=== PATIENT | male | born 1960 | race Caucasian/White ===

== ENCOUNTER → 2018-04-15 10:58 | Outpatient (REF) | payer MEDICAID, SELFPAY | LOC: CVS 10:58 | DX: R42 Dizziness and giddiness (principal); I95.9 Hypotension, unspecified | CPT/HCPCS: 93270 ==

== ENCOUNTER → 2018-06-28 07:19 | Outpatient (CLI) | payer MEDICAID, SELFPAY ==
--- NOTE | 2018-06-28 07:24 | ECHOD_ITS ---
Reason For Study: Arrhythmia Procedure This was a 2D Doppler, Color Flow transthoracic echocardiogram. Exam performed in department. Left Ventricle Normal LV size. Left ventricular systolic function is normal. The estimated ejection fraction is 55 %. Segmental dysfunction with preserved ejection fraction (see wall motion). Transmitral diastolic flow velocities suggest mild (stage 1) diastolic dysfunction (reversed pattern). Posterior-Basal: Mildly hypokinetic. Infero-Basal: Mildly hypokinetic. Right Ventricle Normal RV size. Normal systolic function. Atria Normal left atrium. Normal right atrium. Mitral Valve Normal mitral valve. Tricuspid Valve Normal tricuspid valve. Unable to estimate RV systolic pressure due to inadequate jet, pulmonary artery pressure probably normal. Aortic Valve Normal aortic valve. Pulmonic Valve Normal pulmonic valve. Great Vessels Normal aortic root. The pulmonary artery is normal size. Normal inferior vena cava. Pericardium/Pleural No pericardial effusion. MMode/2D Measurements & Calculations LVIDd: 5.0 cm IVSd: 1.2 cm Ao root diam: 3.7 cm LVIDs: 3.7 cm LVPWd: 0.96 cm LA dimension: 4.2 cm FS: 26.2 % LAV(MOD-bp): 62.5 ml LA A4 area: 19.7 cm2 RA A4 area: 14.4 cm2 LAV(MOD-bp) Indexed: 30.4 ml/m2 LAV(MOD-sp2): 62.7 ml LAV(MOD-sp4): 56.0 ml Time Measurements MV dec time: 0.20 sec Doppler Measurements & Calculations MV E max shivam: 52.8 cm/sec Lat Peak E' Shivam: 7.6 cm/sec Med Peak E' Shivam: 9.6 cm/sec MV A max shivam: 74.4 cm/sec E/E' lat: 7.0 E/E' med: 5.5 MV E/A: 0.71 MV V2 max: 73.3 cm/sec MV P1/2t max shivam: 67.4 cm/sec Ao V2 max: 116.5 cm/sec MV max P.2 mmHg MV P1/2t: 91.8 msec Ao max P.4 mmHg MV V2 mean: 46.1 cm/sec MV dec slope: 215.0 cm/sec2 Ao V2 mean: 77.4 cm/sec MV mean P.96 mmHg MVA(P1/2t): 2.4 cm2 Ao mean P.7 mmHg MV V2 VTI: 23.0 cm Ao V2 VTI: 21.5 cm LV V1 max: 82.0 cm/sec PA V2 max: 85.7 cm/sec LV V1 max P.7 mmHg LV V1 mean P.3 mmHg LV V1 mean: 52.9 cm/sec LV V1 VTI: 14.2 cm Interpretation Summary Normal LV size. Left ventricular systolic function is normal. The estimated ejection fraction is 55 %. Segmental dysfunction with preserved ejection fraction (see wall motion). Transmitral diastolic flow velocities suggest mild (stage 1) diastolic dysfunction (reversed pattern). Ordering Physician: Nitin Choi Referring Physician: Nitin Choi Performed By: Brodwolf, Minh, RCS
--- NOTE | 2018-06-28 10:45 | STRESSREP ---
Stress Test Report Exercise myocardial perfusion stress test. 57-year-old man with a history of chest pain. Medications Xanax atorvastatin. Stress protocol: Resting EKG demonstrates normal sinus rhythm with rate of 73 bpm normal intervals and noted resting blood pressure is 114/88 mmHg. The patient exercised according to the regular Gino protocol for total duration of 3 minutes and 17 seconds attaining a maximum heart rate of 153 bpm which was 94% of maximum predicted heart rate and a workload of 4.6 metabolic equivalents. The patient maintained sinus rhythm throughout the recording. There were no ST or T-wave changes noted suggest ischemia no clinical angina was noted the test was terminated due to significant shortness of breath. The resting blood pressure is 114/88 with a peak blood pressure 132/86 mmHg. Myocardial perfusion protocol. 11.9 mCi of technetium 99m sestamibi was injected at rest. The patient exercised according to regular Gino protocol for 3 minutes and at peak exercise 34.2 mCi of technetium 99m sestamibi was injected stress images were obtained stress and rest images were reconstructed and compared in the short axis vertical long and horizontal long axis. Gated images were also obtained pre- Perfusion SPECT analysis: Review of the stress images demonstrate possible previous inferior infarct versus GI attenuation artifact present. No obvious reversibility is noted to suggest ischemia but the workload attained was also noted to be low. Gated SPECT analysis: The gated ejection fraction is 50%. Conclusion: Exercise myocardial perfusion stress test at a low workload with no obvious ischemia noted. Previous inferior infarct cannot be completely excluded.
== END ==
PROVIDERS: Visit Provider Internal Medicine Cardiovascular Disease
DX: I47.2 Ventricular tachycardia (principal)
CPT/HCPCS: 78452; 93017; 93306; A9500; A4216

== ENCOUNTER 2018-07-31 15:27 | Observation (INO) | payer MEDICAID, SELFPAY ==
[2018-07-31 15:32] VITALS: BP 103/59; PULSE 87; PULSE 93; RESP 14; RESP 18; TEMP 36.4; O2SAT 99; BMI 24.7
[2018-07-31] MEDS: 0.9% Normal Saline 1,000 ML 1000 ML IV (16:23)
[2018-07-31 16:27] LABS: Absolute Neutrophil Count 4.4 X10^3/uL (2.0-7.7); Basophil# 0.06 X10^3/uL; Basophil% 0.6 % (0-1); Eosinophil# 0.25 X10^3/uL; Eosinophils% 2.6 % (0-5); Hematocrit 34.6 % (40-54); Hemoglobin 11.7 g/dl (13.0-16.5); Lymphocyte % 43.5 % (19-41); Mean Corp Hgb Conc 33.8 g/gl (32-36); Mean Corpuscular Hgb 32.8 pg (27.0-32.0); Mean Corpuscular Volume 96.9 fL (80-94); Mean Platelet Vol. 9.1 fl (6.2-12.0); Monocyte# 0.64 X10^3/uL; Monocyte% 6.6 % (0-10); Neutrophil # 4.43 X10^3/uL (2.7-7.7); Platelet Count 251 K/mm3 (150-450); RBC Distribution Width CV 12.8 % (11.6-14.6); RBC Distribution Width SD 43.7 fl (35.1-43.9); Red Blood Count 3.57 M/mm3 (4.6-6.2); White Blood Count 9.7 K/mm3 (4.4-11.0)
[2018-07-31 16:32] LABS: Anion Gap 11 (5-15); BUN 15 mg/dL (7-18); Calcium,Total 7.5 mg/dL (8.5-10.1); Chloride 114 mmol/L (98-107); Creatinine, Serum 1.36 mg/dL (0.70-1.30); EST Glomerular Filtration Rate 57 mL/min (>60); Est Glom Filt Rate - Afr Amer 69 mL/min (>60); Estimated Creatinine Clearance 64.98 ml/min; Glucose 100 mg/dL (74-106); Potassium 3.3 mmol/L (3.5-5.1); Sodium Level 145 mmol/L (136-145)
[2018-07-31 16:35] LABS: POSITIVE COUNT NO; POSITIVE DIFFERENTIAL NO; POSITIVE MORPHOLOGY NO
--- NOTE | 2018-07-31 16:58 | ED.VISSUMM ---
- ER Visit Summary Date of Service: 07/31/18 Chief Complaint: Syncope History of Present Illness: The patient is a 57 M who goes to the [facility] and is also seen Dr. Choi. He reports that he was watching a football game and drinking went to the walk-in to the bathroom and the next thing he knew his friend was waking him up on the floor. His friend reports that he did not respond for approximately 5 minutes. He did not have any seizure activity. He was incontinent of bowel and bladder. Patient complains of headache is 8 out of 10 severity. He reports he has had one onset of diarrhea today. No blood in stools or black tarry stools. He denies any shoulder, wrist, hip, neck, or back pain. He denies any chest pain or shortness of breath. Physical Examination: Vitals: 97.6, 103/59, 93, 18, 99% on room air which is not hypoxic. General: Well-nourished and well-developed. Head: Normocephalic hematoma to the left side of his forehead. Neck: Supple, no lymphadenopathy. No JVD. Nontender. Cardiovascular: Regular rate and rhythm. No murmurs. Respiratory: No respiratory distress. Clear to auscultation bilaterally. Abdominal: Soft, nontender, nondistended, normal bowel sounds. No guarding, rebound, or peritoneal signs. Back: Nontender. Extremities: Nontender, no edema. Skin: Normal color, no rash. Neurologic: Alert and oriented ?3. Cranial nerves II through XII are intact. Normal strength and sensation. Psych: Normal affect. Test Results: EKG is sinus at [address] changes. His QTc is 497. His last EKG in 2016 had a QTC of 477. Troponin is negative. Chem-7 marked potassium 3.3, chloride 114, CO2 20, calcium 7.5, creatinine 1.36. CBC is more for an H&H 11.7 34.6, 7 neutrophils 46, and lymphocytes of 44. CT brain shows chronic changes minimal left maxillary sinus mucosal thickening. CT C-spine shows degenerative changes. Emergency Department Course and Treatment: Patient received a liter of normal saline emergency department is systolic blood pressure is now in the 90s. He was given a second liter of normal saline. Treatment Plan: Patient was discussed with Dr. Oleghe. He will be admitted to the hospital for further evaluation and treatment. Disposition: Admitted in improved condition. Impression: 1. Syncope. 2. Hypertension. 3. Alcohol intoxication. 4. Renal insufficiency. 5. QT prolongation. This note was generated with [employer] dictation software. It may contain incorrect words, spelling, and punctuation that were not noted in review of the chart prior to signing ED Disposition - Plan for ED Patient: Chief Complaint: Syncope Referrals: Myranda Ta,Madhuri Milton [Primary Care Provider] -
--- NOTE | 2018-07-31 18:37 | PCM.HP.STD ---
Problem List (1) Syncope and collapse Status: Acute History of Present Illness Date of Admission: 07/31/18 Chief Complaint: transient loss of consciousness The patient is a 57 year old M presented to the ED following a syncopal episode. Patient had had quite a bit of alcohol to drink - states more than he is used to. Got up to walk to the bathroom and then passed out. The next thing he remembers is his friend standing over him waking him up. Friend states he was unresponsive for about 5 mins. Apparently had hit the left side of his forehead from the fall and complains of pain at the site. Patient denied having any chest pain or SOB, nausea or vomiting. In the ED here SBP was soft with systolic in the 90s and alcohol blood level was elevated at 240mg/dl. Currently states that he feels fine[] Past Medical History Past Medical History (Chronic Problems): Chronic Problems (Last Reviewed 06/16/18 @ 09:59 by Nitin Choi MD) Hyperlipidemia (Chronic) Hypertension (Chronic) Nicotine dependence (Chronic) Medical History: Medical History (Last Reviewed 06/16/18 @ 09:59 by Nitin Choi MD) Hyperlipidemia (Chronic) E78.5 Hypertension (Chronic) I10 Nicotine dependence (Chronic) F17.200 Non-sustained ventricular tachycardia (Acute) I47.2 Anxiety and depression F41.9, F32.9 Gynecomastia N62 Hepatomegaly R16.0 Allergies No Known Allergies Allergy (Verified 07/31/18 15:30) Home Medications: Ambulatory Orders Medication Instructions Recorded ALPRAZolam [Xanax] 0.5 mg PO DAILY PRN PRN 10/31/16 atorvastatin 40 mg tablet 40 mg PO QDAY 06/16/18 citalopram 10 mg tablet 40 mg PO DAILY tab 06/16/18 multivitamin tablet 1 tab PO QAM 06/16/18 topiramate XR 25 mg 25 mg PO QDAY 06/16/18 capsule,extended release 24 hr Surgical History: Surgical History (Last Reviewed 06/16/18 @ 09:59 by Nitin Choi MD) H/O shoulder surgery Z98.890 History of ankle surgery Z98.890 History of vascular surgery Z98.890 LLE saphenous vein laser ablation Lives: Spouse/ Significant Other Smoking Status: Current every day smoker Alcohol: Occasional Review of Systems Constitutional: Denies: Anorexia, Chills, Fever, Malaise, Weakness Eyes: Denies: Blurred vision Cardiovascular: Denies: Chest Pain, Claudication, Chest Pressure, Chest Tightness, Edema, Heaviness, Light Headedness, Orthopnea Respiratory: Denies: Cough, Hemoptysis, Pleuritic Pain, Shortness of Breath Gastrointestinal: Denies: Abdominal Pain, Vomiting Psychiatric: Reports: Anxiety VTE Information - Inpt Only VTE Present on Admission: Yes VTE Mechan Device Prophylaxis: None VTE Pharm Prophylaxis ordered?: Yes Patient Problems: Active and Suspected Problems (Last Reviewed 06/16/18 @ 09:59 by Nitin Choi MD) Syncope and collapse (Acute) - Physical Exam General: Alert, Oriented x3, Cooperative, No apparent distress HEENT: - - swelling, abrasion and bruising of the oleft side of forehead, tender as well Oral: Moist Mucosa Neck: Supple Lungs: Clear to auscultation, Normal air movement, No rhonchi, No wheeze, No rales Cardiovascular: Regular rate, Regular Rhythm, Normal S1, Normal S2, No murmurs, - - pulse rate 88/min Abdomen: Bowel Sounds Present, Soft, Non Tender, Non-Distended, No Hepato-splenomegaly Extremities: No clubbing, No cyanosis, No edema, Capillary Refill Less than 3 Seconds Skin: No rashes Musculoskeletal: No Muscle Wasting Neurological: Cranial nerves II-XII grossly intact, Deep Tendon Reflexes 2+/4 and Symmetrical, Neuro grossly intact, Motor Exam 5/5 strength throughout Psych/Mental Status: Normal Affect, Appropriate Vital Signs Temp Pulse Resp BP Pulse Ox 97.6 F L 93 18 103/59 L 99 07/31/18 15:32 07/31/18 15:32 07/31/18 15:32 07/31/18 15:32 07/31/18 15:32 Assessment/Plan All Active Problems (Last Reviewed 06/16/18 @ 09:59 by Nitin Choi MD) Syncope and collapse (Acute) Dizziness and giddiness (Acute) Non-sustained ventricular tachycardia (Acute) 1. Syncope. may have been multifactorial - vasovagal, alcohol intoxication, orthostatic hypotension. Place patient on observation, telemonitor. Check orthostatics. Rehydrate with IV fluids. If stable tomorrow then discharge. Patient has already had extensive work up for structural heart disease and for arrhythmogenesis recently. Will not repeat. 2. Alcohol abuse. ? Binge type. Will need to curriculum counselor on moderation with alcohol use 3. generalized anxiety disorder with occasional panic attacks. Continue with anxiolysis 4. DVT prophylaxis with Lovenox Code Visit OBSV E&M: 35048 Initial observation care L3
[2018-07-31] MEDS: 0.9% Normal Saline 1,000 ML 999 ML IV (18:59)
[2018-07-31 19:00] VITALS: BP 117/85; PULSE 103; PULSE 99; RESP 16; TEMP 36.8; O2SAT 100; BMI 24.5; BMI 24.7
--- NOTE | 2018-07-31 19:35 | NURSING ---
Called ER Charge nurse at 3601 to send patient.
[2018-07-31] MEDS: Ketorolac 30 MG/ML Syringe IV (19:45)
[2018-07-31 22:35] VITALS: BP 127/94; PULSE 83; RESP 16; TEMP 36.8; O2SAT 98
[2018-07-31] MEDS: Acetaminophen 325 MG Tablet 650 MG PO (22:49)
[2018-07-31] MEDS: Topiramate 25 MG Tablet PO (22:49)
[2018-07-31] MEDS: ALPRAZolam 0.5 MG Tablet PO (22:49)
[2018-07-31 23:00] VITALS: PULSE 84
[2018-08-01] VITALS (7 sets, daily range): BP systolic 130–145; BP diastolic 71–98; PULSE 77–94; RESP 16–18; TEMP 36.5–37.2; O2SAT 96–98
[2018-08-01] MEDS: HYDROcodone Bitartrate/Apap 5/325 Tablet PO ×2 (00:26→06:26)
[2018-08-01 06:12] LABS: Absolute Neutrophil Count 3.8 X10^3/uL (2.0-7.7); Basophil# 0.04 X10^3/uL; Basophil% 0.6 % (0-1); Eosinophil# 0.19 X10^3/uL; Eosinophils% 2.6 % (0-5); Hematocrit 31.4 % (40-54); Hemoglobin 10.4 g/dl (13.0-16.5); Lymphocyte % 35.9 % (19-41); Mean Corp Hgb Conc 33.1 g/gl (32-36); Mean Corpuscular Hgb 32.2 pg (27.0-32.0); Mean Corpuscular Volume 97.2 fL (80-94); Mean Platelet Vol. 9.7 fl (6.2-12.0); Monocyte# 0.57 X10^3/uL; Monocyte% 7.9 % (0-10); Neutrophil # 3.81 X10^3/uL (2.7-7.7); Neutrophil % 52.6 % (47-70); Platelet Count 190 K/mm3 (150-450); RBC Distribution Width CV 12.7 % (11.6-14.6); Red Blood Count 3.23 M/mm3 (4.6-6.2); White Blood Count 7.2 K/mm3 (4.4-11.0)
[2018-08-01 06:23] LABS: POSITIVE COUNT NO; POSITIVE DIFFERENTIAL NO; POSITIVE MORPHOLOGY NO
[2018-08-01 06:35] LABS: AST(SGOT) 27 U/L (15-37); Alanine Aminotransfer ALT/SGPT 23 U/L (16-61); Albumin, Serum 2.8 g/dL (3.2-5.0); Alkaline Phosphatase 79 U/L (45-117); Anion Gap 10 (5-15); BUN 16 mg/dL (7-18); Calcium,Total 7.3 mg/dL (8.5-10.1); Chloride 112 mmol/L (98-107); Creatinine, Serum 0.94 mg/dL (0.70-1.30); EST Glomerular Filtration Rate 87 mL/min (>60); Est Glom Filt Rate - Afr Amer 105 mL/min (>60); Estimated Creatinine Clearance 94.02 ml/min; Globulin 2.7 g/dL (2.2-4.2); Glucose 77 mg/dL (74-106); Protein, Total 5.5 g/dL (6.4-8.2); Sodium Level 142 mmol/L (136-145)
[2018-08-01] MEDS: Multivitamins,Therapeutic Tablet 1 TABLET PO (08:30)
[2018-08-01] MEDS: Enoxaparin 40 MG/0.4 ML Syringe SC (09:50)
[2018-08-01] MEDS: Citalopram 40 MG TABLET PO (09:50)
--- NOTE | 2018-08-01 10:49 | PCM.DC ---
- Discharge Diagnoses Current Active Problems: Current Active and Chronic Problems (Last Reviewed 06/16/18 @ 09:59 by Nitin Choi MD) Syncope and collapse (Acute) You will use the following diet at home:: No restrictions, Regular Discharge Activity: Return to Normal Activity, No Restrictions Allergies/Adverse Reactions: Allergies No Known Allergies Allergy (Verified 07/31/18 15:30) Medications to take at Discharge ALPRAZolam [Xanax] 0.5 mg PO DAILY PRN PRN 10/31/16 atorvastatin 40 mg tablet 40 mg PO QDAY 06/16/18 citalopram 10 mg tablet 40 mg PO DAILY tab 06/16/18 multivitamin tablet 1 tab PO QAM 06/16/18 topiramate XR 25 mg capsule,extended release 24 hr 25 mg PO QDAY 06/16/18 Loratadine 10 mg PO DAILY 07/31/18 Losartan Potassium 25 mg PO DAILY 07/31/18 Ibuprofen [Ibu] 800 mg PO TID 3 Days #0 08/01/18 Primary Care Physician: Madhuri Cortez [Primary Care Provider] - Test Results: Test results from this visit will be discussed in further detail at your follow-up appointment, if applicable. Proposed Discharge Date: 08/01/18
--- NOTE | 2018-08-01 10:50 | PCM.DC.SUM ---
Discharge Date and Diagnosis - Problem List Patient Problems: Active and Suspected Problems (Last Reviewed 06/16/18 @ 09:59 by Nitin Choi MD) Syncope and collapse (Acute) Date of Admission: 07/31/18 Date of Discharge: 08/01/18 - Primary Discharge Diagnosis Active and Suspected Problems (Last Reviewed 06/16/18 @ 09:59 by Nitin Choi MD) Syncope and collapse (Acute) - Secondary Discharge Diagnosis Chronic Problems (Last Reviewed 06/16/18 @ 09:59 by Nitin Choi MD) Hyperlipidemia (Chronic) Hypertension (Chronic) Nicotine dependence (Chronic) Hospital Course and Treatment Operations: None Procedures: None Summary of Care Provided: The patient is a 57 year old M admitted from the ED following a presentation for syncope and fall with blunt and soft tissue injuries to the left side of his forehead and left side of ribs. Orthostatics were negative. Blood alcohol levels were markedly elevated at 240 mg/dl and it was likely the syncope was related to alcohol intoxication. Patient was observed overnight and there were no untoward events. Today patient is doing fine and is stable for discharge. Has been able to ambulate without any issues or difficulties. Fairly steady on his feet.[] Discharge Diet: No Restrictions, Light diet - advance as tolerated Discharge Activity: Return to Normal Activity, No Restrictions Home Medications: Medications to take at Discharge ALPRAZolam [Xanax] 0.5 mg PO DAILY PRN PRN 10/31/16 atorvastatin 40 mg tablet 40 mg PO QDAY 06/16/18 citalopram 10 mg tablet 40 mg PO DAILY tab 06/16/18 multivitamin tablet 1 tab PO QAM 06/16/18 topiramate XR 25 mg capsule,extended release 24 hr 25 mg PO QDAY 06/16/18 Loratadine 10 mg PO DAILY 07/31/18 Losartan Potassium 25 mg PO DAILY 07/31/18 Ibuprofen [Ibu] 800 mg PO TID 3 Days #0 08/01/18 Primary Care Physician: Madhuri Cortez [Primary Care Provider] - Additional Instructions: Advised on alcohol intake in moderation Disposition: Home Minutes spent on discharge:: 30 Patient Condition:: Good Medical Necessity - Tobacco Use Smoking Status: Current every day smoker Meaningful Use Info Meaningful Use Diagnoses (Choose all that apply): None applicable Code Visit OBSV E&M: 93822 Observation care discharge
== END 2018-08-01 10:50 | disposition home or self-care (01) ==
LOC: ED 15:54 → PCU 17:57
PROVIDERS: Admitting Provider Internal Medicine; Emergency Provider Emergency Medicine; Visit Provider Internal Medicine
DX: R55 Syncope and collapse (principal); R32 Unspecified urinary incontinence; R15.9 Full incontinence of feces; I10 Essential (primary) hypertension; F10.129 Alcohol abuse with intoxication, unspecified; Y90.8 Blood alcohol level of 240 mg/100 ml or more; I45.81 Long QT syndrome; N28.9 Disorder of kidney and ureter, unspecified; R19.7 Diarrhea, unspecified; R51 Headache; E78.5 Hyperlipidemia, unspecified; F32.9 Major depressive disorder, single episode, unspecified; Z79.899 Other long term (current) drug therapy; F41.1 Generalized anxiety disorder; F17.200 Nicotine dependence, unspecified, uncomplicated
CPT/HCPCS: 36415; 70450; 72125; 80048; 80053; 80320; 84484; 85025; 93005; 96361; 96372; 96374; 99218; 99285; 99406; J7030; G0378; G0480; J3490

== ENCOUNTER → 2018-10-29 10:08 | Outpatient (CLI) | payer MEDICAID, SELFPAY ==
[2018-07-31 19:00] VITALS: BMI 24.5
--- NOTE | 2018-10-29 10:35 | RAD_ITS ---
HISTORY: injury three weeks ago fall pain rt hip COMPARISON: None FINDINGS: XR Spine Lumbar 3 Views: VERTEBRA Generalized bony demineralization. No acute fracture or suspicious bony lesion. T12-L1 mild anterolateral endplate spurring. L5-S1 mild disc space narrowing. The posterior elements appear intact. No spondylolisthesis. Marginal sclerosis of the right SI joint inferiorly. RAD/Lumbar Spine 2 or 3 Views IMPRESSION: 1. No fracture or acute disease. 2. Mild degenerative changes. at 0709 Reported and signed by: Americo Irene MD Electronically Signed: Americo Irene, at 7:07 EST Tel , Service support ,
--- NOTE | 2018-10-29 10:45 | RAD_ITS ---
HISTORY: fall three weeks ago pain rt hip COMPARISON: None FINDINGS: # of images incl. paperwork: 5 XR Sacrum/Coccyx 5 views No fracture, acute disease, or suspicious lesion. Marginal sclerosis of the right SI joint inferiorly. No ankylosis. The right and left hip joints appear preserved. No bony erosions. RAD/Sacrum-Coccyx min 2 Views IMPRESSION: 1. No fracture or acute disease. 2. Mild degenerative changes. at 0714 Reported and signed by: Americo Irene MD Electronically Signed: Americo Irene, at 7:12 EST Tel , Service support ,
--- NOTE | 2018-10-29 10:57 | RAD_ITS ---
HISTORY: fell three weeks ago pain rt hip COMPARISON: None FINDINGS: 3 views pelvis and right hip: No fracture, dislocation, or acute disease. The sacroiliac and hip joints appear preserved. No bony erosions. IMPRESSION: Normal right hip. at 0700 Reported and signed by: Americo Irene MD Electronically Signed: Americo Irene, at 6:58 EST Tel , Service support , RAD/HIP, UNI W/ Pelvis 2-3 Views
--- OUTSIDE RECORDS SUMMARY | 2018-12-24 05:14 | XMS RPT_ITS ---
:1960 Author Organization OHIP Support Name Relationship Address Phone RIA VALENZUELA Unavailable [address] + [place] [address] UE Unavailable Unavailable Unavailable RIA VALENZUELA Unavailable [address] + [place] [address] UE Unavailable Unavailable Unavailable RIA VALENZUELA Unavailable [address] + [place] [address] UE Unavailable Unavailable Unavailable RIA VALENZUELA Unavailable [address] + [place] [address] UE Unavailable Unavailable Unavailable RIA VALENZUELA Unavailable [address] + [place] [address] UE Unavailable Unavailable Unavailable RIA VALENZUELA Unavailable [address] + [place] [address] UE Unavailable Unavailable Unavailable VALENZUELA RIA Unavailable [address] + [place] [address] UE Unavailable Unavailable Unavailable RIA VALENZUELA Unavailable [address] + [place] [address] UE Unavailable Unavailable Unavailable RIA VALENZUELA Unavailable [address] + [place] [address] UE Unavailable Unavailable Unavailable RIA VALENZUELA Unavailable [address] + [place] [address] UE Unavailable Unavailable Unavailable RIA VALENZUELA Unavailable [address] + [place] [address] UE Unavailable Unavailable Unavailable Care Team Providers Name Role Phone Nitin Choi Attending Unavailable CLINIC, [facility] RO[facility] Referring Unavailable CLINIC, [facility] Primary Care Unavailable Jamil Martinez Attending Unavailable Nitin Choi Attending Unavailable Cally Vivar Attending Unavailable Cally Vivar Referring Unavailable CLINIC, [facility] Primary Care Unavailable Oleghe, Ifijen Admitting Unavailable CLINIC, [facility] Primary Care Unavailable Oleghe, Ifijen Consulting Unavailable Sementi, Jaja Attending Unavailable Oleghe, Ifijen Admitting Unavailable CLINIC, [facility] Primary Care Unavailable Oleghe, Ifijen Consulting Unavailable Sementi, Jaja Attending Unavailable CLIN[facility], [facility] Primary Care Unavailable Oleghe, Ifijen Admitting Unavailable Oleghe, Ifijen Attending Unavailable Steph, Morning Sun Attending Unavailable Steph, Morning Sun Referring Unavailable CLINIC, [facility] Primary Care Unavailable [place] INTERNATIONAL PROJECT ENGINEER, Cally Consulting Unavailable Kilner, Ally Attending Unavailable Kilner, Ally Attending Unavailable CLINIC, [facility] Attending Unavailable CLINIC, [facility] Primary Care Unavailable [place] INTERNATIONAL PROJECT ENGINEER, Cally Consulting Unavailable [place] INTERNATIONAL PROJECT ENGINEER, Cally Referring Unavailable PROBLEMS PROBLEMS DATE TYPE CONDITION / CODE ATTENDING STATUS SOURCE 10/29/2018 Unknown M54.5 - Low back [place] INTERNATIONAL PROJECT ENGINEER, Active [place] pain / [facility] M54.5(ICD-10) Hospital Repository 10/29/2018 Unknown M25.551 - Pain in [place] INTERNATIONAL PROJECT ENGINEER, Active [place] right hip / [facility] Community M25.551(ICD-10) Hospital Repository 07/27/2018 Unknown R07.9 - Chest Steph, Nitin Active [place] pain, unspecified Community / R07.9(ICD-10) Hospital Repository 06/16/2018 Unknown I47.2 - Steph, Nitin Active [facility] Ventricular Community tachycardia / Hospital I47.2(ICD-10) Repository 06/16/2018 Unknown I10 - Essential Steph, Nitin Active [place] (primary) Community hypertension / Hospital I10(ICD-10) Repository 06/16/2018 Unknown E78.5 - Steph, Morning Sun Active [facility] Hyperlipidemia, Community unspecified / Hospital E78.5(ICD-10) Repository 06/17/2018 Unknown R42 - Dizziness [place], Jamil Active [place] and giddiness / Community R42(ICD-10) Hospital Repository PROCEDURES PROCEDURES No Procedure Records FoundRESULTS RESULTS HIP, UNI W/ PELVIS Observed: 10/29/2018 Status: F Source: [place] 2-[facility] [place] [facility] Imaging Services [address] [place] [address] HIP, UNI W/ Pelvis 2-3 Views MR#: [id number] Acct: [id number] Name: YADIEL SOSA Rep #: [id number] : 1960 M 58 From: Americo Irene MD PCP: MATHEUS KESSLER Status: REG CLI Study: HIP, UNI W/ Pelvis 2-3 Views Date of Exam: 10/29/18 Exam# [id number] Ordering Dr: Cally Licona [employer] LADLE TENDERHang HISTORY: fell three weeks ago pain rt hip COMPARISON: None FINDINGS: 3 views pelvis and right hip: No fracture, dislocation, or acute disease. The sacroiliac and hip joints appear preserved. No bony erosions. IMPRESSION: Normal right hip. at 0700 Reported and signed by: Americo Irene MD Electronically Signed: Americo Irene, at 6:58 EST Tel , Service support , RAD/HIP, UNI W/ Pelvis 2-3 Views CC: Cally BLISS; [facility] K[facility] Principal Planner: Signed LUMBAR SPINE 2 OR 3 Observed: 10/29/2018 Status: F Source: [place] VIEWS 10:19 AM [facility] REPOSITORY [facility] Imaging Services [address] [place] [id number] Lumbar Spine 2 or 3 Views MR#: [id number] Acct: [id number] Name: YADIEL SOSA Rep #: [id number] : 1960 M 58 From: Americo Irene MD PCP: [facility] KESSLER Status: REG CLI Study: Lumbar Spine 2 or 3 Views Date of Exam: 10/29/18 Exam# [id number] Ordering Dr: Cally Licona [employer] HISTORY: injury three weeks ago fall pain rt hip COMPARISON: None FINDINGS: XR Spine Lumbar 3 Views: VERTEBRA Generalized bony demineralization. No acute fracture or suspicious bony lesion. T12-L1 mild anterolateral endplate spurring. L5-S1 mild disc space narrowing. The posterior elements appear intact. No spondylolisthesis. Marginal sclerosis of the right SI joint inferiorly. RAD/Lumbar Spine 2 or 3 Views IMPRESSION: 1. No fracture or acute disease. 2. Mild degenerative changes. at 0709 Reported and signed by: Americo Irene MD Electronically Signed: Americo Irene, at 7:07 EST Tel , Service support , CC: Cally BLISS; MAT[facility] GARIBAY [facility] Principal Planner: Signed SACRUM-COCCYX MIN 2 VIEWS Observed: 10/29/2018 Status: F Source: [place] 10:19 AM [facility] REPOSITORY [facility] Imaging Services [address] [place] [address] Sacrum-Coccyx min 2 Views MR#: [id number] Acct: [id number] Name: YADIEL SOSA Rep #: [id number] : 1960 58 From: Americo Irene MD PCP: [facility] GAR[facility]AY [facility] Status: REG CLI Study: Sacrum-Coccyx min 2 Views Date of Exam: 10/29/18 Exam# [id number] Ordering Dr: Cally Licona BULL LADLE TENDER-C HISTORY: fall three weeks ago pain rt hip COMPARISON: None FINDINGS: # of images incl. paperwork: 5 XR Sacrum/Coccyx 5 views No fracture, acute disease, or suspicious lesion. Marginal sclerosis of the right SI joint inferiorly. No ankylosis. The right and left hip joints appear preserved. No bony erosions. RAD/Sacrum-Coccyx min 2 Views IMPRESSION: 1. No fracture or acute disease. 2. Mild degenerative changes. at 0714 Reported and signed by: Americo Irene MD Electronically Signed: Americo Irene, at 7:12 EST Tel , Service support , CC: Cally BLISS; [facility] Principal Planner: Signed 12 LEAD ELECTROCARDIOGRAM Observed: 08/03/2018 Status: F Source: [place] 1:27 PM [facility] REPOSITORY [facility] Cardiovascular Services [address] [place] [address] 12 Lead EKG 07/31/18 1528 MR#: [id number] Acct: [id number] Name: ANGELYADIEL DAVIS Rep #: [id number] : 1960 57 From: David Alvarado MD Attending Dr: Lake Mares M.D. Status: DIS MIKE Ordering Dr: Sandip Bhardwaj MD Date: 07/31/18 Location: [facility] Sex: M C Admitted: 07/31/18 Test Reason : SYNCOPE Blood Pressure : / mmHG Vent. Rate : 094 BPM Atrial Rate : 094 BPM P-R Int : 114 ms QRS Dur : 088 ms QT Int : 398 ms P-R-T Axes : -25 044 016 degrees QTc Int : 497 ms Normal sinus rhythm Prolonged QT Abnormal ECG Confirmed by DAVID ALVARADO ([id number]), offline editor GUILLERMO TURNER ([id number]) on 08/03/2018 1:26:56 PM Referred By: LEELEE Confirmed By:DAVID ALVARADO 08/03/18 1327 Date David Alvarado MD CC: Lake Mares M.D.; Sandip Bhardwaj MD; [facility] Signed DISCHARGE SUMMARY Observed: 08/01/2018 Status: F Source: [place] 10:56 AM [facility] REPOSITORY [facility] Medical Records Department [address] [place] [address] Discharge Summary 08/01/18 1050 MR#: [id number] Acct: [id number] Name: YADIEL SOSA Rep #: [id number] : 1960 57 From: Lake Mares MD PCP: [facility] GARIBAY [facility] Status: ADM MIKE Y Location: [place] [address] Discharge Date and Diagnosis - Problem List Patient Problems: Active and Suspected Problems (Last Reviewed 06/16/18 @ 09:59 by Nitin Choi MD) Syncope and collapse (Acute) Date of Admission: 07/31/18 Date of Discharge: 08/01/18 - Primary Discharge Diagnosis Active and Suspected Problems (Last Reviewed 06/16/18 @ 09:59 by Nitin Choi MD) Syncope and collapse (Acute) - Secondary Discharge Diagnosis Chronic Problems (Last Reviewed 06/16/18 @ 09:59 by Nitin Choi MD) Hyperlipidemia (Chronic) Hypertension (Chronic) Nicotine dependence (Chronic) Hospital Course and Treatment Operations: None Procedures: None Summary of Care Provided: The patient is a 57 year old M admitted from the ED following a presentation for syncope and fall with blunt and soft tissue injuries to the left side of his forehead and left side of ribs. Orthostatics were negative. Blood alcohol levels were markedly elevated at 240 mg/dl and it was likely the syncope was related to alcohol intoxication. Patient was observed overnight and there were no untoward events. Today patient is doing fine and is stable for discharge. Has been able to ambulate without any issues or difficulties. Fairly steady on his feet.[] Discharge Diet: No Restrictions, Light diet - advance as tolerated Discharge Activity: Return to Normal Activity, No Restrictions Home Medications: Medications to take at Discharge ALPRAZolam [Xanax] 0.5 mg PO DAILY PRN PRN 10/31/16 atorvastatin 40 mg tablet 40 mg PO QDAY 06/16/18 citalopram 10 mg tablet 40 mg PO DAILY tab 06/16/18 multivitamin tablet 1 tab PO QAM 06/16/18 topiramate XR 25 mg capsule,extended release 24 hr 25 mg PO QDAY 06/16/18 Loratadine 10 mg PO DAILY 07/31/18 Losartan Potassium 25 mg PO DAILY 07/31/18 Ibuprofen [Ibu] 800 mg PO TID 3 Days #0 08/01/18 Primary Care Physician: Matheus Cortez [Primary Care Provider] - Additional Instructions: Advised on alcohol intake in moderation Disposition: Home Minutes spent on discharge:: 30 Patient Condition:: Good Medical Necessity - Tobacco Use Smoking Status: Current every day smoker Meaningful Use Info Meaningful Use Diagnoses (Choose all that apply): None applicable Code Visit OBSV E AND M: 25218 Observation care discharge 08/01/18 1056 <Electronically signed by Lake Mares MD> Date Lake Mares MD Cosigner Signature (if applicable): Date CC: Lake Mares M.D.; [facility]IBAY [facility] Signed DISCHARGE INSTRUCTION Observed: 08/01/2018 Status: F Source: [place] 10:50 AM [facility] REPOSITORY [facility] Medical Records Department [address] [place] [address] Instructions for Home/Discharge Instructions 08/01/18 1049 MR#: [id number] Acct: [id number] Name: YADIEL SOSA Rep #: [id number] : 1960 57 From: Lake Mares MD PCP: [facility] GARIBAY [facility] Status: ADM MIKE - Discharge Diagnoses Current Active Problems: Current Active and Chronic Problems (Last Reviewed 06/16/18 @ 09:59 by Nitin Choi MD) Syncope and collapse (Acute) You will use the following diet at home:: No restrictions, Regular Discharge Activity: Return to Normal Activity, No Restrictions Allergies/Adverse Reactions: Allergies No Known Allergies Allergy (Verified 07/31/18 15:30) Medications to take at Discharge ALPRAZolam [Xanax] 0.5 mg PO DAILY PRN PRN 10/31/16 atorvastatin 40 mg tablet 40 mg PO QDAY 06/16/18 citalopram 10 mg tablet 40 mg PO DAILY tab 06/16/18 multivitamin tablet 1 tab PO QAM 06/16/18 topiramate XR 25 mg capsule,extended release 24 hr 25 mg PO QDAY 06/16/18 Loratadine 10 mg PO DAILY 07/31/18 Losartan Potassium 25 mg PO DAILY 07/31/18 Ibuprofen [Ibu] 800 mg PO TID 3 Days #0 08/01/18 Primary Care Physician: Matheus Cortez [Primary Care Provider] - Test Results: Test results from this visit will be discussed in further detail at your follow-up appointment, if applicable. Proposed Discharge Date: 08/01/18 08/01/18 1050 <Electronically signed by Lake Mares MD> Date Lake Mares MD CC: MATHEUS KESSLER CBC W/DIFF, AUTOMATED Collected: 08/01/2018 Status: F Source: [place] 5:24 AM [facility] REPOSITORY TYPE CODE TESTS RESULT OUT OF RANGE REFERENCE UNITS LAB L100.1000 4.4-11.0 K/mm3 Normal WBC 7.2 LAB L100.1200 4.6-6.2 M/mm3 Low RBC 3.23 LAB L100.1300 13.0-16.5 g/dl Low HGB 10.4 LAB L100.1400 40-54 % Low HCT 31.4 LAB L100.1500 80-94 fL High MCV 97.2 LAB L100.1600 27.0-32.0 pg High MCH 32.2 LAB L100.1700 32-36 g/gl Normal MCHC 33.1 LAB L100.1810 11.6-14.6 % Normal RDW CV 12.7 LAB L100.1820 35.1-43.9 fl Normal RDW SD 43.0 LAB L100.1900 150-450 K/mm3 Normal PLT 190 LAB L100.2000 6.2-12.0 fl Normal MPV 9.7 LAB L100.2100 47-70 % Normal NEUT% 52.6 LAB L100.2200 19-41 % Normal LY% 35.9 LAB L100.2300 0-10 % Normal MONO% 7.9 LAB L100.2400 0-5 % Normal EO% 2.6 LAB L100.2500 0-1 % Normal BASO% 0.6 LAB L100.2550 0.0-0.9 % Normal IM GRAN % 0.400 Result Comment: IG% - Immature Granulocytes (promyelocytes, myelocytes and metamyelocytes) > 1% indicates that a LEFT SHIFT is Present. LAB L100.2620 2.0-7.7 X10 3/uL Normal Absolute Neut 3.8 LAB L100.2720 0.83-4.51 X10 3/ul Normal Absolute Lymph 2.60 Performed By: #### L100.0100 #### [facility] [address] [place], [address] COMPREHENSIVE METABOLIC Collected: 08/01/2018 Status: F Source: [facility] 5:24 AM [facility] REPOSITORY TYPE CODE TESTS RESULT OUT OF RANGE REFERENCE UNITS LAB L501.0100 74-106 mg/dL Normal GLU 77 Result Comment: Please note revised GLUCOSE reference range effective 2018. LAB L501.1000 7-18 mg/dL Normal BUN 16 LAB L501.1100 0.70-1.30 mg/dL Normal CREAT,SERUM 0.94 Result Comment: The validity of the calculated GFR AND GFRAA in patients over 70 years has not been determined. Clinical correlation is essential. LAB L501.1110 >60 mL/min Normal EST GFR 87 Result Comment: Non- GFR Calc LAB L501.1115 >60 mL/min Normal EST GFR - AA 105 Result Comment: GFR Calc LAB L501.1255 ml/min Normal Estimated CRCL 94.02 LAB L501.1300 10-20 RATIO Normal BUN/CRE 17.0 LAB L501.1500 6.4-8. g/dL Low 2 T PROT 5.5 LAB L501.1800 3.2-5. g/dL Low 0 ALB 2.8 LAB L501.1950 2.2-4. g/dL Normal 2 GLOB 2.7 LAB L501.2000 0.9-2. RATIO Normal 4 A/G 1.0 LAB L501.2200 8.5-10 mg/dL Low .1 CA 7.3 LAB L501.4100 15-37 U/L Normal AST 27 LAB L501.4305 45-117 U/L Normal ALK P 79 LAB L501.4405 16-61 U/L Normal ALT 23 LAB L501.4600 0.20-1 mg/dL Normal .00 T BILI 0.70 LAB L501.5300 136-14 mmol/L Normal 5 NA 142 LAB L501.5600 3.5-5. mmol/L Normal 1 K 4.0 LAB L501.5900 98-107 mmol/L High CL 112 LAB L501.6100 21.0-3 mmol/L Low 2.0 CO2 20.0 LAB L501.6200 5-15 Normal GAP 10 Performed By: #### L500.4050 #### [facility] [address] [place], [address] EMERGENCY DEPARTMENT Observed: 08/01/2018 Status: F Source: [facility] SUMMARY 12:39 AM [facility] REPOSITORY [facility] Medical Records Department [address] [place] [address] Emergency Department Summary 07/31/18 1658 MR#: [id number] Acct: [id number] Name: NITESH SOSAHAO Pond Rep #: [id number] : 1960 57 From: Sandip Bhardwaj MD PCP: [facility] Status: ADM MIKE - ER Visit Summary Date of Service: 07/31/18 Chief Complaint: Syncope History of Present Illness: The patient is a 57 M who goes to the [facility] and is also seen Dr. Choi. He reports that he was watching a football game and drinking went to the walk-in to the bathroom and the next thing he knew his friend was waking him up on the floor. His friend reports that he did not respond for approximately 5 minutes. He did not have any seizure activity. He was incontinent of bowel and bladder. Patient complains of headache is 8 out of 10 severity. He reports he has had one onset of diarrhea today. No blood in stools or black tarry stools. He denies any shoulder, wrist, hip, neck, or back pain. He denies any chest pain or shortness of breath. Physical Examination: Vitals: 97.6, 103/59, 93, 18, 99% on room air which is not hypoxic. General: Well-nourished and well-developed. Head: Normocephalic hematoma to the left side of his forehead. Neck: Supple, no lymphadenopathy. No JVD. Nontender. Cardiovascular: Regular rate and rhythm. No murmurs. Respiratory: No respiratory distress. Clear to auscultation bilaterally. Abdominal: Soft, nontender, nondistended, normal bowel sounds. No guarding, rebound, or peritoneal signs. Back: Nontender. Extremities: Nontender, no edema. Skin: Normal color, no rash. Neurologic: Alert and oriented 3. Cranial nerves II through XII are intact. Normal strength and sensation. Psych: Normal affect. Test Results: EKG is sinus at [address] changes. His QTc is 497. His last EKG in 2016 had a QTC of 477. Troponin is negative. Chem-7 marked potassium 3.3, chloride 114, CO2 20, calcium 7.5, creatinine 1.36. CBC is more for an H AND H 11.7 34.6, 7 neutrophils 46, and lymphocytes of 44. CT brain shows chronic changes minimal left maxillary sinus mucosal thickening. CT C-spine shows degenerative changes. Emergency Department Course and Treatment: Patient received a liter of normal saline emergency department is systolic blood pressure is now in the 90s. He was given a second liter of normal saline. Treatment Plan: Patient was discussed with Dr. Mares. He will be admitted to the hospital for further evaluation and treatment. Disposition: Admitted in improved condition. Impression: 1. Syncope. 2. Hypertension. 3. Alcohol intoxication. 4. Renal insufficiency. 5. QT prolongation. This note was generated with [employer]ael[employer] dictation software. It may contain incorrect words, spelling, and punctuation that were not noted in review of the chart prior to signing ED Disposition - Plan for ED Patient: Chief Complaint: Syncope Referrals: Matheus Cortez [Primary Care Provider] - What to do if you have Problems For any increased pain, shortness of breath, bleeding, nausea or vomiting, chest pain, or any unexpected problems, contact your Primary Care Provider. Call [facility] ([phone]) or report to the closest Emergency Room. Call 911 if necessary. 08/01/18 0039 <Electronically signed by Sandip Bhardwaj MD> Date Sandip Bhardwaj MD Cosigner Signature (If Indicated): Date CC: [facility] GARIBAY [facility] HISTORY AND PHYSICAL Observed: 07/31/2018 Status: F Source: STEM EXAM 6:50 PM [facility] REPOSITORY [facility] Medical Records Department [address] [place] [address] History and Physical 07/31/18 1837 MR#: [id number] Acct: [id number] Name: YADIEL SOSA Rep #: [id number] : 1960 57 From: Lake Mares MD PCP: MAT[facility]US GARIBAY [facility] Status: ADM MIKE Y Location: [place] [address] Problem List (1) Syncope and collapse Status: Acute History of Present Illness Date of Admission: 07/31/18 Chief Complaint: transient loss of consciousness The patient is a 57 year old M presented to the ED following a syncopal episode. Patient had had quite a bit of alcohol to drink - states more than he is used to. Got up to walk to the bathroom and then passed out. The next thing he remembers is his friend standing over him waking him up. Friend states he was unresponsive for about 5 mins. Apparently had hit the left side of his forehead from the fall and complains of pain at the site. Patient denied having any chest pain or SOB, nausea or vomiting. In the ED here SBP was soft with systolic in the 90s and alcohol blood level was elevated at 240mg/dl. Currently states that he feels fine[] Past Medical History Past Medical History (Chronic Problems): Chronic Problems (Last Reviewed 06/16/18 @ 09:59 by Nitin Choi MD) Hyperlipidemia (Chronic) Hypertension (Chronic) Nicotine dependence (Chronic) Medical History: Medical History (Last Reviewed 06/16/18 @ 09:59 by Nitin Choi MD) Hyperlipidemia (Chronic) E78.5 Hypertension (Chronic) I10 Nicotine dependence (Chronic) F17.200 Non-sustained ventricular tachycardia (Acute) I47.2 Anxiety and depression F41.9, F32.9 Gynecomastia N62 Hepatomegaly R16.0 Allergies No Known Allergies Allergy (Verified 07/31/18 15:30) Home Medications: Ambulatory Orders Medication Instructions Recorded ALPRAZolam [Xanax] 0.5 mg PO DAILY PRN PRN 10/31/16 atorvastatin 40 mg tablet 40 mg PO QDAY 06/16/18 Surgical History: Surgical History (Last Reviewed 06/16/18 @ 09:59 by Nitin Choi MD) H/O shoulder surgery Z98.890 History of ankle surgery Z98.890 History of vascular surgery Z98.890 LLE saphenous vein laser ablation Lives: Spouse/ Significant Other Smoking Status: Current every day smoker Alcohol: Occasional Review of Systems Constitutional: Denies: Anorexia, Chills, Fever, Malaise, Weakness Eyes: Denies: Blurred vision Cardiovascular: Denies: Chest Pain, Claudication, Chest Pressure, Chest Tightness, Edema, Heaviness, Light Headedness, Orthopnea Respiratory: Denies: Cough, Hemoptysis, Pleuritic Pain, Shortness of Breath Gastrointestinal: Denies: Abdominal Pain, Vomiting Psychiatric: Reports: Anxiety VTE Information - Inpt Only VTE Present on Admission: Yes VTE Mechan Device Prophylaxis: None VTE Pharm Prophylaxis ordered?: Yes Patient Problems: Active and Suspected Problems (Last Reviewed 06/16/18 @ 09:59 by Nitin Choi MD) Syncope and collapse (Acute) - Physical Exam General: Alert, Oriented x3, Cooperative, No apparent distress HEENT: - - swelling, abrasion and bruising of the oleft side of forehead, tender as well Oral: Moist Mucosa Neck: Supple Lungs: Clear to auscultation, Normal air movement, No rhonchi, No wheeze, No rales Cardiovascular: Regular rate, Regular Rhythm, Normal S1, Normal S2, No murmurs, - - pulse rate 88/min Abdomen: Bowel Sounds Present, Soft, Non Tender, Non-Distended, No Hepato-splenomegaly Extremities: No clubbing, No cyanosis, No edema, Capillary Refill Less than 3 Seconds Skin: No rashes Musculoskeletal: No Muscle Wasting Neurological: Cranial nerves II-XII grossly intact, Deep Tendon Reflexes 2+/4 and Symmetrical, Neuro grossly intact, Motor Exam 5/5 strength throughout Psych/Mental Status: Normal Affect, Appropriate Vital Signs Temp Pulse Resp BP Pulse Ox 97.6 F L 93 18 103/59 L 99 07/31/18 15:32 07/31/18 15:32 07/31/18 15:32 07/31/18 15:32 07/31/18 15:32 Assessment/Plan All Active Problems (Last Reviewed 06/16/18 @ 09:59 by Nitin Choi MD) Syncope and collapse (Acute) Dizziness and giddiness (Acute) Non-sustained ventricular tachycardia (Acute) 1. Syncope. may have been multifactorial - vasovagal, alcohol intoxication, orthostatic hypotension. Place patient on observation, telemonitor. Check orthostatics. Rehydrate with IV fluids. If stable tomorrow then discharge. Patient has already had extensive work up for structural heart disease and for arrhythmogenesis recently. Will not repeat. 2. Alcohol abuse. ? Binge type. Will need to counseling aide on moderation with alcohol use 3. generalized anxiety disorder with occasional panic attacks. Continue with anxiolysis 4. DVT prophylaxis with Lovenox Code Visit OBSV E AND M: 28595 Initial observation care L3 07/31/18 1850 <Electronically signed by Lake Mares MD> Date Lake Mares MD Cosigner Signature: Date (if applicable) CC: Lake Mares M.D.; [facility] Signed BASIC METABOLIC Collected: 07/31/2018 Status: F Source: [place] PROFILE (BMP) 4:05 PM [facility] REPOSITORY TYPE CODE TESTS RESULT OUT OF RANGE REFERENCE UNITS LAB L501.0100 74-106 mg/dL Normal GLU 100 Result Comment: Fasting Glucose result from 100 to 125 mg/dL suggests IMPAIRED HOMEOSTASIS per A.D.A. criteria. Please note revised GLUCOSE reference range effective 2018. LAB L501.1000 7-18 mg/dL Normal BUN 15 LAB L501.1100 0.70-1.30 mg/dL High CREAT,SERUM 1.36 Result Comment: The validity of the calculated GFR AND GFRAA in patients over 70 years has not been determined. Clinical correlation is essential. LAB L501.1110 >60 mL/min Low EST GFR 57 Result Comment: Non- GFR Calc LAB L501.1115 >60 mL/min Normal EST GFR - AA 69 Result Comment: GFR Calc LAB L501.1255 ml/min Normal Estimated CRCL 64.98 LAB L501.1300 10-20 RATIO Normal BUN/CRE 11.0 LAB L501.2200 8.5-10 mg/dL Low .1 CA 7.5 LAB L501.5300 136-14 mmol/L Normal 5 NA 145 LAB L501.5600 3.5-5. mmol/L Low 1 K 3.3 LAB L501.5900 98-107 mmol/L High CL 114 LAB L501.6100 21.0-3 mmol/L Low 2.0 CO2 20.0 LAB L501.6200 5-15 Normal GAP 11 Performed By: #### L500.2500, L501.4010 #### [facility] [address] [place], [place], [address] TROPONIN-I Collected: 07/31/2018 Status: F Source: STEM 4:05 PM [facility] REPOSITORY TYPE CODE TESTS RESULT OUT OF RANGE REFERENCE UNITS LAB L501.4010 <0.045 ng/mL Normal < 0.015 TROPONIN-I Result Comment: TROPONIN-I EXPECTED VALUES <0.045 Negative 0.045 - 0.590 Consistent with Cardiac Damage > OR = 0.600 Critical Value Not every elevated troponin is indicative of RI. These values should be used with clinical judgement in examining the patient's clinical picture for diagnosis. To establish a diagnosis of RI versus myocardial injury, there must be a demonstrated rise and/or fall in the troponin values, in addition to ischemic symptoms, EKG changes, new regional wall motion abnormality, and/or angiographical evidence. PLEASE NOTE: REFERENCE RANGES EDITED 18 Performed By: #### L500.2500, L501.4010 #### [facility] [address] [place], [address] CBC W/DIFF, AUTOMATED Collected: 07/31/2018 Status: F Source: FLOR 4:05 PM [facility] REPOSITORY TYPE CODE TESTS RESULT OUT OF RANGE REFERENCE UNITS LAB L100.1000 4.4-11.0 K/mm3 Normal WBC 9.7 LAB L100.1200 4.6-6.2 M/mm3 Low RBC 3.57 LAB L100.1300 13.0-16.5 g/dl Low HGB 11.7 LAB L100.1400 40-54 % Low HCT 34.6 LAB L100.1500 80-94 fL High MCV 96.9 LAB L100.1600 27.0-32.0 pg High MCH 32.8 LAB L100.1700 32-36 g/gl Normal MCHC 33.8 LAB L100.1810 11.6-14.6 % Normal RDW CV 12.8 LAB L100.1820 35.1-43.9 fl Normal RDW SD 43.7 LAB L100.1900 150-450 K/mm3 Normal PLT 251 LAB L100.2000 6.2-12.0 fl Normal MPV 9.1 LAB L100.2100 47-70 % Low NEUT% 46.0 LAB L100.2200 19-41 % High LY% 43.5 LAB L100.2300 0-10 % Normal MONO% 6.6 LAB L100.2400 0-5 % Normal EO% 2.6 LAB L100.2500 0-1 % Normal BASO% 0.6 LAB L100.2550 0.0-0.9 % Normal IM GRAN % 0.700 Result Comment: IG% - Immature Granulocytes (promyelocytes, myelocytes and metamyelocytes) > 1% indicates that a LEFT SHIFT is Present. LAB L100.2620 2.0-7.7 X10 3/uL Normal Absolute Neut 4.4 LAB L100.2720 0.83-4.51 X10 3/ul Normal Absolute Lymph 4.20 Performed By: #### L100.0100 #### [facility] [address] [place], [address] ALCOHOL, BLOOD Collected: 07/31/2018 Status: F Source: STEM (MEDICAL)-SERUM 4:05 PM [facility] REPOSITORY TYPE CODE TESTS RESULT OUT OF RANGE REFERENCE UNITS LAB L501.9100 mg/dL Normal SERUM 243.0 ETOH Result Comment: The serum:whole blood ethanol ratio is approximately 1.14 and varies slightly with hematocrit. Medical Alcohol reference interval and critical value in non-tolerant individuals; 50 - 100 Impairment 100 Intoxication 100 - 250 Severe Poisoning 250 - 400 Deep/possible fatal coma Performed By: #### L501.9100 #### [facility] [address] [place], [address] BRAIN/HEAD WITHOUT Observed: 07/31/2018 Status: F Source: STEM CONTRAST 3:51 PM [facility] REPOSITORY [facility] Imaging Services [address] [place] [address] Brain/Head without Contrast MR#: [id number] Acct: [id number] Name: YADIEL SOSA Rep #: [id number] : 1960 M 57 From: Remy Cerda MD PCP: [facility] Status: REG ER Study: Brain/Head without Contrast Date of Exam: 07/31/18 Exam# [id number] Ordering Dr: Sandip Bhardwaj MD STUDY: CT BRAIN WITHOUT CONTRAST REASON FOR EXAM: Male, 57 years old. Trauma RADIATION DOSAGE (If Supplied By Facility): CTDIvol = ( 44.99 ) mGy, DLP = ( 812.98 ) mGycm TECHNIQUE: Transaxial CT imaging of the brain was performed without administration of intravenous contrast material. Individualized dose optimization techniques were used for this CT. COMPARISON: Prior study of October 31, 2016 FINDINGS: There is a scalp hematoma of the left frontal region. Normal calvarium. There is mild cerebral atrophy with widening of the extra- axial spaces and ventricular dilatation. Normal white matter tracts of the cerebral hemispheres. Normal basal ganglia and thalami. Normal brainstem. Normal cerebellum. There is no intracranial hemorrhage. There are no findings of an acute ischemic infarction. There is minimal mucosal thickening of the left maxillary sinus. CT/Brain/Head without Contrast IMPRESSION: Chronic involutional changes of the brain. Minimal mucosal thickening of the left maxillary sinus. Electronically Signed: Remy Cerda MD at 17:08 EDT , Service support , CC: Sandip Bhadrwaj MD; [facility] Principal Planner: Signed SPINE CERVICAL Observed: 07/31/2018 Status: F Source: STEM WITHOUT CONTRAS 3:51 PM [facility] REPOSITORY [facility] Imaging Services [address] [place] [address] Spine Cervical without Contras MR#: [id number] Acct: [id number] Name: YADIEL SOSA Rep #: [id number] : 1960 57 From: Remy Cerda MD PCP: [facility] Status: REG ER Study: Spine Cervical without Contras Date of Exam: 07/31/18 Exam# [id number] Ordering Dr: Sandip Bhardwaj MD STUDY: CT CERVICAL SPINE WITHOUT CONTRAST REASON FOR EXAM: Male, 57 years old. Trauma RADIATION DOSAGE (If Supplied By Facility): CTDIvol = ( 20.81 ) mGy, DLP = ( 383.15 ) mGycm TECHNIQUE: High resolution transaxial imaging was performed without contrast material. Sagittal and coronal images were reconstructed. Individualized dose optimization techniques were used for this CT. COMPARISON: Previous study of October 31, 2016 FINDINGS: Normal craniovertebral junction. There are degenerative changes of the anterior atlantoaxial articulation. Normal odontoid process. There is straightening of the normal cervical lordosis. There is a small pneumatocyst of the posterior C6 body, which is of little to no clinical significance. C2-3: Normal endplates. Normal disc height and morphology. Normal central canal and intervertebral neuroforamina. C3-4: Normal endplates. Normal disc height and morphology. Normal central canal and intervertebral neuroforamina. C4-5: Normal endplates. Normal disc height and morphology. Normal central canal and intervertebral neuroforamina. C5-6: Normal endplates. Normal disc height and morphology. Normal central canal and intervertebral neuroforamina. C6-7: Normal endplates. Normal disc height and morphology. Normal central canal and intervertebral neuroforamina. C7-T1: Normal endplates. Normal disc height and morphology. Normal central canal and intervertebral neuroforamina. Normal visualized soft tissue structures. CT/Spine Cervical without Contras IMPRESSION: Straightening of the normal lordotic curvature which may be positional in nature or due to muscular spasm. Small pneumatocyst of the posterior C6 body, which is of little to no clinical significance. There is no evidence of fracture or subluxation. Disc spacing is preserved. Electronically Signed: Remy Cerda MD at 17:16 EDT , Service support , CC: Sandip Bhardwaj MD; [facility] Principal Planner: Signed ECHOCARDIOGRAM COMPLETE Observed: 06/28/2018 Status: F Source: STEM 3:32 PM [facility] REPOSITORY [facility] Cardiovascular Services [address] [place] [address] Echo Complete 06/28/18 1022 MR#: [id number] Acct: [id number] Name: YADIEL SOSA Rep #: [id number] : 1960 57 From: Nitin Choi MD Attending Dr: Nitin hCoi MD Status: REG CLI Ordering Dr: Nitin Choi MD Date: 06/28/18 Location: [facility] Sex: M C Admitted: Reason For Study: Arrhythmia Procedure This was a 2D Doppler, Color Flow transthoracic echocardiogram. Exam performed in department. Left Ventricle Normal LV size. Left ventricular systolic function is normal. The estimated ejection fraction is 55 %. Segmental dysfunction with preserved ejection fraction (see wall motion). Transmitral diastolic flow velocities suggest mild (stage 1) diastolic dysfunction (reversed pattern). Posterior-Basal: Mildly hypokinetic. Infero-Basal: Mildly hypokinetic. Right Ventricle Normal RV size. Normal systolic function. Atria Normal left atrium. Normal right atrium. Mitral Valve Normal mitral valve. Tricuspid Valve Normal tricuspid valve. Unable to estimate RV systolic pressure due to inadequate jet, pulmonary artery pressure probably normal. Aortic Valve Normal aortic valve. Pulmonic Valve Normal pulmonic valve. Great Vessels Normal aortic root. The pulmonary artery is normal size. Normal inferior vena cava. Pericardium/Pleural No pericardial effusion. MMode/2D Measurements AND Calculations LVIDd: 5.0 cm IVSd: 1.2 cm Ao root diam: 3.7 cm LVIDs: 3.7 cm LVPWd: 0.96 cm LA dimension: 4.2 cm FS: 26.2 % LAV(MOD-bp): 62.5 ml LA A4 area: 19.7 cm2 RA A4 area: 14.4 cm2 LAV(MOD-bp) Indexed: 30.4 ml/m2 LAV(MOD-sp2): 62.7 ml LAV(MOD-sp4): 56.0 ml Time Measurements MV dec time: 0.20 sec Doppler Measurements AND Calculations MV E max shivam: 52.8 cm/sec Lat Peak E' Shivam: 7.6 cm/sec Med Peak E' Shivam: 9.6 cm/sec MV A max shivam: 74.4 cm/sec E/E' lat: 7.0 E/E' med: 5.5 MV E/A: 0.71 MV V2 max: 73.3 cm/sec MV P1/2t max shivam: 67.4 cm/sec Ao V2 max: 116.5 cm/sec MV max P.2 mmHg MV P1/2t: 91.8 msec Ao max P.4 mmHg MV V2 mean: 46.1 cm/sec MV dec slope: 215.0 cm/sec2 Ao V2 mean: 77.4 cm/sec MV mean P.96 mmHg MVA(P1/2t): 2.4 cm2 Ao mean P.7 mmHg MV V2 VTI: 23.0 cm Ao V2 VTI: 21.5 cm LV V1 max: 82.0 cm/sec PA V2 max: 85.7 cm/sec LV V1 max P.7 mmHg LV V1 mean P.3 mmHg LV V1 mean: 52.9 cm/sec LV V1 VTI: 14.2 cm Interpretation Summary Normal LV size. Left ventricular systolic function is normal. The estimated ejection fraction is 55 %. Segmental dysfunction with preserved ejection fraction (see wall motion). Transmitral diastolic flow velocities suggest mild (stage 1) diastolic dysfunction (reversed pattern). Ordering Physician: Nitin Choi Referring Physician: Nitin Choi Performed By: Minh Lin RCS 06/28/18 1532 Date Nitin Choi MD CC: Nitin Choi MD; [facility] Date Dictated: 06/28/18 1022 Date Transcribed: 06/28/18 1532 Principal Planner: Signed STRESS REPORT Observed: 06/28/2018 Status: F Source: FLOR 10:52 AM [facility] REPOSITORY [facility] Cardiovascular Services [address] [place] [address] MR#: [id number] Acct: [id number] Name: YADIEL SOSA Rep #: [id number] : 1960 57 From: Nitin Choi MD Primary Care: [facility] Status: REG CLI Ordering Dr: Sex: Sera Huynh Stress Test Report Exercise myocardial perfusion stress test. 57-year-old man with a history of chest pain. Medications Xanax atorvastatin. Stress protocol: Resting EKG demonstrates normal sinus rhythm with rate of 73 bpm normal intervals and noted resting blood pressure is 114/88 mmHg. The patient exercised according to the regular Igno protocol for total duration of 3 minutes and 17 seconds attaining a maximum heart rate of 153 bpm which was 94% of maximum predicted heart rate and a workload of 4.6 metabolic equivalents. The patient maintained sinus rhythm throughout the recording. There were no ST or T-wave changes noted suggest ischemia no clinical angina was noted the test was terminated due to significant shortness of breath. The resting blood pressure is 114/88 with a peak blood pressure 132/86 mmHg. Myocardial perfusion protocol. 11.9 mCi of technetium 99m sestamibi was injected at rest. The patient exercised according to regular Gino protocol for 3 minutes and at peak exercise 34.2 mCi of technetium 99m sestamibi was injected stress images were obtained stress and rest images were reconstructed and compared in the short axis vertical long and horizontal long axis. Gated images were also obtained pre- Perfusion SPECT analysis: Review of the stress images demonstrate possible previous inferior infarct versus GI attenuation artifact present. No obvious reversibility is noted to suggest ischemia but the workload attained was also noted to be low. Gated SPECT analysis: The gated ejection fraction is 50%. Conclusion: Exercise myocardial perfusion stress test at a low workload with no obvious ischemia noted. Previous inferior infarct cannot be completely excluded. 06/28/18 1052 <Electronically signed by Nitin Choi MD> Date Nitin Choi MD CC: Nitin hCoi MD; [facility] Date Dictated: 06/28/181044 Date Transcribed: 06/28/181044 Principal Planner: [place] Signed CARDIOLOGY VISIT Observed: 06/16/2018 Status: F Source: STEM REPORT 10:09 AM [facility] REPOSITORY [facility] [address] [place] [address] OFFICE VISIT Date of Service: 06/16/18 MR#: [id number] Acct: [id number] Name: YADIEL SOSA Rep #: [id number] : 1960 Provider: Nitin Choi MD Age/Sex: 57/M [place] [facility] Status: Signed HPI HPI Chief Complaint: Initial visit. Details: YADIEL SOSA, is a 57 M who presents to the office today for an initial visit. He is a pleasant gentleman with a history of possible hypertension who says that he has been having episodes of dizziness and low blood pressure. He had been taken off some of his medication and says that he had felt better. As part of his workup he had an event monitor placed and on the event monitor it demonstrated predominantly sinus rhythm rare PVCs and one 5 beat run of wide-complex tachycardia which was likely nonsustained ventricular tachycardia because of the A-V dissociation. He did have periods of sinus tachycardia present but no supraventricular tachyarrhythmias present. He has had no leonela syncopal episodes. He was sent here for further evaluation he denies any chest pain no paroxysmal nocturnal dyspnea pedal edema he says that he has had blood work checked through your office. His last blood work that I have here demonstrates a potassium of 3.4. He has never had a myocardial infarction. His physical exam here demonstrates normal blood pressure clear lung pickering regular rate and rhythm and no pedal edema. Intake Vital Signs06/16/18 Blood Pressure 130/82 06/16/18 Pulse Rate 96 Intake Visit Reasons: PCP ref'd - tachy, ventricular depolarization Allergies No Known Allergies Allergy (Verified 06/16/18 09:41) Medications ALPRAZolam [Xanax] 0.5 mg PO DAILY PRN PRN 10/31/16 [History Confirmed 10/31/16] atorvastatin 40 mg tablet 40 mg PO QDAY 06/16/18 [History Confirmed 06/16/18] citalopram 10 mg tablet 40 mg PO DAILY tab 06/16/18 [History Confirmed 06/16/18] multivitamin tablet 1 tab PO QAM 06/16/18 [History Confirmed 06/16/18] topiramate XR 25 mg capsule,extended release 24 hr 25 mg PO QDAY 06/16/18 [History Confirmed 06/16/18] [facility] Medical History Hyperlipidemia (Chronic) Hypertension (Chronic) Nicotine dependence (Chronic) Non-sustained ventricular tachycardia (Acute) Anxiety and depression (Chronic) Gynecomastia (Chronic) Hepatomegaly (Chronic) Surgical History H/O shoulder surgery (Chronic) History of ankle surgery (Chronic) History of vascular surgery (Chronic) Family History Father CVA (cerebral vascular accident) Myocardial infarction HAS ICD Heart disease Sister Heart disease Breast cancer Mother Colon cancer Social History Smoking Status: Current every day smoker tobacco type: cigarettes alcohol intake: current alcohol intake frequency: 0-2 drinks per day Alcohol type: wine ROS Const Const: Negative for fatigue, weakness, difficulty sleeping, frequent falls, headache(s) or excessive sweating Eyes Eyes: Negative for loss of peripheral vision, transient loss of vision, blurry vision or double vision ENT ENT: Negative for headache(s), dizziness, Nosebleed/epistaxis or balance problems Cardio Chest Pain: No Edema: None Muscle aches with walking: None Resp Respiratory: Negative for SOB with activity, SOB at rest, SOB orthopnea\SOB lying down or paroxysmal nocturnal dyspnea GI GI: Negative nausea or heartburn : Negative for hematuria Musc Musc: Negative for muscle aches/ myalgia, muscle weakness, joint pain or balance problems Skin Skin: Negative non-healing lesions, unusual bruising or rash Neuro Neuro: Positive for lightheadedness and orthostatic symptoms; negative for weakness, frequent falls, blurry vision, headache(s), dizziness or double vision Tl Hematologic/Lymphatic: Negative for easy bruising Endo Endo: Negative for fatigue, excessive sweating or increased thirst/drinking Psych Psych: Negative for anxiety or depression Allergy Allergy/Immunology: Negative for hives, Negative for rash Cardiology Exam Const Appearance: cooperative, healthy appearing, well developed, well groomed and no acute distress Nutritional Appearance: well nourished and average body habitus Orientation: alert, awake and oriented x3 Head Head: normal to inspection, normocephalic and atraumatic Ears: hearing grossly normal bilaterally and external ears normal Nose: external nose normal, nasal mucous membranes and turbinates normal, nares normal, septum normal, no nasal discharge Face and Sinus: face symmetric Mouth: oral mucosae normal, tongue normal, oropharynx normal and moist mucous membranes Teeth and gingiva: dentition normal Throat: posterior oropharynx normal, tonsils normal and uvula midline Eyes General: appearance normal, both eyes and all related structures Eyelids: eyelids normal Conjunctivae: conjunctivae normal Pupils: PERRL, normal by confrontation and accommodation normal EOM: EOM intact bilaterally Neck Neck: normal visual inspection, trachea midline and no JVD JVD: +5 Carotids: normal carotid upstroke and bounding pulses Chest Chest inspection: normal inspection of the chest, symmetric chest movement and normal respiratory effort Auscultation: Bilateral: Clear to Auscultation Cardio Palpation: normal PMI Rate: regular rate Rhythm: regular rhythm Heart sounds: S1 normal, S2 normal and normal, physiologic split S2; negative rub, gallop or murmur GI GI: normal to inspection, soft, no hepatosplenomegaly and bowel sounds present Neuro General: alert, awake, oriented x3, no focal sensory deficit, gait normal and moves all extremities Skin Skin: no rashes or lesions noted Extremities Pulses: Normal: Right Femoral Pulse, Left Femoral Pulse, Right Dorsalis Pedis Pulse, Left Dorsalis Pedis Pulse, Right Posterior Tibial Pulse, Left Posterior Tibial Pulse, Right Radial Pulse, Left Radial Pulse Lower Extremity Edema: None: Bilateral Musculoskel Musculoskeletal: No joint tenderness Psych Psychological: normal affect Assessment AND Plan 1. Dizziness and giddiness R42 Plan He did have an episode of dizziness which appears to be orthostatically mediated. My recommendation at this time will be to discontinue his low- dose losartan and see how he does. We will also continue to monitor his blood pressure and see whether on discontinue the ARB any changes will be noted. 2. Non-sustained ventricular tachycardia I47.2 Plan He did have a 5 beat run of wide complex tachycardia I will like to obtain his chemistry profile to make sure that he is not hypokalemic, in addition I will like to obtain an echocardiogram to assess his left ventricular function. As you know if he has preserved left ventricular systolic function he does portend a good prognosis. In addition an exercise stress test would also be performed to see whether he does have any exercise-induced ventricular tachyarrhythmia. Depending on the results of these tests further recommendations will be made. Orders Orders: 3. Hypertension I10 Plan He does have a previous diagnosis of hypertension I would like to see what his blood pressure is off his losartan and how he reacts symptomatically before deciding on which medication to put him on. 4. Hyperlipidemia E78.5 Plan He does have a history of hyperlipidemia on high intensity statin and if you could follow his lipid profile I will be most grateful. Plan Detail Other Medications Discontinued: Follow Up 6 Months (jhr) Coding Level of Care Code Off vis,new,level 4 Diagnoses Dizziness and giddiness R42 Non-sustained ventricular tachycardia I47.2 Hypertension I10 Hyperlipidemia E78.5 Coding Level of Care Code Off vis,new,level 4 Diagnoses Dizziness and giddiness R42 Non-sustained ventricular tachycardia I47.2 Hypertension I10 Hyperlipidemia E78.5 06/16/18 1009 <Electronically signed by Nitin Choi MD> Date Nitin Choi MD Cosigner Signature: Date (if applicable) CC: [facility] ALLERGIES ALLERGIES DATE TYPE / CODE NAME / CODE REACTION SEVERITY SOURCE 07/31/2018 Drug No Known Unknown [facility] Allergy/4160 Allergies/F00 Hospital 87455(SNOMED [id number](RXNOR Repository CT) M) ENCOUNTERS ENCOUNTERS ADMIT/DISCHARGE ACCOUNT ADMITTING ENCOUNTER LOCATION SOURCE NUMBER CLASS 10/29/2018 [id number] Ambulatory [place] 1 [facility] Hospital ing:RAD Repository 07/31/2018 [id number] Oleg[place], Ambulatory BMSBuilding:B [place] 4 [place] Repository 07/31/2018 [id number] [place], Ambulatory BMSBuilding:B [place] 3 [place] Repository 07/31/2018/ [id number] [place], Ambulatory [place] 8 3 [place] [facility] ing:PCURoom: Repository [id number]: 1 06/28/2018 [id number] Ambulatory BMSBuilding:W [place] 0 [facility] Repository 06/28/2018 [id number] Ambulatory [place] 1 [facility] ing:[facility] Repository 06/16/2018/ [id number] Ambulatory BMSBuilding:B [place] 8 4 [facility] Repository 06/16/2018 [id number] Ambulatory BMSBuilding:B [place] 8 [facility] Repository 06/14/2018 [id number] Ambulatory BMSBuilding:B [place] 0 [facility] Repository 04/15/2018 [id number] Ambulatory [place] 5 [facility] ing:[facility] Repository 04/15/2018 [id number] Ambulatory BMSBuilding:W [place] 9 [facility] Repository PAYERS PAYERS ENCOUNTER GUARANTOR PAYER SUBSCRIBER SOURCE 10/29/2018 YADIEL D Primary YADIEL D [place] [id number] Insurance:CARESOURCEP REJIB: [facility] [place]: [id number] [id number] Repository [address]Abm: [phone]) Date:2018-10-29P O [phone] () [address]ATTN: [place] [address]DF: 10/29/2018 Secondary NOT GIVENUNK [place] Insurance:SELF PAY [facility] Number: Effective Repository Date:2018-10-29 07/31/2018 YADIEL D Primary YADIEL D [place] [id number] Insurance:CARESOURCEP RIDENBAUGHDOB: [facility] Number: [id number] [id number] Repository [address]Vrh: ([phone]) Date:2018-07-31P O [phone] () [address]ATTN: [place] [address]GG: 07/31/2018 Secondary NOT GIVENUNK [place] Insurance:SELF PAY [facility] Number: Effective Repository Date:2018-07-31 07/31/2018 YADIEL D Primary YADIEL D [place] [id number] Insurance:CARESOURCEP RIDENBAUGHDOB: [facility] Number: [id number], [place] [id number] Repository [address]Onr: [phone] Date:2018-07-31P O [phone] () [address]ATTN: [place] [address]SD: 07/31/2018 Secondary NOT GIVENUNK [place] Insurance:SELF PAY [facility] Number: Effective Repository Date:2018-07-31 07/31/2018 YADIEL D Primary YADIEL D [place] [id number] Insurance:CARESOURCEP RIDENBAUGHDOB: [facility] Number: [id number], [place] [id number] Repository [address]Gcs: [phone] Date:2018-07-31P O [phone] () [address]ATTN: [place] [address]DP: 07/31/2018 Secondary NOT GIVENUNK Flor Insurance:SELF PAY [facility] Number: Effective Repository Date:2018-07-31 06/28/2018 YADIEL D Primary YADIEL D Flor [id number] Insurance:CARESOURCEP RIDENBAUGHDOB: [facility] Number: [id number], [place] [id number] Repository [address]Pli: ([phone]) Date:2018-06-16P O [phone] (HP) [address]ATTN: [place] [address]PM: 06/28/2018 Secondary NOT GIVENUNK Flor Insurance:SELF PAY [facility] Number: Effective Repository Date:2018-06-28 06/28/2018 YADIEL D Primary YADIEL D [place] [id number] Insurance:CARESOURCEP RIDENBAUGHDOB: [facility] Number: [id number], [place] [id number] Repository [address]Bhn: ([phone]) Date:2018-06-16P O [phone] () [address]ATTN: [place] [address]KX: 06/28/2018 Secondary NOT GIVENUNK Flor Insurance:SELF PAY [facility] Number: Effective Repository Date:2018-06-16 06/16/2018 YADIEL D Primary YADIEL D Flor [id number] Insurance:CARESOURCEP RIDENBAUGHDOB: [facility] Number: [id number], [place] [id number] Repository [address]Iru: ([phone]) Date:2018-06-07P O [phone] () [address]ATTN: [place] [address]SI: 06/16/2018 Secondary NOT GIVENUNK Flor Insurance:SELF PAY [facility] Number: Effective Repository Date:2018-06-16 06/16/2018 YADIEL D Primary YADIEL D Flor [id number] Insurance:CARESOURCEP RIDENBAUGHDOB: [facility] Number: [id number], [place] [id number] Repository [address]Zuo: [phone]) Date:2018-06-16P O [phone] (HP) [address]ATTN: [place] [address]GX: 06/16/2018 Secondary NOT GIVENUNK [place] Insurance:SELF PAY [facility] Number: Effective Repository Date:2018-06-16 06/14/2018 YADIEL D Primary YADIEL D Flor [id number] Insurance:CARESOURCEP RIDENBAUGHDOB: [facility] Number: [id number], [place] [id number] Repository [address]Phe: ([phone]) Date:2018-06-14P O [phone] () [address]ATTN: [place] [address]TT: 06/14/2018 Secondary NOT GIVENUNK Flor Insurance:SELF PAY [facility] Number: Effective Repository Date:2018-06-14 04/15/2018 YADIEL D Primary YADIEL D Flor [id number] Insurance:CARESOURCEP RIDENBAUGHDOB: [facility] Number: [id number], [place] [id number] Repository [address]Lne: [phone]) Date:2018-04-12P O [phone] (HP) [address]ATTN: [place] [address]EC: 04/15/2018 Secondary NOT GIVENUNK Flor Insurance:SELF PAY [facility] Number: Effective Repository Date:2018-04-12 04/15/2018 YADIEL D Primary YADIEL D [place] [id number] Insurance:CARESOURCEP RIDENBAUGHDOB: [facility] Number: [id number], [place] [id number] Repository [address]Exy: ([phone]) Date:2018-06-07P O [phone] () [address]ATTN: [place] [address]CY: 04/15/2018 Secondary NOT GIVENUNK Flor Insurance:SELF PAY [facility] Number: Effective Repository Date:2018-06-16
== END ==
PROVIDERS: Referring Provider Nurse Practitioner Family; Visit Provider Nurse Practitioner Family
DX: M54.5 Low back pain (principal); M25.551 Pain in right hip
CPT/HCPCS: 72100; 72220; 73502

== ENCOUNTER → 2019-03-11 08:50 | Outpatient (CLI) | payer MEDICAID, SELFPAY ==
[2018-12-17 10:33] VITALS: BMI 26.6
--- NOTE | 2019-03-11 08:53 | RAD_ITS ---
STUDY: X-RAY - RIGHT KNEE REASON FOR EXAM: Male, 58 years old. Right knee pain following fall and twisted knee. TECHNIQUE: For view(s) of the knee. COMPARISON: None. FINDINGS: Normal visualized distal femur. Normal visualized proximal tibia and fibula. Normal proximal tibiofibular articulation. There is no demonstrated fracture. Normal medial femorotibial compartment. Normal lateral femorotibial compartment. Normal patellofemoral articulation. There may be minimal effusion in suprapatellar joint space. The soft tissue structures are unremarkable. RAD/Knee 4 or More Views IMPRESSION: Possible minimal joint effusion. No demonstrated acute osseous injury. Electronically Signed: Jayden Toribio MD at 9:42 EDT Tel , Service support ,
== END ==
PROVIDERS: Referring Provider Chiropractor; Visit Provider Chiropractor
DX: S83.421A Sprain of lateral collateral ligament of right knee, initial encounter (principal); X58.XXXA Exposure to other specified factors, initial encounter; Y93.9 Activity, unspecified; Y92.9 Unspecified place or not applicable; Y99.9 Unspecified external cause status
CPT/HCPCS: 73564

== ENCOUNTER 2019-07-17 09:31 | Emergency (ER) | payer MEDICAID, SELFPAY ==
[2019-06-21 12:52] VITALS: BMI 25.9
[2019-07-17] VITALS (9 sets, daily range): BP systolic 99–131; BP diastolic 75–100; PULSE 84–103; RESP 10–23; TEMP 36.6; O2SAT 97–100; BMI 28.0
[2019-07-17] MEDS: 0.9% Normal Saline 1,000 ML 150 ML IV (09:43)
[2019-07-17] MEDS: Etomidate 20 MG/10 ML Vial IV (09:50)
--- NOTE | 2019-07-17 10:00 | RAD_ITS ---
STUDY: X-RAY - RIGHT ANKLE REASON FOR EXAM: Male, 58 years old. Injury. TECHNIQUE: 3 view(s) of the ankle. COMPARISON: None. FINDINGS: There is an oblique displaced fracture of the distal fibula. Nondisplaced fracture of the medial malleolus is also noted. There is noted fractures of the anterior and posterior malleolus along the articular margin with intra-articular component. Normal tibiotalar articulation and ankle mortise. Normal visualized talus and calcaneus. The visualized subtalar, talonavicular, calcaneocuboid and tarsal articulations are normal. The soft tissue structures are unremarkable. RAD/Ankle min 3 Views IMPRESSION: Findings consistent with distal fibular, medial malleolus are and anterior and posterior malleolus fractures as above. Electronically Signed: Jorge L Wilcox DO at 10:15 EDT , Service support ,
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
--- NOTE | 2019-07-17 11:14 | ED.RN ---
STRESSED TO PT AND S/O THAT HE CANNOT PUT WEIGHT ON ANKLE. PT REPEATEDLY HAD TO HAVE INSTRUCTIONS REPEATED TO HIM TO NOT BEAR WEIGHT. PT STATES HE HAS A WHEELCHAIR AT HOME HE CAN USE.
== END 2019-07-17 11:15 | disposition home or self-care (01) ==
PROVIDERS: Emergency Provider Emergency Medicine; Family Provider Nurse Practitioner Family
DX: S82.851A Displaced trimalleolar fracture of right lower leg, initial encounter for closed fracture (principal); S90.811A Abrasion, right foot, initial encounter; S80.211A Abrasion, right knee, initial encounter; W19.XXXA Unspecified fall, initial encounter; Y93.9 Activity, unspecified; Y92.9 Unspecified place or not applicable; Y99.9 Unspecified external cause status; I10 Essential (primary) hypertension
CPT/HCPCS: 27818; 29515; 73610; 96360; 96361; 99152; 99285; J7030

== ENCOUNTER 2019-08-03 09:35 | Day surgery (SDC) | payer MEDICAID, SELFPAY ==
--- NOTE | 2019-07-26 01:33 | HP_ITS ---
I have re-examined the patient. There are no clinical changes since date of exam. Intake Vital Signs 07/26/19 Body Mass Index (BMI) 28.0 Intake Visit Reasons: RIGHT ANKLE Chief Complaint: Syncope Allergies No Known Allergies Allergy (Verified 07/17/19 09:37) Medications ALPRAZolam [Xanax] 0.5 mg PO DAILY PRN PRN 10/31/16 [History Confirmed 07/26/19] atorvastatin 40 mg tablet 40 mg PO QDAY 06/16/18 [History Confirmed 07/26/19] citalopram 10 mg tablet 40 mg PO DAILY tab 06/16/18 [History Confirmed 07/26/19] multivitamin tablet 1 tab PO QAM 06/16/18 [History Confirmed 07/26/19] topiramate XR 25 mg capsule,extended release 24 hr 25 mg PO QDAY 06/16/18 [History Confirmed 07/26/19] Loratadine 10 mg PO DAILY 07/31/18 [History Confirmed 07/26/19] Losartan Potassium 25 mg PO DAILY 07/31/18 [History Confirmed 07/26/19] cholecalciferol (vitamin D3) 50,000 unit capsule 50,000 unit PO QWEEK 12/17/18 [History Confirmed 07/26/19] hydrocodone 5 mg-acetaminophen 325 mg tablet See Rx Instructions PO Q6H PRN #30 tab 07/19/19 [Rx Confirmed 07/26/19] ibuprofen 800 mg tablet 800 mg PO Q6H 07/19/19 [History Confirmed 07/26/19] PFSH Medical History (Updated 06/20/19 @ 14:44 by Ally Rodriguez) Essential (primary) hypertension (Chronic) Hyperlipidemia (Chronic) Nicotine dependence (Chronic) Non-sustained ventricular tachycardia (Chronic) Anxiety and depression (Chronic) Gynecomastia (Chronic) Hepatomegaly (Chronic) Syncope and collapse (Resolved) Surgical History (Updated 07/31/18 @ 18:50 by Lake Mares MD) H/O shoulder surgery (Chronic) History of ankle surgery (Chronic) History of vascular surgery (Chronic) Family History (Updated 06/16/18 @ 07:14 by Ally Rodriguez) Father CVA (cerebral vascular accident) Myocardial infarction HAS ICD Heart disease Sister Heart disease Breast cancer Mother Colon cancer Social History (Updated 07/26/19 @ 13:33 by Mahnaz Jiang DO) Smoking Status: Current every day smoker tobacco type: cigarettes Tobacco: How many years used: 40 alcohol intake: current alcohol intake frequency: 0-2 drinks per day Alcohol type: wine HPI RIGHT ANKLE: Surgical H&P: Yes Details: Parts of this documentation were recorded by a scribe, this documentation accurately reflects the service provided and the decisions made by me, Mahnaz Jiang DO 07/26/19 1253. YADIEL SOSA is a 58 year old M here today for 1 week F/U from right ankle fx. DOI: 07/17/19 and he states he injuried his right ankle thursday morning when he fell down stairs at his house outside. Denies numbness, tingling or other associated symptoms. Patient is here for swelling check. Patient continue to have swelling over his right ankle. Denies any changes from last visit. no calf pain or other issues. ROS Const Reports system reviewed and no additional complaints, except as docu Eyes Reports system reviewed and no additional complaints, except as docu ENT Reports system reviewed and no additional complaints, except as docu Card Reports system reviewed and no additional complaints, except as docu Resp Reports system reviewed and no additional complaints, except as docu GI Reports system reviewed and no additional complaints, except as docu Reports system reviewed and no additional complaints, except as docu Musc Reports as per HPI Skin/Breast Reports system reviewed and no additional complaints, except as docu Neuro Yes system reviewed and no additional complaints, except as docu Psych Reports system reviewed and no additional complaints, except as docu Endo Reports system reviewed and no additional complaints, except as docu Tl/Lymph Reports system reviewed and no additional complaints, except as docu Aller/Immun Reports system reviewed and no additional complaints, except as docu Ortho Exam Right Foot/Ankle Skin/Wound: Yes Ecchymosis and Soft Tissue Swelling Exam: present TTP FX site Sensation: Deep Peroneal Nerve: I, Superficial Peroneal Nerve: I, Tibial Nerve: I, Sural Nerve: I, Saphenous Nerve: I Pulses: Dorsalis Pedis: 2 Assessment & Plan Problems 1. Closed displaced bimalleolar fracture of right ankle with routine healing, subsequent encounter S84.352X Plan Explained that due to his swelling and the length of dislocation we will post pone surgery until 08/03/19, instructed to continue to elevate and ice to reduce the swelling and decrease the risks of infection post op. Reviewed the pre-operative plans with the patient. Risks and benefits of the procedure were fully explained, including but not limited to infection, neurovascular injury, continued pain, arthritis, stiffness, need for further surgery, re-injury, DVT, PE, general risks of anesthesia, and loss of limb or life. The patient understands all the risks and does wish to proceed with written consent. Follow up post op or sooner if pain, swelling, numbness or associated symptoms, or concerns develop. .agree Coding Level of Care Code Off vis,est,level 4 Diagnoses Closed displaced bimalleolar fracture of right ankle with routine healing, subsequent encounter S82.841D ??Encounter type: subsequent encounter ??Fracture healing: with routine healing 07/26/19 1333 <Electronically signed by Mahnaz bowen DO> Date _ Mahnaz Jiang DO
[2019-07-26 13:28] VITALS: BMI 28.0
[2019-08-02 09:07] VITALS: BMI 28.0
--- NOTE | 2019-08-02 10:03 | EKG12_ITS ---
Test Reason : PRE OP Blood Pressure : / mmHG Vent. Rate : 089 BPM Atrial Rate : 089 BPM P-R Int : 130 ms QRS Dur : 086 ms QT Int : 392 ms P-R-T Axes : 020 -01 -10 degrees QTc Int : 476 ms Normal sinus rhythm Nonspecific ST and T wave abnormality Prolonged QT Abnormal ECG Confirmed by MATHEUS KC, RAMON ([id number]), editor department MEG ERIC ([id number]) on 08/03/2019 1:33:24 PM Referred By: Mahnaz Jiang Confirmed By:RAMON JARVIS MD
[2019-08-02 11:00] LABS: Hematocrit 42.5 % (40-54); Hemoglobin 14.4 g/dL (13.0-16.5); Mean Corp Hgb Conc 33.9 g/dL (32-36); Mean Corpuscular Hgb 35.3 pg (27.0-32.0); Mean Corpuscular Volume 104.2 fL (80-94); Mean Platelet Vol. 9.6 fl (6.2-12.0); Platelet Count 347 K/mm3 (150-450); RBC Distribution Width CV 12.1 % (11.6-14.6); RBC Distribution Width SD 46.8 fl (35.1-43.9); Red Blood Count 4.08 M/mm3 (4.6-6.2); White Blood Count 6.7 K/mm3 (4.4-11.0)
[2019-08-02 11:20] LABS: International Normalized Ratio 1.1; Prothrombin Time (Protime)PT. 13.6 SECONDS (11.7-14.9)
[2019-08-02 11:21] LABS: Partial Thromboplast Time 26.9 Seconds (24.1-36.2)
[2019-08-02 11:29] LABS: AST(SGOT) 17 U/L (15-37); Alanine Aminotransfer ALT/SGPT 19 U/L (16-61); Albumin, Serum 3.4 g/dL (3.2-5.0); Alkaline Phosphatase 97 U/L (45-117); Anion Gap 8 (5-15); BUN 14 mg/dL (7-18); BUN/Creat Ratio 13.5 RATIO (10-20); Bilirubin, Direct 0.16 mg/dL (0.00-0.30); Calcium,Total 8.9 mg/dL (8.5-10.1); Chloride 110 mmol/L (98-107); Creatinine, Serum 1.04 mg/dL (0.70-1.30); EST Glomerular Filtration Rate 77 mL/min (>60); Est Glom Filt Rate - Afr Amer 94 mL/min (>60); Globulin 3.6 g/dL (2.2-4.2); Glucose 103 mg/dL (74-106); Potassium 3.9 mmol/L (3.5-5.1); Sodium Level 140 mmol/L (136-145)
[2019-08-03] VITALS (8 sets, daily range): BP systolic 105–129; BP diastolic 71–94; PULSE 81–109; RESP 16–20; TEMP 36.3–36.7; O2SAT 90–97; BMI 25.7
[2019-08-03] MEDS: Lactated Ringers 1,000 ML 100 ML IV ×2 (10:17→12:54)
[2019-08-03] MEDS: Cefazolin 2 GM in 0.9% Normal Saline 100 ML IV (10:29)
--- NOTE | 2019-08-03 10:47 | RAD_ITS ---
STUDY: X-RAY - RIGHT ANKLE REASON FOR EXAM: ORIF. TECHNIQUE: 6 intraoperative images of the ankle. COMPARISON: Radiographs 07/17/2019. FINDINGS: There is an orthopedic plate and screw transfixing the lateral malleolar fracture in anatomic alignment and position. There are 2 orthopedic screws transfixing the medial malleolar fracture in anatomic alignment and position. There is a nondisplaced posterior malleolar fracture. Electronically Signed: Cosme Montanez MD at 14:58 EDT Tel , Service support , RAD/Ankle min 3 Views
[2019-08-03] MEDS: Mupirocin Ointment 22gm Tube 1 APPLIC (12:07)
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
--- NOTE | 2019-08-03 12:23 | PCM.DC.ORTHO ---
Discharge Diet: No Restrictions - nwb right leg, follow up in 2 weeks, elevate toes above nose, and ice as tolerated, call with concerns Discharge Activity: May Not Drive May shower in (days): 1 Ice area for (Minutes): 20 - Every hour while awake. Weight Bearing Status: Weight bearing as tolerated Keep extremity elevated above heart level: Operative Extremity Call your doctor if your incision/area has: Continuous Slow Oozing, Sudden Increased Bleeding, Increased Pain/ Swelling, Increased Redness, Foul Smelling Discharge Call your doctor if you observe: Fever of 101 or Higher, Coldness, Increased Pain, Numbness or Tingling, Change in Color, Calf discomfort Allergies/Adverse Reactions: Allergies No Known Allergies Allergy (Verified 08/03/19 09:54) Medications to take at Discharge ALPRAZolam [Xanax] 0.5 mg PO DAILY PRN PRN 10/31/16 atorvastatin 40 mg tablet 40 mg PO QDAY 06/16/18 citalopram 10 mg tablet 40 mg PO DAILY tab 06/16/18 multivitamin tablet 1 tab PO QAM 06/16/18 topiramate XR 25 mg capsule,extended release 24 hr 25 mg PO QHS PRN 06/16/18 Loratadine 10 mg PO DAILY 07/31/18 Losartan Potassium 25 mg PO DAILY 07/31/18 cholecalciferol (vitamin D3) 50,000 unit capsule 50,000 unit PO QWEEK 12/17/18 hydrocodone 5 mg-acetaminophen 325 mg tablet See Rx Instructions PO Q6H PRN #30 tab 07/19/19 ibuprofen 800 mg tablet 800 mg PO Q6H PRN 07/19/19 Oxycodone HCl/Acetaminophen [Percocet 5/325] 1 - 2 tablet PO Q6H PRN PRN 5 Days #28 tablet 08/03/19 The following prescriptions were given: Oxycodone HCl/Acetaminophen [Percocet 5/325] 1 - 2 tablet PO Q6H PRN PRN 5 Days #28 tablet PRN Reason: Pain Transmission Status: Sent to [facility] Orders to be completed after discharge: 12 Lead EKG [CVS] Time Frame: 07/29/19, Facility: [facility], Location: Cardiovascular Services Basic Metabolic Profile (BMP) Time Frame: 07/29/19, Facility: [facility], Location: Laboratory CBC-Complete Blood Cnt No Diff Time Frame: 07/29/19, Facility: [facility], Location: Laboratory Liver Profile Time Frame: 07/29/19, Facility: [facility], Location: Laboratory Partial Thromboplast Time Time Frame: 07/29/19, Facility: [facility], Location: Laboratory Prothrombin Time w/INR Time Frame: 07/29/19, Facility: [facility], Location: Laboratory Primary Care Physician: Madhuri Cortez [Primary Care Provider] - Test Results: Test results from this visit will be discussed in further detail at your follow-up appointment, if applicable. Please Follow Up With: Mahnaz Jiang, DO - [phone]
== END 2019-08-03 14:08 | disposition home or self-care (01) ==
LOC: SDC 09:36 → AC 09:37
PROVIDERS: Referring Provider Orthopaedic Surgery; Visit Provider Orthopaedic Surgery
PROC: (CPT 27814; principal; 2019-08-03 10:40)
DX: S82.841A Displaced bimalleolar fracture of right lower leg, initial encounter for closed fracture (principal); W10.9XXA Fall (on) (from) unspecified stairs and steps, initial encounter; Y93.9 Activity, unspecified; Y92.9 Unspecified place or not applicable; Y99.9 Unspecified external cause status; I10 Essential (primary) hypertension; E78.5 Hyperlipidemia, unspecified; F32.9 Major depressive disorder, single episode, unspecified; F41.9 Anxiety disorder, unspecified; F17.210 Nicotine dependence, cigarettes, uncomplicated; Z79.899 Other long term (current) drug therapy
CPT/HCPCS: 01480; 27814; 64447; 36415; 73610; 76000; 80048; 80076; 85027; 85610; 85730; 93005; C1713; J7120; J2405

== ENCOUNTER → 2019-08-16 10:11 | Outpatient (CLI) | payer MEDICAID, SELFPAY ==
[2019-08-16 09:50] VITALS: BMI 25.7
--- NOTE | 2019-08-16 10:12 | RAD_ITS ---
STUDY: X-RAY - RIGHT ANKLE REASON FOR EXAM: Male, 58 years old. Postoperative evaluation. TECHNIQUE: 3 view(s) of the ankle. COMPARISON: July 17, 2019 FINDINGS: Placement of 2 cancellus screws through the medial malleolus and lateral plate and screw fixation of the distal fibula with anatomic alignment at the fracture sites. Slight widening of the medial tibiotalar articulation, relatively unchanged. Stable calcaneal spur inferiorly. Mild subtalar arthrosis unchanged. The soft tissue structures are unremarkable. RAD/Ankle min 3 Views IMPRESSION: Postsurgical changes with near anatomic alignment at the fracture sites. No complications. Electronically Signed: Edgardo Aaron MD at 11:42 EDT , Service support ,
== END ==
PROVIDERS: Referring Provider Orthopaedic Surgery; Visit Provider Orthopaedic Surgery
DX: S82.841D Displaced bimalleolar fracture of right lower leg, subsequent encounter for closed fracture with routine healing (principal); Z98.890 Other specified postprocedural states; X58.XXXD Exposure to other specified factors, subsequent encounter
CPT/HCPCS: 73610

== ENCOUNTER → 2019-09-12 10:16 | Outpatient (CLI) | payer MEDICAID, SELFPAY ==
[2019-09-12 10:11] VITALS: BMI 25.7
--- NOTE | 2019-09-12 10:17 | RAD_ITS ---
STUDY: X-RAY - RIGHT ANKLE REASON FOR EXAM: Male, 59 years old. 1 month surgical follow-up TECHNIQUE: 3 view(s) of the ankle. COMPARISON: 08/16/2019 FINDINGS: Stable bimalleolar hardware. Stable medial and lateral malleolar deformities. No radiographic evidence of hardware failure. Stable tibiotalar degenerative change. Soft tissue swelling. RAD/Ankle min 3 Views IMPRESSION: No radiographic evidence of hardware failure. Electronically Signed: Modesto Banda MD at 17:06 EDT Tel , Service support ,
== END ==
PROVIDERS: Referring Provider Physician Assistant; Visit Provider Physician Assistant
DX: M25.571 Pain in right ankle and joints of right foot (principal)
CPT/HCPCS: 73610; 97110

== ENCOUNTER 2019-09-16 10:48 | Day surgery (SDC) | payer MEDICAID, SELFPAY ==
[2019-09-12 10:11] VITALS: BMI 25.7
[2019-09-16] VITALS (8 sets, daily range): BP systolic 110–149; BP diastolic 66–98; PULSE 88–122; RESP 16; TEMP 36.7–37.1; O2SAT 92–98; BMI 25.7
[2019-09-16] MEDS: Lactated Ringers 1,000 ML 100 ML IV ×2 (11:30→15:14)
--- NOTE | 2019-09-16 12:15 | RAD_ITS ---
STUDY: X-RAY - RIGHT ANKLE REASON FOR EXAM: Screw fixation of right ankle. TECHNIQUE: 3 intraoperative images of the ankle. COMPARISON: Radiographs 09/12/2019. FINDINGS: There is orthopedic hardware in the distal fibula and medial malleolus with interval placement of 2 syndesmotic screws. Electronically Signed: Cosme Montanez MD at 15:02 EDT Tel , Service support , RAD/Ankle min 3 Views
[2019-09-16] MEDS: Cefazolin 2 GM in 0.9% Normal Saline 100 ML IV (13:18)
--- NOTE | 2019-09-16 13:25 | DCINST_ITS ---
Discharge Diet: No Restrictions - NONNNNNNN WEEEIIIGGGHHHHTTTT BEARRRRIINNNNGGG RIGHT LEG!! FOLLOW UP IN ONE WEEK WITH MARY LOU FOR REPEAT XRAYS, CALL WITH CONCERNS Discharge Activity: May Not Drive May shower in (days): 1 Ice area for (Minutes): 20 - Every hour while awake. Weight Bearing Status: Weight bearing as tolerated Keep extremity elevated above heart level: Operative Extremity Call your doctor if your incision/area has: Continuous Slow Oozing, Sudden Increased Bleeding, Increased Pain/ Swelling, Increased Redness, Foul Smelling Discharge Call your doctor if you observe: Fever of 101 or Higher, Coldness, Increased Pain, Numbness or Tingling, Change in Color, Calf discomfort Allergies/Adverse Reactions: Allergies No Known Allergies Allergy (Verified 09/16/19 11:16) Medications to take at Discharge ALPRAZolam [Xanax] 0.5 mg PO DAILY PRN PRN 10/31/16 atorvastatin 40 mg tablet 40 mg PO QDAY 06/16/18 citalopram 10 mg tablet 40 mg PO DAILY tab 06/16/18 multivitamin tablet 1 tab PO QAM 06/16/18 topiramate XR 25 mg capsule,extended release 24 hr 25 mg PO QHS PRN 06/16/18 Loratadine 10 mg PO DAILY 07/31/18 Losartan Potassium 25 mg PO DAILY 07/31/18 cholecalciferol (vitamin D3) 50,000 unit capsule 50,000 unit PO QWEEK 12/17/18 hydrocodone 5 mg-acetaminophen 325 mg tablet See Rx Instructions PO Q6H PRN #30 tab 07/19/19 ibuprofen 800 mg tablet 800 mg PO Q6H PRN 07/19/19 Hydrocodone Bitart/Apap 5-325 [[place] 5MG-325MG] 1 - 2 tab PO Q6H PRN PRN 5 Days #40 tab 09/16/19 The following prescriptions were given: Hydrocodone Bitart/Apap 5-325 [[place] 5MG-325MG] 1 - 2 tab PO Q6H PRN PRN 5 Days #40 tab PRN Reason: Pain Transmission Status: Received by [facility] Primary Care Physician: Madhuri Cortez [Primary Care Provider] - Test Results: Test results from this visit will be discussed in further detail at your follow- up appointment, if applicable. Please Follow Up With: Mahnaz Jiang, - [phone]
--- NOTE | 2019-09-16 13:25 | PCM.OPRPT ---
Report of Operation Date of Procedure: 09/16/19 Pre-Operative Diagnosis: UNSTABLE RIGHT ANKLE FRACTURE H/O ANKLE ORIF 6 WKS Post-Operative Diagnosis: SAME Surgery/Procedure Performed:: RIGHT ANKLE REVISION ORIF WITH LOCKING SCREW PLACEMENT AND SYNDESMOTIC SCREW PLACEMENT drum sander offbearer: Kandi Douglass Type of Anesthesia:: General Anesthesiologist: Rommel Greer Fluids Replaced: 700CC LR Description of Procedure: Preop note Patient is a well-known to me had a sustained a right ankle injury he was dislocated out for 12hours patient was intoxicated did not go to the emergency room to the following day to have it reduced and splinted. Patient was then fixed by myself about a week and half later to the amount of swelling he had. Patient was pretty poor bone quality during the initial surgery was told to be nonweightbearing patient was noncompliant as he is an alcoholic and was walking on his right leg he has displaced it and some of the screws were backing out. Risk benefits alternatives were discussed with patient. Risks include but not limited to blood loss, blood clot, infection, neurovascular, failure procedure, loss of life and loss of limb. Patient is failed ORIF fixation and we will also place syndesmotic screws across to further prevent failure. Next Operative note Patient seen and examined preop holding area. Right leg was marked. Patient brought to the operating placed supine on the operating table. Signed, anesthesia, antibiotics were administered. The right leg was prepped and draped usual sterile fashion with a tourniquet around his upper thigh. All bony promises well-padded SCDs placed on the lateral leg. We then elevated the leg exsanguinated and triggers rates her pressure 250 torr. We then use our former incision we able to visualize on fluoroscopy he had medial clear space widening as well as about 4 screws that were backing out. We then use a 15 blade and then through the previous incision. We then dissected down tenotomies to the scar tissue down to the plate we then placed 2 3.5 mm syndesmotic screws across the tib-fib joint after the joint was maintained and reduced with pointed reduction forceps clamps. We then took the distal to screws and exchange them for a locking screws and we reviewed drilled and. There is also 2 proximal screws that were loose and so we then we drilled those as well and placed 2 locking screws proximally. We irrigated the incision with copious muscle sterile saline incision the deep layers were closed with two 0-0 Vicryl and the skin was closed with maria luz. Sterile dressings were applied. Sterile tourniquet was deflated for a total working time of 45 minutes. Patient tied procedure well no comp occasions [facility] recovery room in stable condition. Postoperative note Nonweightbearing right leg follow-up in 1 week Call with increased pain numbness tingling further issues arises Pharmacy has prescription Elevate ice as tolerated Tiarraon discolored Xu disclaimer This note was generated with [employer] dictation software. It may contain incorrect words, spelling, and punctuation that were not noted in checking the note before signing.
--- NOTE | 2019-09-16 13:26 | HP.PCM_ITS ---
History and Physical I have re-examined the patient. There are no clinical changes since date of exam. Intake Vital Signs 09/12/19 Body Mass Index (BMI) 25.7 Intake Visit Reasons: RIGHT ANKLE Is patient in pain?: No Allergies No Known Allergies Allergy (Verified 09/12/19 10:10) [facility] Medical History (Updated 06/20/19 @ 14:44 by Ally Rodriguez) Essential (primary) hypertension (Chronic) Hyperlipidemia (Chronic) Nicotine dependence (Chronic) Non-sustained ventricular tachycardia (Chronic) Anxiety and depression (Chronic) Gynecomastia (Chronic) Hepatomegaly (Chronic) Syncope and collapse (Resolved) Surgical History (Updated 07/31/18 @ 18:50 by Lake Mares MD) H/O shoulder surgery (Chronic) History of ankle surgery (Chronic) History of vascular surgery (Chronic) Family History (Updated 06/16/18 @ 07:14 by Ally Rodriguez) Father CVA (cerebral vascular accident) Myocardial infarction HAS ICD Heart disease Sister Heart disease Breast cancer Mother Colon cancer Social History (Updated 09/12/19 @ 13:04 by NIDA Abbasi) Smoking Status: Current every day smoker tobacco type: cigarettes Tobacco: How many years used: 40 alcohol intake: current alcohol intake frequency: 0-2 drinks per day Alcohol type: wine HPI RIGHT ANKLE: Details: Parts of this documentation were recorded by a scribe, this documentation accurately reflects the service provided and the decisions made by me, NIDA Abbasi 09/12/19 1010. YADIEL SOSA is a 59 year old M here today for a followup on his right ankle fracture. Patient is doing well. He has been wearing his cam boot and been non- weightbearing. Denies numbness, tingling or other associated symptoms. He is able to move his toes with no pain. ROS Musc Reports stiffness Skin/Breast Reports system reviewed and no additional complaints, except as docu Neuro Yes system reviewed and no additional complaints, except as docu Ortho Exam Right Foot/Ankle Skin/Wound: Yes Soft Tissue Swelling (Still some minor swelling more prominent lateral); no Ecchymosis or Erythema Exam: present TTP FX site (Lateral ankle) and TTP Lateral Malleolus; absent TTP ATFL, TTP Medial Malleolus, TTP Deltoid Ligament or TTP Peroneal Compartments: Compartments: soft ROM: none Pain with ROM (Some stiffness) Tests: Squeeze Test: 2 Motor: Ankle Dorsiflextion: 3, Ankle Plantar Flexion: 3 Pulses: Dorsalis Pedis: 2 ANKLE: No acute abnormalities on inspection. He still has some minor generalized swelling that is more prominent on the lateral aspect of the ankle. His incision site have healed well with minimal scarring and no signs of infection. He does still have some tenderness on palpation of the lateral ankle over and around the incision/hardware. Patient does have decreased range of motion more notable with plantar flexion. He also does have some weakness in all movements against resistance. He has normal sensation throughout the a nkle/foot with some minor numbness around the medial incision/malleolus. Assessment & Plan Problems 1. Closed bimalleolar fracture of right ankle with routine healing, subsequent encounter S86.864O Plan Patient presents for 6-week postop for right bimalleolar ORIF. At this time patient states that he feels he is doing pretty good however still has some pain more on the lateral ankle as well as intermittent swelling. He has been going to physical therapy working on range of motion primarily. He still has been wearing the boot and has been nonweightbearing. Radiographs taken today do show some minor gapping of the medial malleolus compared to previous films most noted on the oblique view. There does appear to be some widening of the medial joint compared to the superior joint/talar dome. Physical exam findings show no tenderness on palpation the medial malleolus however still has some tenderness over the lateral incision/hardware. There does appear to be some scar tissue with minimal skin movement on palpation. Patient does have some minor tenderness with squeeze test at the same time states localized to the lateral aspect of the ankle. At this time patient to continue with physical therapy and would like him to continue to be nonweightbearing until I discuss images with surgeon. Again he states he feels he is doing well and continues to see improvement. He is continue to ice and elevate when able as well as doing ankle range of motion as suggested by physical therapy. Will notify patient once imag es are discussed. This note was generated with [employer] dictation software. It may contain incorrect words, spelling, and punctuation that were not noted in checking the note before signing. Orders Orders: Ankle min 3 Views Today M25.571 Coding Level of Care Code Global Post Op Diagnoses Closed bimalleolar fracture of right ankle with routine healing, subsequent encounter S82.841D ??Encounter type: subsequent encounter ??Fracture type: closed ??Fracture healing: with routine healing
[2019-09-16] MEDS: Mupirocin Ointment 22gm Tube 1 APPLIC (14:00)
[2019-09-16] MEDS: HYDROcodone Bitartrate/Apap 5/325 Tablet PO (16:04)
== END 2019-09-16 16:36 | disposition home or self-care (01) ==
LOC: SDC 10:50 → AC 10:52
PROVIDERS: Anesthesiology; Referring Provider Orthopaedic Surgery; Visit Provider Orthopaedic Surgery
PROC: (CPT 27829; principal; 2019-09-16 11:55)
DX: M25.371 Other instability, right ankle (principal); S82.841D Displaced bimalleolar fracture of right lower leg, subsequent encounter for closed fracture with routine healing; X58.XXXD Exposure to other specified factors, subsequent encounter; I10 Essential (primary) hypertension; E78.5 Hyperlipidemia, unspecified; F32.9 Major depressive disorder, single episode, unspecified; F41.9 Anxiety disorder, unspecified; K21.9 Gastro-esophageal reflux disease without esophagitis; F17.210 Nicotine dependence, cigarettes, uncomplicated; F10.20 Alcohol dependence, uncomplicated; Z91.19 Patient's noncompliance with other medical treatment and regimen
CPT/HCPCS: 01480; 27829; 64445; 73610; 76000; 80320; C1713; J7120; G0480; J2405

== ENCOUNTER → 2019-09-22 10:16 | Outpatient (CLI) | payer MEDICAID, SELFPAY ==
[2019-09-22 10:11] VITALS: BMI 25.7
--- NOTE | 2019-09-22 10:17 | RAD_ITS ---
STUDY: X-RAY - RIGHT ANKLE REASON FOR EXAM: Male, 59 years old. Postop. TECHNIQUE: 3 view(s) of the ankle. COMPARISON: 09/12/2019. FINDINGS: Stable and grossly satisfactory appearance of 2 screws through the medial malleolus, and compression plate across the distal fibula with 2 screws extending through the fibula into the distal tibial metaphysis. No widening of the ankle joint. No subluxations or dislocations. RAD/Ankle min 3 Views IMPRESSION: Fractures of the distal fibula and medial malleolus in anatomic alignment and position status post ORIF. Electronically Signed: Chaka Navas MD at 23:58 EDT , Service support ,
== END ==
PROVIDERS: Referring Provider Physician Assistant; Visit Provider Physician Assistant
DX: S82.841A Displaced bimalleolar fracture of right lower leg, initial encounter for closed fracture (principal); X58.XXXA Exposure to other specified factors, initial encounter; Y93.9 Activity, unspecified; Y92.9 Unspecified place or not applicable; Y99.9 Unspecified external cause status
CPT/HCPCS: 73610

== ENCOUNTER → 2019-10-18 09:06 | Outpatient (CLI) | payer MEDICAID, SELFPAY ==
[2019-09-29 10:12] VITALS: BMI 25.7
--- NOTE | 2019-10-18 09:12 | BD_ITS ---
STUDY: DUAL ENERGY X-RAY ABSORPTIOMETRY / DXA REASON FOR EXAM: Male, 59 years old. History of multiple fractures. TECHNIQUE: Bone Mineral Density (BMD) measurements of lumbar spine and left hip were obtained. COMPARISON: None. FINDINGS: Lumbar Spine (L1-L4): g/cm2 (0.779) / T-score (-3.5) / Z-score (-3.2) Findings are suggestive of osteoporosis with a high fracture risk. Left Femur Total: g/cm2 (0.711) / T-score (-2.7) / Z-score (-2.2) Left Femoral Neck: g/cm2 (0.663) / T-score (-3.1) / Z-score (-2.2) BD/Dexa Bone Density Study IMPRESSION: The patient is considered osteoporotic as outlined below according to World [employer] Organization (WHO) criteria with a high fracture risk. Reference Information: The T-score is the number of standard deviations above or below the standard which is normal for young adults at their peak bone mineral density. The World Health Organization (WHO) interprets the T-scores as follows: Above -1 Normal bone density Between -1 and -2.5 Osteopenia Equal to / or below -2.5 Osteoporosis As a practical clinical guideline, osteopenia may be graded as follows: Mild -1 through -1.5 Moderate -1.6 through -2.0 Severe -2.1 through -2.4 The Z-score is the number of standard deviations above or below age-matched controls. A Z-score of less than -1.5 would be considered abnormal. References: 1. NIH Osteoporosis and Related Bone Diseases http://www.osteo.org 2. International Society for Clinical Densitometry http://www.iscd.org 3. National Osteoporosis Foundation http://www.nof.org Electronically Signed: Evan Stafford, at 8:37 EST , Service support ,
== END ==
DX: S82.91XS Unspecified fracture of right lower leg, sequela (principal); X58.XXXS Exposure to other specified factors, sequela
CPT/HCPCS: 77080

== ENCOUNTER → 2019-11-03 11:03 | Outpatient (CLI) | payer MEDICAID, SELFPAY ==
[2019-11-03 10:43] VITALS: BMI 25.7
--- NOTE | 2019-11-03 11:05 | RAD_ITS ---
HISTORY: INJURY, PAIN, F/U ORIF ADDITIONAL HISTORY: None provided. TECHNIQUE: Right ankle 3 views Number of images including paperwork: 3 COMPARISON: 09/22/2019 FINDINGS: BONES: Status post ORIF with laterally applied fibular plate and multiple screws, including 2 syndesmotic screws. 2 screws are present transfixing the medial malleolus. Callus formation noted in the interim without solid osseous union demonstrated radiographically at the medial malleolus fracture site. Calluses noted in the region of the distal tibiofibular syndesmosis. Mineralization appears decreased. JOINTS: No subluxation. Small to moderate-sized ankle joint effusion. SOFT TISSUES: No distinct foreign body. Soft tissue swelling is present about the ankle. RAD/Ankle min 3 Views IMPRESSION: Right ankle fractures with some interval healing, as described. at 2308 Reported and signed by: Yazmin Hernandez MD Electronically Signed: Yazmin Hernandez MD at 23:08 EST Tel , Service support ,
== END ==
PROVIDERS: Referring Provider Physician Assistant; Visit Provider Physician Assistant
DX: Z47.89 Encounter for other orthopedic aftercare (principal)
CPT/HCPCS: 73610

== ENCOUNTER → 2019-12-14 12:08 | Outpatient (CLI) | payer MEDICAID, SELFPAY ==
[2019-11-03 10:43] VITALS: BMI 25.7
--- NOTE | 2019-12-14 12:11 | US_ITS ---
Exam: Limited superficial ultrasound of the posterior upper neck. REASON FOR EXAM: Male, 59 years old. LUMPS/NODULES ON POST UPPER NECK TECHNIQUE: Ultrasound evaluation of the area of interest was performed COMPARISON: None. FINDINGS: 2 small cystic changes nodules are seen on the right, no more than 4 mm. 2 small cystic subcutaneous nodules are seen on the left no more than 3 mm. Findings nonspecific but appear completely nonaggressive. Electronically Signed: Chaka Navas MD at 22:05 EST , Service support , US/Head/Neck Soft Tissue
== END ==
PROVIDERS: Referring Provider Nurse Practitioner Family; Visit Provider Nurse Practitioner Family
DX: D49.2 Neoplasm of unspecified behavior of bone, soft tissue, and skin (principal)
CPT/HCPCS: 76536

== ENCOUNTER 2019-12-16 10:30 | Outpatient (RCR) | payer MEDICAID, SELFPAY ==
[2019-08-16 09:50] VITALS: BMI 25.7
--- NOTE | 2019-08-24 13:08 | HP.PTEVAL ---
Patient's Visit Information YADIEL SOSA is a 59 year old M referred to Physical Therapy by Mahnaz Jiang DO with a diagnosis of RIGHT ANKLE ORIF. Date of Evaluation: 08/24/19 Physical Therapist: David Johnson, PT, Cert MDT, OCS - Visit Plan Frequency: 2x /Week Duration: 8weeks Plan: S/P ANKLE ORIF 08/02/19 NWB UNTIL SEP 15 ,USES W/C UNSAFE WITH CRUTHES EDUCATED ON WALKER. PT INTERVENTIONS INTIALLY GAIT TRAINING WITH FWW WITH NWB WITH BOOT,START VASO FOR EDEMA,CP,ROM EX'S,STRENGTHENING HIP KNEE AND ANKLE MACARIO - Subjective Findings: This 59 y/o male presents to physical therapy s/p right ankle ORIF . Patient fell of porch tripped on stepped landed on ankle cause ankle fracture. Patient went to ER [facility] 07/26/19 did x-rays showed bimalleolar fracture. Thus underwent s/p Right ankle ORIF 08/12/[address] Jiang . D/C same with soft spint splint and crutches with NWB LE until 09/15/19. Patient had sutures removed last week and in boot.Patient has pain and swelling. Denies parathesia/tingling. Patient has w/c due to unable to ambulate and deficits with ADL'S nand unabe with housework chores. Patient stays on 1st floor .Paln to see in 4 weeks. VOCATION: retire. SOCIAL: partner - Pain Right Ankle Pain Intensity (Out of 10): 4 Pain Intensity Range: 10 - Objective POSTURE: pes planus frontal plan mechanics. GAIT: Ambulated with FWW with NWB WITH SBA 40 FT. TRANSFERS- MOD I. EDEMA: trimalleolar joint line 30 cm,met heads 28.5 cm. SKIN: mild errythmia,crusty. BALANCE: fair with fww. AROM: dorsiflexion -10 degrees,plantarflexion 30 degrees,inversion 8 degrres,EV O degrees. MMT: dorsiflexion 3+/5,posterior tibials/peroneus 2+/5,G-S 2/5. *Patient not safe with crutches with NWB LOB* - Goals Goal 1:: Patient to be Independant with HEP. Goal Time Frame: 8-12 Weeks Goal 2:: Patient to ambulate with least restrictive device community distances with improve quality of gait pattern Goal Time Frame: 8-12 Weeks Goal 3:: Improve balance to good - commmunity Goal Time Frame: 8-12 Weeks Goal 4:: Patient to increase ROM ankle by 5 degrees or> to improve function. Goal Time Frame: 8-12 Weeks Goal 5:: Patient increse ankle stablity to 4-/5 except G-S to 3+.5 to improve gait. Goal Time Frame: 8-12 Weeks Goal 6:: Patient to improve LFES score by 10 points or> to improve QOL. Goal Time Frame: 8-12 Weeks - Rehabilitation Potential Physical Therapy Diagnosis: This patient had s/p ORIF 08/02/19 with unable to ambulate safely ,poor balance,decrease ROM ankle ,strength and proprioception thus benifit from skilled PT Rehabilitation Potential: Good - Anticipated Interventions Patient/Client Instruction: Educate patient on: Condition, Plan of Care For the Purpose of:: To decrease pain, To increase ROM, To improve muscle performance and motor function, To improve ability to perform ADL's, To increase tolerance to activity/condition/position, To improve performance and independence with ADL's, To improve ability of physical actions for home/community/work/leisure, To improve gait and locomotor functions, To increase flexibility/ROM, To improve endurance, To improve balance, To improve safety with gait, To assume or resume ADL's, To improve ability to perform tasks related to life management Therapeutic Exercise to Include: Strength training, Endurance training, Balance training, Flexibilty training, Gait and locomotor training, Passive ROM, Active ROM For the Purpose of:: To decrease pain, To increase ROM, To improve muscle performance and motor function, To improve ability to perform ADL's, To increase tolerance to activity/condition/position, To improve performance and independence with ADL's, To improve ability of physical actions for home/community/work/leisure, To improve gait and locomotor functions, To improve health of tissue, To decrease soft tissue restriction, To increase flexibility/ROM, To improve endurance, To improve balance, To improve safety with gait, To improve tolerance to ADL's Functional Training to Include: Gait training For the Purpose of:: To improve ability of physical actions for home/community/work/leisure, To improve gait and locomotor functions, To improve safety with gait TENS: Yes IF ES: Yes Cryotherapy (ice pack, ice massage): Yes Vasopneumatic device: Yes For the Purpose of:: To decrease swelling/inflammation, To improve nutrient delivery to tissue, To increase oxygenation perfusion, To improve health of tissue, To decrease soft tissue restriction Thank you for the opportunity to evaluate your patient. For Medicare and Medicare HMO plans, please review the plan of care and approve it. It will need to be FAXED BACK to us at [phone] for Medicare purposes. For Medicare only, by signing this I certify the plan of care. Please let me know if there are questions or concerns regarding this plan of care. Physician Signature: Date:
--- NOTE | 2019-10-06 12:08 | HP.PTREVAL_ITS ---
Mahnaz Jiang, DO, It has been my pleasure to treat YADIEL SOSA over the last 7 visits for RIGHT ANKLE ORIF. Please see the progress note below for an update on the physical therapy plan of care! Subjective: Patient staed not compliant with WB after 1 st surgey.Patient had x- ray 09/12/19 See by Cedric Anderson ,Then Dr Jiang looked at x-rays showed not healing and srew coming loose ,thus underwent right ankle revision ORIF with locking screw placement and syndesmototic placement on 09/16/19 . D/C to home with cast soft with NWB then on 09/29 .Return return to Dr Jiang. x-rays looked ,placed in boot with NWB 6 WEEKS. return to Nov 03 .Patient stays in w/c ,recliner or bed. Not walking in w/c.Denies parathesai/tingling. Pain affects sleeping. Pateint has limiations with ADLS and requires assist with self hygine. Objective/Function: POSTURE: WFL CAM BOOT. TRANFERS: SIT -STAND MOD I CAM BOOT TO WALKER. BED MOBLITY: SUPINE-SIT MOD I. GAIT: AMBULATED WITH NWB WITH BOOT ON 10 FT WITH W/C FOLLOW CGA. BALANCE: FAIR WITH FWW. AROM: DF 10 DEGREES FROM 0 ,PF 40DEGREES ,INVERSION 10 DEREES ,EVERSION 0 DEGREES. MMT: DF 3+/5,PF 2+/5 ,IN/EV 2+/5 Plan Plan: S/P ANKLE REVISION ON 09/29/19 WITH LOCKING SREW. PATIENT IS NWB WITH CAM BOOT RETURN TO 11/03. PT INTERVENTIONS I GAIT TRAINING WITH FWW WITH NWB AND CAM BOOT WHEN UP, CP, ROM, STRENGTHENING HIP/ KNEE AND ANKLE. Goals Goal 1:: Patient to be Independant with HEP. Goal Time Frame: 8-12 Weeks Goal 2:: Patient to ambulate with least restrictive device community distances with improve quality of gait pattern Goal Time Frame: 8-12 Weeks Goal 3:: Improve balance to good - commmunity Goal Time Frame: 8-12 Weeks Goal 4:: Patient to increase ROM ankle by 5 degrees or> to improve function. Goal Time Frame: 8-12 Weeks Goal 5:: Patient increse ankle stablity to 4-/5 except G-S to 3+.5 to improve gait. Goal Time Frame: 8-12 Weeks Goal 6:: Patient to improve LFES score by 10 points or> to improve QOL. Goal Time Frame: 8-12 Weeks Anticipated Interventions Patient/Client Instruction: Educate patient on: Condition, Plan of Care For the Purpose of:: To decrease pain, To increase ROM, To improve muscle performance and motor function, To improve ability to perform ADL's, To increase tolerance to activity/condition/position, To improve performance and independence with ADL's, To improve ability of physical actions for home/community/work/leisure, To improve gait and locomotor functions, To increase flexibility/ROM, To improve endurance, To improve balance, To improve safety with gait, To assume or resume ADL's, To improve ability to perform tasks related to life management Therapeutic Exercise to Include: Strength training, Endurance training, Balance training, Flexibilty training, Gait and locomotor training, Passive ROM, Active ROM For the Purpose of:: To decrease pain, To increase ROM, To improve muscle performance and motor function, To improve ability to perform ADL's, To increase tolerance to activity/condition/position, To improve performance and independence with ADL's, To improve ability of physical actions for home/community/work/leisure, To improve gait and locomotor functions, To improve health of tissue, To decrease soft tissue restriction, To increase flexibility/ROM, To improve endurance, To improve balance, To improve safety with gait, To improve tolerance to ADL's Functional Training to Include: Gait training For the Purpose of:: To improve ability of physical actions for home/community/work/leisure, To improve gait and locomotor functions, To improve safety with gait TENS: Yes IF ES: Yes Cryotherapy (ice pack, ice massage): Yes Vasopneumatic device: Yes For the Purpose of:: To decrease swelling/inflammation, To improve nutrient delivery to tissue, To increase oxygenation perfusion, To improve health of tissue, To decrease soft tissue restriction Please do not hesitate to contact me at [phone] by phone or if you have questions or concerns regarding this new plan of care! Sincerely, David Johnson, PT, Cert MDT, OCS
--- NOTE | 2019-10-06 12:29 | HP.PTREVAL_ITS ---
Mahnaz Jiang, DO, It has been my pleasure to treat YADIEL SOSA over the last 7 visits for POST OP RIGHT ANKLE ORIF WITH COMPRESSION/SYNDESMOSIS SREW. Please see the progress note below for an update on the physical therapy plan of care! Subjective: Patient staed not compliant with WB after 1 st surgey.Patient had x- ray 09/12/19 See by Cedric Anderson ,Then Dr Jiang looked at x-rays showed not healing and srew coming loose ,thus underwent right ankle revision ORIF with locking screw placement and syndesmototic placement on 09/16/19 . D/C to home with cast soft with NWB then on 09/29 .Return return to Dr Jiang. x-rays looked ,placed in boot with NWB 6 WEEKS. return to Nov 03 .Patient stays in w/c ,recliner or bed. Not walking in w/c.Denies parathesai/tingling. Pain affects sleeping. Pateint has limiations with ADLS and requires assist with self hygine. Objective/Function: POSTURE: WFL CAM BOOT. TRANFERS: SIT -STAND MOD I CAM BOOT TO WALKER. BED MOBLITY: SUPINE-SIT MOD I. GAIT: AMBULATED WITH NWB WITH BOOT ON 10 FT WITH W/C FOLLOW CGA. BALANCE: FAIR WITH FWW. AROM: DF 10 DEGREES FROM 0 ,PF 40DEGREES ,INVERSION 10 DEREES ,EVERSION 0 DEGREES. MMT: DF 3+/5,PF 2+/5 ,IN/EV 2+/5 Plan Plan: S/P ANKLE REVISION ON 09/29/19 WITH LOCKING SREW. PATIENT IS NWB WITH CAM BOOT RETURN TO 11/03. PT INTERVENTIONS I GAIT TRAINING WITH FWW WITH NWB AND CAM BOOT WHEN UP, CP, ROM, STRENGTHENING HIP/ KNEE AND ANKLE.WILL PROGRESS WITH WB PER MD ORDER. Goals Goal 1:: Patient to be Independant with HEP. Goal Time Frame: 8-12 Weeks Goal 2:: Patient to ambulate with least restrictive device community distances with improve quality of gait pattern Goal Time Frame: 8-12 Weeks Goal 3:: Improve balance to good - commmunity Goal Time Frame: 8-12 Weeks Goal 4:: Patient to increase ROM ankle by 5 degrees or> to improve function. Goal Time Frame: 8-12 Weeks Goal 5:: Patient increse ankle stablity to 4-/5 except G-S to 3+.5 to improve gait. Goal Time Frame: 8-12 Weeks Goal 6:: Patient to improve LFES score by 10 points or> to improve QOL. Goal Time Frame: 8-12 Weeks Anticipated Interventions Patient/Client Instruction: Educate patient on: Condition, Plan of Care For the Purpose of:: To decrease pain, To increase ROM, To improve muscle performance and motor function, To improve ability to perform ADL's, To increase tolerance to activity/condition/position, To improve performance and independence with ADL's, To improve ability of physical actions for home/communi ty/work/leisure, To improve gait and locomotor functions, To increase flexibility/ROM, To improve endurance, To improve balance, To improve safety with gait, To assume or resume ADL's, To improve ability to perform tasks related to life management Therapeutic Exercise to Include: Strength training, Endurance training, Balance training, Flexibilty training, Gait and locomotor training, Passive ROM, Active ROM For the Purpose of:: To decrease pain, To increase ROM, To improve muscle performance and motor function, To improve ability to perform ADL's, To increase tolerance to activity/condition/position, To improve performance and independence with ADL's, To improve ability of physical actions for home/community/work/leisure, To improve gait and locomotor functions, To improve health of tissue, To decrease soft tissue restriction, To increase flexibility/ROM, To improve endurance, To improve balance, To improve safety with gait, To improve tolerance to ADL's Functional Training to Include: Gait training For the Purpose of:: To improve ability of physical actions for home/community/work/leisure, To improve gait and locomotor functions, To improve safety with gait TENS: Yes IF ES: Yes Cryotherapy (ice pack, ice massage): Yes Vasopneumatic device: Yes For the Purpose of:: To decrease swelling/inflammation, To improve nutrient delivery to tissue, To increase oxygenation perfusion, To improve health of tissue, To decrease soft tissue restriction Please do not hesitate to contact me at [phone] by phone or if you have questions or concerns regarding this new plan of care! Sincerely, David Johnson, PT, Cert MDT, OCS
--- NOTE | 2019-10-11 14:05 | HP.PTREVAL_ITS ---
Mahnaz Jiang, DO, It has been my pleasure to treat YADIEL SOSA over the last 8 visits for POST OP REVISION RIGHT ANKLE ORIF WITH COMPRESSION/SYNDEMOSIS SREW. Please see the progress note below for an update on the physical therapy plan of care! Subjective: Doing okay. Plan to get bone density test. Objective/Function: Did well with ex's to increase strength hip/knee. no symptoms with ankle ex''s edema around malleloe no change,discussed with patient using compression stockings for swellling Plan Plan: S/P ANKLE REVISION ON 09/29/19 WITH LOCKING SREW. PATIENT IS NWB WITH CAM BOOT RETURN TO DR 11/03. PT INTERVENTIONS I GAIT TRAINING WITH FWW WITH NWB AND CAM BOOT WHEN UP, CP, ROM, STRENGTHENING HIP/ KNEE AND ANKLE.WILL PROGRESS WITH WB PER MD ORDER. Goals Goal 1:: Patient to be Independant with HEP. Goal Time Frame: 8-12 Weeks Goal 2:: Patient to ambulate with least restrictive device community distances with improve quality of gait pattern Goal Time Frame: 8-12 Weeks Goal 3:: Improve balance to good - commmunity Goal Time Frame: 8-12 Weeks Goal 4:: Patient to increase ROM ankle by 5 degrees or> to improve function. Goal Time Frame: 8-12 Weeks Goal 5:: Patient increse ankle stablity to 4-/5 except G-S to 3+.5 to improve gait. Goal Time Frame: 8-12 Weeks Goal 6:: Patient to improve LFES score by 10 points or> to improve QOL. Goal Time Frame: 8-12 Weeks Anticipated Interventions Patient/Client Instruction: Educate patient on: Condition, Plan of Care For the Purpose of:: To decrease pain, To increase ROM, To improve muscle performance and motor function, To improve ability to perform ADL's, To increase tolerance to activity/condition/position, To improve performance and independence with ADL's, To improve ability of physical actions for home/community/work/leisure, To improve gait and locomotor functions, To increase flexibility/ROM, To improve endurance, To improve balance, To improve safety with gait, To assume or resume ADL's, To improve ability to perform tasks related to life management Therapeutic Exercise to Include: Strength training, Endurance training, Balance training, Flexibilty training, Gait and locomotor training, Passive ROM, Active ROM For the Purpose of:: To decrease pain, To increase ROM, To improve muscle performance and motor function, To improve ability to perform ADL's, To increase tolerance to activity/condition/position, To improve performance and independence with ADL's, To improve ability of physical actions for home/community/work/leisure, To improve gait and locomotor functions, To improve health of tissue, To decrease soft tissue restriction, To increase flexib ility/ROM, To improve endurance, To improve balance, To improve safety with gait, To improve tolerance to ADL's Functional Training to Include: Gait training For the Purpose of:: To improve ability of physical actions for home/community/work/leisure, To improve gait and locomotor functions, To improve safety with gait TENS: Yes IF ES: Yes Cryotherapy (ice pack, ice massage): Yes Vasopneumatic device: Yes For the Purpose of:: To decrease swelling/inflammation, To improve nutrient delivery to tissue, To increase oxygenation perfusion, To improve health of tissue, To decrease soft tissue restriction Please do not hesitate to contact me at [phone] by phone or if you have questions or concerns regarding this new plan of care! Sincerely, David Johnson, PT, Cert MDT, OCS
--- NOTE | 2020-02-02 15:31 | HP.PT.NRP ---
HP - Discharge Summary (1) - Patient Information YADIEL SOSA was seen in my office for initial evaluation on 08/24/19. The following Plan of Care was established for this patient: Initial Frequency: 2x /Week Initial Duration: 8weeks - Anticipated Interventions Patient/Client Instruction: Educate patient on: Condition, Plan of Care For the Purpose of:: To decrease pain, To increase ROM, To improve muscle performance and motor function, To improve ability to perform ADL's, To increase tolerance to activity/condition/position, To improve performance and independence with ADL's, To improve ability of physical actions for home/community/work/leisure, To improve gait and locomotor functions, To increase flexibility/ROM, To improve endurance, To improve balance, To improve safety with gait, To assume or resume ADL's, To improve ability to perform tasks related to life management Therapeutic Exercise to Include: Strength training, Endurance training, Balance training, Flexibilty training, Gait and locomotor training, Passive ROM, Active ROM For the Purpose of:: To decrease pain, To increase ROM, To improve muscle performance and motor function, To improve ability to perform ADL's, To increase tolerance to activity/condition/position, To improve performance and independence with ADL's, To improve ability of physical actions for home/community/work/leisure, To improve gait and locomotor functions, To improve health of tissue, To decrease soft tissue restriction, To increase flexibility/ROM, To improve endurance, To improve balance, To improve safety with gait, To improve tolerance to ADL's Functional Training to Include: Gait training For the Purpose of:: To improve ability of physical actions for home/community/work/leisure, To improve gait and locomotor functions, To improve safety with gait TENS: Yes IF ES: Yes Cryotherapy (ice pack, ice massage): Yes Vasopneumatic device: Yes For the Purpose of:: To decrease swelling/inflammation, To improve nutrient delivery to tissue, To increase oxygenation perfusion, To improve health of tissue, To decrease soft tissue restriction This patient was last seen in our office . Pertinent comments regarding their Physical therapy will appear below: Patient was seen for PT for revision ORIF COMPRESSION SREW/SYNDEMOSIS . Pateint progressed with PT for ROM/strength but when last seen in our office patient was PWB with CAM boot with fww. Patient to follow up with MD Charan . Patient is d/c from PT due to other health concerns at this point. At this point I will be discontinuing this patient from physical therapy. I would be happy to see this patient again in the future if found appropriate by the physician. Thank you! David Johnson, PT, Cert MDT, OCS
== END 2019-12-16 19:00 | disposition home or self-care (01) ==
LOC: PT 10:30
PROVIDERS: Referring Provider Orthopaedic Surgery; Visit Provider Orthopaedic Surgery
DX: Z98.890 Other specified postprocedural states (principal)
CPT/HCPCS: 97110; 97162; 97164

== ENCOUNTER → 2019-12-21 09:28 | Outpatient (CLI) | payer MEDICAID, SELFPAY ==
[2019-11-03 10:43] VITALS: BMI 25.7
--- NOTE | 2019-12-21 09:32 | US_ITS ---
STUDY: ABDOMINAL ULTRASOUND - RIGHT UPPER QUADRANT REASON FOR VISIT: Male, 59 years old. Abnormal LFTs TECHNIQUE: Ultrasound evaluation of the right upper quadrant was performed with real-time and static justice-scale imaging. TECHNICAL QUALITY: Adequate. COMPARISON: None. FINDINGS: Liver: The liver measures 17 cm. There is increased echogenicity of the liver. The bile ducts are within normal limits. There is hepatic color flow. The direction of portal flow is hepatopetal. There is no demonstrated mass lesion. Gallbladder: Normal distended gallbladder. The gallbladder wall measures 3 mm. There is a negative sonographic Horton''s sign. There is no pericholecystic fluid. There are no gallstones. Common Bile Duct (C.B.D.): The common bile duct measures 4 mm. Pancreas: Not visualized. Right Kidney: Normal size of the right kidney. The right kidney measures 10 cm. Normal renal cortex. There is no demonstrated renal mass or cyst. There is no right hydronephrosis. US/Liver IMPRESSION: Fatty liver and hepatomegaly. No hepatic lesions identified. Electronically Signed: Leodan Pang, at 20:18 EST Tel , Service support ,
== END ==
DX: K75.81 Nonalcoholic steatohepatitis (NASH) (principal); R94.5 Abnormal results of liver function studies; F10.10 Alcohol abuse, uncomplicated
CPT/HCPCS: 76705

== ENCOUNTER → 2019-12-22 11:33 | Outpatient (CLI) | payer MEDICAID, SELFPAY ==
[2019-12-22 11:11] VITALS: BMI 25.7
--- NOTE | 2019-12-22 11:33 | RAD_ITS ---
HISTORY: POST OP COMPARISON: November 03, 2019 FINDINGS: # of images incl. paperwork: 3 XR Ankle Min 3 Views : Lateral malleolus fracture fixation screws and plating. Medial malleolus fixation screws. Distal tibia-fibula syndesmosis fixation screws. The ankle mortise is fairly well aligned accounting for these healing fractures. Alignment and position of the hardware and bones is similar to the previous study. There is perhaps some disuse osteoporosis. Plantar calcaneal spurring. Small ankle effusion. Some tarsal arthritis. RAD/Ankle min 3 Views IMPRESSION: Incomplete healing to medial and lateral malleolus fractures with internal fixation hardware remaining in place at 2220 Reported and signed by: Karl Lehman MD Electronically Signed: Karl Lehman MD at 22:19 EST Tel , Service support ,
== END ==
PROVIDERS: Referring Provider Physician Assistant; Visit Provider Physician Assistant
DX: Z47.89 Encounter for other orthopedic aftercare (principal)
CPT/HCPCS: 73610

== ENCOUNTER → 2020-01-11 11:36 | Outpatient (CLI) | payer MEDICAID, SELFPAY ==
[2019-12-22 11:11] VITALS: BMI 25.7
--- NOTE | 2020-01-11 11:41 | RAD_ITS ---
STUDY: X-RAY - THORACIC SPINE REASON FOR EXAM: Male, 59 years old. PAIN IN THORACIC ALL THE WAY TO TAILBONE. NO RECENT INJURY BUT HAS HAD FALLS IN THE PAST. TECHNIQUE: 3 view(s) of the thoracic spine were obtained. COMPARISON: None. FINDINGS: Normal kyphosis of the thoracic spine. There is no substantial scoliosis. There is demineralization of the thoracic spine with endplate spondylosis. Minimal disc space narrowing is present at several levels within the thoracic spine. No demonstrated acute compression deformity or fracture line. The soft tissue structures are unremarkable. RAD/Thoracic Spine 3 Views IMPRESSION: Mild degenerative changes Electronically Signed: Juancho Robert MD at 13:40 EST , Service support ,
--- NOTE | 2020-01-11 11:41 | RAD_ITS ---
STUDY: X-RAY - LUMBAR SPINE REASON FOR EXAM: Male, 59 years old. PAIN IN THORACIC ALL THE WAY TO TAILBONE. NO RECENT INJURY BUT HAS HAD FALLS IN THE PAST. TECHNIQUE: 3 view(s) of the lumbar spine were obtained. COMPARISON: None FINDINGS: Normal lumbar lordosis. There is no substantial scoliosis. There is a normal alignment of the vertebrae. There is mild endplate spondylosis of T12 and L1. Normal disc space heights. There is a transitional vertebrae of the lumbosacral junction. The soft tissue structures are unremarkable. RAD/Lumbar Spine 2 or 3 Views IMPRESSION: Endplate spondylosis of T12 and L1. Transitional vertebrae of the lumbosacral junction. There is no evidence of fracture or spondylolisthesis. Disc spacing is preserved. Electronically Signed: Remy Cerda MD at 21:11 EST , Service support ,
--- NOTE | 2020-01-11 11:50 | RAD_ITS ---
STUDY: X-RAY - SACRUM/COCCYX REASON FOR EXAM: Male, 59 years old. PAIN IN THORACIC ALL THE WAY TO TAILBONE. NO RECENT INJURY BUT HAS HAD FALLS IN THE PAST. TECHNIQUE: 3 view(s) of the sacrum and coccyx were obtained. COMPARISON: None. FINDINGS: Normal bilateral sacroiliac joints. Normal visualized sacral ala and fused sacral bodies. Normal sacrococcygeal junction with a normal angulation. Normal coccygeal segments. There is a transitional vertebrae of the lumbosacral junction. The presacral soft tissue structures are unremarkable. RAD/Sacrum-Coccyx min 2 Views IMPRESSION: Transitional vertebrae of the lumbosacral junction. There is no evidence of sacral or coccygeal fracture, dislocation, or lytic or blastic osseous process. Electronically Signed: Remy Cerda MD at 21:10 EST , Service support ,
== END ==
PROVIDERS: Referring Provider Nurse Practitioner Family; Visit Provider Nurse Practitioner Family
DX: M54.6 Pain in thoracic spine (principal); M54.5 Low back pain
CPT/HCPCS: 72072; 72100; 72220

== ENCOUNTER 2020-02-20 08:03 | Day surgery (SDC) | payer MEDICAID, SELFPAY ==
[2020-02-06 14:20] VITALS: BMI 25.7
[2020-02-20] VITALS (7 sets, daily range): BP systolic 91–151; BP diastolic 73–109; PULSE 76–110; RESP 16; TEMP 36.3–36.5; O2SAT 98–100; BMI 27.0
--- NOTE | 2020-02-20 08:23 | HP.PCM_ITS ---
History and Physical Date of Admission: 02/20/20 [facility] [address] [place] [address] OFFICE VISIT Date of Service: 02/06/20 MR#: [id number] Acct: [id number] Name: YADIEL SOSA Rep #: [id number] : 1960 Provider: David saba MD Age/Sex: 59/M Location: [facility] Status: Signed Intake Vital Signs 02/06/20 Height 6 ft 0.5 in 02/06/20 Weight: 200 lb 02/06/20 BMI 26.7 02/06/20 BP 121/88 H 02/06/20 Blood Pressure Location Rt brachial 02/06/20 Position Sitting 02/06/20 Respiration 18 02/06/20 Pulse 108 H 02/06/20 Pulse Oximetry (%) 99 Intake Visit Reasons: DIARRHEA/ DARK LIQUID STOOLS/ CSCOPE Chief Complaint: diarrhea, dark stool Gluten Settling Tender Required: No Is patient in pain?: No Allergies No Known Allergies Allergy (Verified 02/06/20 14:13) Medications ALPRAZolam [Xanax] 0.5 mg PO DAILY PRN PRN 10/31/16 [History Confirmed 02/06/20] atorvastatin 40 mg tablet 40 mg PO QDAY 06/16/18 [History Confirmed 02/06/20] citalopram 10 mg tablet 40 mg PO DAILY tab 06/16/18 [History Confirmed 02/06/20] multivitamin 1 tab PO QAM 06/16/18 [History Confirmed 02/06/20] topiramate 25 mg capsule,extended release 24 hr 25 mg PO QHS PRN 06/16/18 [History Confirmed 02/06/20] Loratadine 10 mg PO DAILY 07/31/18 [History Confirmed 02/06/20] Losartan Potassium 25 mg PO DAILY 07/31/18 [History Confirmed 02/06/20] cholecalciferol (vitamin D3) 1,250 mcg (50,000 unit) capsule 50,000 unit PO QWEEK 12/17/18 [History Confirmed 02/06/20] ibuprofen 800 mg tablet 800 mg PO Q6H PRN 07/19/19 [History Confirmed 02/06/20] PFSH Medical History Essential (primary) hypertension (Chronic) Hyperlipidemia (Chronic) Nicotine dependence (Chronic) Non-sustained ventricular tachycardia (Chronic) Subcutaneous nodules (Acute) Anxiety and depression (Chronic) Gynecomastia (Chronic) Hepatomegaly (Chronic) Syncope and collapse (Resolved) Surgical History History of colonoscopy (Acute ~09/2015) H/O shoulder surgery (Chronic) History of ankle surgery (Chronic) History of vascular surgery (Chronic) Family History Father CVA (cerebral vascular accident) Myocardial infarction HAS ICD Heart disease Sister Breast cancer Mother Heart disease Sister Colon cancer Social History (Updated 02/07/20 @ 11:[address] David Cloud MD) Smoking Status: Current every day smoker tobacco type: cigarettes Tobacco: How many years used: 40 alcohol intake: current alcohol intake frequency: 0-2 drinks per day Alcohol type: wine HPI HPI HPI: YADIEL SOSA, is a 59 M who presents to the office today for HPI HPI HPI: YADIEL SOSA, is a 59 M who presents to the office today for Evaluation for endoscopy. Patient has been having very black watery stools now for approximately 3 months. In addition he has been diagnosed with anemia. Patient has had a colonoscopy back in September 2015 which was read as negative. He does have a first-degree relative with colon cancer. He has not been experiencing any abdominal pain. ROS General General: No weight change, appetite, fatigue, colon cancer, breast cancer or weakness HEENT HEENT: Yes swollen glands; no difficulty swallowing, eye injury, eye surgery or hoarseness Endo Endocrine: No thyroid disease, diabetes mellitus, thyroid cancer, Hair loss, heat intolerance or cold intolerance Skin Skin: No rash or changing moles Breast Breast: No left breast lump, right breast lump, nipple discharge, breast pain, abnormal mammogram, abnormal US or breast enlargement Musc Musculoskeletal: Yes back problems and arthritis; no rheumatoid arthritis, gout or joint pain Cardio Cardiovascular: No murmur, pacemaker, heart disease, atrial fibrillation, high blood pressure, heart attack, heart stent, palpitations, shortness of breat with exertion or chest pain Psych Psychiatric: Yes depression and anxiety; no hearing voices Resp Respiratory: No shortness of breath, No sleep apnea, No cough, No COPD, No asthma, No emphysema, No wheezing Gastro Gastrointestinal: No abdominal pain, No nausea or vomiting, Yes diarrhea, No co nstipation, No blood in stool, No acid reflux, No hemorrhoids, No ulcers, No gallbladder problem, Yes black,tarry stools Tl Hematologic: No blood thinners, No blood disorders, No bleeding, No anemia, No blood clots Neuro Neurologic: No weakness Exam Const General: no acute distress, well developed, well hydrated Orientation: oriented to person, oriented to place, oriented to time [facility] Head: normocephalic, atraumatic Ears: external ears normal Mouth: moist mucous membranes Eyes Sclera: sclerae normal Pupils: normal by confrontation Neck Neck: no lymphadenopathy noted Neck mass: No Thyroid: thyroid normal, symmetrical Chest Chest palpation & inspection: normal inspection of the chest Breast Palpation: No nipple discharge Resp Effort & Inspection: normal respiratory effort Auscultation: clear to auscultation bilaterally Percussion: percussion normal Cardio Rate: regular rate Rhythm: regular rhythm Heart Sounds: no murmurs GI Palpation: soft, no hepatosplenomegaly, no masses, nontender Rectal Exam: other Other: Rectal exam deferred. Extrem General: normal to inspection, no clubbing, cyanosis or edema Assessment & Plan Problems 1. Iron deficiency anemia due to chronic blood loss D50.0 2. Diarrhea, unspecified type R19.7 Plan I have discussed the above with the patient. I have offered the patient colonoscopy As well as an EGD for evaluation. I have explained the risks/benefits of the procedure and described the procedure. I have discussed the risks with the patient, including but not limited to: infection, bleeding, perforation of the GI tract requiring emergency surgery, inability to complete the procedure, injury to any internal organs, complications of anesthesia, etc. - the patient understands and agrees to proceed. I have answered all the patient's questions to the patient's satisfaction and the patient has no further questions. The patient has been given instructions for the colon cleansing preparation. Coding Level of Care Code Off vis,est,level 3 Diagnoses Iron deficiency anemia due to chronic blood loss D50.0 ??Anemia type: iron deficiency ??Iron deficiency anemia type: chronic blood loss Diarrhea, unspecified type R19.7 ??Diarrhea type: unspecified type 02/07/20 1132 <Electronically signed by David albert MD> Date _ David Cloud MD Cosign Signature: Date (if applicable) CC: MATHEUS GARIBAY [facility] ~ I have re-examined the patient. There are no clinical changes since date of exam.
[2020-02-20] MEDS: Lactated Ringers 1,000 ML 100 ML IV (08:26)
--- NOTE | 2020-02-20 09:00 | EGD_PTH ---
PATIENT: YADIEL SOSA LOC: EN U#:[id number] AGE/SX: 59/M ROOM: RE02/20/[address]: Dr. David Cloud MD : 1960 BED: DIS: 02/20/2020 SPEC #: [id number] RECD: 02/20/20 09:52 STATUS: BRIELLE REHakeem #: [id number] ANGELINA: 02/20/20 09:[address]: David Cloud DEPT: SURGICAL PATHOLOGY RECD BY: Stephanie Odonnell ENTERED: 02/20/20 11:57 SP TYPE: EGD BIOPSY OT DR: Cally Licona, AIRCRAFT ENGINE DISMANTLER-C [facility] Tissues: A - Gastric mucous membrane B - COLON BIOPSY Procedures: Surgery Specimen Level IV HEADER OPERATION: Colonoscopy, EGD ([facility]) PRE-OP DIAGNOSIS: Iron deficiency anemia, diarrhea TISSUE SUBMITTED: A - Antrum biopsy for histo and H. pylori, B - Random colonic biopsy MICROSCOPIC DIAGNOSIS A. Antrum biopsy: Mild gastritis. See microscopic description and comment. B. Colon, random biopsy: Fragments of colonic mucosa, no pathologic diagnosis. TAB:karla 02/21/20 COMMENT A. The results of immunohistochemistry for Helicobacter pylori will be reported separately ([id number]). MICROSCOPIC DESCRIPTION Slides are reviewed. A. The specimen shows fragments of gastric mucosa with chronic inflammatory cell infiltrates in the lamina propria consisting of lymphocytes and plasma cells, consistent with mild chronic gastritis. GROSS DESCRIPTION A - Received in fixative is one container labeled with the patient's name and designated antrum biopsy. The specimen consists of one irregular fragment of light hernandez soft tissue that measures 0.3 x 0.2 x 0.1 cm. The specimen is totally submitted in one cassette. B - Received in fixative is one container labeled with the patient's name and designated random colonic biopsy. The specimen consists of multiple irregular fragments of light hernandez soft tissue that in aggregate measure 1.5 x 0.6 x 0.1 cm. The specimen is totally submitted in one cassette. / TAB:karla 02/20/20 TC:3 CPT: 01810 x2
--- NOTE | 2020-02-20 09:00 | IMM_PTH ---
PATIENT: YADIEL SOSA LOC: EN U#:[id number] AGE/SX: 59/M ROOM: RE02/20/[address]: Dr. David Cloud MD : 1960 BED: DIS: 02/20/2020 SPEC #: [id number] RECD: 02/20/20 14:47 STATUS: BRIELLE REQ #: [id number] ANGELINA: 02/20/20 09:[address]: David Cloud DEPT: IMMUNOHISTOCHEMISTRY RECD BY: Emili Bautista ENTERED: 02/20/20 14:47 SP TYPE: IMMUNO OTHR DR: Cally Licona, DENTAL MOLD MAKER-C [facility] Tissues: A - Stomach, NOS Procedures: H Pylori (initial) PHYSICIAN & INSTITUTION [place] [id number] SPECIMEN INFORMATION: Tissue Source: A - Antrum biopsy Clinical Info: Iron deficiency anemia; diarrhea Specimen Number: [id number] CPT code: 81378 METHODOLOGY: Deparaffinized sections of prefer/formalin-fixed tissue or PAP/DQ stained slides are incubated with monoclonal/polyclonal antibodies/oligonucleotide probes. Localization is made via biotin free immunoperoxidase method. Appropriate controls are performed and reacted as expected. Results on target cell population are indicated in the following table: RESULTS: ANTIBODY / CLONE RESULT Block A H Pylori (polyclonal) negative These tests were developed and their performance characteristics determined by [facility]. They may not have been cleared or approved by the U.S. Food and Drug Administration. The FDA has determined that such clearance or approval is not necessary. INTERPRETATION: A. Antrum biopsy: Negative for Helicobacter pylori organisms. SJ:karla 02/21/20
--- NOTE | 2020-02-20 09:33 | OP.EGD_ITS ---
Patient Name: Lucian Olivares Procedure Date: 02/20/2020 8:57 AM Date of : 1960 Age: 59 Procedure: Upper GI endoscopy Indications: Iron deficiency anemia, Diarrhea Providers: David Cloud MD Referring MD: Madhuri Milton [facility] Medicines: See the Anesthesia note for documentation of the administered medications Patient Profile: This is a 59 year old male. Refer to note in patient chart for documentation of history and physical. Complications: No immediate complications. Procedure: Pre-Anesthesia Assessment: - Prior to the procedure, a History and Physical was performed, and patient medications and allergies were reviewed. The patient's tolerance of previous anesthesia was also reviewed. The risks and benefits of the procedure and the sedation options and risks were discussed with the patient. All questions were answered, and informed consent was obtained. Prior Anticoagulants: The patient has taken no previous anticoagulant or antiplatelet agents. ASA Grade Assessment: II - A patient with mild systemic disease. After reviewing the risks and benefits, the patient was deemed in satisfactory condition to undergo the procedure. After obtaining informed consent, the endoscope was passed under direct vision. Throughout the procedure, the patient's blood pressure, pulse, and oxygen saturations were monitored continuously. The gastroscope was introduced through the mouth, and advanced to the second part of duodenum. The upper GI endoscopy was accomplished without difficulty. The patient tolerated the procedure well. Scope In: 9:09:30 AM Scope Out: 9:14:22 AM Total Procedure Duration Time 0 hours 4 minutes 52 seconds Findings: The nasopharynx was normal. The examined esophagus was normal. Localized mild inflammation characterized by congestion (edema), erythema and linear erosions was found in the prepyloric region of the stomach. Biopsies were taken with a cold forceps for Helicobacter pylori testing. Localized mild inflammation characterized by erythema was found in the duodenal bulb. No biopsies or other specimens were collected for this exam. Impression: - Normal nasopharynx. - Normal esophagus. - Gastritis. Biopsied. - Duodenitis. No specimens collected. Recommendation: - Discharge patient to home. - Resume previous diet. - Continue present medications. - Await pathology results. - Repeat upper endoscopy (date not yet determined) for surveillance. - Return to my office in 1 week. Procedure Code(s): --- Professional --- 08592, Esophagogastroduodenoscopy, flexible, transoral; with biopsy, single or multiple Diagnosis Code(s): --- Professional --- K29.70, Gastritis, unspecified, without bleeding K29.80, Duodenitis without bleeding D50.9, Iron deficiency anemia, unspecified R19.7, Diarrhea, unspecified CPT copyright 2017 [employer]. All rights reserved. The codes documented in this report are preliminary and upon obstetrics and gynecology professor review may be revised to meet current compliance requirements. MD David Lance MD 02/20/2020 9:32:45 AM This report has been signed electronically. Number of Addenda: 0 Note Initiated On: 02/20/2020 8:57 AM
--- NOTE | 2020-02-20 09:33 | OP.CCLET_ITS ---
02/20/2020 Madhuri Milton [facility] Re : Upper GI endoscopy procedure for Lucian Brand [facility] This procedure was performed on Thursday, February 20, 2020. My impressions and recommendations are as follows: Impressions : - Normal nasopharynx. - Normal esophagus. - Gastritis. Biopsied. - Duodenitis. No specimens collected. Recommendations : - Discharge patient to home. - Resume previous diet. - Continue present medications. - Await pathology results. - Repeat upper endoscopy (date not yet determined) for surveillance. - Return to my office in 1 week. My findings are described in the full procedure note, which is enclosed. If I can be of further assistance, please feel free to contact me at Doctor phone number(s): , Fax: [phone], Work: . Sincerely, MD David Lance MD 02/20/2020 9:32:45 AM This report has been signed electronically.
--- NOTE | 2020-02-20 09:35 | OP.CCLET_ITS ---
[facility] Lucian Brand [facility] This procedure was performed on Thursday, February 20, 2020. My impressions and recommendations are as follows: Impressions : - The entire examined colon is normal. - Non-bleeding internal hemorrhoids. - The examination was otherwise normal. - Multiple biopsies were obtained in the entire colon. Recommendations : - Discharge patient to home. - Resume previous diet. - Continue present medications. - Await pathology results. - Repeat colonoscopy in 5 years for surveillance. - Return to my office in 1 week. My findings are described in the full procedure note, which is enclosed. If I can be of further assistance, please feel free to contact me at Doctor phone number(s): , Fax: [phone], Work: . Sincerely, MD David Lance MD 02/20/2020 9:35:11 AM This report has been signed electronically.
--- NOTE | 2020-02-20 09:35 | OP.COLON_ITS ---
Patient Name: Lucian Olivares Procedure Date: 02/20/2020 9:15 AM Date of : 1960 Age: 59 Procedure: Colonoscopy Indications: Clinically significant diarrhea of unexplained origin Providers: David Cloud MD Referring MD: Madhuri Milton [facility] Medicines: See the Anesthesia note for documentation of the administered medications Patient Profile: This is a 59 year old male. Refer to note in patient chart for documentation of history and physical. Last Colonoscopy: 2014. Complications: No immediate complications. Procedure: Pre-Anesthesia Assessment: - Prior to the procedure, a History and Physical was performed, and patient medications and allergies were reviewed. The patient's tolerance of previous anesthesia was also reviewed. The risks and benefits of the procedure and the sedation options and risks were discussed with the patient. All questions were answered, and informed consent was obtained. Prior Anticoagulants: The patient has taken no previous anticoagulant or antiplatelet agents. ASA Grade Assessment: II - A patient with mild systemic disease. After reviewing the risks and benefits, the patient was deemed in satisfactory condition to undergo the procedure. After I obtained informed consent, the scope was passed under direct vision. Throughout the procedure, the patient's blood pressure, pulse, and oxygen saturations were monitored continuously. The adult colonoscope was introduced through the anus and advanced to the cecum, identified by appendiceal orifice and ileocecal valve. The colonoscopy was performed without difficulty. The patient tolerated the procedure well. The quality of the bowel preparation was good. Scope In: 9:17:14 AM Scope Withdrawal Time 0 hours 7 minutes 30 seconds Scope Out: 9:28:41 AM Total Procedure Duration Time 0 hours 11 minutes 27 seconds Findings: The colon (entire examined portion) appeared normal. Multiple biopsies were obtained with cold forceps for histology randomly in the entire colon. Non-bleeding internal hemorrhoids were found during retroflexion. The hemorrhoids were mild and small. The exam was otherwise without abnormality. Impression: - The entire examined colon is normal. - Non-bleeding internal hemorrhoids. - The examination was otherwise normal. - Multiple biopsies were obtained in the entire colon. Recommendation: - Discharge patient to home. - Resume previous diet. - Continue present medications. - Await pathology results. - Repeat colonoscopy in 5 years for surveillance. - Return to my office in 1 week. Procedure Code(s): --- Professional --- 74870, Colonoscopy, flexible; with biopsy, single or multiple Diagnosis Code(s): --- Professional --- K64.8, Other hemorrhoids R19.7, Diarrhea, unspecified CPT copyright 2017 [employer] [place] [employer]. All rights reserved. The codes documented in this report are preliminary and upon grinding wheel dresser review may be revised to meet current compliance requirements. MD David Lance MD 02/20/2020 9:35:11 AM This report has been signed electronically. Number of Addenda: 0 Note Initiated On: 02/20/2020 9:15 AM
== END 2020-02-20 10:27 | disposition home or self-care (01) ==
LOC: EN 08:04 → AC 08:05
PROVIDERS: Visit Provider Surgery
PROC: 0DJD8ZZ Inspection of Lower Intestinal Tract, Via Natural or Artificial Opening Endoscopic (ICD-10-PCS; CPT 45378; principal; 2020-02-20 08:55)
DX: K29.80 Duodenitis without bleeding (principal); K29.70 Gastritis, unspecified, without bleeding; K64.8 Other hemorrhoids; D50.0 Iron deficiency anemia secondary to blood loss (chronic); I47.2 Ventricular tachycardia; I10 Essential (primary) hypertension; E78.5 Hyperlipidemia, unspecified; M19.90 Unspecified osteoarthritis, unspecified site; F32.9 Major depressive disorder, single episode, unspecified; F41.9 Anxiety disorder, unspecified; F17.210 Nicotine dependence, cigarettes, uncomplicated; Z79.899 Other long term (current) drug therapy
CPT/HCPCS: 43239; 45380; 88305; 88342; J7120; J1610; J2405

== ENCOUNTER → 2020-03-20 14:45 | Outpatient (CLI) | payer MEDICAID, SELFPAY ==
[2020-02-20 08:20] VITALS: BMI 27.0
--- NOTE | 2020-03-20 14:47 | RAD_ITS ---
STUDY: X-RAY - RIGHT ANKLE REASON FOR EXAM: Right ankle pain. TECHNIQUE: 3 view(s) of the ankle. COMPARISON: Radiographs 12/22/2019. FINDINGS: There is intact orthopedic hardware transfixing healing distal fibular and medial malleolar fractures. There is mild joint space narrowing of the lateral aspect of the tibiotalar articulation. There is a small plantar calcaneal enthesophyte. The visualized subtalar, talonavicular, calcaneocuboid and tarsal articulations are normal. The soft tissue structures are unremarkable. RAD/Ankle min 3 Views IMPRESSION: Intact orthopedic hardware transfixing healing distal fibular and medial malleolar fractures. Mild tibiotalar arthrosis. Electronically Signed: Cosme Montanez MD at 15:09 EDT Tel , Service support ,
== END ==
PROVIDERS: Referring Provider Orthopaedic Surgery; Visit Provider Orthopaedic Surgery
DX: S82.841D Displaced bimalleolar fracture of right lower leg, subsequent encounter for closed fracture with routine healing (principal); X58.XXXD Exposure to other specified factors, subsequent encounter
CPT/HCPCS: 73610

== ENCOUNTER → 2020-04-06 10:33 | Outpatient (CLI) | payer MEDICAID, SELFPAY ==
[2020-04-06 08:19] VITALS: BMI 27.0
--- NOTE | 2020-04-06 10:34 | RAD_ITS ---
STUDY: X-RAY - RIGHT ANKLE REASON FOR EXAM: Postoperative follow-up, patient feels like lateral hardware is loose. TECHNIQUE: 3 view(s) of the ankle. COMPARISON: Radiographs 03/20/2020. FINDINGS: There is intact orthopedic hardware transfixing distal fibular and medial malleolar fractures without demonstrated hardware loosening. There is mild joint space narrowing of the lateral aspect of the tibiotalar articulation. There is a small plantar calcaneal enthesophyte. The visualized subtalar, talonavicular, calcaneocuboid and tarsal articulations are normal. The soft tissue structures are unremarkable. RAD/Ankle min 3 Views IMPRESSION: Intact orthopedic hardware without interval change. Electronically Signed: Cosme Montanez MD at 11:30 EDT Tel , Service support ,
== END ==
PROVIDERS: Referring Provider Orthopaedic Surgery; Visit Provider Orthopaedic Surgery
DX: M25.571 Pain in right ankle and joints of right foot (principal)
CPT/HCPCS: 73610

== ENCOUNTER 2020-06-05 10:30 | Outpatient (RCR) | payer MEDICAID, SELFPAY ==
[2020-01-27 10:20] VITALS: BMI 25.7
[2020-02-06 14:20] VITALS: BMI 25.7
--- NOTE | 2020-02-15 13:33 | HP.PTEVAL_ITS ---
Patient's Visit Information YADIEL SOSA is a 59 year old M referred to Physical Therapy by RADHA Maldonado with a diagnosis of LOW BACK PAIN. Date of Evaluation: 02/15/20 Physical Therapist: Alice Coats PT, Cert MDT - Visit Plan Frequency: 2-3x /Week Duration: 4-6 Weeks Plan: OSTEOPOROSIS. WHEELCHAIR BOUND FOR APPROX 5 MONTHS UNTIL APPROX DEC 2019. PATIENT CONCERN THAT RIGHT ANKLE HARDWARE IS LOOSENING AGAIN. START ALL EX FOR BACK AND LEGS NWB AND PARTIAL WEIGHTBEARING. PROGRESS SLOWLY TOLERATED. POSTURE CORRECTION/STRENGTHENING, INSTRUCTION IN APPROPRIATE BODY MECHANICS AND ACTIVITY MODIFICATIONS. DLS STARTING WITH A NEUTRAL SPINE PROGRESSING ROM TOLERATED. BRENDAN LE ROM, STRETCHING AND STRENGTHENING. HEP INSTRUCTION. - Subjective Subjective: Work/Leisure: UNEMPLOYEED FOR YEARS (AT LEAST 5 YEARS). Disability: NO. Present symptoms: MID BACK PAIN, LOW BACK PAIN AND BRENDAN HIP PAIN. PATIENT DENIES BRENDAN LE NUMBNESS AND TINGLING. Present since: A FEW YEARS AGO. Pain Scale: WORST 8/10, LEAST 2/10. Currently: 4/10. WORSENING. Commenced as a result of: NO APPARENT REASON. Symptoms at onset: LOW BACK PAIN. Worse: STANDING, BENDING, LIFTING, DOING DISHES, PROLONGED SITTING, PROLONGED WALKING. Better: ICE PACKS, HEATING PADS, IBUPROFEN, TYLONOL. Disturbed sleep: YES. Previous history/Previous treatment: CHIROPRACTOR - ESTIM - HELPS. HAS SEEN A CHIROPRACTOR OFF AND ON FOR A FEW YEARS NEEDED. PAIN MGMT WITH DR. GARBER - SHAY PENDING. Coughing/sneezing/straining: POSITIVE. Gait: I WOBBLE BUT I CAN'T TELL IF IT IS FROM MY RIGHT ANKLE OR MY BACK. I USUALLY USE A CANE TO GET AROUND BUT I DIDN'T BRING IT TODAY. I THINK IT IS MORE OF A SECURITY BLANKET THAN ANYTHING ELSE. LAST FALL WAS ABOUT A MONTH AGO - LOST BALANCE GETTING OUT OF BED. Difficulty initiating urinatin: NO. Accidents: FALL IN [place] A FEW YEARS AGO - AGGREVATED BACK BUT ALREADY HAD BACK PAIN. Unexplained weight loss: NO. Imaging: RECENT THORACIC X-RAY: Mild degen erative changes. RECENT LUMBAR X-RAY: There is mild endplate spondylosis of T12 and L1. RECENT SACRAL AND COCCYX X-RAY: There is no evidence of sacral or coccygeal fracture, dislocation, or lytic. or blastic osseous process. PMH: HTN. PATIENT REPORTS HE HAS PRETTY SEVERE OSTEOPOROSIS. Recent major surgery: AUG 2019 SECOND RIGHT ANKLE SURGERY. FIRST ONE WAS IN JUL 2019. STATES THE PLATE AND SCREWS DIDN'T HOLD THE FIRST TIME. OTHER: I WAS IN A W/C FOR ABOUT 5 MONTHS. GOT OUT OF W/C SOMETIME IN DEC 2019 AND STARTED PHYSICAL THERPAY. D/C'D FROM PT APPROX NOV 2019. STATES HE IS VERY DECONDITIONED FROM BEING IN W/C SO LONG. NOT DOING ANY EX'S AT HOME. CAN'T DO STEPS VERY WELL AT ALL - I CAN'T TELL IF IT IS FROM MY BACK OR MY ANKLE OR BOTH. STATES HE HAD SOME LEG EX'S FROM ANKLE PT BUT HASN'T CONTINUED THEM. PATIENT REPORTS HIS ANKLE WAS FINE UNTIL 2 WEEKS AGO - STATES NOTHING IN PARTICULAR HAPPEND BUT IT STARTED TO SWELL AGAIN FOR NO APPARENT REASON. IT IS REALLY SENSATIVE AT THE INCISION AND PATIENT REPORTS IT FEELS LIKE THE SCREWS ARE COMING OUT AGAIN. PATIENT REPORTS DR. FLETCHER DOES NOT KNOW ABOUT HIS ANKLE FLARE UP YET AND HE IS GOING TO CALL HER OFFICE TODAY. - Objective Sitting/Standing Posture: POOR. VERY SLOUCHED WITH FH AND RS. Lordosis: NORMAL. Lateral shift: NO. Relevant shift: N/A. Active Correction of posture: BETTER. Other Observations: INDEP GAIT INTO PT WITH INCREASED TRUNK FLEXION AND LIMP ON RIGHT LE. NO LOB. DECREASED CADANCE. Motor deficit: RIGHT LE: HIP 4-/5, KNEE 4/5, ANKLE 3+/5. LEFT LE: HIP 4/5, KNEE 5/5, ANKLE 5/5. Sensory deficit: BRENDAN LE LIGHT TOUCH SENSATION INTACT AND SYMMETRICAL EXCEPT RIGHT ANKLE SENSATIVITY. ROM deficit: TIGHT BRENDAN LE HS'S AND GASTROC SOLEUS COMPLEX'S. PATIENT HAS SURPRISINGLY GOOD RIGHT ANKLE AROM TODAY (NEAR FULL COMPARED TO LEFT) BASED ON SUBJECTIVE REPORTS. HE DOES HAVE RIGHT ANKLE EDEMA. Reflexes: 2/3 BRENDAN LE'S. Dural Signs: POSITIVE LEFT AND NEGATIVE RIGHT LE. Lumbar mvmt loss: flex - MOD - PULLS IN LOW BACK. ext - MOD - THAT DOESN'T REALLY HURT. R SG - MOD - LEFT LBP. L SG - MOD - RIGHT LBP. Core strength: POOR. Palpation: TENDERNESS WITH PALPATION OF THE LOWER THORACIC, LUMBAR, SACRAL AND BRENDAN SI JOINT REGIONS. OTHER: I PROCEEDED CAREFULLY WITH ALL RIGHT LE TESTING TODAY BASED ON HISTORY AND SUBJECTIVE REPORTS TODAY. THIS PT RECOMMENDED PATIENT CALLING HIS ANKLE SURGEON TO NOTIFY THEM OF NEW SX'S THAT HAVE DEVELOPED OVER THE LAST TWO WKS. PATIENT AGREEABLE. TREATMENT: NEUROMUSCULAR REEDUCATION - RETRAINING OF MVMT AND POSTURE FOR SITTING, LYING AND STANDING ACTIVITIES. - Goals Goal 1:: DECREASE C/O BACK AND LE SX'S. Goal Time Frame: 4-6 Weeks Goal 2:: IMPROVE PERSONAL CARE, LIFTING, WALKING, SITTING, STADNING, SLEEP, SOCIAL LIFE, TRAVEL AND HOMEMAKING FUNCTION. Goal Time Frame: 4-6 Weeks Goal 3:: INSTRUCT IN PROPHYLAXIS Goal Time Frame: 4-6 Weeks - Rehabilitation Potential Rehabilitation Potential: Good - Anticipated Interventions Patient/Client Instruction: Educate patient on: Condition, Plan of Care, Risk Factors, Benefits of Fitness Program For the Purpose of:: To improve self management Therapeutic Exercise to Include: Strength training, Body mechanics, Postural training, Flexibilty training, Neuromotor development, Dynamic Lumbar Stabilization For the Purpose of:: To decrease pain, To increase ROM, To improve muscle performance and motor function, To increase tolerance to act ivity/condition/position, To improve ability of physical actions for home/community/work/leisure, To improve gait and locomotor functions TENS: Yes - LOW BACK IF ES: Yes - LOW BACK Cryotherapy (ice pack, ice massage): Yes - LOW BACK Thermo therapy (hot pack): Yes - LOW BACK Ultrasound (thermal/non thermal): Yes - LOW BACK For the Purpose of:: To decrease pain, To decrease swelling/inflammation, To improve nutrient delivery to tissue Thank you for the opportunity to evaluate your patient. For Medicare and Medicare HMO plans, please review the plan of care and approve it. It will need to be FAXED BACK to us at [phone] for Medicare purposes. For Medicare only, by signing this I certify the plan of care. Please let me know if there are questions or concerns regarding this plan of care. Physician Signature : Date:
--- NOTE | 2020-03-12 10:50 | HP.PTREVAL_ITS ---
Cally Licona, NASEEM-C, It has been my pleasure to treat YADIEL SOSA over the last 10 visits for LOW BACK PAIN. Please see the progress note below for an update on the physical therapy plan of care! Subjective: PATIENT REPORTS GETTING CRAMPS IN HAMSTRINGS WITH YELLOW BALL EX LAST VISIT BUT STRETCHING OUT HELPED. OVER-ALL FELT REALLY GOOD AFTER LAST S ESSION THOUGH. STATES HE DIDN'T FEEL FATIGUED HE HAD BEEN FEELING. STANDING IS STILL A MAJOR PROBLEM FOR ME LIKE TRYING TO COOK. PATIENT REPORTS HE IS STILL WAKING UP AT NIGHT WITH BACK PAIN TOO. PATIENT REPORTS HE WAS APPROVED FOR SHAY BUT POSTPONED DUE TO THE VIRUS. Objective/Function: PATIENT WAS SEEN TODAY FOR RE-ASSESSMENT OF PROGRESS TOWARD THE SET PT GOALS AND THE NEED FOR FURTHER PHYSICAL THERAPY VS READINESS FOR DISCHARGE. PATIENT IS MAKING SLOW PROGRESS TOWARD ALL PT GOAL. HE IS A GOOD CANDIDATE TO CONTINUE PT BASED ON PROGRESS MADE AND ROOM FOR FURTHER IMPROVEMENT. UPON EXAM TODAY: INDEP GAIT INTO PT WITH INCREASED TRUNK FLEXION AND LIMP ON RIGHT LE. NO LOB. DECREASED CADANCE. Motor deficit: BRENDAN LE'S 5/5. Sensory deficit: BRENDAN LE LIGHT TOUCH SENSATION INTACT AND SYMMETRICAL EXCEPT RIGHT ANKLE SENSATIVITY/NUMBNESS MEDIALLY AND LATERALLY. ROM deficit: VERY TIGHT BRENDAN LE HS'S AND MODERATE GASTROC SOLEUS COMPLEX'S. Dural Signs: NEGATIVE BRENDAN LE'S. Lumbar mvmt loss: flex - MOD - PULLS IN LOW BACK. ext - MOD - THAT DOESN'T REALLY HURT. R SG - MOD - NE. L SG - MOD - NE. Core strength: POOR. Palpation: TENDERNESS MORE LOCALIZED TO THE LUMBAR REGION NOW. Plan Plan: OSTEOPOROSIS. CONTINUE PT FOR POSTURE CORRECTION/STRENGTHENING, INSTRUCTION IN APPROPRIATE BODY MECHANICS AND ACTIVITY MODIFICATIONS. DLS STARTING WITH A NEUTRAL SPINE PROGRESSING ROM TOLERATED. BRENDAN LE ROM, STRETCHING AND STRENGTHENING. HEP INSTRUCTION. Goals Goal 1:: DECREASE C/O BACK AND LE SX'S. Goal Time Frame: 4-6 Weeks Goal Progress: Progressing Goal 2:: IMPROVE PERSONAL CARE, LIFTING, WALKING, SITTING, STADNING, SLEEP, SOCIAL LIFE, TRAVEL AND HOMEMAKING FUNCTION. Goal Time Frame: 4-6 Weeks Goal Progress: Progressing Goal 3:: INSTRUCT IN PROPHYLAXIS Goal Time Frame: 4-6 Weeks Goal Progress: Progressing Anticipated Interventions Patient/Client Instruction: Educate patient on: Condition, Plan of Care, Risk Factors, Benefits of Fitness Program For the Purpose of:: To improve self management Therapeutic Exercise to Include: Strength training, Body mechanics, Postural training, Flexibilty training, Neuromotor development, Dynamic Lumbar Stabilization For the Purpose of:: To decrease pain, To increase ROM, To improve muscle performance and motor function, To increase tolerance to activity/condition/position, To improve ability of physical actions for home/community/work/leisure, To improve gait and locomotor functions TENS: Yes - LOW BACK IF ES: Yes - LOW BACK Cryotherapy (ice pack, ice massage): Yes - LOW BACK Thermo therapy (hot pack): Yes - LOW BACK Ultrasound (thermal/non thermal): Yes - LOW BACK For the Purpose of:: To decrease pain, To decrease swelling/inflammation, To improve nutrient delivery to tissue Please do not hesitate to contact me at [phone] by phone or if you have questions or concerns regarding this new plan of care! Sincerely, Alice Coats, PT, Cert MDT
--- NOTE | 2020-05-14 12:28 | HP.PTREVAL_ITS ---
Cally Licona, NASEEM-C, It has been my pleasure to treat YADIEL SOSA over the last 17 visits for LOW BACK PAIN. Please see the progress note below for an update on the physical therapy plan of care! Subjective: I've noticed the last couple of weeks my back has really got worse because I am not working out. Limited to stading for about 10 minutes which makes preparing a meal difficult. Vacuming really inflames my back. Patient reports he had an perry't with Dr. Jiang about 2 months ago and she did x- rays and told him everything is in place and not coming out. He also reports she said that if they do end up doing surgery to take the hardware out in can't be until at least August. Patient clarified that she said there is some loosening of the screws that holds the plate but not enough to need to do anything. Patient reports that his ankle typically hurt for an hour or two after the PT sessions but then it settled down and was not worse as a result over-all. Patient reports his ankle is not what he is worried about right now. Patient reports his back pain is still better now than before he started PT but it isn't as good as it was when he stopped coming. States his partner got a blood infection and was hospitalized for two weeks. PATIENT REPORTS HE WAS SCHEDULED FOR AN SHAY BUT HE CANCELLED. HE REPORTS THAT THE HIP PAIN HE WAS HAVING IS GONE NOW SO HE CANCELLED. Objective/Function: PATIENT WAS SEEN TODAY FOR RE-ASSESSMENT OF PROGRESS TOWARD THE SET PT GOALS AND THE NEED FOR FURTHER PHYSICAL THERAPY VS READINESS FOR DISCHARGE. PATIENT WAS MAKING SLOW PROGRESS TOWARD ALL PT GOAL PRIOR TO DELAY IN TREATMETN. HE IS A GOOD CANDIDATE TO CONTINUE PT BASED ON PROGRESS MADE AND ROOM FOR FURTHER IMPROVEMENT. UPON EXAM TODAY: INDEP GAIT INTO PT WITH INCREASED TRUNK FLEXION AND LIMP ON RIGHT LE. NO LOB. DECREASED CADANCE. Motor deficit: BRENDAN LE'S 5/5. Sensory deficit: BRENDAN LE LIGHT TOUCH SENSATION INTACT AND SYMMETRICAL EXCEPT RIGHT ANKLE SENSATIVITY/NUMBNESS MEDIALLY AND LATERALLY. ANKLE IS MORE SENSATIVE LATERALLY AND NUMB MEDIALLY. ROM deficit: VERY TIGHT BRENDAN LE HS'S AND MODERATE GASTROC SOLEUS COMPLEX'S. Dural Signs: POSITIVE BRENDAN LE DURAL SIGNS RIGHT > LEFT. Lumbar mvmt loss: flex - MOD - THAT FEELS OK. ext - MOD - STRAINS THE LOW BACK. R SG - MIN - NE. L SG - MOD - NE. Core strength: POOR. Palpation: TENDERNESS MORE LOCALIZED TO THE LUMBAR REGION. PATIENT DID WELL WITH ALL EX'S TODAY Plan Plan: OSTEOPOROSIS. CONTINUE PT FOR POSTURE CORRECTION/STRENGTHENING, INSTRUCTION IN APPROPRIATE BODY MECHANICS AND ACTIVITY MODIFICATIONS. DLS STARTING WITH A NEUTRAL SPINE PROGRESSING ROM TOLERATED. BRENDAN LE ROM, STRETCHING AND STRENGTHENING. HEP INSTRUCTION. Goals Goal 1:: DECREASE C/O BACK AND LE SX'S. Goal Time Frame: 4-6 Weeks Goal Progress: Progressing Goal 2:: IMPROVE PERSONAL CARE, LIFTING, WALKING, SITTING, STADNING, SLEEP, SOCIAL LIFE, TRAVEL AND HOMEMAKING FUNCTION. Goal Time Frame: 4-6 Weeks Goal Progress: Progressing Goal 3:: INSTRUCT IN PROPHYLAXIS Goal Time Frame: 4-6 Weeks Goal Progress: Progressing Anticipated Interventions Patient/Client Instruction: Educate patient on: Condition, Plan of Care, Risk Factors, Benefits of Fitness Program For the Purpose of:: To improve self management Therapeutic Exercise to Include: Strength training, Body mechanics, Postural training, Flexibilty training, Neuromotor development, Dynamic Lumbar Stabilization For the Purpose of:: To decrease pain, To increase ROM, To improve muscle performance and motor function, To increase tolerance to activity/condition/position, To improve ability of physical actions for home/community/work/leisure, To improve gait and locomotor functions TENS: Yes - LOW BACK IF ES: Yes - LOW BACK Cryotherapy (ice pack, ice massage): Yes - LOW BACK Thermo therapy (hot pack): Yes - LOW BACK Ultrasound (thermal/non thermal): Yes - LOW BACK For the Purpose of:: To decrease pain, To decrease swelling/inflammation, To improve nutrient delivery to tissue Please do not hesitate to contact me at [phone] by phone or if you have questions or concerns regarding this new plan of care! Sincerely, Alice Coats, PT, Cert MDT
--- NOTE | 2020-08-23 15:17 | HP.PT.NRP ---
YADIEL SOSA was seen in my office for initial evaluation on 02/15/20. The following Plan of Care was established for this patient: Initial Frequency: 2-3x /Week Initial Duration: 4-6 Weeks Patient/Client Instruction: Educate patient on: Condition, Plan of Care, Risk Factors, Benefits of Fitness Program For the Purpose of:: To improve self management Therapeutic Exercise to Include: Strength training, Body mechanics, Postural training, Flexibilty training, Neuromotor development, Dynamic Lumbar Stabilization For the Purpose of:: To decrease pain, To increase ROM, To improve muscle performance and motor function, To increase tolerance to activity/condition/position, To improve ability of physical actions for home/community/work/leisure, To improve gait and locomotor functions TENS: Yes - LOW BACK IF ES: Yes - LOW BACK Cryotherapy (ice pack, ice massage): Yes - LOW BACK Thermo therapy (hot pack): Yes - LOW BACK Ultrasound (thermal/non thermal): Yes - LOW BACK For the Purpose of:: To decrease pain, To decrease swelling/inflammation, To improve nutrient delivery to tissue This patient was last seen in our office . Pertinent comments regarding their Physical therapy will appear below: This patient has not returned to Physical Therapy and is appropriate to return to MD for further follow-up as needed. At this point I will be discontinuing this patient from physical therapy. I would be happy to see this patient again in the future if found appropriate by the physician. Thank you! Alice Coats, PT, Cert MDT
== END 2020-06-05 19:00 | disposition home or self-care (01) ==
LOC: PT 10:30
PROVIDERS: Referring Provider Nurse Practitioner Family; Visit Provider Nurse Practitioner Family
DX: M54.5 Low back pain (principal)
CPT/HCPCS: 97110; 97112; 97162; 97164; 97530

== ENCOUNTER → 2020-06-20 11:01 | Outpatient (CLI) | payer MEDICAID, SELFPAY ==
[2020-04-06 08:19] VITALS: BMI 27.0
== END ==
DX: Z03.818 Encounter for observation for suspected exposure to other biological agents ruled out (principal)
CPT/HCPCS: 87635; G2023; U0003

== ENCOUNTER 2020-08-07 12:15 | Emergency (ER) | payer MEDICAID, SELFPAY ==
[2020-07-03 10:00] VITALS: BMI 26.6
[2020-08-07 12:16] VITALS: BP 123/78; PULSE 115; RESP 18; TEMP 36.4; O2SAT 99; BMI 26.2
--- NOTE | 2020-08-07 12:28 | ED.VIS.INJ ---
History of Present Illness Chief Complaint: Lower Extremity Injury Detail of Chief Complaint: Left knee pain secondary to blunt trauma 1 month ago Informant: Patient Onset: Month(s) - 1 month after fall Mechanism/Context: Blunt Injury Quality of Pain: Dull, Aching Current Severity: Mild Maximum Severity: Severe Worsened by: From 150degrees to 110 degrees Relieved by: Remaining still Associated Symptoms: Loss of function. Negative for: Parasthesias, Weakness, Inability to ambulate, Loss of consciousness Narrative: Is a 59-year-old male who fell a month ago. 2 weeks ago he was instructed by nurse practitioner Josef at the [facility] to present to the emergency department. He presents today. He has had no imaging. He complains of severe pain with movement and touch. He has essentially taken nothing for the pain. He denies history of diabetes, renal disease or peptic ulcer disease. He was asked why he is on iron supplement. He reports anemia. Patient denies fever, chills or night sweats. Patient denies history of gout or pseudogout. Patient states his knee is still swollen but was markedly swollen several weeks ago. He has no prior history of injury. He denies paresthesia, anesthesia or motor weakness. Tetanus Immunization: 5-10 years Prior similar symptoms: No Recent Illness/Hospitalization: No - Past Medical History (1) Iron deficiency anemia Status: Acute (2) Essential (primary) hypertension Status: Chronic (3) Hyperlipidemia Status: Chronic Past Medical History - Allergies and Home Meds Allergies/Adverse Reactions: Allergies No Known Allergies Allergy (Verified 08/07/20 12:16) [facility] - Prior records reviewed: Yes - Multiple orthopedic surgical procedures Surgical History: - - Orthopedic Lives: Alone Smoking Status: Former smoker Alcohol: None Drugs: None Review of Systems General: Denies: Chills, Fever, Malaise, Subjective, Sweats Gastrointestinal: Denies: Nausea, Vomiting Musculoskeletal: Reports: Swelling, Extremity Pain. Denies: Myalgias, Arthralgias, Neck pain, Back pain, -, - Skin: Reports: Wounds - Lean wound anterior left knee inferior the patella. Denies: Rash Neurological: Denies: Headache, Weakness, Numbness Hematologic: Denies: Easy bruising, Easy bleeding Physical Exam Vital Signs/Narrative: Vital Signs Temp Pulse Resp BP Pulse Ox 08/07/20 12:16 97.5 F L 115 H 18 123/78 H 99 Inital Vital Signs reviewed: Yes General: Well nourished, Well developed Head: Normocephalic, Atraumatic Eyes: Perrl, EOMI. Negative for: Pale conjunctiva, Scleral icterus Cardiovascular: Regular rate, Regular rhythm Respiratory: No distress Back: Nontender Extremeties: The left knee is swollen. The patella is not ballotable. There may be a small effusion. He has minimal joint line tenderness. He has significant tenderness over the infrapatellar tendon. Varus and valgus stress testing caused him exquisite pain. There is no laxity. Chad's test was negative. Modified Komal's test did not elicit a click. He has pain from 110 degrees to 150 degrees. There is no crepitus over the quadricep tendon or infrapatellar tendon. Skin: Normal color, No rash Neurological: Alert, Oriented x3, Cranial nerves II-XII grossly intact, Normal Strength, Normal Sensation - Glascow Coma Scale Eye Opening: Spontaneous Motor: Obeys Commands Verbal: Oriented Coma Scale Total: 15 Diagnostic/Tx/Re-eval Impressions Knee X-Ray 08/07/20 12:45 IMPRESSION: Small joint effusion. Electronically Signed: Evan Rivera, at 13:02 EDT , Service support , 08/07/20 12:45 Knee 4 or More Views [RAD] Stat Tray was interpreted prior to my review. I agree there is a small effusion. This may represent a meniscus injury. We will have him follow-up with orthopedics. - Medical Decision Making X-ray of the knee was obtained to determine if there was evidence of fracture versus contusion versus possible ligamentous injury. Since there is no history of diabetes, renal disease or peptic ulcer disease he received ibuprofen and Hardy for his pain. ED Disposition - Plan for ED Patient: Disposition: Home or Assisted Living Diagnosis: Traumatic synovial effusion Instructions: ED Effusion Knee Referrals: [facility],Madhuri Milton [NON-STAFF] - Vimal Savage DO [STAFF PHYSICIAN] - 5-7 Days
[2020-08-07] MEDS: Ibuprofen 600 MG Tablet PO (12:40)
[2020-08-07] MEDS: HYDROcodone Bitartrate/Apap 5/325 Tablet PO (12:40)
--- NOTE | 2020-08-07 12:45 | RAD_ITS ---
STUDY: X-RAY - LEFT KNEE REASON FOR EXAM: Male, 59 years old. Fall 1 month ago, left knee pain, difficulty ambulating TECHNIQUE: 4 view(s) of the knee. COMPARISON: None. FINDINGS: Normal visualized distal femur. Normal visualized proximal tibia and fibula. Normal proximal tibiofibular articulation. Normal medial femorotibial compartment. Normal lateral femorotibial compartment. Normal patellofemoral articulation. Small joint effusion RAD/Knee 4 or More Views IMPRESSION: Small joint effusion. Electronically Signed: Evan Stafford, at 13:02 EDT , Service support ,
== END 2020-08-07 14:15 | disposition home or self-care (01) ==
PROVIDERS: Emergency Provider Emergency Medicine
DX: M25.462 Effusion, left knee (principal); D50.9 Iron deficiency anemia, unspecified; I10 Essential (primary) hypertension; E78.5 Hyperlipidemia, unspecified; Z79.899 Other long term (current) drug therapy; Z87.891 Personal history of nicotine dependence
CPT/HCPCS: 73564; 99283

== ENCOUNTER 2020-08-22 21:09 | Emergency (ER) | payer MEDICAID, SELFPAY ==
[2020-08-13 11:12] VITALS: BMI 26.2
[2020-08-22 21:09] VITALS: BP 115/79; PULSE 103; RESP 14; TEMP 36.7; O2SAT 99; BMI 26.8
[2020-08-22 21:33] VITALS: O2SAT 97
--- NOTE | 2020-08-22 21:47 | EKG12_ITS ---
Test Reason : DYSRHYTHMIA Blood Pressure : / mmHG Vent. Rate : 103 BPM Atrial Rate : 103 BPM P-R Int : 124 ms QRS Dur : 086 ms QT Int : 386 ms P-R-T Axes : 059 016 009 degrees QTc Int : 505 ms Sinus tachycardia Nonspecific ST abnormality Abnormal ECG Confirmed by NEDA KC, COREY ([id number]), editor at large MIGNON VANG ([id number]) on 08/30/2020 12:56:05 P M Referred By: PRERNA Confirmed By:NADIR RED MD
--- NOTE | 2020-08-22 21:49 | RAD_ITS ---
STUDY: X-RAY - PELVIS AND RIGHT HIP REASON FOR EXAM: Male, 60 years old. fell down stairs, right hip pain TECHNIQUE: 3 views of the pelvis and hip. COMPARISON: None. FINDINGS: There is a non-specific bowel gas pattern. Normal visualized soft tissue structures. Normal bilateral iliac wings, sacroiliac joints and visualized sacrum. Normal bilateral superior and inferior pubic rami. Normal pubic symphysis. Normal bilateral ischial tuberosities. Normal visualized femoral head. Normal acetabulum. Normal hip joint. RAD/HIP, UNI W/ Pelvis 2-3 Views IMPRESSION: No evidence of acute fracture or dislocation. If patient is nonweightbearing recommend MRI for further characterization. Electronically Signed: Jorge L Wilcox DO at 22:38 EDT , Service support ,
--- NOTE | 2020-08-22 21:49 | CT_ITS ---
STUDY: CT CERVICAL SPINE WITHOUT CONTRAST REASON FOR EXAM: Male, 60 years old. FELL DOWN ENTIRE FLIGHT OF STAIRS FEW HOURS AGO, LOC X HOURS RADIATION DOSAGE (If Supplied By Facility): CTDIvol = ( 20.97 ) mGy, DLP = ( 477.93 ) mGycm TECHNIQUE: High resolution transaxial imaging was performed without contrast material. Sagittal and coronal images were reconstructed. Individualized dose optimization techniques were used for this CT. COMPARISON: None FINDINGS: Normal craniovertebral junction. Normal anterior atlantoaxial articulation. Normal odontoid process. Normal cervical lordosis. Normal vertebral bodies and posterior osseous elements. C2-3: Endplate degenerative change with relatively preserved disc space and foramina. C3-4: Endplate degenerative change with relatively preserved disc space and foramina. C4-5: Endplate degenerative change with relatively preserved disc space and foramina. C5-6: Endplate degenerative change with relatively preserved disc space and foramina. C6-7: Endplate degenerative change with relatively preserved disc space and foramina. C7-T1: Endplate degenerative change with relatively preserved disc space and foramina. Normal visualized soft tissue structures. CT/Spine Cervical without Contras IMPRESSION: No evidence of acute fracture or dislocation. Electronically Signed: Jorge L Wilcox DO at 22:30 EDT , Service support ,
--- NOTE | 2020-08-22 21:49 | CT_ITS ---
STUDY: CT BRAIN WITHOUT CONTRAST REASON FOR EXAM: Male, 60 years old. FELL DOWN ENTIRE FLIGHT OF STAIRS FEW HOURS AGO, LOC X HOURS RADIATION DOSAGE (If Supplied By Facility): CTDIvol = ( 44.99 ) mGy, DLP = ( 812.98 ) mGycm TECHNIQUE: Transaxial CT imaging of the brain was performed without administration of intravenous contrast material. Individualized dose optimization techniques were used for this CT. COMPARISON: 07/31/2018. FINDINGS: Normal soft tissue structures. Normal calvarium. There is moderate cerebral atrophy with widening of the extra-axial spaces and ventricular dilatation. There are areas of decreased attenuation within the white matter tracts of the supratentorial brain, consistent with microvascular disease changes. Normal basal ganglia and thalami. Normal brainstem. Normal cerebellum. There is no intracranial hemorrhage. There are no findings of an acute ischemic infarction. Normal visualized paranasal sinuses. CT/Brain/Head without Contrast IMPRESSION: No evidence of acute intracranial bleed, mass or ischemia. Electronically Signed: Jorge L Wilcox DO at 22:26 EDT , Service support ,
--- NOTE | 2020-08-22 21:51 | ED.DCSUM_ITS ---
History of Present Illness Chief Complaint: Fall Informant: Patient Narrative: Patient is a 60-year-old male with history including alcohol abuse and hypertension presenting via EMS after a fall down the stairs. Patient states he has problems with his left knee and is waiting to get an MRI. He states it buckled and he fell down the stairs. He states he fell down the entire flight of stairs. He then laid on the ground for couple hours at the base of the stairs. He is not sure how long. At some point EMS brought him in. Patient is unable to get up and is complaining of right-sided hip pain. He does not have any headache or neck pain. He denies any other complaints at this time. He is not on any anticoagulants. Tetanus Immunization: Unknown Past Medical History - Allergies and Home Meds Allergies/Adverse Reactions: Allergies No Known Allergies Allergy (Verified 08/22/20 21:09) Primary Care Physician: Madhuri Milton [Primary Care Provider] - Past Medical History: - - Anxiety, depression, hypertension, alcohol abuse, GERD Surgical History: - - Orthopedic Smoking Status: Current every day smoker Review of Systems General: Denies: Chills, Fever, Sweats Eyes: Denies: Visual changes - bilaterally, Diplopia ENT: Denies: Rhinorrhea, Sore throat Cardiovascular: Denies: Chest pain, Palpitations Respiratory: Denies: Dyspnea, Cough, Dyspnea on exertion Gastrointestinal: Denies: Abdominal pain, Nausea, Vomiting, Diarrhea, Melena, Hematochezia Genitourinary: Denies: Dysuria, Hematuria, Frequency Musculoskeletal: Reports: Extremity Pain - Right hip. Denies: Back pain Skin: Denies: Rash, Wounds Neurological: Denies: Headache, Weakness, Numbness Physical Exam Vital Signs/Narrative: Vital Signs Temp Pulse Resp BP Pulse Ox 08/22/20 21:33 97 08/22/20 21:09 98.0 F 103 H 14 115/79 99 Inital Vital Signs reviewed: Yes General: Well nourished, Well developed Head: Normocephalic, Atraumatic Eyes: Perrl, EOMI ENT: TM's clear, No hemotympanum or drainage, No trauma. Negative for: Hemotympanum, Nasal trauma, Nasal septal hematoma Neck: Nontender, Full ROM. Negative for: Spinal Tenderness, Paraspinal Tenderness Cardiovascular: Regular rate, Regular rhythm, No murmurs Respiratory: No distress, CTA bilaterally, Chest nontender, - - No chest wall crepitus Abdomen: Soft, Nontender, Nondistended, Normal bowel sounds Back: Nontender Extremeties: No obvious deformity. Extremities are equal length with no rotation. Pelvis is stable. Patient does have mild tenderness palpation of his right hip with normal range of motion however he does have pain with range of motion. Skin: Normal color, No rash Neurological: Alert, Oriented x3, Cranial nerves II-XII grossly intact, Normal Strength, Normal Sensation Psychological: Normal affect, Normal Mood Diagnostic/Tx/Re-eval Clinical Impression(s) from Imaging Studies Brain CT 08/22/20 21:49 IMPRESSION: No evidence of acute intracranial bleed, mass or ischemia. Electronically Signed: Jorge L Wilcox DO at 22:26 EDT , Service support , Cervical Spine CT 08/22/20 21:49 IMPRESSION: No evidence of acute fracture or dislocation. Electronically Signed: Jorge L Wilcox DO at 22:30 EDT , Service support , Hip/Pelvis X-Ray 08/22/20 21:49 IMPRESSION: No evidence of acute fracture or dislocation. If patient is nonweightbearing recommend MRI for further characterization. Electronically Signed: Jorge L Wilcox DO at 22:38 EDT , Service support , Chest X-Ray 08/22/20 22:10 IMPRESSION: No evidence of acute cardiopulmonary process. Findings concerning for lateral seventh rib fracture on the left, clinically correlate for site of pain. Electronically Signed: Jorge L Wilcox DO at 22:32 EDT , Service support , Laboratory Data 08/22/20 08/22/20 08/22/20 21:30 21:30 21:30 WBC 7.4 RBC 3.97 L Hgb 14.0 Hct 41.6 MCV 104.8 H MCH 35.3 H MCHC 33.7 RDW Std Deviation 46.5 H RDW Coeff of Susanne 11.9 Plt Count 351 MPV 9.4 Immature Gran % (Auto) 0.900 Neut % (Auto) 52.7 Lymph % (Auto) 36.7 Starke % (Auto) 6.9 Eos % (Auto) 1.6 Baso % (Auto) 1.2 H Absolute Neuts (auto) 3.9 Absolute Lymphs (auto) 2.73 Nucleated RBC % 0 PT 13.4 INR 1.1 APTT 27.1 Sodium 141 Potassium 4.3 Chloride 108 H Carbon Dioxide 24.0 Anion Gap 9 BUN 15 Creatinine 1.14 Estim Creat Clear Calc 74.69 Est GFR (MDRD) Af Amer 84 Est GFR (MDRD) Non-Af 69 BUN/Creatinine Ratio 13.2 Glucose 110 H Calcium 8.6 Total Bilirubin 0.40 Direct Bilirubin 0.17 AST 56 H ALT 41 Alkaline Phosphatase 147 H Total Creatine Kinase Total Protein 7.5 Albumin 3.7 Globulin 3.8 Ethyl Alcohol 08/22/20 08/22/20 21:30 21:30 WBC RBC Hgb Hct MCV MCH MCHC RDW Std Deviation RDW Coeff of Susanne Plt Count MPV Immature Gran % (Auto) Neut % (Auto) Lymph % (Auto) Starke % (Auto) Eos % (Auto) Baso % (Auto) Absolute Neuts (auto) Absolute Lymphs (auto) Nucleated RBC % PT INR APTT Sodium Potassium Chloride Carbon Dioxide Anion Gap BUN Creatinine Estim Creat Clear Calc Est GFR (MDRD) Af Amer Est GFR (MDRD) Non-Af BUN/Creatinine Ratio Glucose Calcium Total Bilirubin Direct Bilirubin AST ALT Alkaline Phosphatase Total Creatine Kinase 89 Total Protein Albumin Globulin Ethyl Alcohol 334.0 H* - Rhythm Strip Rhythm Strip: Sinus Tach Rate: 103 Ectopy: None - EKG Initial EKG Interpretation: Sinus Tachycardia, - - Sinus tachycardia at a rate of [address] segments IL interval 124 QTc 505 Compared to prior EKG patient has prolonged IL interval and QTC now with no ST segment changes - Medical Decision Making Patient is evaluated after a fall. Patient states his leg gave out and he fell down a flight of stairs. Patient thinks he lost consciousness and woke up on the ground. He thinks he is on the ground for some time. Patient is on any IV signs of trauma. He has palpable tenderness palpation of the right hip but no deformity. Head CT and C-spine are negative. His abdomen is soft and nontender as well as his chest. Patient significant other called in who states that patient is also a drinker. Alcohol level was checked and is found to be significantly elevated at 334. Patient is monitored in the ER for some time and is clinically sober. He uses a walker at baseline and is ambulated. Patient does have some pain in his hip but is otherwise doing well. I do not think he requires any further observation or admission at this time. He has no acute intracranial process and no signs of a neck injury on CT. Hip x-ray does not show any acute fracture. Patient will follow-up with his orthopedist as needed. He is counseled to alternate ibuprofen and Tylenol for pain control. Patient is counseled on signs and symptoms requiring return to the emergency room. Patient verbalizes agreement and understand this plan. Patient discharged home in stable and improved condition. ED Disposition - Plan for ED Patient: Disposition: Home or Assisted Living Diagnosis: Fall down stairs, Contracture, right hip, Alcohol ingestion Instructions: ED Mechanical Fall, ED CONTUSION Hip Referrals: Madhuri Milton [Primary Care Provider] - Additional Instructions: Please follow-up with your orthopedist if you have continued hip pain. Is possible it is just bruised however it does not improve you might require further imaging. You do not appear to have any acute fracture or injury from yo ur fall today. Please limit your alcohol intake and be careful on stairs. Return to the emergency room with any worsening symptoms.
[2020-08-22] MEDS: Morphine 4 MG/ML Syringe IV (21:56)
[2020-08-22] MEDS: 0.9% Normal Saline 1,000 ML 999 ML IV (21:56)
[2020-08-22 22:04] LABS: Absolute Lymphocyte Count 2.73 X10^3/uL (0.83-4.51); Absolute Neutrophil Count 3.9 X10^3/uL (2.0-7.7); Basophil# 0.09 X10^3/uL; Basophil% 1.2 % (0-1); Eosinophil# 0.12 X10^3/uL; Eosinophils% 1.6 % (0-5); Hematocrit 41.6 % (40-54); Lymphocyte # 2.73 X10^3/ul (4.0); Lymphocyte % 36.7 % (19-41); Mean Corp Hgb Conc 33.7 g/dL (32-36); Mean Corpuscular Hgb 35.3 pg (27.0-32.0); Mean Corpuscular Volume 104.8 fL (80-94); Mean Platelet Vol. 9.4 fl (6.2-12.0); Monocyte# 0.51 X10^3/uL; Monocyte% 6.9 % (0-10); NRBC Flagged by Analyzer 0 % (0-5); Neutrophil # 3.92 X10^3/uL (2.7-7.7); Neutrophil % 52.7 % (47-70); Platelet Count 351 K/mm3 (150-450); RBC Distribution Width CV 11.9 % (11.6-14.6); RBC Distribution Width SD 46.5 fl (35.1-43.9); Red Blood Count 3.97 M/mm3 (4.6-6.2); White Blood Count 7.4 K/mm3 (4.4-11.0)
[2020-08-22 22:09] LABS: International Normalized Ratio 1.1; Prothrombin Time (Protime)PT. 13.4 SECONDS (11.7-14.9)
[2020-08-22 22:10] LABS: Partial Thromboplast Time 27.1 Seconds (24.1-36.2)
--- NOTE | 2020-08-22 22:10 | RAD_ITS ---
STUDY: X-RAY CHEST REASON FOR EXAM: Male, 60 years old. fell down stairs TECHNIQUE: Single AP portable view of the chest. COMPARISON: None. FINDINGS: The lungs are clear and expanded. There is no demonstrated pleural abnormality. Normal size heart. Normal mediastinum and phi. Normal visualized pulmonary arteries. Normal visualized aortic arch and descending thoracic aorta. Normal visualized thoracic spine. There is question of minimally displaced lateral seventh rib fracture on the left. There is no demonstrated abnormality of the visualized soft tissue structures of the upper abdomen. RAD/Chest 1 View (Portable) IMPRESSION: No evidence of acute cardiopulmonary process. Findings concerning for lateral seventh rib fracture on the left, clinically correlate for site of pain. Electronically Signed: Jorge L Wilcox DO at 22:32 EDT , Service support ,
[2020-08-22 22:16] LABS: AST(SGOT) 56 U/L (15-37); Alanine Aminotransfer ALT/SGPT 41 U/L (16-61); Albumin, Serum 3.7 g/dL (3.2-5.0); Alkaline Phosphatase 147 U/L (45-117); Anion Gap 9 (5-15); BUN 15 mg/dL (7-18); BUN/Creat Ratio 13.2 RATIO (10-20); Bilirubin, Direct 0.17 mg/dL (0.00-0.30); CPK Total, Creatine Kinase 89 U/L (39-308); Calcium,Total 8.6 mg/dL (8.5-10.1); Chloride 108 mmol/L (98-107); Creatinine, Serum 1.14 mg/dL (0.70-1.30); EST Glomerular Filtration Rate 69 mL/min (>60); Est Glom Filt Rate - Afr Amer 84 mL/min (>60); Estimated Creatinine Clearance 74.69 ml/min; Globulin 3.8 g/dL (2.2-4.2); Glucose 110 mg/dL (74-106); Potassium 4.3 mmol/L (3.5-5.1); Protein, Total 7.5 g/dL (6.4-8.2); Sodium Level 141 mmol/L (136-145)
--- NOTE | 2020-08-22 22:25 | ED.RN ---
SERUM ALCOHOL OF 334 REPORTED TO . VERBALIZES UNDERSTANDING
[2020-08-22 23:31] VITALS: BP 96/76; PULSE 108; RESP 18; O2SAT 98
[2020-08-23 00:56] LABS: Bacteria 0 SEEN /hpf (None Seen); Mucous, Urine 0 SEEN /hpf (<or=2+); Red Blood Cells-Urine 0 SEEN /hpf (0-5); White Blood Cells 0 SEEN /hpf (0-5)
[2020-08-23 00:57] LABS: Color, Urine Yellow (Yellow); Glucose, Dipstick Normal (Normal); Ketone-Dipstick Negative (Negative); Leukocyte Esterase-Dipstick Negative /ul (Negative); Nitrite-Dipstick Negative (Negative); Occult Blood-Urine Negative /ul (Negative); Protein-Dipstick Negative (Negative); Urine Bilirubin Dipstick Negative (Negative); Urine Clarity Clear (Clear); Urine Urobilinogen Normal (Normal); Urine pH 6.5 (5.0 - 8.0)
[2020-08-23 01:01] VITALS: BP 97/76; PULSE 104; RESP 18; O2SAT 96
[2020-08-23 01:03] LABS: Squamous Epithelial Cells - UA 0-5 SEEN /hpf (0-5)
[2020-08-23 01:16] LABS: Amphetamine Urine VISTA NEGATIVE (<1000 ng/mL); Barbiturate Urine VISTA NEGATIVE (< 200 ng/mL); Benzodiazepine Urine VISTA NEGATIVE (< 200 ng/mL); Cocaine Urine VISTA NEGATIVE (< 300 ng/mL); Ecstacy Urine VISTA POSITIVE (< 500 ng/mL); Methadone Urine VISTA NEGATIVE (< 300 ng/mL); PCP Urine VISTA NEGATIVE (< 25 ng/mL); THC Urine VISTA NEGATIVE (< 50 ng/mL); Vista UDS pH Range 6
[2020-08-23] MEDS: Ibuprofen 600 MG Tablet PO (01:17)
[2020-08-23 01:36] VITALS: BP 97/76; PULSE 104; RESP 18; O2SAT 96
== END 2020-08-23 01:45 | disposition home or self-care (01) ==
PROVIDERS: Emergency Provider Emergency Medicine
DX: S79.911A Unspecified injury of right hip, initial encounter (principal); W10.9XXA Fall (on) (from) unspecified stairs and steps, initial encounter; Y93.9 Activity, unspecified; Y92.9 Unspecified place or not applicable; Y99.9 Unspecified external cause status; F10.10 Alcohol abuse, uncomplicated; Y90.8 Blood alcohol level of 240 mg/100 ml or more; I10 Essential (primary) hypertension; K21.9 Gastro-esophageal reflux disease without esophagitis; F32.9 Major depressive disorder, single episode, unspecified; F41.9 Anxiety disorder, unspecified; F17.200 Nicotine dependence, unspecified, uncomplicated; Z79.899 Other long term (current) drug therapy
CPT/HCPCS: 70450; 71045; 72125; 73502; 80048; 80076; 80307; 80320; 81001; 82550; 85025; 85610; 85730; 93005; 96361; 96374; 99285; J7030; A4216; G0480

== ENCOUNTER → 2020-12-11 08:21 | Outpatient (CLI) | payer MEDICAID, SELFPAY ==
--- NOTE | 2020-12-11 08:27 | CT_ITS ---
STUDY: CT RIGHT FEMUR WITHOUT CONTRAST REASON FOR EXAM: Male, 60 years old. Right hip fracture, fell 07/2020, continued hip pain since. Hx osteoporosis. RADIATION DOSAGE (If Supplied By Facility): CTDIvol = ( 23.62 ) mGy, DLP = ( 878.76 ) mGycm TECHNIQUE: Transaxial CT imaging of the femur was performed. Sagittal and coronal images were reconstructed. Individualized dose optimization techniques were used for this CT. COMPARISON: Comparison is made with prior radiograph dated 11/21/2020 and 08/22/2020. FINDINGS: There is evidence of a comminuted fragmented fracture of the greater trochanter of the proximal femur. There is evidence of callus bone formation. Normal visualized soft tissue structure. CT/Extremity Lower without Contra IMPRESSION: Comminuted fragmented nondisplaced fracture of the greater trochanter of the proximal right femur with evidence of bony callus formation. Electronically Signed: Evan Stafford, at 10:29 EST , Service support ,
== END ==
PROVIDERS: Referring Provider Physician Assistant; Visit Provider Physician Assistant
DX: S72.06 Articular fracture of head of femur (principal); X58.XXXA Exposure to other specified factors, initial encounter; Y93.9 Activity, unspecified; Y92.9 Unspecified place or not applicable; Y99.9 Unspecified external cause status
CPT/HCPCS: 73700

== ENCOUNTER 2020-12-19 11:12 | Outpatient (RCR) | payer MEDICAID, SELFPAY ==
--- NOTE | 2020-12-19 12:01 | HP.PTEVAL ---
Patient's Visit Information YADIEL SOSA is a 60 year old M referred to Physical Therapy by Dr. Romie Bradshaw DO with a diagnosis of R HIP GREATER TROCHANTERIC BUSITIS. Date of Evaluation: 12/19/20 Physical Therapist: Alice Coats PT, Cert MDT - Visit Plan Frequency: 2-3x /Week Duration: 4-6 Weeks Plan: GAIT TRAINING WITH CANE IF PATIENT WILLING. AQUATIC THERAPY FOR PAIN REDUCTION, POSTURE CORRECTION/STRENGTHENING, INSTRUCTION IN APPROPRIATE BODY MECHANICS AND ACTIVITY MODIFICATIONS. DLS STARTING WITH A NEUTRAL SPINE PROGRESSING ROM TOLERATED. BRENDAN LE ROM, STRETCHING AND STRENGTHENING. HEP INSTRUCTION. - Subjective Work/Leisure: UNEMPLOYEED. Disability: YES - SINCE 2019 - PATIENT IS NOT SURE WHY. Present symptoms: RIGHT HIP PAIN. NO LONGER HAVING PAIN, NUMBNESS OR TINGLING DOWN HIS LEG. Present since: AUG 24 2020. Pain Scale: WORST 8/10, LEAST 4/10. Currently: 5/10. Commenced as a result of: FALL ON STEPS AT HOME. Symptoms at onset: RIGHT HIP PAIN. Worse: STANDING AND WALKING. Better: LYING FLAT ON BACK. Disturbed sleep: YES. Previous history/Previous treatment: UNREMARKABLE. Treatment this episode: NOTHING. Gait: PATIENT REPORTS HE IS WALKING LIKE AN OLD MAN AND IT IS EMBARRASSING. HE STATES HE GIMPS AND IT IS PAINFUL IN THE RIGHT HIP TO WALK. Accidents: NO. Unexplained weight loss: NO. Imagin12/11/2020 CT scan right hip:Comminuted greater trochanteric fracture with callus. PMH: CHRONIC BACK PAIN - MY BACK IS STILL KILLING ME. STATES HE HAS NOT BEEN ABLE TO EXERCISE DUE TO HIP FX AND HE RELATES HIS INCREASE IN BACK PAIN TO NOT BEING ABLE TO DO HIS EX'S FROM PRIOR EPISODE OF CARE WITH PT. Essential (primary) hypertension (Chronic). Hyperlipidemia (Chronic). Anxiety and depression (Chronic). Gynecomastia (Chronic). Hepatomegaly (Chronic). Nicotine dependence (Chronic). Subcutaneous nodules (Chronic). Recent major surgery: 2019 RIGHT TIB/FIB ORIF - TWO SX'S BECAUSE HARDWARE NEEDED TO BE CHANGED. HARDWARE IS PULLING OUT AND ANOTHER SX MAY BE NEEDED. ANKLE FX WAS A RESULT OF FALLING DOWN STEPS TWO BUT THIS WAS A COMPLETELY DIFFERENT FALL FROM THE MORE RECENT ONE WHEN HE FX'S HIS HIP. - Objective INDEP GAIT INTO PT WITH INCREASED TRUNK FLEXION AND LIMP ON RIGHT LE. NO LOB. NO AD. DECREASED CADANCE. DECREASED BRENDAN STRIDE LENGHT. UE DEPENDENT TO TRANSFER FROM SIT TO STAND AND BEARS MOST WEIGHT ON LLE DURING TRANSFERS AND IN STANDING. Motor deficit: LLE 5/5 EXCEPT LEFT HIP 4/5. RIGHT LE: HIP FLEX 4-/5, ABD 3+/5, ADD 4-/5, IR 4-/5, ER 3+/5, KNEE EXT 4/5, KNEE FLEX 5/5, ANKLE DORSIFLEXION 4/5. Sensory deficit: BRENDAN LE LIGHT TOUCH SENSATION INTACT AND SYMMETRICAL EXCEPT RIGHT ANKLE SENSATIVITY/NUMBNESS MEDIALLY AND LATERALLY. ANKLE IS MORE SENSATIVE LATERALLY AND NUMB MEDIALLY. ROM deficit: VERY TIGHT BRENDAN LE HS'S AND MODERATE GASTROC SOLEUS COMPLEX'S. Dural Signs: POSITIVE BRENDAN LE DURAL SIGNS RIGHT > LEFT. Lumbar mvmt loss: flex - MOD - THAT FEELS OK GOING DOWN BUT HURTS COMING BACK UP. ext - MOD - PAINFUL IN LOW BACK AND RIGHT HIP. R SG - MOD TO MICA AND PRODUCES PAIN IN RIGHT HIP. L SG - MOD - NE. Core strength: POOR. Palpation: TENDERNESS WITH PALPATION THROUGHOUT THE LUMBAR REGIONS AND INTO RIGHT LATERAL HIP. BRENDAN LUMBAR PARASPINALS ARE VERY TIGHT. OTHER: THIS PT HIGHLY RECOMMENDED USE OF CANE FOR SAFETY AND PAIN REDUCTION. PATIENT RESISTANT AND STATES THAT DR. BRADSHAW ALSO RECOMMENDED USE OF CANE. - Goals Goal 1:: DECREASE C/O RIGHT HIP PAIN Goal Time Frame: 4-6 Weeks Goal 2:: IMPROVE STANDING AND WALKING FUNCTION Goal Time Frame: 4-6 Weeks Goal 3:: INSTRUCT IN PROPHYLAXIS Goal Time Frame: 4-6 Weeks - Anticipated Interventions Patient/Client Instruction: Educate patient on: Condition, Plan of Care, Risk Factors, Benefits of Fitness Program For the Purpose of:: To improve self management Therapeutic Exercise to Include: Strength training, Body mechanics, Postural training, Flexibilty training, Gait and locomotor training, Neuromotor development, In an aquatic setting, Dynamic Lumbar Stabilization For the Purpose of:: To decrease pain, To increase ROM, To improve muscle performance and motor function, To increase tolerance to activity/condition/position, To improve ability of physical actions for home/community/work/leisure, To improve gait and locomotor functions Thank you for the opportunity to evaluate your patient. For Medicare and Medicare HMO plans, please review the plan of care and approve it. It will need to be FAXED BACK to us at [phone] for Medicare purposes. For Medicare only, by signing this I certify the plan of care. Please let me know if there are questions or concerns regarding this plan of care. Physician Signature: Date:
--- NOTE | 2021-04-14 14:40 | HP.PT.NRP ---
YADIEL SOSA was seen in my office for initial evaluation on 12/19/20. The following Plan of Care was established for this patient: Initial Frequency: 2-3x /Week Initial Duration: 4-6 Weeks Patient/Client Instruction: Educate patient on: Condition, Plan of Care, Risk Factors, Benefits of Fitness Program For the Purpose of:: To improve self management Therapeutic Exercise to Include: Strength training, Body mechanics, Postural training, Flexibilty training, Gait and locomotor training, Neuromotor development, In an aquatic setting, Dynamic Lumbar Stabilization For the Purpose of:: To decrease pain, To increase ROM, To improve muscle performance and motor function, To increase tolerance to activity/condition/position, To improve ability of physical actions for home/community/work/leisure, To improve gait and locomotor functions This patient was last seen in our office 12/19/20. Pertinent comments regarding their Physical therapy will appear below: This patient has not returned to Physical Therapy and is appropriate to return to MD for further follow-up as needed. At this point I will be discontinuing this patient from physical therapy. I would be happy to see this patient again in the future if found appropriate by the physician. Thank you! Alice Coats, PT, Cert MDT
== END 2020-12-19 19:00 | disposition home or self-care (01) ==
LOC: PT 11:12
PROVIDERS: Referring Provider Orthopaedic Surgery; Visit Provider Orthopaedic Surgery
DX: M84.451D Pathological fracture, right femur, subsequent encounter for fracture with routine healing (principal)
CPT/HCPCS: 97162

== ENCOUNTER → 2021-01-28 12:17 | Outpatient (CLI) | payer MEDICAID, SELFPAY ==
[2021-01-28 12:49] LABS: Absolute Lymphocyte Count 3.45 X10^3/uL (0.83-4.51); Absolute Neutrophil Count 4.2 X10^3/uL (2.0-7.7); Basophil# 0.09 X10^3/uL; Eosinophil# 0.22 X10^3/uL; Eosinophils% 2.6 % (0-5); Hematocrit 37.5 % (40-54); Hemoglobin 13.9 g/dL (13.0-16.5); Lymphocyte # 3.45 X10^3/ul (4.0); Lymphocyte % 40.1 % (19-41); Mean Corp Hgb Conc 37.1 g/dL (32-36); Mean Corpuscular Hgb 39.6 pg (27.0-32.0); Mean Corpuscular Volume 106.8 fL (80-94); Mean Platelet Vol. 9.2 fl (6.2-12.0); Monocyte# 0.63 X10^3/uL; Monocyte% 7.3 % (0-10); NRBC Flagged by Analyzer 0 % (0-5); Neutrophil # 4.17 X10^3/uL (2.7-7.7); Neutrophil % 48.5 % (47-70); Platelet Count 192 K/mm3 (150-450); RBC Distribution Width CV 16.9 % (11.6-14.6); RBC Distribution Width SD 56.4 fl (35.1-43.9); Red Blood Count 3.51 M/mm3 (4.6-6.2); White Blood Count 8.6 K/mm3 (4.4-11.0)
[2021-01-28 13:19] LABS: Vitamin D,25 Hydroxy 58.2 ng/mL
[2021-01-28 13:32] LABS: AST(SGOT) 64 U/L (15-37); Alanine Aminotransfer ALT/SGPT 30 U/L (16-61); Albumin, Serum 3.6 g/dL (3.2-5.0); Alkaline Phosphatase 118 U/L (45-117); Anion Gap 14 (5-15); BUN 15 mg/dL (7-18); Calcium,Total 8.3 mg/dL (8.5-10.1); Chloride 108 mmol/L (98-107); Cholesterol 194 mg/dL (200); Creatinine, Serum 1.25 mg/dL (0.70-1.30); EST Glomerular Filtration Rate 62 mL/min (>60); Est Glom Filt Rate - Afr Amer 75 mL/min (>60); Globulin 3.7 g/dL (2.2-4.2); Glucose 164 mg/dL (74-106); High Density Lipoprotein 54 mg/dL; Potassium 3.3 mmol/L (3.5-5.1); Protein, Total 7.3 g/dL (6.4-8.2); Sodium Level 139 mmol/L (136-145); T4 Total, Thyroxin 7.4 ug/dL (4.5-12.1); Thyroid Stim Hormone (TSH) 2.76 uIU/mL (0.358-3.74); Triglycerides 343 mg/dL; Very Low Density Lipoprotein 69 mg/dL (5-40)
[2021-01-30 20:57] LABS: Vitamin D 1,25-Dihydroxy 83.6 pg/mL (19.9-79.3)
== END ==
DX: F10.19 Alcohol abuse with unspecified alcohol-induced disorder (principal); E78.2 Mixed hyperlipidemia; R94.5 Abnormal results of liver function studies
CPT/HCPCS: 36415; 80053; 80061; 82306; 82652; 84436; 84443; 85025

== ENCOUNTER 2021-02-27 08:26 | Day surgery (SDC) | payer MEDICAID, SELFPAY ==
[2021-02-27] VITALS (9 sets, daily range): BP systolic 83–142; BP diastolic 68–96; PULSE 77–86; RESP 16–18; TEMP 36–36.6; O2SAT 92–99; BMI 26.7
[2021-02-27] MEDS: Lactated Ringers 1,000 ML 100 ML IV ×2 (08:50→11:48)
[2021-02-27] MEDS: Cefazolin 2 GM in 0.9% Normal Saline 100 ML IV (09:33)
[2021-02-27] MEDS: Epinephrine (1 mg/ml) 1 MG/ML VIAL (09:33)
--- NOTE | 2021-02-27 10:05 | RAD_ITS ---
STUDY: X-RAY - RIGHT ANKLE REASON FOR EXAM: Right ankle pain, hardware removal. TECHNIQUE: 2 intraoperative images of the ankle. COMPARISON: Radiographs 01/08/2021. FINDINGS: There is removal of the orthopedic plate and screws from the distal fibula and removal of the syndesmotic screws without evidence of complication. There are 2 orthopedic screws in the medial malleolus. Electronically Signed: Cosme Montanez MD at 13:35 EDT Tel , Service support , RAD/Ankle 2 Views
[2021-02-27] MEDS: Mupirocin Ointment 22gm Tube 1 APPLIC (10:52)
--- NOTE | 2021-02-27 10:54 | DCINST_ITS ---
Discharge Diet: No Restrictions - nwb right leg, follow up in office in 2 weeks, or sooner if increased calf pain, or other concerns, Discharge Activity: May Not Drive May shower in (days): 1 Ice area for (Minutes): 20 - Every hour while awake. Weight Bearing Status: Weight bearing as tolerated Keep extremity elevated above heart level: Operative Extremity Call your doctor if your incision/area has: Continuous Slow Oozing, Sudden Increased Bleeding, Increased Pain/ Swelling, Increased Redness, Foul Smelling Discharge Call your doctor if you observe: Fever of 101 or Higher, Coldness, Increased Pain, Numbness or Tingling, Change in Color, Calf discomfort Allergies/Adverse Reactions: Allergies No Known Allergies Allergy (Verified 02/20/21 13:06) Medications to take at Discharge ALPRAZolam [Xanax] 0.5 mg PO DAILY PRN PRN 10/31/16 atorvastatin 40 mg tablet 40 mg PO QDAY 06/16/18 multivitamin 1 tab PO QAM 06/16/18 Loratadine 10 mg PO DAILY 07/31/18 Losartan Potassium 25 mg PO DAILY 07/31/18 cholecalciferol (vitamin D3) 1,250 mcg (50,000 unit) capsule 50,000 unit PO QWEEK 12/17/18 ibuprofen 800 mg tablet 800 mg PO Q6H PRN 07/19/19 Alendronate Sodium [Fosamax] 70 mg PO Q7D@0700 02/17/20 Ferrous Sulfate 325 mg PO DAILY 02/17/20 citalopram 20 mg tablet 60 mg PO DAILY tab 07/03/20 metoprolol succinate 50 mg tablet,extended release 24 hr 50 mg PO DAILY #90 tab 07/03/20 topiramate 50 mg tablet 50 mg PO DAILY tab 07/03/20 bupropion HCl 150 mg 24 hr tablet, extended release 150 mg PO DAILY tab 08/13/20 Omeprazole 40 mg PO PRN PRN 08/22/20 acetaminophen 500 mg capsule 500 - 1,000 mg PO .Q8hr PRN #100 cap 12/12/20 Oxycodone HCl/Acetaminophen [Percocet 5/325] 1 - 2 tablet PO Q6H PRN PRN 5 Days #28 tablet 02/27/21 The following prescriptions were given: Oxycodone HCl/Acetaminophen [Percocet 5/325] 1 - 2 tablet PO Q6H PRN PRN 5 Days #28 tablet PRN Reason: Pain Transmission Status: Sent to [facility] Primary Care Physician: [facility] Lenny,Madhuri Milton [Primary Care Provider] - Test Results: Test results from this visit will be discussed in further detail at your follow- up appointment, if applicable. Please Follow Up With: Mahnaz Jiang, - [phone]
--- NOTE | 2021-02-27 10:54 | PCM.HP.BLA ---
History and Physical Intake I have re-examined the patient. There are no clinical changes since date of exam. Intake Visit Reasons: RIGHT ANKLE Chief Complaint: right hip Allergies No Known Allergies Allergy (Verified 01/08/21 10:31) [facility] Medical History (Updated 12/12/20 @ 11:16 by Radhika Duarte) Essential (primary) hypertension (Chronic) Hyperlipidemia (Chronic) Anxiety and depression (Chronic) Gynecomastia (Chronic) Hepatomegaly (Chronic) Nicotine dependence (Chronic) Subcutaneous nodules (Chronic) Non-sustained ventricular tachycardia (Resolved) Syncope and collapse (Resolved) Surgical History H/O shoulder surgery (Resolved) History of ankle surgery (Resolved) History of colonoscopy (Resolved 01/2020) History of vascular surgery (Resolved) Family History Father CVA (cerebral vascular accident) Myocardial infarction HAS ICD Heart disease Sister Breast cancer Mother Heart disease Sister Colon cancer Social History (Updated 01/29/21 @ 12:[address] Mahnaz Jiang, ) Smoking Status: Current every day smoker Tobacco: How many years used: 40 alcohol intake: current alcohol intake frequency: 0-2 drinks per day Alcohol type: wine HPI RIGHT ANKLE: Surgical H&P: Yes Details: Parts of this documentation were recorded by a scribe, this documentation accurately reflects the service provided and the decisions made by me, Dr. Mahnaz Jiang DO 01/29/21 1016. YADIEL SOSA is a 60 year old M here today for F/U on right ankle after MRI denial. having extreme pain and believes screws are coming out. Patient believes his screws are visible and are causing him pain. Ankle is tender to touch and if patient bumps the ankle, it is painful. Patient denies any accidents or injuries.Denies numbness, tingling or other associated symptoms. no fever, chills, or othe rconstitutional symptoms. see chart. [place] [facility] [place] and no additional complaints, except as docu, Reports joint pain neg homans right leg Ortho Exam General General: Yes no acute distress Neurologic: Yes alert, Yes oriented x3 Psychologic: Yes reasonable and appropriate Right Foot/Ankle Skin/Wound: Yes CDI; no Ecchymosis, Soft Tissue Swelling or Erythema Exam: present TTP Lateral Malleolus Compartments: Compartments: soft Tests: Tarango Test: 1, Squeeze Test: 1 Motor: Ankle Dorsiflextion: 5, Ankle Plantar Flexion: 5, Ankle Eversion: 5, Ankle Inversion: 5, EHL: 5 Pulses: Dorsalis Pedis: 2 ANKLE: palpable screw heads, no signs of infection Assessment & Plan Problems 1. Orthopedic hardware present Z97.8 2. Acute right ankle pain M25.571 Plan Patient educated that since the MRI was denied and the screw is bothersome and backing out then he can have the screw removed. Reviewed the pre-operative plans with the patient. Risks and benefits of the procedure were fully explained, including but not limited to infection, neurovascular injury, continued pain, arthritis, stiffness, need for further surgery, re-injury, DVT, PE, general risks of anesthesia, and loss of limb or life. The patient understands all the risks and does wish to proceed with written consent for right ankle arthroscopy repair as indicated, hardware removal lateral ankle only. He will be in a splint for 2 weeks post op and will be TTWB. Follow up 2 weeks post op or sooner if pain, swelling, numbness or associated symptoms, or concerns develop. All questions answered. Patient in agreement of plan. Coding Level of Care Code Off vis,est,level 4 Diagnoses Orthopedic hardware present Z97.8 Acute right ankle pain M25.571 ??Chronicity: acute COVID (Procedure Consent) Procedure Criteria Procedure Criteria: Yes Elective The surgeon/proceduralist and patient have discussed in detail the risk of exposure to and/or potential harm posed by the COVID-19 virus with having a surgery/procedure at this time versus the risk of? delaying the surgery/procedure. It is not possible to know either the risk of delaying the surgery or procedure or chance of getting an infection with perfect accuracy, but a joint decision was made between the patient and the surgeon/proceduralist ?to proceed at this time with the scheduled surgery/procedure as indicated on the consent form.
--- NOTE | 2021-02-27 10:55 | PCM.OPRPT ---
Report of Operation Date of Procedure: 02/27/21 Pre-Operative Diagnosis: right lower extremity painful hardware/ h/o orif right ankle; osteoarthritis right ankle Post-Operative Diagnosis: same Surgery/Procedure Performed:: right ankle removal of hardware lateral ankle/fibula only, ankle arthroscopy tibiotalar chondroplasty, extensive synovectomy real estate developer: Americo Fabian Type of Anesthesia:: General Anesthesiologist: Rommel Greer Specimen's removed: hardware from right fibula/ankle Estimated Blood Loss (mL): min Fluids Replaced: 600cc Description of Procedure: Preop note Patient is a 60-year-old male well-known to me in my clinic. Patient sustained a fracture dislocation about a year and a half ago it was out for about 12 hours as patient was intoxicated them to the emergency room found to have a fracture dislocation it was reduced he saw me in the office. Is now been about a year and a half and his screws are backing out. He has no signs of infection no real pain just at the site where the screws are backing on touching the skin is irritating to his skin while he is wearing shoes as well. No fevers chills or other constitutional symptoms. X-rays show well aligned healed with some tibiotalar arthritis we discussed that he was going to get up from the chair fact that he was out for 12 hours after his fracture dislocation a year and a half ago. Risk benefits and alternatives surgery discussed with patient. Risk include but not limited to blood loss, blood clot, infection, neurovascular drain, failure procedure, loss of life and loss of limb. Patient is aware like proceed with right ankle lateral ankle removal of hardware ankle arthroscopy synovectomy chondroplasty debridement as indicated. Operative note Patient seen and examined preoperative holding area. Right ankle is marked. Patient brought to the operating room and placed supine on the operating table. Signed, anesthesia, antibiotics were administered. The right leg was prepped and draped in usual sterile technique with a tourniquet around his upper thigh. All bony promises well-padded and SCDs placed on his contralateral limb. Marked out our incisions for anteromedial anterior lateral arthroscopy placement we did palpate the nerve we did marked out as well. We palpated the anterior tibial to tibial tendon and then just medial to the injected with an 18-gauge spinal needle about 4640 cc of normal saline into his joint. We then made us slight taken the skin with 11 blade and dissect down with mosquitoes into the joint we had good return. Began our diagnostic arthroscopy. Patient has tibiotalar arthritis and extensive synovectomy synovitis throughout his anteromedial anterior lateral joint. We then created anterior lateral portal under direct visualization. We then inserted a shaver and very gently debrided back some of the unstable cartilage pieces as well as the extensive synovitis that we did encounter. We then irrigated the ankle with copious muscle sterile saline and moved to our removal of hardware. Using our posterior previous incision we then marked out our previous incision. The right the leg was then elevate exsanguinated and tourniquet raised to a pressure of 250 torr. We used we then used a 15 blade to cut through skin dissected down to level the plate we used a Bovie to free off any scar tissue around the screws with the screws were then removed using fluoroscopy to ensure that we had pre and post to ensure he had removed all of the screws as well as the plate. We then debrided the screw holes. Irrigated the incision with copious amounts of sterile saline the skin was closed with 3-0 Monocryl and 4-0 nylon. Sterile dressings were applied. Tourniquet was deflated. Patient taught procedure no complication transferred recovery room stable condition. Postoperative note Pharmacy has prescription Nonweightbearing right leg for 2 weeks Follow-up in the office in 2 weeks Call with increased pain numbness tingling or further issues arise Dragon disclaimer this note was generated with [employer] dictation software. It may contain incorrect words, spelling, and punctuation that were not noted in checking the note before signing.
[2021-02-27] MEDS: Bupiv/Epi 0.25% 30 ML Vial (11:02)
[2021-02-27] MEDS: HYDROcodone Bitartrate/Apap 5/325 Tablet PO (12:51)
== END 2021-02-27 13:54 | disposition home or self-care (01) ==
LOC: SDC 08:26 → AC 08:26
PROVIDERS: Referring Provider Orthopaedic Surgery; Visit Provider Orthopaedic Surgery
PROC: (CPT 20680; principal; 2021-02-27 09:45)
DX: T85.848A Pain due to other internal prosthetic devices, implants and grafts, initial encounter (principal); Y83.8 Other surgical procedures as the cause of abnormal reaction of the patient, or of later complication, without mention of misadventure at the time of the procedure; M19.071 Primary osteoarthritis, right ankle and foot; M25.571 Pain in right ankle and joints of right foot; I10 Essential (primary) hypertension; E78.5 Hyperlipidemia, unspecified; F32.9 Major depressive disorder, single episode, unspecified; F41.9 Anxiety disorder, unspecified; F17.200 Nicotine dependence, unspecified, uncomplicated
CPT/HCPCS: 01170; 20680; 29895; 73600; 76000; 87015; 87070; 87075; 87102; 87116; 87205; 87206; 87426; C9803; J7120; J2405

== ENCOUNTER → 2021-03-28 10:54 | Outpatient (CLI) | payer MEDICAID, SELFPAY ==
[2021-03-28 11:09] LABS: Absolute Lymphocyte Count 2.71 X10^3/uL (0.83-4.51); Absolute Neutrophil Count 4.4 X10^3/uL (2.0-7.7); Basophil# 0.06 X10^3/uL; Basophil% 0.7 % (0-1); Eosinophil# 0.26 X10^3/uL; Eosinophils% 3.2 % (0-5); Hemoglobin 12.5 g/dL (13.0-16.5); Lymphocyte # 2.71 X10^3/ul (0.83-4.51); Lymphocyte % 32.8 % (19-41); Mean Corp Hgb Conc 33.8 g/dL (32-36); Mean Corpuscular Hgb 34.8 pg (27.0-32.0); Mean Corpuscular Volume 103.1 fL (80-94); Mean Platelet Vol. 9.1 fl (6.2-12.0); Monocyte# 0.78 X10^3/uL; Monocyte% 9.5 % (0-10); NRBC Flagged by Analyzer 0 % (0-5); Neutrophil # 4.35 X10^3/uL (2.7-7.7); Neutrophil % 52.7 % (47-70); Platelet Count 270 K/mm3 (150-450); RBC Distribution Width CV 13.2 % (11.6-14.6); RBC Distribution Width SD 50.2 fl (35.1-43.9); Red Blood Count 3.59 M/mm3 (4.6-6.2); White Blood Count 8.3 K/mm3 (4.4-11.0)
[2021-03-28 11:32] LABS: Ferritin 915 ng/mL (26-388); Iron 177 ug/dL (65-175); Potassium 3.4 mmol/L (3.5-5.1)
== END ==
DX: E87.6 Hypokalemia (principal); D64.9 Anemia, unspecified
CPT/HCPCS: 36415; 82728; 83540; 84132; 85025

== ENCOUNTER → 2021-04-23 11:21 | Outpatient (CLI) | payer MEDICAID, SELFPAY ==
[2021-04-11 10:24] VITALS: BMI 26.7
[2021-04-23 11:59] LABS: Absolute Lymphocyte Count 1.84 X10^3/uL (0.83-4.51); Absolute Neutrophil Count 2.1 X10^3/uL (2.0-7.7); Basophil# 0.08 X10^3/uL; Basophil% 1.7 % (0-1); Eosinophil# 0.17 X10^3/uL; Eosinophils% 3.5 % (0-5); Hematocrit 32.4 % (40-54); Hemoglobin 10.8 g/dL (13.0-16.5); Lymphocyte # 1.84 X10^3/ul (0.83-4.51); Lymphocyte % 38.1 % (19-41); Mean Corp Hgb Conc 33.3 g/dL (32-36); Mean Corpuscular Hgb 35.5 pg (27.0-32.0); Mean Corpuscular Volume 106.6 fL (80-94); Monocyte% 12.4 % (0-10); NRBC Flagged by Analyzer 0.4 % (0-5); Neutrophil % 43.5 % (47-70); Platelet Count 245 K/mm3 (150-450); RBC Distribution Width CV 14.7 % (11.6-14.6); RBC Distribution Width SD 56.6 fl (35.1-43.9); Red Blood Count 3.04 M/mm3 (4.6-6.2); White Blood Count 4.8 K/mm3 (4.4-11.0)
[2021-04-23 12:17] LABS: Vitamin B12 175 pg/mL (211-911)
[2021-04-23 12:27] LABS: PSA,Total - Annual Screen 0.62 ng/mL (0.00-4.00)
== END ==
PROVIDERS: PCP Nurse Practitioner Adult Health; Referring Provider Nurse Practitioner Adult Health; Visit Provider Nurse Practitioner Adult Health
DX: D64.9 Anemia, unspecified (principal); Z12.5 Encounter for screening for malignant neoplasm of prostate
CPT/HCPCS: 36415; 82607; 82746; 84153; 85025; G0103

== ENCOUNTER → 2021-05-14 12:12 | Outpatient (CLI) | payer MEDICAID, SELFPAY ==
[2021-04-11 10:24] VITALS: BMI 26.7
[2021-05-14 13:09] LABS: Absolute Lymphocyte Count 2.72 X10^3/uL (0.83-4.51); Basophil# 0.11 X10^3/uL; Eosinophil# 0.21 X10^3/uL; Eosinophils% 3.7 % (0-5); Hematocrit 33.7 % (40-54); Hemoglobin 11.2 g/dL (13.0-16.5); Lymphocyte # 2.72 X10^3/ul (0.83-4.51); Lymphocyte % 48.4 % (19-41); Mean Corp Hgb Conc 33.2 g/dL (32-36); Mean Corpuscular Hgb 35.6 pg (27.0-32.0); Mean Platelet Vol. 9.5 fl (6.2-12.0); Monocyte# 0.58 X10^3/uL; Monocyte% 10.3 % (0-10); NRBC Flagged by Analyzer 0.4 % (0-5); Neutrophil # 1.98 X10^3/uL (2.7-7.7); Neutrophil % 35.2 % (47-70); POSITIVE MORPHOLOGY YES; Platelet Count 252 K/mm3 (150-450); RBC Distribution Width CV 14.8 % (11.6-14.6); RBC Distribution Width SD 56.7 fl (35.1-43.9); Red Blood Count 3.15 M/mm3 (4.6-6.2); White Blood Count 5.6 K/mm3 (4.4-11.0)
[2021-05-14 13:11] LABS: Differential Indicated SCAN CRITERIA MET
== END ==
DX: D64.9 Anemia, unspecified (principal); Z12.5 Encounter for screening for malignant neoplasm of prostate
CPT/HCPCS: 36415; 82274; 83880; 85025

== ENCOUNTER → 2021-07-26 10:13 | Outpatient (CLI) | payer MEDICAID, SELFPAY ==
[2021-07-03 11:34] VITALS: BMI 26.7
[2021-07-26 12:42] LABS: Vitamin B12 408 pg/mL (211-911)
--- NOTE | 2021-07-28 10:59 | PFT ---
INTRODUCTION: The patient is a 60-year-old male that presents for pulmonary function studies secondary to a diagnosis of shortness of breath. Respiratory therapy reported good patient effort. Bronchodilators were used during testing. INTERPRETATION: Forced expiration spirometry demonstrates no evidence of a large airways obstructive ventilatory defect. There was no significant response to aerosolized bronchodilators. Spirograms are of poor quality and terminate prior to 6 seconds, likely underestimating FVC. Body plethysmography was performed and reveals lung volumes to be within normal limits. Diffusing capacity by single breath CO is within normal limits. IMPRESSION: Grossly normal pulmonary function studies.
== END ==
PROVIDERS: Referring Provider Nurse Practitioner Adult Health; Visit Provider Nurse Practitioner Adult Health
DX: R06.02 Shortness of breath (principal); E53.9 Vitamin B deficiency, unspecified
CPT/HCPCS: 36415; 82607; 94060; 94726; 94729

== ENCOUNTER 2021-12-11 15:34 | Outpatient (CLI) | payer MEDICAID, SELFPAY ==
[2021-12-11 15:58] LABS: Absolute Lymphocyte Count 3.29 X10^3/uL (0.83-4.51); Absolute Neutrophil Count 5.5 X10^3/uL (2.0-7.7); Basophil# 0.14 X10^3/uL; Basophil% 1.4 % (0-1); Eosinophil# 0.28 X10^3/uL; Eosinophils% 2.7 % (0-5); Hematocrit 36.4 % (40-54); Lymphocyte # 3.29 X10^3/ul (0.83-4.51); Mean Corpuscular Volume 109.3 fL (80-94); Mean Platelet Vol. 9.2 fl (6.2-12.0); Monocyte# 0.97 X10^3/uL; Monocyte% 9.4 % (0-10); NRBC Flagged by Analyzer 0 % (0-5); Neutrophil # 5.49 X10^3/uL (2.7-7.7); Neutrophil % 53.3 % (47-70); Platelet Count 392 K/mm3 (150-450); RBC Distribution Width CV 13.6 % (11.6-14.6); RBC Distribution Width SD 54.8 fl (35.1-43.9); Red Blood Count 3.33 M/mm3 (4.6-6.2); White Blood Count 10.3 K/mm3 (4.4-11.0)
[2021-12-11 16:33] LABS: ALB/GLOB Ratio 0.8 RATIO (0.9-2.4); AST(SGOT) 70 U/L (15-37); Alanine Aminotransfer ALT/SGPT 50 U/L (16-61); Albumin, Serum 3.1 g/dL (3.2-5.0); Alkaline Phosphatase 189 U/L (45-117); Anion Gap 9 (5-15); BUN 11 mg/dL (7-18); Calcium,Total 8.8 mg/dL (8.5-10.1); Chloride 113 mmol/L (98-107); EST Glomerular Filtration Rate 72 mL/min (>60); Est Glom Filt Rate - Afr Amer 87 mL/min (>60); Globulin 3.9 g/dL (2.2-4.2); Glucose 120 mg/dL (74-106); Iron 112 ug/dL (65-175); Iron Binding Capacity,Total 187 ug/dL (250-450); PERCENT IRON SATURATION 59.9 % (15.0-55.0); Potassium 3.8 mmol/L (3.5-5.1); Sodium Level 143 mmol/L (136-145)
== END 2021-12-11 23:59 | disposition short-term general hospital (02) ==
LOC: LAB 15:36
PROVIDERS: Referring Provider Nurse Practitioner Adult Health; Visit Provider Nurse Practitioner Adult Health
DX: R23.3 Spontaneous ecchymoses (principal); R05.9 Cough, unspecified
CPT/HCPCS: 36415; 80053; 83540; 83550; 85025

== ENCOUNTER 2022-01-09 15:00 | Outpatient (CLI) | payer MEDICAID, SELFPAY ==
--- NOTE | 2022-01-09 15:03 | RAD_ITS ---
STUDY: X-RAY - PELVIS AND RIGHT HIP REASON FOR EXAM: Male, 61 years old. HIP PAIN TECHNIQUE: XR Hip Unilateral with Pelvis when performed; 2-3 Views COMPARISON: 5.5. FINDINGS: There is a non-specific bowel gas pattern. Normal visualized soft tissue structures. Normal bilateral iliac wings, sacroiliac joints and visualized sacrum. Normal bilateral superior and inferior pubic rami. Normal pubic symphysis. Normal bilateral ischial tuberosities. There is continued healing of a nondisplaced fracture of the right greater trochanter. There is sclerosis of the greater trochanter suggesting healing. However, there is a persistent lucency suggesting non union or healing. RAD/HIP, UNI W/ Pelvis 2-3 Views IMPRESSION: There is sclerosis of the greater trochanter suggesting healing. However, there is a persistent lucency suggesting non union or healing. Electronically Signed: Braydon Victor MD at 16:13 EST ,
== END 2022-01-09 23:59 | disposition home or self-care (01) ==
LOC: RAD 15:02
PROVIDERS: Referring Provider Anesthesiology Pain Medicine; Visit Provider Anesthesiology Pain Medicine
DX: M25.559 Pain in unspecified hip (principal)
CPT/HCPCS: 73502

== ENCOUNTER 2022-02-03 15:59 | Outpatient (CLI) | payer MEDICAID, SELFPAY ==
[2022-02-03 17:21] LABS: Absolute Lymphocyte Count 1.59 X10^3/uL (0.83-4.51); Absolute Neutrophil Count 6.4 X10^3/uL (2.0-7.7); Basophil# 0.12 X10^3/uL; Basophil% 1.3 % (0-1); Eosinophil# 0.14 X10^3/uL; Eosinophils% 1.5 % (0-5); Hematocrit 34.1 % (40-54); Hemoglobin 11.6 g/dL (13.0-16.5); Lymphocyte # 1.59 X10^3/ul (0.83-4.51); Mean Corpuscular Hgb 33.9 pg (27.0-32.0); Mean Corpuscular Volume 99.7 fL (80-94); Mean Platelet Vol. 9.8 fl (6.2-12.0); Monocyte# 0.99 X10^3/uL; Monocyte% 10.6 % (0-10); NRBC Flagged by Analyzer 0.2 % (0-5); Neutrophil # 6.41 X10^3/uL (2.7-7.7); Neutrophil % 68.7 % (47-70); Platelet Count 376 K/mm3 (150-450); RBC Distribution Width CV 13.5 % (11.6-14.6); RBC Distribution Width SD 48.9 fl (35.1-43.9); Red Blood Count 3.42 M/mm3 (4.6-6.2); White Blood Count 9.3 K/mm3 (4.4-11.0)
[2022-02-03 17:34] LABS: ALB/GLOB Ratio 0.9 RATIO (0.9-2.4); AST(SGOT) 98 U/L (15-37); Alanine Aminotransfer ALT/SGPT 40 U/L (16-61); Albumin, Serum 3.1 g/dL (3.2-5.0); Alkaline Phosphatase 230 U/L (45-117); Anion Gap 11 (5-15); BUN 14 mg/dL (7-18); BUN/Creat Ratio 11.5 RATIO (10-20); Calcium,Total 8.4 mg/dL (8.5-10.1); Chloride 105 mmol/L (98-107); Creatinine, Serum 1.22 mg/dL (0.70-1.30); EST Glomerular Filtration Rate 64 mL/min (>60); Est Glom Filt Rate - Afr Amer 77 mL/min (>60); Globulin 3.6 g/dL (2.2-4.2); Glucose 108 mg/dL (74-106); Iron 148 ug/dL (65-175); Iron Binding Capacity,Total 169 ug/dL (250-450); Potassium 3.1 mmol/L (3.5-5.1); Protein, Total 6.7 g/dL (6.4-8.2); Sodium Level 138 mmol/L (136-145)
[2022-02-03 17:50] LABS: BNP,B-Type NATRIURETIC PEPTIDE 22.7 pg/mL (0-100)
== END 2022-02-03 23:59 | disposition home or self-care (01) ==
LOC: LAB 16:00
PROVIDERS: Referring Provider Nurse Practitioner Adult Health; Visit Provider Nurse Practitioner Adult Health
DX: D64.9 Anemia, unspecified (principal); R06.02 Shortness of breath
CPT/HCPCS: 36415; 80053; 83540; 83550; 83880; 85025

== ENCOUNTER → 2022-03-21 | Outpatient (CLI) | payer MEDICAID, SELFPAY ==
[2022-03-21 16:01] LABS: Absolute Lymphocyte Count 1.43 X10^3/uL (0.83-4.51); Absolute Neutrophil Count 3.6 X10^3/uL (2.0-7.7); Basophil# 0.05 X10^3/uL; Basophil% 0.9 % (0-1); Eosinophil# 0.12 X10^3/uL; Eosinophils% 2.1 % (0-5); Hematocrit 35.8 % (40-54); Hemoglobin 11.6 g/dL (13.0-16.5); Lymphocyte # 1.43 X10^3/ul (0.83-4.51); Lymphocyte % 25.3 % (19-41); Mean Corp Hgb Conc 32.4 g/dL (32-36); Mean Corpuscular Hgb 32.5 pg (27.0-32.0); Mean Corpuscular Volume 100.3 fL (80-94); Mean Platelet Vol. 9.6 fl (6.2-12.0); Monocyte# 0.39 X10^3/uL; Monocyte% 6.9 % (0-10); NRBC Flagged by Analyzer 0 % (0-5); Neutrophil # 3.64 X10^3/uL (2.7-7.7); Neutrophil % 64.4 % (47-70); Platelet Count 376 K/mm3 (150-450); RBC Distribution Width CV 14.6 % (11.6-14.6); RBC Distribution Width SD 53.6 fl (35.1-43.9); Red Blood Count 3.57 M/mm3 (4.6-6.2); White Blood Count 5.7 K/mm3 (4.4-11.0)
[2022-03-21 16:27] LABS: BNP,B-Type NATRIURETIC PEPTIDE 42.2 pg/mL (0-100)
[2022-03-21 16:29] LABS: ALB/GLOB Ratio 0.9 RATIO (0.9-2.4); AST(SGOT) 32 U/L (15-37); Alanine Aminotransfer ALT/SGPT 22 U/L (16-61); Albumin, Serum 3.1 g/dL (3.2-5.0); Alkaline Phosphatase 146 U/L (45-117); Anion Gap 9 (5-15); BUN 12 mg/dL (7-18); BUN/Creat Ratio 10.8 RATIO (10-20); Calcium,Total 8.1 mg/dL (8.5-10.1); Chloride 105 mmol/L (98-107); Creatinine, Serum 1.11 mg/dL (0.70-1.30); EST Glomerular Filtration Rate 71 mL/min (>60); Est Glom Filt Rate - Afr Amer 86 mL/min (>60); Globulin 3.6 g/dL (2.2-4.2); Glucose 104 mg/dL (74-106); Iron 67 ug/dL (65-175); Iron Binding Capacity,Total 193 ug/dL (250-450); PERCENT IRON SATURATION 34.7 % (15.0-55.0); Potassium 3.6 mmol/L (3.5-5.1); Protein, Total 6.7 g/dL (6.4-8.2); Sodium Level 138 mmol/L (136-145)
== END | disposition home or self-care (01) ==
LOC: LAB 14:51
PROVIDERS: Referring Provider Nurse Practitioner Adult Health; Visit Provider Nurse Practitioner Adult Health
DX: R06.02 Shortness of breath (principal); D64.9 Anemia, unspecified
CPT/HCPCS: 36415; 80053; 83540; 83550; 83880; 85025

== ENCOUNTER → 2022-03-25 | Outpatient (CLI) | payer MEDICAID, SELFPAY ==
[2022-03-25 17:00] LABS: Lipase 70 U/L (73-393)
[2022-03-25 17:08] LABS: Vitamin D,25 Hydroxy 97.7 ng/mL
[2022-03-26 07:53] LABS: PTHIN 35.9 pg/mL (18.4-80.1)
[2022-03-26 10:51] LABS: CPK Total, Creatine Kinase 53 U/L (39-308)
[2022-03-28 12:57] LABS: ANTINUCLEAR ANTIBODIES DIRECT Negative (Negative)
== END | disposition home or self-care (01) ==
LOC: LAB 16:25
PROVIDERS: Referring Provider Nurse Practitioner Adult Health; Visit Provider Nurse Practitioner Adult Health
DX: E83.51 Hypocalcemia (principal)
CPT/HCPCS: 82550; 36415; 82306; 82552; 82652; 83690; 83970; 86038

== ENCOUNTER → 2022-03-26 | Outpatient (CLI) | payer MEDICAID, SELFPAY ==
--- NOTE | 2022-03-26 11:02 | US_ITS ---
STUDY: ABDOMINAL ULTRASOUND - RIGHT UPPER QUADRANT REASON FOR VISIT: Male, 61 years old OTHER DISEASE OF LIVER TECHNIQUE: Ultrasound evaluation of the right upper quadrant was performed with real-time and static justice-scale imaging. TECHNICAL QUALITY: Adequate. COMPARISON: None. FINDINGS: Liver: The liver measures 14.8 cm. There is increased echogenicity consistent with fatty infiltration. The bile ducts are within normal limits. There is hepatic color flow. The direction of portal flow is hepatopetal. There is no demonstrated mass lesion. Gallbladder: Normal distended gallbladder. The gallbladder wall measures 1.1 mm. There is a negative sonographic Horton''s sign. There is no pericholecystic fluid. On one image there may be a small stone or focus of sludge in the gallbladder measuring 2.5 mm. Common Bile Duct (C.B.D.): The common bile duct measures 4.5 mm. Pancreas: Not visualized due to overlying bowel gas. Right Kidney: Normal size of the right kidney. The right kidney measures 9.4 x 5.1 x 5.4 cm. Normal renal cortex. The right cortex measures 1.6 cm. There is no demonstrated renal mass or cyst. There is no right hydronephrosis. US/Abdomen Limited IMPRESSION: Mild fatty infiltration of the liver. No hydronephrosis. No cholelithiasis or ultrasound evidence of cholecystitis.On one image there may be a small focus of sludge in the gallbladder measuring 2.5 mm versus polyp. Electronically Signed: Layla Mercer MD at 0:33 EDT ,
== END | disposition home or self-care (01) ==
LOC: US 11:00
PROVIDERS: Referring Provider Nurse Practitioner Adult Health; Visit Provider Nurse Practitioner Adult Health
DX: K76.89 Other specified diseases of liver (principal)
CPT/HCPCS: 76705

== ENCOUNTER → 2022-06-03 | Outpatient (CLI) | payer MEDICAID, SELFPAY ==
[2022-06-03 13:04] LABS: Erythrocyte Sedimentation Rate 3 mm/hr (0-20)
[2022-06-03 13:10] LABS: International Normalized Ratio 1.2; Prothrombin Time (Protime)PT. 14.5 SECONDS (11.7-14.9)
[2022-06-03 13:31] LABS: Hemoglobin A1c 4.5 % (3.8-5.6)
[2022-06-03 13:41] LABS: ALB/GLOB Ratio 0.8 RATIO (0.9-2.4); AST(SGOT) 65 U/L (15-37); Alanine Aminotransfer ALT/SGPT 25 U/L (16-61); Albumin, Serum 2.7 g/dL (3.2-5.0); Alkaline Phosphatase 124 U/L (45-117); Anion Gap 8 (5-15); BUN 15 mg/dL (7-18); BUN/Creat Ratio 17.5 RATIO (10-20); CRP < 2.90 mg/L (0.0-3.0); Calcium,Total 8.8 mg/dL (8.5-10.1); Chloride 106 mmol/L (98-107); Creatinine, Serum 0.86 mg/dL (0.70-1.30); EST Glomerular Filtration Rate 96 mL/min (>60); Est Glom Filt Rate - Afr Amer 116 mL/min (>60); Globulin 3.2 g/dL (2.2-4.2); Glucose 100 mg/dL (74-106); LDH 192 U/L (87-241); Potassium 3.9 mmol/L (3.5-5.1); Protein, Total 5.9 g/dL (6.4-8.2); Sodium Level 140 mmol/L (136-145); Thyroid Stim Hormone (TSH) 5.18 uIU/mL (0.358-3.74)
[2022-06-03 13:53] LABS: HIV - WCH Non-Reactive (Nonreactive); Vitamin B12 296 pg/mL (211-911)
[2022-06-04 10:08] LABS: Anti-Centromere B Ab <0.2 AI (0.0-0.9); Anti-Chromatin <0.2 AI (0.0-0.9); Anti-Jo <0.2 AI (0.0-0.9); Anti-Scleroderma-70 AB <0.2 AI (0.0-0.9); RNP Ab <0.2 AI (0.0-0.9); SJOGREN'S Anti-SS-A test < 0.2 AI (0.0-0.9); SJOGREN'S Anti-SS-B test < 0.2 AI (0.0-0.9); Smith Ab <0.2 AI (0.0-0.9)
[2022-06-04 10:34] LABS: Anti-dsDNA Ab <1 IU/mL (0-9)
[2022-06-04 15:08] LABS: Endomysial Antibody IgA Negative (Negative)
[2022-06-04 20:43] LABS: Immunoglobulin A 391 mg/dL (61-437); t-Transglutaminase IgA <2 U/mL (0-3)
[2022-06-06 22:07] LABS: Albumin 3.1 g/dL (2.9-4.4); Alpha-1-Globulins 0.2 g/dL (0.0-0.4); Alpha-2-Globulins 0.4 g/dL (0.4-1.0); Cytoplasmic Ab (C-ANCA) <1:20 titer (Neg:<1:20); Gamma Globulin 1.1 g/dL (0.4-1.8); HEPATITIS B SURFACE AG Negative (Negative); Hep C Antibodies 0.1 s/co ratio (0.0-0.9); Hepatitis A IgM Antibody Negative (Negative); Hepatitis B Core AB IgM Negative (Negative); Immunoglobulin A 405 mg/dL (61-437); Immunoglobulin E 28 IU/mL (6-495); Immunoglobulin G 1028 mg/dL (603-1613); Immunoglobulin M 41 mg/dL (20-172); PROEL- TOTAL PROTEIN 5.6 g/dL (6.0-8.5)
[2022-06-06 23:03] LABS: Perinuclear Ab (P-ANCA) <1:20 titer (Neg:<1:20)
== END | disposition home or self-care (01) ==
LOC: LAB 12:18
PROVIDERS: Visit Provider Internal Medicine Gastroenterology
DX: R19.7 Diarrhea, unspecified (principal)
CPT/HCPCS: 36415; 80053; 80074; 82607; 82746; 82784; 82785; 83036; 83516; 83615; 84165; 84443; 85610; 85652; 86140; 86225; 86235; 86255; 86256; 86334; 86703

== ENCOUNTER 2022-09-02 13:49 | Day surgery (SDC) | payer MEDICAID, SELFPAY ==
--- NOTE | 2022-09-01 12:05 | NURSING ---
Initial attempts for PAT calls were unsuccessful on 08/29/2022. Pt did not return calls. When PAT RN was able to get in touch with pt on 08/29/2022 at 1640, pt was unable to answer health history questions, did not know his medications and did not have his Prep instructions. This RN contacted Yazmin at Dr [facility], verified which prep instructions pt was to follow. This RN phoned Lucian again; Lucian requested instructions be faxed to his sister and that he would call PAT to give sister's fax number. On 09/01/2022, pt had not called back. This RN contacted pt and completed his health history, obtained his current med list from [facility] per pt's information that [facility] has his current list. Pt still did not know sister's fax number for him to be able to receive prep instructions. Pt instructed that he should only be drinking clear liq. This RN left message on sister's (Aneesh Perkins) phone to call PAT regarding prep.
--- NOTE | 2022-09-01 12:18 | NURSING ---
Yazmin at Dr Berumen[facility] office updated on pt's information regarding no prep to date and regarding attempts to communicate with pt.
[2022-09-02] VITALS (7 sets, daily range): BP systolic 116–135; BP diastolic 82–93; PULSE 83–115; RESP 16–18; TEMP 36.3–37.2; O2SAT 99–100; BMI 48.2
[2022-09-02] MEDS: Lactated Ringers 1,000 ML 15 ML IV (14:00)
--- NOTE | 2022-09-02 14:45 | IMM_PTH ---
PATIENT: YADIEL SOSA LOC: EN U#:[id number] AGE/SX: 62/M ROOM: RE09/02/[address]: Dr. Thomas Berumen DO : 1960 BED: DIS: 09/02/2022 SPEC #: [id number] RECD: 09/03/22 10:13 STATUS: BRIELLE REQ #: [id number] ANGELINA: 09/02/22 14:[address]: Thomas Berumen DEPT: IMMUNOHISTOCHEMISTRY RECD BY: Emili Bautista ENTERED: 09/03/22 10:14 SP TYPE: IMMUNO OTHR DR: Madhuri [facility] Tissues: B - Stomach, NOS Procedures: H Pylori (initial) PHYSICIAN & INSTITUTION [place] [phone] SPECIMEN INFORMATION: Tissue Source: B ? Gastric body biopsy Clinical Info: Diarrhea Specimen Number: [id number] CPT code: 95087 METHODOLOGY: Deparaffinized sections of prefer/formalin-fixed tissue or PAP/DQ stained slides are incubated with monoclonal/polyclonal antibodies/oligonucleotide probes. Localization is made via biotin free immunoperoxidase method. Appropriate controls are performed and reacted as expected. Results on target cell population are indicated in the following table: RESULTS: ANTIBODY / CLONE RESULT Block B H Pylori (polyclonal) negative These tests were developed and their performance characteristics determined by [facility]. They may not have been cleared or approved by the [place]. Food and Drug Administration. The FDA has determined that such clearance or approval is not necessary. The above immunohistochemical/dualISH markers are ordered and reviewed by the Pathologist. INTERPRETATION: B. Gastric body, biopsy: Negative for Helicobacter pylori organisms. AM:karla 09/04/2022
--- NOTE | 2022-09-02 14:45 | COLBX_PTH ---
PATIENT: YADIEL SOSA LOC: EN U#:[id number] AGE/SX: 62/M ROOM: RE09/02/[address]: Dr. Thomas Berumen DO : 1960 BED: DIS: 09/02/2022 SPEC #: [id number] RECD: 09/02/22 16:00 STATUS: BRIELLE DARIEN #: [id number] ANGELINA: 09/02/22 14:[address]: Thomas Berumen DEPT: SURGICAL PATHOLOGY RECD BY: Stephanie Odonnell ENTERED: 09/03/22 07:52 SP TYPE: COLON BX OTHR DR: Madhuri [facility] Tissues: A - Duodenum, NOS B - Gastric mucous membrane C - Esophagus, NOS D - Ileum, NOS E - COLON BIOPSY Procedures: Special Stain Group II Surgery Specimen Level IV Alcian Blue/PAS (control) HEADER OPERATION: [place] [place] PRE-OP DIAGNOSIS: Diarrhea TISSUE SUBMITTED: A ? Duodenum biopsy, B ? Gastric body biopsy, C ? Distal esophagus biopsy, D ? Terminal ileum biopsy, E ? Random colon biopsy MICROSCOPIC DIAGNOSIS A. Duodenum, biopsy: No pathologic change. B. Gastric body, biopsy: Minimal chronic inflammation. See comment. C. Distal esophagus, biopsy: Gastroesophageal junctional mucosa with chronic inflammation. No evidence of goblet cell metaplasia. See comment. D. Terminal ileum, biopsy: No pathologic change. E. Colon, random biopsy: No pathologic change. AM:karla 09/04/2022 COMMENT B. The results of immunohistochemistry for Helicobacter pylori will be reported separately ([id number]). C. Alcian blue/PAS stain with matched control supports the above diagnosis. MICROSCOPIC DESCRIPTION Slides are reviewed. GROSS DESCRIPTION A - Received in fixative is one container labeled with the patient's name and designated duodenum biopsy. The specimen consists of multiple irregular fragments of light hernandez soft tissue that in aggregate measure 1 x 0.5 x 0.1 cm. The specimen is totally submitted in one cassette. B - Received in fixative is one container labeled with the patient's name and designated gastric body biopsy. The specimen consists of two irregular fragments of light hernandez soft tissue that in aggregate measure 0.5 x 0.5 x 0.1 cm. The specimen is totally submitted in one cassette. C - Received in fixative is one container labeled with the patient's name and designated distal esophagus biopsy. The specimen consists of two irregular fragments of light hernandez soft tissue that in aggregate measure 0.5 x 0.3 x 0.1 cm. The specimen is totally submitted in one cassette. D - Received in fixative is one container labeled with the patient's name and designated terminal ileum biopsy. The specimen consists of one irregular fragment of light hernandez soft tissue that measures 0.3 x 0.3 x 0.1 cm. The specimen is totally submitted in one cassette. E - Received in fixative is one container labeled with the patient's name and designated random colon biopsy. The specimen consists of multiple irregular fragments of light hernandez soft tissue that in aggregate measure 1 x 0.8 x 0.1 cm. The specimen is totally submitted in one cassette. / SJ:rg 09/03/2022 TC:3 CPT: 47658 x5, 82114
--- NOTE | 2022-09-02 15:00 | HP.PCM_ITS ---
History and Physical Date of Admission: 09/02/22 LUCIAN SOSA, is a 61 M who presents to the office today for?Initial consu lt. Lucian established with this clinic 7 with referral from PCP for further evaluation of abnormal gallbladder imaging, anemia and liver enzyme elevation. Symptoms include stomach upset with some burning with PO intake; will have emesis most morning prior to eating or if he eats too much. Currently taking Prilosec 40mg QD and this is helpful with reflux symptoms. Stools are dark/black and runny (takes PO iron) and occur one to two times a day with morning and sometimes will wake during the night with urgency and incontinence with preceding abdominal cramping that resolves following BM. Biochemical workup Vit D25, PTH, CPK, BRENDAN direct, Iron, CMP, CBC, BNP. History of AST 98/ ALT WNL/ ALK Phos 230. Elevated: Vit D 1,25 Depressed: Lipase 70, TIBC 193, Hgb 11.6 US RUQ 4.27.22 liver measures 14.8cm with fatty infiltration; Gallbladder sludge with small stone versus focus sludge, negative Horton?s sign. ROS Const Constitutional: No fatigue, malaise, night sweats, weight change, sleep problems, abnormal sleep pattern or change in appetite Eyes Eyes: No change in vision ENT ENT: No difficulty swallowing, hoarseness or sore throat Resp Respiratory: No cough or shortness of breath Cardio Cardiology: No chest pain at rest Gastro GI: No belching, bloating, change in bowel habits, change in stool character, coffee ground emesis, constipation, cramping, difficulty swallowing, feeling full early, excessive flatus, incontinent of stools, Vomiting blood/hematemesis, Blood in stool, loose stools, Black,tarry stools, nausea/dyspepsia, pain with swallowing, vomiting or other Genitourinary Male: No difficulty urinating or burning urination Musc Musculoskeletal: No joint pain Skin Skin: No yellowing of the eye or itchy eyes Neuro Neurology: No behavioral changes Psych Psychiatric: No abnormal sleep pattern, No anxiety, No behavioral changes, No change in appetite and No depression Endo Endocrine: No fatigue or weight change Aller/Imm Allergy/Immunologic: No itchy eyes Tl/Lymp Hematologic/Lymphatic: No easy bleeding or easy bruising Exam Const General: cooperative and comfortable Nutritional Appearance: average body habitus and well nourished [facility] Head: normal to inspection Ears: hearing grossly normal bilaterally Nose: external nose normal Face and sinus: normal facial exam Mouth: oral mucosae normal Throat: posterior oropharynx normal Eyes General: appearance normal, both eyes and all related structures Neck Neck: normal visual inspection Chest Chest palpation & inspection: normal inspection of the chest and normal palpation of entire chest wall Resp Effort & Inspection: normal respiratory effort Auscultation: Bilateral: Clear to Auscultation Cardio Palpation: normal PMI Rate: regular rate Rhythm: regular rhythm GI Inspection: normal to inspection Auscultation: normal bowel sounds Percussion: normal to percussion Palpation: no hepatosplenomegaly Skin General: no rashes or lesions noted Neuro General: patient alert Extrem General: normal to inspection Psych Affect: normal affect Quality Reporting Tobacco Screening ([facility] 138) Smoking Status: Former smoker Assessment and Plan Assessment and Plan (1) Diarrhea: ?Status:?Acute ?Plan: The differential diagnosis for his diarrhea would include inflammatory bowel disease, secretory diarrhea infectious diarrhea.? He will have a full work-up including biochemical anlysis analysis imaging, stool tests and colonoscopy to evaluate his GI tract. ? ? ? Orders: Orders Vitamin B12 06/03/22 R19.7 - Diarrhea, unspecified ? D HIV - [facility] 06/03/22 R19.7 - Diarrhea, unspecified ? Comprehensive Metabolic Profil 06/03/22 R19.7 - Diarrhea, unspecified ? CRP 06/03/22 R19.7 - Diarrhea, unspecified ? Folates, (Folic Acid) 06/03/22 R19.7 - Diarrhea, unspecified ? LDH 06/03/22 R19.7 - Diarrhea, unspecified ? Thyroid Stim Hormone (TSH) 06/03/22 R19.7 - Diarrhea, unspecified ? Hemoglobin A1c 06/03/22 R19.7 - Diarrhea, unspecified ? Prothrombin Time w/INR 06/03/22 R19.7 - Diarrhea, unspecified ? Erythrocyte Sed Rate 06/03/22 R19.7 - Diarrhea, unspecified ? BRENDAN Comprehensive Panel 06/03/22 R19.7 - Diarrhea, unspecified ? Calprotectin, Stool 06/03/22 R19.7 - Diarrhea, unspecified ? Ova and Parasites 8623 06/03/22 K58.9 - Irritable bowel syndrom e without diarrhea, R19.7 - Diarrhea, unspecified ? CDIFF (PCR) 06/03/22 R19.7 - Diarrhea, unspecified ? ENTERIC PATHOGEN PANEL STOOL 06/03/22 K58.9 - Irritable bowel syndrom e without diarrhea, R19.7 - Diarrhea, unspecified ? Stool Lactoferrin/WBC 06/03/22 K58.9 - Irritable bowel syndrom e without diarrhea, R19.7 - Diarrhea, unspecified ? Hepatitis Panel Acute 06/03/22 R19.7 - Diarrhea, unspecified ? ANCA 06/03/22 R19.7 - Diarrhea, unspecified ? Celiac Disease Profile 06/03/22 R19.7 - Diarrhea, unspecified ? Giardia Lamblia, Stool EIA 06/03/22 R19.7 - Diarrhea, unspecified ? Pancreatic Elastase, Fecal 06/03/22 R19.7 - Diarrhea, unspecified ? Elastography Parenchyma/Organ 06/03/22 K76.0 - Fatty (change of) liver , not elsewhere classified ? Immunoglobulins G/A/M/E 06/03/22 R19.7 - Diarrhea, unspecified ? STEPHAN + Protein Elect, Serum 06/03/22 R19.7 - Diarrhea, unspecified ? I have re-examined the patient. There are no clinical changes since date of ex am.
--- NOTE | 2022-09-02 16:27 | OP.EGD_ITS ---
Patient Name: Lucian Olivares Procedure Date: 09/02/2022 3:38 PM Date of : 1960 Age: 62 Procedure: Upper GI endoscopy Indications: Epigastric abdominal pain Providers: Thomas Berumen DO Medicines: Monitored Anesthesia Care Patient Profile: This is a 62 year old male. Refer to note in patient chart for documentation of history and physical. Patient has symptoms of chronic epigastric abdominal pain. Complications: No immediate complications. Procedure: Pre-Anesthesia Assessment: - Prior to the procedure, a History and Physical was performed, and patient medications and allergies were reviewed. The risks and benefits of the procedure and the sedation options and risks were discussed with the patient. All questions were answered and informed consent was obtained. Patient identification and proposed procedure were verified by the physician in the pre-procedure area. Mental Status Examination: alert and oriented. Airway Examination: normal oropharyngeal airway and neck mobility. Prophylactic Antibiotics: The patient does not require prophylactic antibiotics. Prior Anticoagulants: The patient has taken no previous anticoagulant or antiplatelet agents. ASA Grade Assessment: II - A patient with mild systemic disease. After reviewing the risks and benefits, the patient was deemed in satisfactory condition to undergo the procedure. The anesthesia plan was to use monitored anesthesia care (MAC). Immediately prior to administration of medications, the patient was re-assessed for adequacy to receive sedatives. The heart rate, respiratory rate, oxygen saturations, blood pressure, adequacy of pulmonary ventilation, and response to care were monitored throughout the procedure. The physical status of the patient was re-assessed after the procedure. After obtaining informed consent, the endoscope was passed under direct vision. Throughout the procedure, the patient's blood pressure, pulse, and oxygen saturations were monitored continuously. The colonoscope was introduced through the mouth, and advanced to the second part of duodenum. The upper GI endoscopy was accomplished without difficulty. The patient tolerated the procedure well. Scope In: 3:54:06 PM Scope Out: 3:59:21 PM Total Procedure Duration Time 0 hours 5 minutes 15 seconds Findings: The Z-line was irregular and was found 39 cm from the incisors. Biopsies were taken with a cold forceps for histology. Verification of patient identification for the specimen was done. Several biopsies were obtained with cold forceps for histology in a targeted manner in the lower third of the esophagus. Verification of patient identification for the specimen was done. A small hiatal hernia was present. Patchy mildly erythematous mucosa without bleeding was found in the gastric body. Biopsies were taken with a cold forceps for histology. Verification of patient identification for the specimen was done. Estimated blood loss was minimal. No gross lesions were noted in the duodenal bulb. Biopsies were taken with a cold forceps for histology. Verification of patient identification for the specimen was done. Estimated blood loss was minimal. Impression: - Z-line irregular, 39 cm from the incisors. Biopsied. - Small hiatal hernia. - Erythematous mucosa in the gastric body. Biopsied. - No gross lesions in the duodenal bulb. Biopsied. - Several biopsies were obtained in the lower third of the esophagus. Recommendation: - Discharge patient to home. - Resume previous diet. - Continue present medications. - Await pathology results. - Repeat upper endoscopy in 1 year for surveillance. Procedure Code(s): --- Professional --- 93177, Esophagogastroduodenoscopy, flexible, transoral; with biopsy, single or multiple CPT copyright 2017 [employer]. All rights reserved. The codes documented in this report are preliminary and upon director of partner marketing review may be revised to meet current compliance requirements. Thomas Berumen DO 09/02/2022 4:27:11 PM This report has been signed electronically. Number of Addenda: 0 Note Initiated On: 09/02/2022 3:38 PM
--- NOTE | 2022-09-02 16:27 | OP.CCLET_ITS ---
09/02/[address] [facility] Re : Upper GI endoscopy procedure for Lucian [facility] This procedure was performed on Friday, September 02, 2022. My impressions and recommendations are as follows: Impressions : - Z-line irregular, 39 cm from the incisors. Biopsied. - Small hiatal hernia. - Erythematous mucosa in the gastric body. Biopsied. - No gross lesions in the duodenal bulb. Biopsied. - Several biopsies were obtained in the lower third of the esophagus. Recommendations : - Discharge patient to home. - Resume previous diet. - Continue present medications. - Await pathology results. - Repeat upper endoscopy in 1 year for surveillance. My findings are described in the full procedure note, which is enclosed. If I can be of further assistance, please feel free to contact me at . Sincerely, Thomas Berumen, 09/02/2022 4:27:11 PM This report has been signed electronically.
--- NOTE | 2022-09-02 16:30 | OP.COLON_ITS ---
Patient Name: Lucian Olivares Procedure Date: 09/02/2022 3:59 PM Date of : 1960 Age: 62 Procedure: Colonoscopy Indications: Evaluation of unexplained GI bleeding, Chronic diarrhea Providers: Thomas Berumen DO Medicines: Monitored Anesthesia Care Patient Profile: This is a 62 year old male. Refer to note in patient chart for documentation of history and physical. Patient has symptoms of chronic epigastric abdominal pain. Last Colonoscopy: more than 3 years ago. Complications: No immediate complications. Procedure: Pre-Anesthesia Assessment: - Prior to the procedure, a History and Physical was performed, and patient medications and allergies were reviewed. The risks and benefits of the procedure and the sedation options and risks were discussed with the patient. All questions were answered and informed consent was obtained. Patient identification and proposed procedure were verified by the physician in the pre-procedure area. Mental Status Examination: alert and oriented. Airway Examination: normal oropharyngeal airway and neck mobility. Prophylactic Antibiotics: The patient does not require prophylactic antibiotics. Prior Anticoagulants: The patient has taken no previous anticoagulant or antiplatelet agents. ASA Grade Assessment: II - A patient with mild systemic disease. After reviewing the risks and benefits, the patient was deemed in satisfactory condition to undergo the procedure. The anesthesia plan was to use monitored anesthesia care (MAC). Immediately prior to administration of medications, the patient was re-assessed for adequacy to receive sedatives. The heart rate, respiratory rate, oxygen saturations, blood pressure, adequacy of pulmonary ventilation, and response to care were monitored throughout the procedure. The physical status of the patient was re-assessed after the procedure. After I obtained informed consent, the scope was passed under direct vision. Throughout the procedure, the patient's blood pressure, pulse, and oxygen saturations were monitored continuously. The Colonoscope was introduced through the anus and advanced to the terminal ileum. The colonoscopy was performed without difficulty. The patient tolerated the procedure well. The quality of the bowel preparation was good. Scope In: 4:01:10 PM Scope Withdrawal Time 0 hours 9 minutes 41 seconds Scope Out: 4:14:10 PM Total Procedure Duration Time 0 hours 13 minutes 0 seconds Findings: The perianal and digital rectal examinations were normal. An area of mildly congested mucosa was found in the sigmoid colon, in the descending colon, at the hepatic flexure, in the ascending colon and in the cecum. Biopsies were taken with a cold forceps for histology. Verification of patient identification for the specimen was done. Estimated blood loss was minimal. The terminal ileum appeared normal. Biopsies were taken with a cold forceps for histology. Verification of patient identification for the specimen was done. Estimated blood loss was minimal. Impression: - Congested mucosa in the sigmoid colon, in the descending colon, at the hepatic flexure, in the ascending colon and in the cecum. Biopsied. - The examined portion of the ileum was normal. Biopsied. Recommendation: - Discharge patient to home. - Resume previous diet. - Continue present medications. - Await pathology results. - Repeat colonoscopy in 5 years for surveillance. Procedure Code(s): --- Professional --- 66601, Colonoscopy, flexible; with biopsy, single or multiple CPT copyright 2017 [employer]. All rights reserved. The codes documented in this report are preliminary and upon business management analyst review may be revised to meet current compliance requirements. Thomas Berumen DO 09/02/2022 4:29:41 PM This report has been signed electronically. Number of Addenda: 0 Note Initiated On: 09/02/2022 3:59 PM
--- NOTE | 2022-09-02 16:30 | OP.CCLET_ITS ---
09/02/2022 Madhuri [facility] Re : Colonoscopy procedure for Lucian [facility] This procedure was performed on Friday, September 02, 2022. My impressions and recommendations are as follows: Impressions : - Congested mucosa in the sigmoid colon, in the descending colon, at the hepatic flexure, in the ascending colon and in the cecum. Biopsied. - The examined portion of the ileum was normal. Biopsied. Recommendations : - Discharge patient to home. - Resume previous diet. - Continue present medications. - Await pathology results. - Repeat colonoscopy in 5 years for surveillance. My findings are described in the full procedure note, which is enclosed. If I can be of further assistance, please feel free to contact me at . Sincerely, Thomas Friend, 09/02/2022 4:29:41 PM This report has been signed electronically.
== END 2022-09-02 17:03 | disposition home or self-care (01) ==
LOC: EN 13:52 → AC 13:54
PROVIDERS: Visit Provider Internal Medicine Gastroenterology
PROC: 0DJD8ZZ Inspection of Lower Intestinal Tract, Via Natural or Artificial Opening Endoscopic (ICD-10-PCS; CPT 45378; principal; 2022-09-02 14:40)
DX: K29.50 Unspecified chronic gastritis without bleeding (principal); K21.00 Gastro-esophageal reflux disease with esophagitis, without bleeding; K44.9 Diaphragmatic hernia without obstruction or gangrene; K76.0 Fatty (change of) liver, not elsewhere classified; I10 Essential (primary) hypertension; E78.5 Hyperlipidemia, unspecified; F32.9 Major depressive disorder, single episode, unspecified; F41.9 Anxiety disorder, unspecified; Z79.899 Other long term (current) drug therapy; Z87.891 Personal history of nicotine dependence
CPT/HCPCS: 45380; 43239; 87493; 87506; 88305; 88313; 88342; J7120; J2405

== ENCOUNTER → 2022-09-17 | Outpatient (CLI) | payer MEDICAID, SELFPAY ==
[2022-09-17 15:58] LABS: Cholesterol 130 mg/dL (200); High Density Lipoprotein 70 mg/dL; Triglycerides 73 mg/dL; Very Low Density Lipoprotein 15 mg/dL (5-40)
== END | disposition home or self-care (01) ==
PROVIDERS: Referring Provider Internal Medicine Gastroenterology; Visit Provider Nurse Practitioner Family
DX: E78.2 Mixed hyperlipidemia (principal)
CPT/HCPCS: 36415; 80061

== ENCOUNTER → 2022-12-10 | Outpatient (CLI) | payer MEDICAID, SELFPAY ==
--- NOTE | 2022-12-10 08:57 | RAD_ITS ---
PROCEDURE: After contrast Upper GI with Small Bowel Follow Through DATE OF EXAMINATION: 12/10/2022. INDICATION: Male, 62 years old. Diarrhea. FLUOROSCOPY TIME (if supplied): (0:58) minutes/seconds. 18 images were obtained. TECHNIQUE: Radiographic and fluoroscopic images of the distal esophagus, stomach, and entire small intestine were obtained following the oral ingestion of barium. COMPARISON: None. FINDINGS: The telecom specialist film of the abdomen demonstrates a normal bowel gas pattern. There are no abnormal calcifications or organomegaly demonstrated. The visualized osseous structures are normal. The esophagus is unremarkable. No evidence of gastroesophageal reflux. No mass lesion is seen. The stomach and duodenum are unremarkable. A single contrast small bowel follow through exam demonstrates the small bowel to have no evidence for stricture, ulceration or mass. The transit time is normal at 60 minutes. RAD/Upper GI/w Small Bowel IMPRESSION: 1. Normal single contrast small bowel follow-through exam. Electronically Signed: Evan Stafford MD at 15:07 EST ,
== END | disposition home or self-care (01) ==
PROVIDERS: Referring Provider Internal Medicine Gastroenterology; Visit Provider Internal Medicine Gastroenterology
DX: R19.7 Diarrhea, unspecified (principal)
CPT/HCPCS: 74246; 74248

== ENCOUNTER → 2022-12-26 | Outpatient (CLI) | payer MEDICAID, SELFPAY ==
--- NOTE | 2022-12-26 13:49 | ECHOD_ITS ---
Reason For Study: ARRYTHMIA Procedure This was a 2D Doppler, Color Flow transthoracic echocardiogram. Exam performed in department. Left Ventricle Normal LV size. Left ventricular systolic function is normal. The estimated ejection fraction is 60 %. No regional wall motion abnormalities noted. Right Ventricle Normal RV size. Normal systolic function. Atria Normal left atrium. Normal right atrium. Mitral Valve Bileaflet diffuse mitral valve thickening. Mild (1+) mitral valve insufficiency. Tricuspid Valve Normal tricuspid valve. Mild tricuspid valve insufficiency. Aortic Valve Trisinus/trileaflet aortic valve. Normal aortic valve. Pulmonic Valve Normal pulmonic valve. Great Vessels Normal aortic root. The pulmonary artery is normal size. Normal inferior vena cava. Pericardium/Pleural No pericardial effusion. MMode/2D Measurements & Calculations LVIDd: 4.3 cm IVSd: 1.2 cm LAV(MOD-sp4): 53.0 ml LVIDs: 3.3 cm LVPWd: 1.1 cm RVDd: 3.0 cm FS: 23.7 % LVAd ap4: 26.6 cm2 SV(MOD-sp4): 45.6 ml SV(sp4-el): 50.4 ml LVLd ap4: 7.1 cm EDV(MOD-sp4): 79.0 ml EDV(sp4-el): 84.3 ml LVAs ap4: 15.6 cm2 LVLs ap4: 6.1 cm ESV(MOD-sp4): 33.4 ml ESV(sp4-el): 33.8 ml EF(MOD-sp4): 57.8 % EF(sp4-el): 59.9 % LA A4 area: 18.9 cm2 RA A4 area: 8.0 cm2 Time Measurements MV dec time: 0.26 sec Doppler Measurements & Calculations MV E max shivam: 64.4 cm/sec Lat Peak E' Shivam: 12.6 cm/sec Med Peak E' Shivam: 8.4 cm/sec MV A max shivam: 63.9 cm/sec E/E' lat: 5.1 E/E' med: 7.7 MV E/A: 1.0 MV V2 max: 76.2 cm/sec Ao V2 max: 104.9 cm/sec MV max P.3 mmHg MV dec slope: 254.7 cm/sec2 Ao max P.4 mmHg MV V2 mean: 51.0 cm/sec Ao V2 mean: 75.6 cm/sec MV mean P.1 mmHg Ao mean P.6 mmHg MV V2 VTI: 21.7 cm Ao V2 VTI: 20.1 cm AV (velocity ratio): 0.88 LV V1 max: 93.4 cm/sec PA V2 max: 90.7 cm/sec TR max shivam: 213.1 cm/sec LV V1 max P.5 mmHg PA V2 mean: 70.7 cm/sec TR max P.2 mmHg LV V1 mean P.8 mmHg LV V1 mean: 62.3 cm/sec LV V1 VTI: 17.7 cm ECHO/Echo Complete Interpretation Summary Normal LV size. Left ventricular systolic function is normal. The estimated ejection fraction is 60 %. Mild tricuspid valve insufficiency. Ordering Physician: Nitin Choi Referring Physician: MATHEUS GARIBAY Performed By: Sangita Reddy RCS
== END | disposition home or self-care (01) ==
LOC: CVS 13:47
PROVIDERS: Visit Provider Internal Medicine Cardiovascular Disease
DX: I49.9 Cardiac arrhythmia, unspecified (principal); R00.0 Tachycardia, unspecified
CPT/HCPCS: 93306

== ENCOUNTER → 2023-03-24 | Outpatient (CLI) | payer MEDICAID, SELFPAY ==
[2023-03-24 13:36] LABS: Hematocrit 38.8 % (40-54); Hemoglobin 13.4 g/dL (13.0-16.5); Mean Corp Hgb Conc 34.5 g/dL (32-36); Mean Corpuscular Volume 98.5 fL (80-94); Mean Platelet Vol. 8.7 fl (6.2-12.0); Platelet Count 328 K/mm3 (150-450); RBC Distribution Width CV 14.3 % (11.6-14.6); RBC Distribution Width SD 51.8 fl (35.1-43.9); Red Blood Count 3.94 M/mm3 (4.6-6.2); White Blood Count 10.8 K/mm3 (4.4-11.0)
[2023-03-24 13:55] LABS: BNP,B-Type NATRIURETIC PEPTIDE 43.7 pg/mL (0-100)
[2023-03-24 14:06] LABS: ALB/GLOB Ratio 0.9 RATIO (0.9-2.4); AST(SGOT) 34 U/L (15-37); Alanine Aminotransfer ALT/SGPT 23 U/L (16-61); Albumin, Serum 3.4 g/dL (3.2-5.0); Alkaline Phosphatase 129 U/L (45-117); Anion Gap 7 (5-15); BUN 19 mg/dL (7-18); BUN/Creat Ratio 17.6 RATIO (10-20); Calcium,Total 9.2 mg/dL (8.5-10.1); Chloride 106 mmol/L (98-107); Cholesterol 203 mg/dL (200); Creatinine, Serum 1.08 mg/dL (0.70-1.30); EST Glomerular Filtration Rate 73 mL/min (>60); Est Glom Filt Rate - Afr Amer 89 mL/min (>60); Globulin 3.6 g/dL (2.2-4.2); Glucose 120 mg/dL (74-106); High Density Lipoprotein 96 mg/dL; Potassium 3.7 mmol/L (3.5-5.1); Sodium Level 137 mmol/L (136-145); Thyroid Stim Hormone (TSH) 2.96 uIU/mL (0.358-3.74); Triglycerides 89 mg/dL; Very Low Density Lipoprotein 18 mg/dL (5-40)
== END | disposition home or self-care (01) ==
LOC: LAB.FUTURE 13:08 → LAB 13:11
PROVIDERS: Referring Provider Nurse Practitioner Family; Visit Provider Nurse Practitioner Family
DX: R60.0 Localized edema (principal); K76.0 Fatty (change of) liver, not elsewhere classified; E53.9 Vitamin B deficiency, unspecified; E78.2 Mixed hyperlipidemia; M62.81 Muscle weakness (generalized)
CPT/HCPCS: 36415; 80053; 80061; 83880; 84443; 85027

== ENCOUNTER 2023-08-18 10:59 | Inpatient (IN) | payer MEDICAID, SELFPAY ==
[2023-08-18] VITALS (9 sets, daily range): BP systolic 108–149; BP diastolic 66–108; PULSE 54–112; RESP 14–20; TEMP 35.7–37.1; O2SAT 96–100; BMI 12.6; BMI 23.9
--- NOTE | 2023-08-18 11:42 | CT_ITS ---
STUDY: CT BRAIN WITHOUT CONTRAST REASON FOR EXAM: Male, 63 years old. Seizure following head injury. Laceration. RADIATION DOSAGE (If Supplied By Facility): CTDIvol = ( 44.99 ) mGy, DLP = ( 796.11 ) mGycm TECHNIQUE: Transaxial CT imaging of the brain was performed without administration of intravenous contrast material. Individualized dose optimization techniques were used for this CT. COMPARISON: Comparison is made with prior study August 22, 2020. FINDINGS: Small scalp hematoma overlying the posterior left parietal occipital bone. Normal calvarium. There is mild cerebral atrophy with widening of the extra-axial spaces and ventricular dilatation. Normal white matter tracts of the cerebral hemispheres. Normal basal ganglia and thalami. Normal brainstem. There is mild cerebellar atrophy. There is no intracranial hemorrhage. There are no findings of an acute ischemic infarction. Atherosclerotic calcification of the cavernous portions of the internal carotid arteries bilaterally. Normal visualized paranasal sinuses. CT/Brain/Head without Contrast IMPRESSION: Small scalp hematoma overlying the posterior left parietal occipital bone. Electronically Signed: Evan Stafford MD at 12:40 EDT ,
[2023-08-18] MEDS: 0.9% Normal Saline (1000mL) 1,000 ML 1000 ML IV (11:57)
[2023-08-18] MEDS: Acetaminophen 500 MG Tablet 1000 MG PO (11:57)
[2023-08-18 11:58] LABS: Absolute Lymphocyte Count 1.45 X10^3/uL (0.83-4.51); Absolute Neutrophil Count 6.3 X10^3/uL (2.0-7.7); Basophil# 0.06 X10^3/uL; Basophil% 0.7 % (0-1); Eosinophil# 0.07 X10^3/uL; Eosinophils% 0.8 % (0-5); Hematocrit 34.6 % (40-54); Hemoglobin 12.1 g/dL (13.0-16.5); Lymphocyte # 1.45 X10^3/ul (0.83-4.51); Lymphocyte % 16.8 % (19-41); Mean Corpuscular Hgb 34.5 pg (27.0-32.0); Mean Corpuscular Volume 98.6 fL (80-94); Mean Platelet Vol. 8.5 fl (6.2-12.0); Monocyte# 0.72 X10^3/uL; Monocyte% 8.3 % (0-10); NRBC Flagged by Analyzer 0 % (0-5); Neutrophil # 6.29 X10^3/uL (2.7-7.7); Neutrophil % 72.9 % (47-70); Platelet Count 233 K/mm3 (150-450); RBC Distribution Width CV 13.7 % (11.6-14.6); RBC Distribution Width SD 49.1 fl (35.1-43.9); Red Blood Count 3.51 M/mm3 (4.6-6.2); White Blood Count 8.6 K/mm3 (4.4-11.0)
[2023-08-18 12:07] LABS: International Normalized Ratio 1.2; Partial Thromboplast Time 25.4 Seconds (24.1-36.2)
[2023-08-18 12:15] LABS: AST(SGOT) 84 U/L (15-37); Alanine Aminotransfer ALT/SGPT 48 U/L (16-61); Albumin, Serum 3.1 g/dL (3.2-5.0); Alkaline Phosphatase 155 U/L (45-117); Anion Gap 9 (5-15); BUN 10 mg/dL (7-18); Calcium,Total 7.7 mg/dL (8.5-10.1); Chloride 112 mmol/L (98-107); EST Glomerular Filtration Rate 80 mL/min (>60); Est Glom Filt Rate - Afr Amer 97 mL/min (>60); Estimated Creatinine Clearance 44.44 ml/min; Glucose 133 mg/dL (74-106); Potassium 3.1 mmol/L (3.5-5.1); Protein, Total 6.1 g/dL (6.4-8.2); Sodium Level 143 mmol/L (136-145); Troponin-I HS (w/2H Reflex) 5 pg/mL (3.0-78.0)
--- NOTE | 2023-08-18 12:24 | EDS_ITS ---
HPI History of Present Illness Chief Complaint: Seizure Informant: patient and family Onset/Context/Timing Onset: Today Context: Sudden Onset Timing: Intermittent and Lasts (1 to 2 minutes) Quality: Shaking Location: Generalized Worsened by: Nothing Relieved by: Nothing Narrative Narrative: Patient presents with a seizure that occurred today. Does not have a history of seizures. Patient states he felt like he was going to have a panic attack while he was at the grocery store today. Family member was with him and witnessed the patient have a seizure. Family member states that he yelled out and then she saw him shaking all over. 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 Family member states that it stopped for a few seconds and then he had a another episode where he was shaking all over and foaming again. Family member states that after this stopped, he was having some slurred speech and some generalized weakness. Family states it also only lasted for 1 to 2 minutes. Patient is still somewhat confused on presentation to the emergency department. Patient denies any recent fevers or chills. Patient denies any headaches. Patient did not bite his tongue. Patient did not lose control of his bowels or bladder. 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 COPD (chronic obstructive pulmonary disease) Degenerative arthritis Degenerative joint disease, right, ankle Diarrhea Elevated liver enzymes Essential (primary) hypertension Fatty infiltration of liver Former smoker Gout Greater trochanter fracture Greater trochanteric bursitis of right hip Gynecomastia Hepatomegaly History of echocardiogram History of edema History of stress test Hyperlipidemia Injury of head and neck Iron deficiency anemia Loose, teeth Nicotine dependence Non-sustained ventricular tachycardia Orthopedic aftercare Restless legs Shortness of breath on exertion Subcutaneous nodules Syncope and collapse Vitamin D deficiency Walker as ambulation aid Wears glasses Home Medications atorvastatin 40 mg tablet 40 mg PO QDAY cholesterol 06/16/18 [History Last Taken Unknown] loratadine 10 mg tablet 10 mg PO DAILY allergies 07/31/18 [History Last Taken 07/31/18] ibuprofen 800 mg tablet 800 mg PO Q6H PRN Pain 07/19/19 [History Last Taken Unknown] alendronate 70 mg tablet 70 mg PO Q7D@0700 02/17/20 [History Last Taken Unknown] topiramate 50 mg tablet 50 mg PO DAILY NIGHT TERRORS 07/03/20 [History Last Taken Unknown] acetaminophen 500 mg capsule 500 - 1,000 mg (1 - 2 x 500 mg) PO .Q8hr PRN pain (scale score 4-6) #100 caps 12/12/20 [Rx Last Taken Unknown] cholecalciferol (vitamin D3) 1,250 mcg (50,000 unit) capsule 50,000 unit PO .COMPLEX 10/17/21 [History Last Taken Unknown] potassium chloride 10 mEq capsule,extended release 10 meq PO DAILY 10/17/21 [History Last Taken Unknown] hydroxyzine HCl 25 mg tablet 12.5 - 50 mg PO ONCE PRN Itching 12/11/21 [History Last Taken Unknown] omeprazole 40 mg capsule,delayed release 40 mg PO DAILY Indigestion 12/11/21 [History Last Taken Unknown] calcium carbonate 600 mg calcium (1,500 mg) tablet 600 mg PO DAILY 09/01/22 [History Last Taken Unknown] fluticasone fur. 100 mcg-umeclid 62.5 mcg-vilant 25 mcg inhalat.powder (Trelegy Ellipta) 1 inh inhalation DAILY 09/01/22 [History Last Taken 09/02/22 10:00] sucralfate 100 mg/mL oral suspension 10 ml PO QAC #1,000 mL 11/17/22 [Rx Last Taken Unknown] albuterol sulfate 90 mcg/actuation aerosol inhaler 2 puff inhalation Q4H PRN 12/18/22 [History Last Taken Unknown] aripiprazole 5 mg tablet 5 mg PO DAILY 12/18/22 [History Last Taken Unknown] bupropion HCl 300 mg 24 hr tablet, extended release 300 mg PO DAILY 12/18/22 [History Last Taken Unknown] citalopram 20 mg tablet 20 mg PO DAILY 12/18/22 [History Last Taken Unknown] citalopram 40 mg tablet 40 mg PO DAILY 12/18/22 [History Last Taken Unknown] cyanocobalamin (vitamin B-12) 1,000 mcg/mL injection solution 1,000 mcg IM QMONTH 12/18/22 [History Last Taken Unknown] Allergy/AdvReac Type Severity Reaction Status Date / Time No Known Allergies Allergy Verified 12/18/22 15:35 Family History Father CVA (cerebral vascular accident) Myocardial infarction HAS ICD Heart disease Sister Breast cancer Mother Heart disease Sister Colon cancer Surgical History H/O shoulder surgery History of ankle surgery History of colonoscopy (01/2020) History of vascular surgery Social History Smoking Status: Current every day smoker tobacco type: cigarettes Tobacco: How many years used: 40 alcohol intake: current alcohol intake frequency: 0-2 drinks per day Alcohol type: wine substance use type: does not use caffeine: Yes Type: carbonated beverages ROS ROS ED Constitutional Constitutional ED: Denies chills or fever(s) Eyes Eyes: Denies blurry vision or change in vision ENT ENT ED: Denies rhinorrhea or sore throat Cardiovascular Cardiovascular: Denies chest pain or palpitations Respiratory/Chest Respiratory/Chest: Denies cough or dyspnea Gastrointestinal Gastrointestinal: Reports nausea and vomiting Genitourinary Genitourinary ED: Denies dysuria or hematuria Musculoskeletal Musculoskeletal: Denies back pain or neck pain Integumentary Denies abscess or rash Neurologic Neurologic: Reports headache(s); Denies weakness Allergic/Immunologic Allergic/Immunologic ED: Denies mouth swelling or urticaria EXAM Physical Exam Const Vital Signs: 08/18/23 11:00 08/18/23 13:43 08/18/23 14:32 Temperature 96.3 F L Temperature Source Temporal Pulse Rate 112 H 95 95 Respiratory Rate 16 17 14 Blood Pressure 128/101 H 143/108 H 133/91 H Blood Pressure Mean 110 119 105 Pulse Ox 96 100 99 Oxygen Delivery Method Room Air Room Air Room Air 08/18/23 15:16 Temperature Temperature Source Pulse Rate 103 H Respiratory Rate 15 Blood Pressure 149/66 H Blood Pressure Mean 93 Pulse Ox 100 Oxygen Delivery Method Room Air Positive well nourished and well developed General Appearance ED: well developed and NAD HEENT Reports moist mucous membranes Eyes PERRL and EOMs intact bilaterally Neck supple and no JVD Resp normal respiratory effort and clear to auscultation bilaterally Cardio regular rhythm Rate: tachycardic GI non-tender and non-distended Palpation: soft Extremity normal to inspection Extremity Narrative: There is mild tenderness over the left hip and left proximal femur. There is no obvious deformity noted. Range of motion was slightly limited in all motions of the left hip secondary to pain. General Extremety ED: Negative for edema or tenderness General Extremity: Negative for edema Neuro CN's II-XII intact bilaterally and no sensory deficits noted Sensorium / Orientation: alert Motor Exam: strength 5/5 throughout Psych mental status grossly normal Skin Skin Narrative: There are superficial skin tears over the dorsal aspect of the right wrist and hand. There is no active bleeding noted. There are no foreign bodies noted. There is no erythema noted. There is full range of motion. There is no deformity noted. MDM MDM MDM Narrative Medical decision making narrative: Differential diagnosis includes intracranial bleeding, intracranial mass, electrolyte abnormality, acute kidney injury, left hip fracture, left femur fracture, and infection. CT scan of the brain will be obtained to assess for intracranial bleeding and intracranial mass. CBC will be obtained to assess for leukocytosis and anemia. Comprehensive metabolic profile will be obtained to assess for hepatic function, renal function, and electrolyte abnormality. PT with INR and PTT will be obtained to assess for coagulopathy. High-sensitivity troponin will be obtained to assess for cardiac ischemia. Chest x-ray will be obtained to assess for pneumonia and pneumothorax. X-rays of the pelvis will be obtained to assess for pelvic fracture. X-rays of the left femur will be obtained to assess for femoral neck and proximal femur fracture. Lab Data Attestation: I reviewed the patient's lab results. Lab results narrative: CBC was reviewed. There is a stable anemia with a hemoglobin of 12.1 and hematocrit 34.6. Platelets were normal. Comprehensive metabolic profile was reviewed. Potassium slightly low at 3.1. Glucose was normal at 133. AST was slightly elevated at 84. ALT was normal. Alkaline phosphatase was slightly elevated at 155. Remainder was within normal limits. PT was INR and PTT were reviewed. Pro time was 15.0 and INR is 1.2. PTT was normal at 25.4. High- sensitivity troponin was reviewed and was normal at 5. Labs: Laboratory Results - last 24 hr 08/18/23 08/18/23 08/18/23 11:40 13:40 14:29 WBC 8.6 RBC 3.51 L Hgb 12.1 L Hct 34.6 L MCV 98.6 H MCH 34.5 H MCHC 35.0 RDW Std Deviation 49.1 H RDW Coeff of Susanne 13.7 Plt Count 233 MPV 8.5 Immature Gran % (Auto) 0.500 Neut % (Auto) 72.9 H Lymph % (Auto) 16.8 L Yancey % (Auto) 8.3 Eos % (Auto) 0.8 Baso % (Auto) 0.7 Absolute Neuts (auto) 6.3 Absolute Lymphs (auto) 1.45 Nucleated RBC % 0 PT 15.0 H INR 1.2 APTT 25.4 Sodium 143 Potassium 3.1 L Chloride 112 H Carbon Dioxide 22.0 Anion Gap 9 BUN 10 Creatinine 1.00 Estim Creat Clear Calc 44.44 Est GFR (MDRD) Af Amer 97 Est GFR (MDRD) Non-Af 80 BUN/Creatinine Ratio 10.0 Glucose 133 H Calcium 7.7 L Total Bilirubin 0.90 AST 84 H ALT 48 Alkaline Phosphatase 155 H Troponin I High Sens 5 9 Total Protein 6.1 L Albumin 3.1 L Globulin 3.0 Albumin/Globulin Ratio 1.0 Urine Color Yellow Urine Clarity Clear Urine pH 6.5 Ur Specific [place] 1.010 Urine Protein 30 H Urine Glucose (UA) Normal Urine Ketones 5 H Urine Occult Blood Negative Urine Nitrite Negative Urine Bilirubin Negative Urine Urobilinogen Normal Ur Leukocyte Esterase Negative Urine RBC 0 SEEN Urine WBC 0 SEEN Ur Squamous Epith Cells 0-5 SEEN Urine Bacteria 0 SEEN Urine Mucus 0 SEEN Radiography Chest X-Ray - ED: 1 View, Read by ED Physician, Read by Radiologist and No Acute Disease Diagnostic Testing: Clinical Impression(s) from Imaging Studies Brain CT 08/18/23 11:42 IMPRESSION: Small scalp hematoma overlying the posterior left parietal occipital bone. Electronically Signed: Evan Stafford MD at 12:40 EDT , Chest X-Ray 08/18/23 12:35 IMPRESSION: No acute abnormality is seen. Electronically Signed: Evan Stafford MD at 12:55 EDT , Femur X-Ray 08/18/23 12:35 IMPRESSION: Normal x-ray examination of the femur. Electronically Signed: Evan Stafford MD at 12:56 EDT , Pelvis X-Ray 08/18/23 12:35 IMPRESSION: Degenerative changes. No acute abnormality is seen. Electronically Signed: Evan Stafford MD at 12:58 EDT , X-rays of the pelvis were obtained. There is 1 view. On my independent interpretation, there is no acute fracture or dislocation noted. There is some degenerative changes noted. Radiologist also interpreted the x-rays and agrees. X-rays of the left femur were obtained. There are 4 views. On my independent interpretation, there is no acute fracture or dislocation noted. Radiologist also interpreted the x-rays and agrees. Portable 1 view chest x-ray was obtained. On my independent interpretation, lung pickering are clear. There is normal cardiac silhouette. Bony thorax is normal. There is no acute process noted. Radiologist also interpreted the x- ray and agrees. Management Discussion w/another healthcare provider: Hospitalist (Dr. Villavicencio) Treatment and Re-Evaluation :: Seizure precautions were maintained. Patient was given IV fluids and Tylenol. He had no further seizure activity here in the emergency department. Patient was advised of his findings. Patient was given a dose of oral potassium here. Patient was advised of the need for hospitalization for further evaluation of his new onset seizure. He is agreeable for admission. Case was discussed with the hospitalist. She will admit the patient to her service. Patient and spouse understood and were agreeable with the plan. All questions were answered. Discharge Plan Triage Chief Complaint: Seizure ED Provider: Aram Castillo Dx/Rx/DC Orders Clinical Impression: Essential (primary) hypertension, New onset seizure, Hypokalemia Prescriptions: No Action atorvastatin 40 mg tablet 40 mg PO QDAY cholecalciferol (vitamin D3) 1,250 mcg (50,000 unit) capsule 50,000 unit PO .COMPLEX Rx Instructions: 50,000 units PO every 2 weeks; EVERY 2 WEEKS topiramate 50 mg tablet 50 mg PO DAILY Patient Comments: TAKE 1 TABLET BY MOUTH EVERY DAY citalopram 20 mg tablet 20 mg PO DAILY Rx Instructions: Take with 40 mg tablet to = 60 mg daily acetaminophen 500 mg capsule 500 - 1,000 mg PO .Q8hr PRN (Reason: pain (scale score 4-6)) Qty: 100 1RF potassium chloride 10 mEq capsule, extended release 10 meq PO DAILY hydroxyzine HCl 25 mg tablet 12.5 - 50 mg PO ONCE PRN (Reason: Itching) Patient Comments: Take 1/2 to 2 tablets daily as needed aripiprazole 5 mg tablet 5 mg PO DAILY bupropion HCl 300 mg tablet extended release 24 hr 300 mg PO DAILY citalopram 40 mg tablet 40 mg PO DAILY Rx Instructions: Take with 20 mg tablet to = 60 mg daily cyanocobalamin (vitamin B-12) 1,000 mcg/mL solution 1,000 mcg IM QMONTH albuterol sulfate 90 mcg/actuation HFA aerosol inhaler 2 puff inhalation Q4H PRN Patient Comments: INHALE 2 PUFFS BY MOUTH EVERY 4 HOURS NEEDED loratadine 10 MG tablet 10 mg PO DAILY alendronate 70 MG tablet 70 mg PO Q7D@0700 omeprazole 40 mg capsule,delayed release(DR/EC) 40 mg PO DAILY Rx Instructions: TAKE 1 CAPSULE BY MOUTH EVERY DAY calcium carbonate 600 mg calcium (1,500 mg) tablet 600 mg PO DAILY Patient Comments: TAKE 1 TABLET BY MOUTH EVERY DAY Trelegy Ellipta 100-62.5-25 mcg blister with device 1 inh INHALATION DAILY Patient Comments: INHALE 1 PUFF DAILY ibuprofen 800 mg tablet 800 mg PO Q6H PRN (Reason: Pain) sucralfate 100 mg/mL suspension 10 ml PO QAC Qty: 1000 0RF Rx Instructions: take three times a day, one hour before meals and two hours away from other medications. [facility]: [facility] Referrals: [facility] [Primary Care Provider] - Disposition Disposition: Acute Care Hospital [facility]
--- NOTE | 2023-08-18 12:35 | RAD_ITS ---
STUDY: X-RAY - PELVIS REASON FOR EXAM: Male, 63 years old. Injury/Pain following a seizure. TECHNIQUE: One view of the pelvis was obtained. COMPARISON: Comparison is made with prior study dated January 09, 2022. FINDINGS: There is a non-specific bowel gas pattern. There are calcified phleboliths. Normal bilateral iliac wings, sacroiliac joints and visualized sacrum. Normal visualized bilateral superior and inferior pubic rami. Normal pubic symphysis. Normal ischial tuberosities. Deformity and heterogeneous appearance of the greater trochanter of the proximal right femur in keeping with the healed fracture. Normal right acetabulum. There is mild articular joint space narrowing of the right hip. Normal visualized left femoral head. Normal left acetabulum. There is mild articular joint space narrowing of the left hip. RAD/Pelvis 1 or 2 Views IMPRESSION: Degenerative changes. No acute abnormality is seen. Electronically Signed: Evan Stafford MD at 12:58 EDT ,
--- NOTE | 2023-08-18 12:35 | RAD_ITS ---
STUDY: X-RAY - LEFT FEMUR REASON FOR STUDY: Male, 63 years old. Injury/Pain following a seizure. TECHNIQUE: 4 view(s) of the femur. COMPARISON: None. FINDINGS: Normal visualized femur. Normal visualized soft tissue structure. RAD/Femur Min 2 Views IMPRESSION: Normal x-ray examination of the femur. Electronically Signed: Evan Stafford MD at 12:56 EDT ,
--- NOTE | 2023-08-18 12:35 | RAD_ITS ---
STUDY: X-RAY CHEST REASON FOR EXAM: Male, 63 years old. Cough TECHNIQUE: Single AP portable view of the chest. COMPARISON: Comparison is made with prior study August 22, 2020. FINDINGS: EKG electrodes are seen. The lungs are clear and expanded. There is no demonstrated pleural abnormality. Normal size heart. Normal mediastinum and phi. Normal visualized pulmonary arteries. There is atherosclerotic tortuosity of the aortic arch and descending thoracic aorta. Normal visualized thoracic spine. Normal visualized ribs, clavicles, and shoulders. There is no demonstrated abnormality of the visualized soft tissue structures of the upper abdomen. RAD/Chest 1 View (Portable) IMPRESSION: No acute abnormality is seen. Electronically Signed: Evan Stafford MD at 12:55 EDT ,
[2023-08-18 13:43] LABS: Bacteria 0 SEEN /hpf (None Seen); Color, Urine Yellow (Yellow); Glucose, Dipstick Normal (Normal); Ketone-Dipstick 5 mg/dl (Negative); Leukocyte Esterase-Dipstick Negative /ul (Negative); Mucous, Urine 0 SEEN /hpf (<or=2+); Nitrite-Dipstick Negative (Negative); Occult Blood-Urine Negative /ul (Negative); Protein-Dipstick 30 mg/dl (Negative); Red Blood Cells-Urine 0 SEEN /hpf (0-5); Urine Bilirubin Dipstick Negative (Negative); Urine Clarity Clear (Clear); Urine Urobilinogen Normal (Normal); Urine pH 6.5 (5.0 - 8.0); White Blood Cells 0 SEEN /hpf (0-5)
[2023-08-18 13:52] LABS: Reflex Troponin-HS? (from REC) Y
[2023-08-18 13:58] LABS: Squamous Epithelial Cells - UA 0-5 SEEN /hpf (0-5)
[2023-08-18 14:56] LABS: Troponin-I HS 9 pg/mL (3.0-78.0)
[2023-08-18] MEDS: Potassium Chloride Oral Tablet 20 MEQ 40 MEQ PO (15:15)
--- NOTE | 2023-08-18 15:18 | HP.PCM.HOS_ITS ---
HPI - General General Date of Admission: 08/18/23 Date of Service: 08/18/23 Chief Complaint: New onset seizure HPI Narrative The patient is a 63 y/o M w/ PMHx: Severe protein calorie malnutrition, Chronic macrocytic anemia/Fe deficiencye anemia, Anxiety and Depression, COPD, Former tobacco use, RLS, Hx NSVT, HLD, EtOH abuse (8-16 ounces vodka daily) who presents to the [facility] ED on 08/18/23 with history of being at the grocery store with sensation of increased anxiety while with a family member reportedly yelling out and then going to the ground following which she had a generalized appearance of a tonic-clonic seizure foaming at the mouth with no tongue biting and or loss of bowel or bladder however this stopped after 1 to 2 minutes with generalized weakness and confusion following although slowly improved while in the ED with no recent fevers or chills nor any headache. Following lengthy discussion regarding alcohol intake and he notes usually 8-16 ounces of vodka daily and he believes it may have been > 24 hours since his last EtOH intake which he does not normally do. He denies history of prior alcohol withdrawal seizures. Work-up in the ED included T96.3, heart rate 112, BP 120/101, respiratory rate 16, 96% on room air, CBC with WBC 8.6, hemoglobin 12.1, MCV 98.6, platelet 233 without marked shift, unremarkable coags aside PT 15, CMP with potassium 3.1, chloride 112, glucose 133, calcium 7.7, AST/ALT 84/48, alk phos 155, troponin 5, CT brain with a small scalp hematoma overlying the posterior left parietal occipital bone, chest x-ray with no acute cardiopulmonary findings, plain film of the left femur unremarkable, plain film of the pelvis with degenerative changes with no acute abnormality seen. In the ED patient administered 1 L normal saline as well as Tylenol 1000 mg p.o. x1 and following discussion with the ED physician patient administered oral phenobarbital dose. PENDING SALE TO [facility] Medical History (Updated 08/18/23 @ 20:[address] 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 COPD (chronic obstructive pulmonary disease) Degenerative arthritis Degenerative joint disease, right, ankle Elevated liver enzymes Essential (primary) hypertension Fatty infiltration of liver Former smoker Gout Greater trochanter fracture Greater trochanteric bursitis of right hip Gynecomastia Hepatomegaly Hyperlipidemia Iron deficiency anemia Loose, teeth Nicotine dependence Non-sustained ventricular tachycardia Restless legs Subcutaneous nodules Vitamin D deficiency Walker as ambulation aid Wears glasses Home Medications atorvastatin 40 mg tablet 40 mg PO QHS cholesterol 06/16/18 [History Last Taken Unknown] loratadine 10 mg tablet 10 mg PO DAILY allergies 07/31/18 [History Last Taken 07/31/18] ibuprofen 800 mg tablet 800 mg PO Q6H PRN Pain 07/19/19 [History Last Taken Unknown] acetaminophen 500 mg capsule 500 - 1,000 mg (1 - 2 x 500 mg) PO .Q8hr PRN pain (scale score 4-6) #100 caps 12/12/20 [Rx Last Taken Unknown] cholecalciferol (vitamin D3) 1,250 mcg (50,000 unit) capsule 50,000 unit PO .COMPLEX 10/17/21 [History Last Taken Unknown] potassium chloride 10 mEq capsule,extended release 10 meq PO DAILY 10/17/21 [History Last Taken Unknown] hydroxyzine HCl 25 mg tablet 25 mg PO DAILY Itching 12/11/21 [History Last Taken Unknown] omeprazole 40 mg capsule,delayed release 40 mg PO DAILY Indigestion 12/11/21 [History Last Taken Unknown] calcium carbonate 600 mg calcium (1,500 mg) tablet 600 mg PO DAILY 09/01/22 [History Last Taken Unknown] fluticasone fur. 100 mcg-umeclid 62.5 mcg-vilant 25 mcg inhalat.powder (Trelegy Ellipta) 1 inh inhalation DAILY 09/01/22 [History Last Taken 09/02/22 10:00] albuterol sulfate 90 mcg/actuation aerosol inhaler 2 puff inhalation Q4H PRN shortness of breath 12/18/22 [History Last Taken Unknown] aripiprazole 5 mg tablet 5 mg PO DAILY 12/18/22 [History Last Taken Unknown] bupropion HCl 300 mg 24 hr tablet, extended release 300 mg PO DAILY 12/18/22 [History Last Taken Unknown] citalopram 20 mg tablet 40 mg PO DAILY 12/18/22 [History Last Taken Unknown] cyanocobalamin (vitamin B-12) 1,000 mcg/mL injection solution 1,000 mcg IM QMONTH 01/19/23 [History Last Taken Unknown] mirtazapine 15 mg tablet (Remeron) 15 mg PO DAILY 08/18/23 [History Last Taken Unknown] Allergy/AdvReac Type Severity Reaction Status Date / Time No Known Allergies Allergy Verified 08/18/23 15:26 Family History Father CVA (cerebral vascular accident) Myocardial infarction HAS ICD Heart disease Sister Breast cancer Mother Heart disease Sister Colon cancer Surgical History H/O shoulder surgery History of ankle surgery History of colonoscopy (01/2020) History of vascular surgery Social History (Updated 08/18/23 @ 20:[address] Linda Villavicencio MD) household members: none Smoking Status: Current every day smoker tobacco type: cigarettes Tobacco: How many years used: 40 alcohol intake: current alcohol intake frequency: 3 or more drinks per day Alcohol type: hard liquor details: 8-16 ounces vodka daily. substance use type: does not use caffeine: Yes Type: carbonated beverages ROS ROS Narrative Admission Review of Systems: CONSTITUTIONAL: No weight loss, fever, chills, + weakness or fatigue. HEENT: Eyes: No visual loss, blurred vision, double vision or yellow sclerae. Ears, Nose, Throat: No hearing loss, sneezing, congestion, runny nose or sore throat. SKIN: No rash or itching, lesions, wounds. CARDIOVASCULAR: No chest pain, chest pressure or chest discomfort, palpitations, edema, orthopnea, syncopal events. RESPIRATORY: + Chronic dyspnea, worse with exertion. No marked recent cough or sputum, wheezing, hemoptysis. GASTROINTESTINAL: No anorexia, nausea, vomiting or diarrhea, abdominal pain, melena, BRBPR. GENITOURINARY: No dysuria, frequency, urgency or retention. NEUROLOGICAL: + Transient postictal phase with reported seizure activity episode. No headache, dizziness, syncope, paralysis, ataxia, numbness or tin gling in the extremities, focal weakness, change in bowel or bladder control. MUSCULOSKELETAL: + muscle, back pain, joint pain or stiffness. HEMATOLOGIC: + anemia, easy bleeding or bruising. LYMPHATICS: No enlarged nodes. No history of splenectomy. PSYCHIATRIC: + history of depression or anxiety. ENDOCRINOLOGIC: No reports of sweating, cold or heat intolerance. No polyuria or polydipsia. ALLERGIES: + history of rhinitis. Vital Signs Vital Signs Vital Signs: 08/18/23 11:00 08/18/23 13:43 08/18/23 14:32 Temperature 96.3 F L Temperature Source Temporal Pulse Rate 112 H 95 95 Respiratory Rate 16 17 14 Blood Pressure 128/101 H 143/108 H 133/91 H Blood Pressure Mean 110 119 105 Pulse Ox 96 100 99 Oxygen Delivery Method Room Air Room Air Room Air 08/18/23 15:16 Temperature Temperature Source Pulse Rate 103 H Respiratory Rate 15 Blood Pressure 149/66 H Blood Pressure Mean 93 Pulse Ox 100 Oxygen Delivery Method Room Air Weight Weight: 92 lb 13.034 oz Body Mass Index (BMI) 12.6 Physical Exam Narrative Physical Examination: General: Awake, alert, oriented x 3, significantly improved, previously had been postictal in lethargic as well as confused, cooperative, seated upright in the ED bed, fatigued appearing. Skin: Normal color, normal turgor, no icterus, no cyanosis except occasional staged ecchymoses, bilateral lower extremity chronic venous stasis skin changes. HEENT: AT/NC, EOMI, PERRLA, dry MM, no carotid bruits or JVD noted. Lungs: Diminished, greater bases, proper effort, no rales, ronchi or wheezing. Heart: Mildly tachycardic; no gallop, rub audible. Abdomen: Soft, NTTP, ND, normal BS, + HM. Extremities: No cyanosis, no clubbing, chronic bilateral lower extremity pedal to mid paul pitting edema, right greater than left which again is chronic of note. Neurological: Patient awake, alert, oriented as noted, cognitive function improving, now appears to be near baseline intact; pupils equally reactive to light and accommodation, cranial nerves grossly normal, moving all 4 extremities, no focal deficits, strength moderately to severely globally decreased secondary to acute presentation. Psychiatric: Affect appears mildly flat, fatigued but feeling improved he notes, no acute evidence of depressive or anxiety feelings but does have underlying history. Results Lab / Micro Data 08/18/23 11:40 08/18/23 11:40 Labs: Laboratory Results - last 24 hr 08/18/23 11:40: WBC 8.6, RBC 3.51 L, Hgb 12.1 L, Hct 34.6 L, MCV 98.6 H, MCH 34.5 H, MCHC 35.0, RDW Std Deviation 49.1 H, RDW Coeff of Susanne 13.7, Plt Count 233, MPV 8.5, Immature Gran % (Auto) 0.500, Neut % (Auto) 72.9 H, Lymph % (Auto) 16.8 L, [place] % (Auto) 8.3, Eos % (Auto) 0.8, Baso % (Auto) 0.7, Absolute Neuts (auto) 6.3, Absolute Lymphs (auto) 1.45, Nucleated RBC % 0, PT 15.0 H, INR 1.2, APTT 25.4, Sodium 143, Potassium 3.1 L, Chloride 112 H, Carbon Dioxide 22.0, Anion Gap 9, BUN 10, Creatinine 1.00, Estim Creat Clear Calc 44.44, Est GFR (MDRD) Af Amer 97, Est GFR (MDRD) Non-Af 80, BUN/Creatinine Ratio 10.0, Glucose 133 H, Calcium 7.7 L, Total Bilirubin 0.90, AST 84 H, ALT 48, Alkaline Phosphatase 155 H, Troponin I High Sens 5, Total Protein 6.1 L, Albumin 3.1 L, Globulin 3.0, Albumin/Globulin Ratio 1.0 08/18/23 13:40: Urine Color Yellow, Urine Clarity Clear, Urine pH 6.5, Ur Speci fic [place] 1.010, Urine Protein 30 H, Urine Glucose (UA) Normal, Urine Ketones 5 H, Urine Occult Blood Negative, Urine Nitrite Negative, Urine Bilirubin Negative, Urine Urobilinogen Normal, Ur Leukocyte Esterase Negative, Urine RBC 0 SEEN, Urine WBC 0 SEEN, Ur Squamous Epith Cells 0-5 SEEN, Urine Bacteria 0 SEEN, Urine Mucus 0 SEEN 08/18/23 14:29: Troponin I High Sens [address] 08/18/23 11:42 IMPRESSION: Small scalp hematoma overlying the posterior left parietal occipital bone. Electronically Signed: Evan Stafford MD at 12:40 EDT , Chest X-Ray 08/18/23 12:35 IMPRESSION: No acute abnormality is seen. Electronically Signed: Evan Stafford MD at 12:55 EDT , Femur X-Ray 08/18/23 12:35 IMPRESSION: Normal x-ray examination of the femur. Electronically Signed: Evan Stafford MD at 12:56 EDT , Pelvis X-Ray 08/18/23 12:35 IMPRESSION: Degenerative changes. No acute abnormality is seen. Electronically Signed: Evan Stafford MD at 12:58 EDT , Assessment & Plan Assessment/Plan (1) New onset seizure: PLAN: Plan The patient is a 63 y/o M w/ PMHx: Severe protein calorie malnutrition, Chronic macrocytic anemia/Fe deficiencye anemia, Anxiety and Depression, COPD, Former tobacco use, RLS, Hx NSVT, HLD, EtOH abuse (8-16 ounces vodka daily) who presents to the [facility] ED on 08/18/23 with history of being at the grocery store with sensation of increased anxiety while with a family member reportedly yelling out and then going to the ground following which she had a generalized appearance of a tonic-clonic seizure foaming at the mouth with no tongue biting and or loss of bowel or bladder however this stopped after 1 to 2 minutes with generalized weakness and confusion following although slowly improved while in the ED with no recent fevers or chills nor any headache. #1. New-Onset seizure secondary to suspected EtOH withdrawal: Seizure activity suspected secondary to EtOH withdrawal. Will admit to PCU given improvement, maintain on telemetry on seizure precautions, last drink noted to be >24 hours potentially even longer. Will maintain on CIWA, will continue phenobarbital taper regimen, maintain on MVI, folic acid, thiamine. PRN ativan IV per CIWA and for recurrent seizure activity. NPO until assure no further seizure activity. Will obtain mag, phos levels and supplement as needed. As patient unclear about last EtOH intake although suspect likely EtOH withdrawal as etiology per discussion with family be cautious we will obtain MRI of the brain as well as EEG, TSH level, urine drug screen, ethyl alcohol level. #2. Hypokalemia: Admission K+ 3.1, magnesium level requested, supplementation given, repeat level in AM. #3. Chronic anemia/macrocytic anemia/iron deficiency anemia: Admission he moglobin 12.1, MCV 98.6, baseline hemoglobin appears more recently primarily 10- 12, stable, continue to trend. #4. Chronic mild LFT elevation: Admission CMP with AST/ALT 84/48, previous AST elevation ranging 50-98 however most recently 03/24/2023 normal level 34, will continue to trend CMP. Following with MARAL Cowart. #5. Anxiety and depression/night terrors: We will continue patient home mi rtazapine, Abilify and citalopram regimen. We will temporally hold bupropion as this can lower seizure threshold until on alcohol withdrawal protocol then may add back as long as no recurrent seizure activity #6. Hx NSVT, Chronic tachycardia: Most recent ECHO 12/26/22 with normal LV size, normal LV systolic function, EF 60%, mild TVI. 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 Patient also with chronic tachycardia per note but given low normal BP BB deferred. #7. Hyperlipidemia: We will continue patient on statin therapy. #8. Chronic COPD: We will temporarily hold home inhaler in the interim transition to ATC budesonide therapy, PRN albuterol, HOB, IS parameters. #9. Allergic rhinitis: We will temporarily hold patient home loratadine although given its new agent less likely to contribute to seizure activity. #10. Tobacco Abuse: Encouraged cessation, inpatient consultation per RT, NR if desired. #11. GERD: We will continue patient home omeprazole and sucralfate home regimen. #12. Severe protein calorie malnutrition: Evidenced by significantly reduced BMI of 12, nutrition consulted for recommendations. #13. DVT prophylaxis: SCDs. #14. CODE status: Patient HCPCHANELLE is his sister who is present and living will is currently in place. Discussed CODE status at length including difference between FULL code, DNR-CCA and DNR-CC status. Following discussions about the differences in these status, requested Full Code status. Advanced Care Planning Face to Face Time: 16 minutes. Charges/Coding Visit Charges Inpatient E&M: 57063 Init Hosp L3 Procedures Hospitalists Procedures: 92903 Advncd Care Plan 30 Min
--- NOTE | 2023-08-18 16:01 | NURSING ---
PCU 115 WHITE NEW ONSET SEIZURE
[2023-08-18] MEDS: Phenobarbital 32.4 MG Tablet 97.2 MG PO ×2 (16:02→20:52)
--- NOTE | 2023-08-18 17:40 | MRI_ITS ---
STUDY: MRI BRAIN WITHOUT CONTRAST REASON FOR EXAM: Male, 63 years old. Seizure new onset TECHNIQUE: Standardized multiplanar fat and water weighted pulse sequences were obtained. COMPARISON: CT FINDINGS: There is mild cerebral atrophy with widening of the extra-axial spaces and ventricular dilatation. There are a limited number of small white matter hyperintensities, distributed throughout the deep white matter tracts of the cerebral hemispheres, consistent with mild chronic white matter ischemic changes. There is no evidence for recent intracranial ischemia or other cause of cytotoxic edema on diffusion weighted imaging (DWI). Normal T2* images of the brain without demonstrated susceptibility artifact. There is no demonstrated hemosiderin stain. Normal bilateral basal ganglia. Normal thalami. There is no extra-axial fluid accumulation. Normal flow voids within the major intracranial circulation suggesting patency by spin echo criteria. Normal sella turcica, pituitary gland, infundibular stalk, optic chiasm and hypothalamus. Normal tectal plate and pineal gland. Normal midbrain, elis and medulla. Normal cerebellum. Normal basal cisterns. Normal bilateral temporal bones. Normal bilateral internal auditory canals. No demonstrated orbital abnormality, within the constraints of a routine brain study. Normal visualized paranasal sinuses. Normal calvarium and skull base. There is left parietal soft tissue swelling. Normal visualized upper cervical spine. MRI/Brain without Contrast IMPRESSION: Involutional changes of the brain, as described above. Electronically Signed: Tin Pabon MD at 21:03 EDT ,
[2023-08-18 18:12] LABS: Magnesium 1.2 mg/dL (1.6-2.6); Phosphorus 1.5 mg/dL (2.5-4.9)
[2023-08-18 20:27] LABS: Alcohol, Blood (Medical)-Serum < 3.0 mg/dL
[2023-08-18] MEDS: 0.9% Normal Saline (1000mL) 1,000 ML 100 ML IV (20:51)
[2023-08-18] MEDS: Ibuprofen 600 MG Tablet PO (20:52)
[2023-08-18] MEDS: Atorvastatin Calcium 40 MG Tablet PO (20:52)
[2023-08-18] MEDS: hydrOXYzine PAM 25 MG Capsule 50 MG PO (20:52)
[2023-08-18] MEDS: Magnesium Sulfate 4gm/100mL 4 GM/100 ML IV.SOLN. IV (22:55)
[2023-08-18] MEDS: Potassium Phosphate 21 MM in 0.9% Normal Saline (250mL Bag) 250 ML 84 MM IV (22:56)
[2023-08-18] MEDS: Budesonide Respules 0.5 MG/2 ML AMPUL.NEB. INHALATION (22:58)
[2023-08-19] MEDS: Phenobarbital 32.4 MG Tablet 97.2 MG PO ×5 (00:25→15:52)
[2023-08-19 03:02] VITALS: BP 94/70; PULSE 79; RESP 16; TEMP 36.5; O2SAT 96
[2023-08-19] MEDS: Ibuprofen 600 MG Tablet PO (05:04)
[2023-08-19 05:58] VITALS: BMI 24.0
[2023-08-19 06:49] LABS: Absolute Lymphocyte Count 2.25 X10^3/uL (0.83-4.51); Absolute Neutrophil Count 2.8 X10^3/uL (2.0-7.7); Basophil# 0.06 X10^3/uL; Eosinophil# 0.16 X10^3/uL; Eosinophils% 2.7 % (0-5); Hemoglobin 10.8 g/dL (13.0-16.5); Lymphocyte # 2.25 X10^3/ul (0.83-4.51); Lymphocyte % 37.8 % (19-41); Mean Corp Hgb Conc 33.8 g/dL (32-36); Mean Corpuscular Volume 100.6 fL (80-94); Mean Platelet Vol. 9.2 fl (6.2-12.0); Monocyte# 0.64 X10^3/uL; Monocyte% 10.8 % (0-10); NRBC Flagged by Analyzer 0 % (0-5); Neutrophil # 2.81 X10^3/uL (2.7-7.7); Neutrophil % 47.2 % (47-70); Platelet Count 208 K/mm3 (150-450); RBC Distribution Width CV 13.8 % (11.6-14.6); RBC Distribution Width SD 50.9 fl (35.1-43.9); Red Blood Count 3.18 M/mm3 (4.6-6.2)
[2023-08-19] MEDS: LORazepam 1 MG Tablet 2 MG PO ×2 (06:56→19:35)
[2023-08-19] MEDS: Acetaminophen 325 MG Tablet 650 MG PO ×2 (06:56→18:11)
[2023-08-19 07:35] LABS: Amphetamine Urine VISTA NEGATIVE (<1000 ng/mL); Barbiturate Urine VISTA POSITIVE (< 200 ng/mL); Benzodiazepine Urine VISTA NEGATIVE (< 200 ng/mL); Cocaine Urine VISTA NEGATIVE (< 300 ng/mL); Ecstacy Urine VISTA POSITIVE (< 500 ng/mL); Methadone Urine VISTA NEGATIVE (< 300 ng/mL); PCP Urine VISTA NEGATIVE (< 25 ng/mL); THC Urine VISTA POSITIVE (< 50 ng/mL); Vista UDS pH Range 7
[2023-08-19 07:45] LABS: ALB/GLOB Ratio 1.1 RATIO (0.9-2.4); AST(SGOT) 46 U/L (15-37); Alanine Aminotransfer ALT/SGPT 33 U/L (16-61); Albumin, Serum 2.8 g/dL (3.2-5.0); Alkaline Phosphatase 138 U/L (45-117); Anion Gap 6 (5-15); BUN 7 mg/dL (7-18); BUN/Creat Ratio 9.1 RATIO (10-20); Calcium,Total 7.1 mg/dL (8.5-10.1); Chloride 113 mmol/L (98-107); Creatinine, Serum 0.77 mg/dL (0.70-1.30); EST Glomerular Filtration Rate 108 mL/min (>60); Est Glom Filt Rate - Afr Amer 131 mL/min (>60); Estimated Creatinine Clearance 106.38 ml/min; Globulin 2.6 g/dL (2.2-4.2); Glucose 90 mg/dL (74-106); Magnesium 1.9 mg/dL (1.6-2.6); Potassium 3.1 mmol/L (3.5-5.1); Protein, Total 5.4 g/dL (6.4-8.2); Sodium Level 141 mmol/L (136-145); Thyroid Stim Hormone (TSH) 3.78 uIU/mL (0.358-3.74)
[2023-08-19 07:53] LABS: Phosphorus 2.7 mg/dL (2.5-4.9)
[2023-08-19 09:00] VITALS: BP 116/90; PULSE 87; RESP 16; TEMP 36.6; O2SAT 98
[2023-08-19] MEDS: Loratadine 10 MG Tablet PO (09:16)
[2023-08-19] MEDS: Pantoprazole Sodium 40 MG Tablet PO (09:16)
[2023-08-19] MEDS: Potassium Chloride Oral Tablet 10 MEQ PO (09:17)
[2023-08-19] MEDS: Multivitamins,Ther W-Minerals Tablet 1 TABLET PO (09:17)
[2023-08-19] MEDS: Mirtazapine 15 MG Tablet PO (09:17)
[2023-08-19] MEDS: Citalopram 20 MG Tablet 40 MG PO (09:17)
[2023-08-19] MEDS: Thiamine Hydrochloride 100 MG Tablet PO (09:17)
[2023-08-19] MEDS: Folic Acid 1 MG Tablet PO (09:17)
[2023-08-19] MEDS: ARIPiprazole 5 MG Tablet PO (09:18)
--- NOTE | 2023-08-19 10:35 | CASEMGMT ---
RN CM Face to Face with patient for initial transition planning/care coordination assessment. RN CM introduced self and role at [facility]. Patient lying in bed, alert and oriented. Patient willing to participate in assessment and is able to answer all questions appropriately. Care providers, pharmacy, and demographics verified. Patient wishes to discharge home but is willing to go to SNF or home with HHC pending progress with therapy. Patient states he has no further needs or concerns at this time. CM to follow for discharge planning needs that may arise. PCP: Madhuri Milton Specialists: None Preferred Pharmacy: [facility] Insurance: [employer] Prescription Benefit: yes Living Will/HPOA: yes, sister Angeline Dunlap LNOK: sisters Living Arrangements: Patient lives alone in a 2 story home with first floor setup but shower is on second floor. Patient states he is independent at home. Transportation: self, sister DME/HHC: Patient has cane, walker, wheelchair, hospital bed, and home oxygen concentrator through [facility]. No previous HHC or SNF Disposition Plan: TBD, anticipate HHC vs SNF pending progress with therapy. Charo MOHRN, RN, CM
[2023-08-19] MEDS: Loperamide 2 MG Capsule PO (10:58)
--- NOTE | 2023-08-19 14:56 | CHAPLAIN ---
Type of Pastoral Visit _x__ Initial Visit ___ Follow-up Visit ___ On-call Visit ___ General Patient Visit ___ Spiritual Assessment ___ Family Conference ___ Bereavement ___ Rapid Response ___ Code Blue ___ Other (describe below) Pastoral Care Referral From _x__ Patient ___ Family ___ Nurse ___ Physician ___ Linoleum Layer Helper ___ Patient Relations Manager ___ Other (describe below) Sacrament/Intervention _x__ Active listening ___ Anointing ___ Voodoo ___ Bereavement ___ Communion ___ Tiffany exploration ___ _x__ Life review _x__ Prayer ___ Reconciliation ___ Sacrament of Sick ___ Supportive presence ___ Wedding ___ Other (describe below) Pastoral Comments patient describes his episodes of yesterday; 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
[2023-08-19 16:00] VITALS: BP 109/75; PULSE 89; RESP 17; TEMP 36.6; O2SAT 97
--- NOTE | 2023-08-19 18:31 | PN.HOSP_ITS ---
Reason for Visit Reason for Visit: Diagnoses Unspecified convulsions (08/18/23) Subjective Subjective Patient was seen and examined today, earlier this morning he was somewhat confused, this afternoon he is better mentally, I talked with his sister who is his POA when he is not able to make decisions, his sister states that he has had an alcohol abuse problem for many many years. Patient states today that he does not want to quit drinking and that when he goes back, he will resume drinking. I discussed possibility of taking the patient off his phenobarbital and transitioning him to Ativan and the sister was in favor of this rather than k eeping him on the phenobarbital. It appears that the patient's seizure probably was precipitated by alcohol withdrawal, it appears that the patient does drink quite a bit of 80 proof vodka on a daily basis. Objective Data Objective Data Vital Signs: Vital Signs Temp Pulse Resp BP Pulse Ox O2 Del Method 97.9 F 89 17 109/75 97 Room Air 08/19/23 16:00 08/19/23 16:00 08/19/23 16:00 08/19/23 16:00 08/19/23 16:00 08/19/23 16:00 Oxygen Delivery Method Room Air Weight: 80.5 kg Body Mass Index (BMI) 24.0 Intake & Output: Intake and Output for Last 24 Hours 08/17/23 08/18/23 08/19/23 23:59 23:59 23:59 Intake Total 1000 / 1000 1357 / 1357 Output Total 0 / 0 200 / 200 Balance 1000 / 1000 1157 / 1157 Lab / Micro Data 08/19/23 05:53 08/19/23 05:53 Labs: Laboratory Results - last 24 hr 08/18/23 11:40: Ethyl Alcohol < 3.0 08/18/23 13:40: Urine Opiates Screen NEGATIVE, Urine Methadone Screen NEGATIVE, Ur Barbiturates Screen POSITIVE H, Ur Phencyclidine Scrn NEGATIVE, Ur A mphetamines Screen NEGATIVE, MDMA (Ecstasy) Screen POSITIVE H, U Benzodiazepines Scrn NEGATIVE, Urine Cocaine Screen NEGATIVE, U Cannabinoids Screen POSITIVE H, Ur Drug Screen Comment 08/19/23 05:53: WBC 6.0, RBC 3.18 L, Hgb 10.8 L, Hct 32.0 L, MCV 100.6 H, MCH 34.0 H, MCHC 33.8, RDW Std Deviation 50.9 H, RDW Coeff of Susanne 13.8, Plt Count 208, MPV 9.2, Immature Gran % (Auto) 0.500, Neut % (Auto) 47.2, Lymph % (Auto) 37.8, [place] % (Auto) 10.8 H, Eos % (Auto) 2.7, Baso % (Auto) 1.0, Absolute Neuts (auto) 2.8, Absolute Lymphs (auto) 2.25, Nucleated RBC % 0, Sodium 141, Potassium 3.1 L, Chloride 113 H, Carbon Dioxide 22.0, Anion Gap 6, BUN 7, Creatinine 0.77, Estim Creat Clear Calc 106.38, Est GFR (MDRD) Af Amer 131, Est GFR (MDRD) Non-Af 108, BUN/Creatinine Ratio 9.1 L, Glucose 90, Calcium 7.1 L, Phosphorus 2.7, Magnesium 1.9, Total Bilirubin 0.90, AST 46 H, ALT 33, Alkaline Phosphatase 138 H, Total Protein 5.4 L, Albumin 2.8 L, Globulin 2.6, Albumin/Globulin Ratio 1.1, TSH 3.78 H Radiography Diagnostic Testing: Radiology Impression Brain MRI 08/18/23 17:40 IMPRESSION: Involutional changes of the brain, as described above. Electronically Signed: Tin Pabon MD at 21:03 EDT , Physical Exam Const alert, oriented x3 and no apparent distress Constitutional Narrative: Patient appears to be older than the stated age General Appearance: cooperative, well kempt and well developed Orientation / Consciousness: awake, oriented to person, oriented to place and oriented to time HEENT normocephalic and moist oral mucous membranes Eyes PERRL, EOMs intact bilaterally and conjunctivae normal Neck supple, no JVD, thyroid normal and no carotid bruits General: trachea midline Resp normal respiratory effort, no use of accessory muscles and clear to auscultation bilaterally Auscultation: Negative for rales, rhonchi or wheezes Cardio regular rate, regular rhythm, S1 normal heart sound, S2 normal heart sound, no murmurs, no rub and no gallops GI normal to inspection, nondistended, normoactive bowel sounds, soft to palpation, non-tender and non-distended Extremity Extremity Narrative: Patient has a tremor on intention Skin no rashes or lesions noted General Skin Exam: no breakdown Neuro CN's II-XII intact bilaterally, moves all extremities, no focal motor deficits and no sensory deficits noted Sensorium / Orientation: awake, alert, oriented to person and oriented to place Speech: speech normal Psych affect normal Assessment & Plan Assessment/Plan (1) New onset seizure: PLAN: Plan 1. Alcohol withdrawal seizure-again the patient's sister is in favor of changing the patient from phenobarbital at this time over to a benzodiazepine, I will place him on Ativan 2 mg every 6 hours and he will remain on CIWA scores, patient's EEG is not back yet, I explained to the patient's sister that if it was an alcohol withdrawal seizure that we would not be treating the patient with any seizure medications on an ongoing basis. #2 chronic alcoholism-complicates care, medical course, recovery, and prognosis #3 essential hypertension-patient will remain on his present medications #4 chronic tremor-according to the patient's sister, patient has had a coarse tremor for quite some time, she does not know if it is related to alcohol usage or another reason such as an essential tremor #5 chronic anxiety/depression-patient is on Lexapro, Abilify, Remeron, and BuSpar chronically #6 chronic obstructive pulmonary disease-patient is on as needed albuterol aerosols, he is on a Trelegy inhaler at home Total clinical time spent by myself addressing the patient's medical issues, reviewing all of his data, and collaborating with patient's care team: 50 minutes Charges/Coding Visit Charges Inpatient E&M: 22222 Subs Hosp L3
[2023-08-19] MEDS: Atorvastatin Calcium 40 MG Tablet PO (21:40)
[2023-08-19 21:59] VITALS: BP 98/64; PULSE 85; RESP 16; TEMP 36.7; O2SAT 100
[2023-08-20] MEDS: LORazepam 1 MG Tablet 2 MG PO ×4 (00:10→13:44)
[2023-08-20 03:25] VITALS: BP 107/74; PULSE 94; RESP 18; TEMP 36.7; O2SAT 98
[2023-08-20 04:11] VITALS: BMI 24.9
[2023-08-20 07:07] LABS: ALB/GLOB Ratio 0.9 RATIO (0.9-2.4); AST(SGOT) 42 U/L (15-37); Alanine Aminotransfer ALT/SGPT 29 U/L (16-61); Albumin, Serum 2.5 g/dL (3.2-5.0); Alkaline Phosphatase 148 U/L (45-117); Anion Gap 5 (5-15); BUN 7 mg/dL (7-18); BUN/Creat Ratio 8.2 RATIO (10-20); Calcium,Total 7.2 mg/dL (8.5-10.1); Chloride 116 mmol/L (98-107); Creatinine, Serum 0.86 mg/dL (0.70-1.30); EST Glomerular Filtration Rate 96 mL/min (>60); Est Glom Filt Rate - Afr Amer 116 mL/min (>60); Estimated Creatinine Clearance 95.25 ml/min; Globulin 2.7 g/dL (2.2-4.2); Glucose 97 mg/dL (74-106); Potassium 3.5 mmol/L (3.5-5.1); Protein, Total 5.2 g/dL (6.4-8.2); Sodium Level 141 mmol/L (136-145)
[2023-08-20 07:08] VITALS: PULSE 78; RESP 16
[2023-08-20] MEDS: Budesonide Respules 0.5 MG/2 ML AMPUL.NEB. INHALATION (07:08)
--- NOTE | 2023-08-20 07:57 | PN.HOSP_ITS ---
Reason for Visit Reason for Visit: Diagnoses Unspecified convulsions (08/18/23) Objective Data Objective Data Vital Signs: Vital Signs Temp Pulse Resp BP Pulse Ox O2 Del Method 98.0 F 94 18 107/74 98 Room Air 08/20/23 03:25 08/20/23 03:08/20/23 03:08/20/23 03:25 08/20/23 03:08/20/23 04:20 Oxygen Delivery Method Room Air Weight: 183 lb 13.848 oz Body Mass Index (BMI) 24.9 Intake & Output: Intake and Output for Last 24 Hours 08/18/23 08/19/23 08/20/23 23:59 23:59 23:59 Intake Total 1000 / 1000 1956 Output Total 0 / 0 200 / 200 Balance 1000 / 1000 1756 / 1756 Lab / Micro Data 08/19/23 05:53 08/20/23 05:48 Labs: Laboratory Results - last 24 hr 08/20/23 05:48: Sodium 141, Potassium 3.5, Chloride 116 H, Carbon Dioxide 20.0 L , Anion Gap 5, BUN 7, Creatinine 0.86, Estim Creat Clear Calc 95.25, Est GFR (MDRD) Af Amer 116, Est GFR (MDRD) Non-Af 96, BUN/Creatinine Ratio 8.2 L, Glucose 97, Calcium 7.2 L, Total Bilirubin 0.40, AST 42 H, ALT 29, Alkaline Phosphatase 148 H, Total Protein 5.2 L, Albumin 2.5 L, Globulin 2.7, Albumin/Globulin Ratio 0.9 Assessment & Plan Assessment/Plan (1) New onset seizure: PLAN: Plan 1. Alcohol withdrawal seizure-again the patient's sister is in favor of changing the patient from phenobarbital at this time over to a benzodiazepine, I will place him on Ativan 2 mg every 6 hours and he will remain on CIWA scores, patient's EEG is not back yet, I explained to the patient's sister that if it was an alcohol withdrawal seizure that we would not be treating the patient with any seizure medications on an ongoing basis. #2 chronic alcoholism-complicates care, medical course, recovery, and prognosis #3 essential hypertension-patient will remain on his present medications #4 chronic tremor-according to the patient's sister, patient has had a coarse tremor for quite some time, she does not know if it is related to alcohol usage or another reason such as an essential tremor #5 chronic anxiety/depression-patient is on Lexapro, Abilify, Remeron, and BuSpar chronically #6 chronic obstructive pulmonary disease-patient is on as needed albuterol aerosols, he is on a Trelegy inhaler at home Total clinical time spent by myself addressing the patient's medical issues, reviewing all of his data, and collaborating with patient's care team: 50 minutes
[2023-08-20 08:20] VITALS: BP 136/105; PULSE 94; RESP 20; TEMP 36.6; O2SAT 98
[2023-08-20] MEDS: Multivitamins,Ther W-Minerals Tablet 1 TABLET PO (08:27)
[2023-08-20] MEDS: Folic Acid 1 MG Tablet PO (08:27)
[2023-08-20] MEDS: Mirtazapine 15 MG Tablet PO (08:27)
[2023-08-20] MEDS: Potassium Chloride Oral Tablet 20 MEQ 40 MEQ PO (08:27)
[2023-08-20] MEDS: Dicyclomine 10 MG Capsule 20 MG PO (08:27)
[2023-08-20] MEDS: Citalopram 20 MG Tablet 40 MG PO (08:27)
[2023-08-20] MEDS: Loratadine 10 MG Tablet PO (08:27)
[2023-08-20] MEDS: Pantoprazole Sodium 40 MG Tablet PO (08:27)
[2023-08-20 08:28] LABS: Magnesium 1.4 mg/dL (1.6-2.6); Phosphorus 2.8 mg/dL (2.5-4.9)
[2023-08-20] MEDS: Gabapentin 300 MG Capsule PO (08:28)
[2023-08-20] MEDS: Thiamine Hydrochloride 100 MG Tablet PO (08:28)
[2023-08-20] MEDS: ARIPiprazole 5 MG Tablet PO (08:28)
[2023-08-20] MEDS: hydrOXYzine PAM 25 MG Capsule 50 MG PO ×2 (09:23→13:44)
[2023-08-20 09:24] VITALS: O2SAT 98
--- NOTE | 2023-08-20 10:08 | DCINST_ITS ---
Discharge Instructions Diet Discharge Diet: No restrictions Activity Discharge Activity: Return to Normal Activity Weight Bearing Status: Weight bearing as tolerated Dressing / Incision Call your doctor if you observe: Fever of 101 or Higher, Coldness, Increased Pain, Numbness or Tingling, Change in Color, Inability to urinate, Inability to have a bowel movement, Shortness of breath, Dizziness, Fainting spells, Swelling in the ankles, Chest pain, Prolonged hiccupping, Increased palpitations (irregular heartbeat) and Calf discomfort Follow Up Care When: IN 2 WEEKS Test Results: Test results from this visit will be discussed in further detail at your follow- up appointment, if applicable. Discharge Plan Admission Admit Date/Time: 08/18/23 15:18 Attending Provider: Tirso Jiang [facility] Providers: Linda Villavicencio; Aj Rao Discharge Orders/Prescriptions Prescriptions: New thiamine HCl (vitamin B1) [Vitamin B-1] 100 mg Tablet 100 mg PO DAILYCM 30 Days Qty: 30 2RF nicotine 21 mg/24 hr Patch 24 Hour 21 mg transdermal DAILY 28 Days Qty: 28 0RF folic acid 1 mg Tablet 1 mg PO DAILY@0800 30 Days Qty: 30 2RF magnesium chloride 64 mg tablet,delayed release (DR/EC) 128 mg PO BID 7 Days Qty: 28 0RF Continued atorvastatin 40 mg tablet 40 mg PO QHS cholecalciferol (vitamin D3) 1,250 mcg (50,000 unit) capsule 50,000 unit PO .COMPLEX Rx Instructions: 50,000 units PO every 2 weeks; EVERY 2 WEEKS citalopram 20 mg tablet 40 mg PO DAILY Rx Instructions: Take with 40 mg tablet to = 60 mg daily acetaminophen 500 mg capsule 500 - 1,000 mg PO .Q8hr PRN (Reason: pain (scale score 4-6)) Qty: 100 1RF hydroxyzine HCl 25 mg tablet 25 mg PO DAILY Patient Comments: Take 1/2 to 2 tablets daily as needed aripiprazole 5 mg tablet 5 mg PO DAILY bupropion HCl 300 mg tablet extended release 24 hr 300 mg PO DAILY cyanocobalamin (vitamin B-12) 1,000 mcg/mL solution 1,000 mcg IM QMONTH albuterol sulfate 90 mcg/actuation HFA aerosol inhaler 2 puff inhalation Q4H PRN (Reason: shortness of breath) Patient Comments: INHALE 2 PUFFS BY MOUTH EVERY 4 HOURS NEEDED loratadine 10 MG tablet 10 mg PO DAILY omeprazole 40 mg capsule,delayed release(DR/EC) 40 mg PO DAILY Rx Instructions: TAKE 1 CAPSULE BY MOUTH EVERY DAY calcium carbonate 600 mg calcium (1,500 mg) tablet 600 mg PO DAILY Patient Comments: TAKE 1 TABLET BY MOUTH EVERY DAY Trelegy Ellipta 100-62.5-25 mcg blister with device 1 inh INHALATION DAILY Patient Comments: INHALE 1 PUFF DAILY mirtazapine [Remeron] 15 mg tablet 15 mg PO DAILY Changed potassium chloride 10 mEq capsule, extended release 20 meq PO DAILY 30 Days Qty: 60 0RF Discontinued ibuprofen 800 mg tablet 800 mg PO Q6H PRN (Reason: Pain) Referrals / Follow Up: [facility],Madhuri Milton [Primary Care Provider] - Friend,DO Thomas [Med Staff - Active Staff] - Within 1 Month (For chronic alcohol disease and alcoholic hepatitis) Disposition Disposition (needs filled in before D/C Order can be placed): Home, Self Care
--- NOTE | 2023-08-20 10:09 | CASEMGMT ---
CRISTIN BLAS NOTE: Per Moe, pt ready for discharge. Therapy notes reviewed. Pt ambulated 20 ft w/gait deviations and additional therapy recommended. CRISTIN BLAS to room. Pt sitting up in chair in room, eating breakfast. Awake/alert/oriented. Pt states he wants to go home, stating he feels strong enough and he does not want to go to a SNF. Pt interested in HHC and would like a list to review. jeffrey Reid/alexis palacios, made aware. Pt states would like an aide to assist w/home tasks. Rebecca DODSON, made aware and to provide resources. Pt made aware the aide through HHC being set up today do not do home mgnt tasks, just bathing/dressing. He voices understanding. He stated he could use an aide while getting HHC for bath/dsg. HHC order placed for SN, PT/OT, and an aide. Pt denies other home-going needs or concerns. Torsten AGUIRRE RN, CM
--- NOTE | 2023-08-20 10:27 | CASEMGMT ---
Discharge Planning A list of home healthcare providers including quality and resource use data and consistent with the patient?s preferred geographic region, medical needs, and insurance network were printed and provided from the [facility]. Jeanette James, Discharge Planning Asst.
--- NOTE | 2023-08-20 11:55 | CASEMGMT ---
Discharge Planning HH referrals sent via [facility] to [facility], [facility], [facility], [facility], [facility], [facility], and [facility]. Jeanette James, Discharge Planning Asst.
[2023-08-20 13:47] VITALS: BP 120/90; PULSE 97; RESP 18; TEMP 36.7; O2SAT 97
--- NOTE | 2023-08-20 14:00 | PCM.DC.SUM ---
Providers Date of Admission: 08/18/23 Date of Discharge: 08/20/23 Primary Care Physician: Mad[facility]uri [facility] Reason For Visit: NEW ONSET SEIZURE Diagnosis Discharge Diagnosis (1) New onset seizure: Status: Acute Code(s): R56.9 - Unspecified convulsions Plan 63-year-old gentleman with history of chronic alcohol use and dependence came to ED for seizure and further admitted for evaluation. Family members present in the witnessed of seizure, it was generalized shaking. Was also foaming from mouth. It was 2 seizures in quick succession each lasting for few seconds. After that he was confused on presentation in ED. No fever or chills. 1. Acute alcohol withdrawal seizure with history of chronic alcohol use dependence and tolerance: Patient was admitted in PCU. Previous hospitalist discussed with the patient's sister is in favor of changing the patient from phenobarbital at this time over to a benzodiazepine and started on Ativan 2 mg every 6 hours. Patient was on CIWA scores. EEG was done and reported normal routine EEG. As with acute alcohol withdrawal seizure therefore no antiepileptic medication indication and this was told to patient's daughter. #2 chronic alcoholism use and dependence and chronic cigarette smoking: After talking to patient sister who is POA I told her to follow-up in GI liver clinic. Patient is on thiamine, folic acid, potassium and magnesium supplement and nicotine patch.-complicates care, medical course, recovery, and prognosis #3 essential hypertension-patient will remain on his present medications #4 chronic tremor, chronic unsteady gait-according to the patient's sister, patient has had a coarse tremor for quite some time. Patient has chronic unsteady gait and poor balance and equilibrium. Patient has wheelchair at home. PT and OT was done. #5 chronic anxiety/depression-patient is on Lexapro, Abilify, Remeron, and BuSpar chronically #6 chronic obstructive pulmonary disease-patient is on as needed albuterol aerosols, he is on a Trelegy inhaler at home Discharge medication reconciliation done. Discharge follow-up instructions completed. Discharge process discussed with the patient and all questions were answered to patient's satisfaction. Total time spent, exact 35 minutes on discharge meds reconciliation, examination, coordination of care with nurses and ancillary staff, review of imaging and blood test and discussion with the patient on follow-up instructions. Medications at Discharge Home Medications atorvastatin 40 mg tablet 40 mg PO QHS cholesterol 06/16/18 loratadine 10 mg tablet 10 mg PO DAILY allergies 07/31/18 acetaminophen 500 mg capsule 500 - 1,000 mg (1 - 2 x 500 mg) PO .Q8hr PRN pain (scale score 4-6) #100 caps 12/12/20 cholecalciferol (vitamin D3) 1,250 mcg (50,000 unit) capsule 50,000 unit PO .COMPLEX vitamin 10/17/21 hydroxyzine HCl 25 mg tablet 25 mg PO DAILY Itching 12/11/21 omeprazole 40 mg capsule,delayed release 40 mg PO DAILY Indigestion 12/11/21 calcium carbonate 600 mg calcium (1,500 mg) tablet 600 mg PO DAILY supplement 09/01/22 fluticasone fur. 100 mcg-umeclid 62.5 mcg-vilant 25 mcg inhalat.powder (Trelegy Ellipta) 1 inh inhalation DAILY breathing 09/01/22 albuterol sulfate 90 mcg/actuation aerosol inhaler 2 puff inhalation Q4H PRN shortness of breath 12/18/22 aripiprazole 5 mg tablet 5 mg PO DAILY mental health 12/18/22 bupropion HCl 300 mg 24 hr tablet, extended release 300 mg PO DAILY mental health 12/18/22 citalopram 20 mg tablet 40 mg PO DAILY mental health 12/18/22 cyanocobalamin (vitamin B-12) 1,000 mcg/mL injection solution 1,000 mcg IM QMONTH vitamin 12/18/22 mirtazapine 15 mg tablet (Remeron) 15 mg PO DAILY mental health 08/18/23 folic acid 1 mg tablet 1 mg PO DAILY@0800 30 days #30 tabs 08/20/23 magnesium chloride 64 mg (magnesium chloride) tablet,delayed release 128 mg (2 x 64 mg) PO BID 7 days #28 tabs 08/20/23 nicotine 21 mg/24 hr daily transdermal patch 21 mg transdermal DAILY 28 days #28 ea 08/20/23 potassium chloride 10 mEq capsule,extended release 20 meq (2 x 10 mEq) PO DAILY 30 days #60 caps 08/20/23 thiamine HCl (vitamin B1) 100 mg tablet (Vitamin B-1) 100 mg PO DAILYCM 30 days #30 tabs 08/20/23 Physical Exam Narrative Seen and examined. Patient is awake and alert. Sitting upright and talking coherent. He has tremors in both upper extremities. No further seizure after the admission. Physical exam General: Alert, Oriented x3, Cooperative HEENT: Atraumatic, PERRLA, EOMI, Normocephalic Oral: Oral mucosa moist. No Gingival or Mucosal Lesions/ Ulcerations Neck: Supple, No JVD, Negative Carotid Bruits Lungs: Air entry diminished in bilateral lung bases. No crepitation/rhonchi Cardiovascular: Regular rate, Regular Rhythm, Normal S1, Normal S2, No murmurs Abdomen: Bowel Sounds Present, Soft, Non Tender, Non-Distended : No renal angle tenderness. No suprapubic tenderness. Extremities: No edema, Capillary Refill Less than 3 Seconds Skin: No rashes, No breakdown Musculoskeletal: No Tenderness to Palpation of Joints or Extremities Neurological: Cranial nerves II-XII grossly intact, DTR 2+/4. No acute focal neurological deficit. Chronic tremors both upper extremities Psych/Mental Status: Normal Affect, Appropriate. Weight / BMI Weight Weight: 183 lb 13.848 oz Body Mass Index (BMI) 24.9 ABG / Lab / Microbiology Data 08/19/23 05:53 08/20/23 05:48 Laboratory: Laboratory Results - last 24 hr 08/20/23 05:48: Sodium 141, Potassium 3.5, Chloride 116 H, Carbon Dioxide 20.0 L, Anion Gap 5, BUN 7, Creatinine 0.86, Estim Creat Clear Calc 95.25, Est GFR (MDRD) Af Amer 116, Est GFR (MDRD) Non-Af 96, BUN/Creatinine Ratio 8.2 L, Glucose 97, Calcium 7.2 L, Phosphorus 2.8, Magnesium 1.4 L, Total Bilirubin 0.40, AST 42 H, ALT 29, Alkaline Phosphatase 148 H, Total Protein 5.2 L, Albumin 2.5 L, Globulin 2.7, Albumin/Globulin Ratio 0.9 D/C Instructions Discharge Diet: No restrictions Weight Bearing Status: Weight bearing as tolerated Call your doctor if you observe: Fever of 101 or Higher, Coldness, Increased Pain, Numbness or Tingling, Change in Color, Inability to urinate, Inability to have a bowel movement, Shortness of breath, Dizziness, Fainting spells, Swelling in the ankles, Chest pain, Prolonged hiccupping, Increased palpitations (irregular heartbeat) and Calf discomfort When: IN 2 WEEKS Meaningful Use Info Meaningful Use Diagnoses (Choose all that apply): None applicable Discharge Plan Admission Admit Date/Time: 08/18/23 15:18 Attending Provider: Tirso Jiang Primary Care Provider: [facility] Madhuri Galvez Consulting Providers: Linda Villavicencio; Aj Rao Discharge Orders/Prescriptions Prescriptions: New thiamine HCl (vitamin B1) [Vitamin B-1] 100 mg Tablet 100 mg PO DAILYCM 30 Days Qty: 30 2RF nicotine 21 mg/24 hr Patch 24 Hour 21 mg transdermal DAILY 28 Days Qty: 28 0RF folic acid 1 mg Tablet 1 mg PO DAILY@0800 30 Days Qty: 30 2RF magnesium chloride 64 mg tablet,delayed release (DR/EC) 128 mg PO BID 7 Days Qty: 28 0RF Continued atorvastatin 40 mg tablet 40 mg PO QHS cholecalciferol (vitamin D3) 1,250 mcg (50,000 unit) capsule 50,000 unit PO .COMPLEX Rx Instructions: 50,000 units PO every 2 weeks; EVERY 2 WEEKS citalopram 20 mg tablet 40 mg PO DAILY Rx Instructions: Take with 40 mg tablet to = 60 mg daily acetaminophen 500 mg capsule 500 - 1,000 mg PO .Q8hr PRN (Reason: pain (scale score 4-6)) Qty: 100 1RF hydroxyzine HCl 25 mg tablet 25 mg PO DAILY Patient Comments: Take 1/2 to 2 tablets daily as needed aripiprazole 5 mg tablet 5 mg PO DAILY bupropion HCl 300 mg tablet extended release 24 hr 300 mg PO DAILY cyanocobalamin (vitamin B-12) 1,000 mcg/mL solution 1,000 mcg IM QMONTH albuterol sulfate 90 mcg/actuation HFA aerosol inhaler 2 puff inhalation Q4H PRN (Reason: shortness of breath) Patient Comments: INHALE 2 PUFFS BY MOUTH EVERY 4 HOURS NEEDED loratadine 10 MG tablet 10 mg PO DAILY omeprazole 40 mg capsule,delayed release(DR/EC) 40 mg PO DAILY Rx Instructions: TAKE 1 CAPSULE BY MOUTH EVERY DAY calcium carbonate 600 mg calcium (1,500 mg) tablet 600 mg PO DAILY Patient Comments: TAKE 1 TABLET BY MOUTH EVERY DAY Trelegy Ellipta 100-62.5-25 mcg blister with device 1 inh INHALATION DAILY Patient Comments: INHALE 1 PUFF DAILY mirtazapine [Remeron] 15 mg tablet 15 mg PO DAILY Changed potassium chloride 10 mEq capsule, extended release 20 meq PO DAILY 30 Days Qty: 60 0RF Discontinued ibuprofen 800 mg tablet 800 mg PO Q6H PRN (Reason: Pain) Referrals / Follow Up: Friend,DO Thomas [Med Staff - Active Staff] - Within 1 Month (For chronic alcohol disease and alcoholic hepatitis) [facility],Madhuri Milton [Primary Care Provider] - Disposition Disposition (needs filled in before D/C Order can be placed): Home, Self Care Charges/Coding Visit Charges Inpatient E&M: 72637 Disch Hosp >30min
--- NOTE | 2023-08-20 14:25 | CASEMGMT ---
RN ROOPA informed SW that patient was interested in [facility] information. SW took information back to patient's room, but patient was sleeping. Patient's sister Angelien was present. WEST explained programs at [facility]. Angeline said she would give patient the information. Angeline also thought it would be okay for to send a referral. WEST sent a referral to [facility] via [facility]'s online referral form. Rebecca Soria COUNTERPERSON ZACHARIAH
--- NOTE | 2023-08-20 16:30 | CASEMGMT ---
CRISTIN BLAS NOTE: RN CM to room. RN in room just finishing up assisting pt w/shower and w/him getting dressed. Pt using WW and has unsteady gait. Pt made aware unable to find accepting [facility] agency and also concern for his safety w/discharging home alone, as he is unsteady, and concern for him falling and risk of injury. Pt states his sister is going to be taking him home and he is aware her exelxe-xe-zaw is having surgery tomorrow and she (his sister) will not be around to assist him @ home either. Reinforced option of pt going to a SNF and made aware discharge could be cancelled and process could be started for going to a SNF. Pt states again that he does not want to go to a correction and he wants to go home, stating, I don't want to go to a correction now. Not now. If I fall, I'll come back to the ER and then it'll be time to go. Torsten AGUIRRE RN, CM
--- NOTE | 2023-08-21 09:20 | CASEMGMT ---
Discharge Planning Patient has been declined for HH services by [facility], [facility], [facility], [facility], [facility], [facility], and [facility]. RN CM updated. Jeanette James, Discharge Planning Asst.
--- NOTE | 2023-08-21 09:30 | CASEMGMT ---
Discharge Planning HH referral sent via [facility] to [facility], [facility], [facility]. Jeanette James, Discharge Planning Asst.
== END 2023-08-20 17:42 | disposition home or self-care (01) | DRG 775 ==
LOC: ED 15:22 → PCU 15:53
PROVIDERS: Internal Medicine; Admitting Provider Family Medicine; Emergency Provider Emergency Medicine; Visit Provider Internal Medicine
DX: F10.230 Alcohol dependence with withdrawal, uncomplicated (principal); E43 Unspecified severe protein-calorie malnutrition; D50.9 Iron deficiency anemia, unspecified; E78.5 Hyperlipidemia, unspecified; F17.210 Nicotine dependence, cigarettes, uncomplicated; E87.6 Hypokalemia; R56.9 Unspecified convulsions; J44.9 Chronic obstructive pulmonary disease, unspecified; I10 Essential (primary) hypertension; F32.A Depression, unspecified; K21.9 Gastro-esophageal reflux disease without esophagitis; J30.9 Allergic rhinitis, unspecified; F41.9 Anxiety disorder, unspecified; R74.8 Abnormal levels of other serum enzymes; Z79.51 Long term (current) use of inhaled steroids; Z79.899 Other long term (current) drug therapy; Z68.1 Body mass index [BMI] 19.9 or less, adult
CPT/HCPCS: 36415; 70450; 70551; 71045; 72170; 73552; 80053; 80307; 81001; 82077; 83735; 84100; 84443; 84484; 85025; 85610; 85730; 94640; 94668; 95819; 97110; 97116; 97162; 97166; 97802; 99285; J7030; J7050; A4216

== ENCOUNTER 2023-09-07 15:32 | Emergency (ER) | payer MEDICAID, SELFPAY ==
[2023-09-07] VITALS (7 sets, daily range): BP systolic 106–149; BP diastolic 78–93; PULSE 99–110; RESP 14–19; TEMP 36.4; O2SAT 96–99; BMI 25.9
--- NOTE | 2023-09-07 15:35 | ED.VIS.CHEST ---
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 COPD (chronic obstructive pulmonary disease) Degenerative arthritis Degenerative joint disease, right, ankle Elevated liver enzymes Essential (primary) hypertension Fatty infiltration of liver Former smoker Gout Greater trochanter fracture Greater trochanteric bursitis of right hip Gynecomastia Hepatomegaly Hyperlipidemia Iron deficiency anemia Loose, teeth New onset seizure Nicotine dependence Non-sustained ventricular tachycardia Restless legs Subcutaneous nodules Vitamin D deficiency Walker as ambulation aid Wears glasses Home Medications atorvastatin 40 mg tablet 40 mg PO QHS cholesterol 06/16/18 [History Last Taken Unknown] loratadine 10 mg tablet 10 mg PO DAILY allergies 07/31/18 [History Last Taken 07/31/18] acetaminophen 500 mg capsule 500 - 1,000 mg (1 - 2 x 500 mg) PO .Q8hr PRN pain (scale score 4-6) #100 caps 12/12/20 [Rx Last Taken Unknown] cholecalciferol (vitamin D3) 1,250 mcg (50,000 unit) capsule 50,000 unit PO .COMPLEX vitamin 10/17/21 [History Last Taken Unknown] hydroxyzine HCl 25 mg tablet 25 mg PO DAILY Itching 12/11/21 [History Last Taken Unknown] omeprazole 40 mg capsule,delayed release 40 mg PO DAILY Indigestion 12/11/21 [History Last Taken Unknown] calcium carbonate 600 mg calcium (1,500 mg) tablet 600 mg PO DAILY supplement 09/01/22 [History Last Taken Unknown] fluticasone fur. 100 mcg-umeclid 62.5 mcg-vilant 25 mcg inhalat.powder (Trelegy Ellipta) 1 inh inhalation DAILY breathing 09/01/22 [History Last Taken 09/02/22 10:00] albuterol sulfate 90 mcg/actuation aerosol inhaler 2 puff inhalation Q4H PRN shortness of breath 12/18/22 [History Last Taken Unknown] aripiprazole 5 mg tablet 5 mg PO DAILY mental health 12/18/22 [History Last Taken Unknown] bupropion HCl 300 mg 24 hr tablet, extended release 300 mg PO DAILY mental health 12/18/22 [History Last Taken Unknown] citalopram 20 mg tablet 40 mg PO DAILY mental health 12/18/22 [History Last Taken Unknown] cyanocobalamin (vitamin B-12) 1,000 mcg/mL injection solution 1,000 mcg IM QMONTH vitamin 12/18/22 [History Last Taken Unknown] mirtazapine 15 mg tablet (Remeron) 15 mg PO DAILY mental health 08/18/23 [History Last Taken Unknown] folic acid 1 mg tablet 1 mg PO DAILY@0800 30 days #30 tabs 08/20/23 [Rx Last Taken Unknown] magnesium chloride 64 mg (magnesium chloride) tablet,delayed release 128 mg (2 x 64 mg) PO BID 7 days #28 tabs 08/20/23 [Rx Last Taken Unknown] nicotine 21 mg/24 hr daily transdermal patch 21 mg transdermal DAILY 28 days #28 ea 08/20/23 [Rx Last Taken Unknown] potassium chloride 10 mEq capsule,extended release 20 meq (2 x 10 mEq) PO DAILY 30 days #60 caps 08/20/23 [Rx Last Taken Unknown] thiamine HCl (vitamin B1) 100 mg tablet (Vitamin B-1) 100 mg PO DAILYCM 30 days #30 tabs 08/20/23 [Rx Last Taken Unknown] Allergy/AdvReac Type Severity Reaction Status Date / Time No Known Allergies Allergy Verified 09/07/23 15:32 Family History Father CVA (cerebral vascular accident) Myocardial infarction HAS ICD Heart disease Sister Breast cancer Mother Heart disease Sister Colon cancer Surgical History H/O shoulder surgery History of ankle surgery History of colonoscopy (01/2020) History of vascular surgery Social History (Updated 08/18/23 @ 20:[address] Linda Villavicencio MD) household members: none Smoking Status: Current every day smoker tobacco type: cigarettes Tobacco: How many years used: 40 alcohol intake: current alcohol intake frequency: 3 or more drinks per day Alcohol type: hard liquor details: 8-16 ounces vodka daily. substance use type: does not use caffeine: Yes Type: carbonated beverages EXAM Physical Exam Const Vital Signs: 09/07/23 15:33 09/07/23 15:43 09/07/23 15:43 Temperature 97.6 F L Temperature Source Temporal Pulse Rate 110 H 107 H Respiratory Rate 14 18 Respiratory Effort Normal Blood Pressure 106/88 H 106/85 H Blood Pressure Mean 94 92 Pulse Ox 96 99 Oxygen Delivery Method Room Air Room Air 09/07/23 15:59 09/07/23 16:34 09/07/23 17:04 Temperature Temperature Source Pulse Rate 99 99 Respiratory Rate 18 19 H Respiratory Effort Blood Pressure 136/93 H 114/78 Blood Pressure Mean 107 90 Pulse Ox 98 99 96 Oxygen Delivery Method Room Air Room Air Room Air 09/07/23 18:09 09/07/23 18:20 Temperature Temperature Source Pulse Rate 101 H 103 H Respiratory Rate 16 19 H Respiratory Effort Blood Pressure 125/86 H 149/81 H Blood Pressure Mean 99 103 Pulse Ox 96 99 Oxygen Delivery Method Room Air Heart Score History: Slightly/Non-Suspicious ECG: Normal Age: >45 - <65 years Risk Factors: 1 or 2 Risk Factors Troponin: </= Normal Limit Score: 2 MDM MDM MDM Narrative Medical decision making narrative: HISTORY OF PRESENT ILLNESS: 63-year-old male here with chief complaint of chest pain. He states he had 3 days of pain in his heart. States it is worse with exertion and is worse with a deep breath. He denies any cough fever chills. Denies any bleeding diathesis but does note he has dark stools. States he used to be on iron to treat anemia. States he is been having vomiting and diarrhea as well. States he is currently drinking alcohol and smokes about a quarter of a pack of cigarettes per day. He denies history of hyperlipidemia type 2 diabetes or heart attacks. He denies history of blood clots. The patient denies recent surgery in the last 4 weeks or immobilization in the last 3 days, denies previous diagnosis of DVT or PE, hemoptysis, unilateral leg swelling or malignancy with treatment the last 6 months or palliative. No estrogen use noted. Patient denies sudden onset of pain, no tearing sensation, no migratory symptoms, no new numbness, weakness or loss of sensation. Patient denies family history or personal history of Connective tissue disorders (Marfan's Syndrome, Aissatou Danlos etc) REVIEW OF SYSTEMS: Pertinent positives: Chest pain, nausea vomiting, diarrhea, dark stools Pertinent negatives: syncope, fever, cough, new lower extremity swelling or edema PHYSICAL EXAM: Nursing triage notes reviewed, Vital signs reviewed Constitutional: please see mdm HENT: MMM Eyes: Pupils equal round and reactive to light, Extraocular muscles intact Neck: No stridor, no JVD, full neck ROM Lungs: Clear to auscultation, No wheezing or rales. No increased work of breathing, no conversational dyspnea, no accessory muscle use, no nasal flaring. No respiratory distress noted Heart: Fast rate and rhythm, No murmurs, No rubs and No gallops, 2+ distal pulses (radial, femoral, posterior tibial) in all extremities Abdomen: Soft, there is no tenderness, rigidity, rebound or guarding, no obvious peritoneal signs, no palpable pulsatile abdominal masses, no auscultated abdominal bruit : No CVAT Extremities: Trace edema bilateral lower extremities Neuro: No focal neurological deficits, cranial nerves II through XII intact, 5/5 strength in all extremities. Intact sensation to light touch in all extremities, 2+ reflexes bilateral patella tendons. Normal gait. No ataxia. Skin: No rash or lesions noted MEDICAL DECISION MAKING: Chief Complaint: Chest pain External records reviewed:Echocardiogram from 2022 shows ejection fraction of 60% with no regional wall motion abnormalities Factors affecting care: Hyperlipidemia, GERD COPD, elevated liver enzymes, Social determinants of health: none alcohol abuse History obtained from others: none Consults: none MDM Narrative: Patient was initially mildly tachycardic otherwise hemodynamically stable afebrile nontoxic-appearing. He had no obvious focal neurologic deficits. No focal cardiopulmonary abnormality such as rales, wheezes or auscultative consolidation. I considered the following differential diagnosis: ACS, arrhythmia, anemia, electrolyte disturbance, dehydration, PE, aortic dissection, GI abnormality such as esophagitis secondary to alcohol abuse and vomiting I considered pulmonary embolism given chest pain and pain is worse with a deep breath however the patient is low risk Wells score (posttest probability of PE 1.3%) and as such I have a low suspicion for pulmonary embolism. I considered aortic dissection however the patient no pulse deficits, no focal neurologic deficits and no concerning history such as connective tissue disorders to suggest aortic dissection at this time. I obtained a broad lab and imaging work-up to further elucidate the etiology of the patient's complaints. I treated the patient symptomatically with IV fluids, Zofran and Pepcid. ALL IMAGES (IF OBTAINED) HAVE BEEN PERSONALLY REVIEWED AND INTERPRETED BY MYSELF. EKG with sinus tachycardia, normal axis, prolonged QT interval, no STEMI, no obvious ischemic changes I have personally reviewed the patient's chest x-ray. Chest x-ray is unremarkable for pulmonary edema, pneumothorax, pneumonia or focal cardiopulmonary abnormality. CBC without leukocytosis to suggest systemic inflammation, mild anemia, no thrombocytopenia BMP without evidence of significant electrolyte abnormalities, no anion gap, no acute kidney injury. Troponin is negative, no evidence of myocardial ischemiax2 The amalgamation the patient's labs images were unremarkable for acute life or limb threatening etiology. Vital sign abnormalities resolved after fluids. Patient is low risk heart score (2) and as such is not appropriate for further ED evaluation or hospitalization. Low risk of 30-day mortality given 2 negative high-sensitivity troponins and low risk heart score. He does require outpatient evaluation by his PCP. I completed a HEART Score to screen for Major Adverse Cardiac Event (MACE) in this patient. The evidence indicates that the patient is very low risk for MACE and this is consistent with my clinical intuition. The risk of further workup or hospitalization for MACE is likely higher than the risk of the patient having a MACE. It is, therefore, in the patient?s best interest not to do additional emergent testing or to be hospitalized for MACE at this time. Shared Decision-Making No hospitalization indicated I have discussed with the patient my clinical impression and the result of the HEART Score to screen for MACE, as well as the risks of further testing and hospitalization. The HEART Score shows that the risk for MACE is less than 1%. Although the risk of MACE has not been completely eliminated, the risks of further testing or hospitalization for MACE likely exceed any potential benefit, and the patient agrees with not pursuing further emergent evaluation or hospitalization for MACE at this time. The patient and/or family, caregivers express understanding. The patient and/or family, caregivers agrees with the plan. Shared decision making: I will have a discussion with the patient and or visitors regarding risk/benefits of further testing or admission. They will be made aware of of the risk/benefits inherent in this decision they will be given the opportunity to voice understanding. Total critical care time today provided was at least 0 minutes. This excludes separately billable procedures. Critical care time (if documented) is secondary to the patient having high probability of clinically significant/life threatening deterioration in the patient's condition which required my urgent intervention. Impression: 1. Chest pain 2. Esophagitis 3. Alcohol abuse Dispo: discharge Lab Data Attestation: I reviewed the patient's lab results. Labs: Laboratory Results - last 24 hr 09/07/23 09/07/23 15:35 17:38 WBC 7.4 RBC 3.77 L Hgb 12.6 L Hct 37.8 L MCV 100.3 H MCH 33.4 H MCHC 33.3 RDW Std Deviation 48.0 H RDW Coeff of Susanne 13.2 Plt Count 288 MPV 8.9 Immature Gran % (Auto) 0.400 Neut % (Auto) 31.4 L Lymph % (Auto) 56.6 H [place] % (Auto) 7.5 Eos % (Auto) 2.2 Baso % (Auto) 1.9 H Absolute Neuts (auto) 2.3 Absolute Lymphs (auto) 4.17 Nucleated RBC % 0 Sodium 144 Potassium 3.8 Chloride 108 H Carbon Dioxide 24.0 Anion Gap 12 BUN 12 Creatinine 1.03 Estim Creat Clear Calc 79.53 Est GFR (MDRD) Af Amer 94 Est GFR (MDRD) Non-Af 77 BUN/Creatinine Ratio 11.7 Glucose 84 Calcium 8.3 L Troponin I High Sens 6 7 Radiography Chest X-Ray - ED: Read by ED Physician Diagnostic Testing: Clinical Impression(s) from Imaging Studies Chest X-Ray 09/07/23 16:17 IMPRESSION: No acute findings in the chest. Electronically Signed: Milo Head DO at 16:36 EDT , Discharge Plan Triage Chief Complaint: Chest Pain ED Provider: Mikey Hess Dx/Rx/DC Orders Instructions: Chest Pain [facility] Prescriptions: No Action atorvastatin 40 mg tablet 40 mg PO QHS cholecalciferol (vitamin D3) 1,250 mcg (50,000 unit) capsule 50,000 unit PO .COMPLEX Rx Instructions: 50,000 units PO every 2 weeks; EVERY 2 WEEKS citalopram 20 mg tablet 40 mg PO DAILY Rx Instructions: Take with 40 mg tablet to = 60 mg daily acetaminophen 500 mg capsule 500 - 1,000 mg PO .Q8hr PRN (Reason: pain (scale score 4-6)) Qty: 100 1RF hydroxyzine HCl 25 mg tablet 25 mg PO DAILY Patient Comments: Take 1/2 to 2 tablets daily as needed aripiprazole 5 mg tablet 5 mg PO DAILY bupropion HCl 300 mg tablet extended release 24 hr 300 mg PO DAILY cyanocobalamin (vitamin B-12) 1,000 mcg/mL solution 1,000 mcg IM QMONTH albuterol sulfate 90 mcg/actuation HFA aerosol inhaler 2 puff inhalation Q4H PRN (Reason: shortness of breath) Patient Comments: INHALE 2 PUFFS BY MOUTH EVERY 4 HOURS NEEDED loratadine 10 MG tablet 10 mg PO DAILY omeprazole 40 mg capsule,delayed release(DR/EC) 40 mg PO DAILY Rx Instructions: TAKE 1 CAPSULE BY MOUTH EVERY DAY calcium carbonate 600 mg calcium (1,500 mg) tablet 600 mg PO DAILY Patient Comments: TAKE 1 TABLET BY MOUTH EVERY DAY Trelegy Ellipta 100-62.5-25 mcg blister with device 1 inh INHALATION DAILY Patient Comments: INHALE 1 PUFF DAILY mirtazapine [Remeron] 15 mg tablet 15 mg PO DAILY thiamine HCl (vitamin B1) [Vitamin B-1] 100 mg Tablet 100 mg PO DAILYCM 30 Days Qty: 30 2RF nicotine 21 mg/24 hr Patch 24 Hour 21 mg transdermal DAILY 28 Days Qty: 28 0RF folic acid 1 mg Tablet 1 mg PO DAILY@0800 30 Days Qty: 30 2RF magnesium chloride 64 mg tablet,delayed release (DR/EC) 128 mg PO BID 7 Days Qty: 28 0RF potassium chloride 10 mEq capsule, extended release 20 meq PO DAILY 30 Days Qty: 60 0RF Primary Care Provider: [facility] Mad[facility]uri Galvez [facility] - Activity Restrictions/Additional Instructions: Thank you for trusting us with your care today! Please take Tylenol (2 pills, 650 mg), ibuprofen (2 pills, 400 mg) every 6 hours as needed for pain and fever control. Please return to the emergency department if your symptoms change or worsen. Specifically if you develop worsening chest pain, shortness of breath, lose conscious, develop focal weakness or numbness or if your symptoms change or worsen in any way. Please follow with your primary care physician for further outpatient evaluation and management. Disposition Disposition: Home, Self Care Discharge Date/Time: 09/07/23 18:37
--- NOTE | 2023-09-07 16:00 | EKG12_ITS ---
Test Reason : CP Blood Pressure : / mmHG Vent. Rate : 117 BPM Atrial Rate : 117 BPM P-R Int : 132 ms QRS Dur : 090 ms QT Int : 354 ms P-R-T Axes : 052 007 049 degrees QTc Int : 493 ms Sinus tachycardia with Premature atrial complexes Otherwise normal ECG Confirmed by LARISSA KC, SARAH BETH ([id number]), advertising editor MEG ERIC ([id number]) on 09/09/2023 10:45:16 AM Referred By: DENI/JOVITA Confirmed By:SARAH BETH DIAS MD
[2023-09-07] MEDS: Famotidine 200 MG/20 ML MDV 20 MG in 0.9% Normal Saline (Pres. free 8 ML 300 MG IV (16:07)
[2023-09-07] MEDS: Ondansetron 4 MG/2 ML Vial IV (16:07)
[2023-09-07] MEDS: Aspirin 81 MG TAB.CHEW 324 MG PO (16:07)
[2023-09-07] MEDS: 0.9% Normal Saline (1000mL) 1,000 ML 1000 ML IV (16:16)
[2023-09-07 16:17] LABS: Absolute Lymphocyte Count 4.17 X10^3/uL (0.83-4.51); Absolute Neutrophil Count 2.3 X10^3/uL (2.0-7.7); Basophil# 0.14 X10^3/uL; Basophil% 1.9 % (0-1); Eosinophil# 0.16 X10^3/uL; Eosinophils% 2.2 % (0-5); Hematocrit 37.8 % (40-54); Hemoglobin 12.6 g/dL (13.0-16.5); Lymphocyte # 4.17 X10^3/ul (0.83-4.51); Lymphocyte % 56.6 % (19-41); Mean Corp Hgb Conc 33.3 g/dL (32-36); Mean Corpuscular Hgb 33.4 pg (27.0-32.0); Mean Corpuscular Volume 100.3 fL (80-94); Mean Platelet Vol. 8.9 fl (6.2-12.0); Monocyte# 0.55 X10^3/uL; Monocyte% 7.5 % (0-10); NRBC Flagged by Analyzer 0 % (0-5); Neutrophil # 2.32 X10^3/uL (2.7-7.7); Neutrophil % 31.4 % (47-70); Platelet Count 288 K/mm3 (150-450); RBC Distribution Width CV 13.2 % (11.6-14.6); Red Blood Count 3.77 M/mm3 (4.6-6.2); White Blood Count 7.4 K/mm3 (4.4-11.0)
--- NOTE | 2023-09-07 16:17 | RAD_ITS ---
EXAM: XR CHEST, 1 VIEW CLINICAL INDICATION: chest pain TECHNIQUE: Frontal view of the chest. COMPARISON: 08/18/2023. FINDINGS: LUNGS AND PLEURAL SPACES: No significant abnormality. No consolidation or edema. No pneumothorax. No effusion. HEART: No significant abnormality. Cardiac silhouette not enlarged. MEDIASTINUM: Central airways and mediastinal contour are unremarkable. BONES/JOINTS: Degenerative changes in the spine. SOFT TISSUES: No significant abnormality. VASCULATURE: Atherosclerosis. RAD/Chest 1 View (Portable) IMPRESSION: No acute findings in the chest. Electronically Signed: Milo Head DO at 16:36 EDT ,
[2023-09-07 16:30] LABS: Anion Gap 12 (5-15); BUN 12 mg/dL (7-18); BUN/Creat Ratio 11.7 RATIO (10-20); Calcium,Total 8.3 mg/dL (8.5-10.1); Chloride 108 mmol/L (98-107); Creatinine, Serum 1.03 mg/dL (0.70-1.30); EST Glomerular Filtration Rate 77 mL/min (>60); Est Glom Filt Rate - Afr Amer 94 mL/min (>60); Estimated Creatinine Clearance 79.53 ml/min; Glucose 84 mg/dL (74-106); Potassium 3.8 mmol/L (3.5-5.1); Sodium Level 144 mmol/L (136-145); Troponin-I HS (w/2H Reflex) 6 pg/mL (3.0-78.0)
[2023-09-07 17:47] LABS: Reflex Troponin-HS? (from REC) Y
[2023-09-07 18:11] LABS: Troponin-I HS 7 pg/mL (3.0-78.0)
== END 2023-09-07 18:37 | disposition home or self-care (01) ==
PROVIDERS: Emergency Provider Emergency Medicine; Visit Provider Emergency Medicine
DX: R07.9 Chest pain, unspecified (principal); J44.9 Chronic obstructive pulmonary disease, unspecified; K20.90 Esophagitis, unspecified without bleeding; E78.5 Hyperlipidemia, unspecified; F10.10 Alcohol abuse, uncomplicated; I10 Essential (primary) hypertension; R74.8 Abnormal levels of other serum enzymes; F17.210 Nicotine dependence, cigarettes, uncomplicated
CPT/HCPCS: 71045; 80048; 84484; 85025; 93005; 96361; 96374; 96375; 99285; J7030; A4216; J2405; J3490

== ENCOUNTER → 2023-10-02 | Outpatient (CLI) | payer MEDICAID, SELFPAY ==
--- NOTE | 2023-10-02 15:25 | VDLE_ITS ---
Reason For Study: RLE swelling RIGHT GSV is normal. CFV is compressible, spontaneous, phasic, competent and demonstrates normal augmentation. FV is compressible, spontaneous, phasic, competent and demonstrates normal augmentation. POP V is compressible, spontaneous, phasic, competent and demonstrates normal augmentation. T/P Trunk is compressible. PTV is compressible. RT PerV is compressible. Procedure This is a venous duplex using B-mode, color flow and spectral Doppler. Exam performed in department. A preliminary report was called and/or faxed to Ml Sal NP @ [facility] @ 3:45 PM. VL/Venous Duplex US, Unilateral Interpretation Summary Deep veins of the right lower extremity are patent and compressible segmentally . There is no evidence of right lower extremity deep vein thrombosis. The right great sapheno us vein appears patent and compressible segmentally. Ordering Physician: Ml Sal Referring Physician: Ml Sal Performed By: HONEY
== END | disposition home or self-care (01) ==
LOC: CVS 15:25
PROVIDERS: Referring Provider Nurse Practitioner Gerontology; Visit Provider Nurse Practitioner Gerontology
DX: R60.0 Localized edema (principal); M79.89 Other specified soft tissue disorders
CPT/HCPCS: 93971

== ENCOUNTER → 2023-10-05 | Outpatient (CLI) | payer MEDICAID, SELFPAY ==
[2023-10-05 14:32] LABS: Hematocrit 35.3 % (40-54); Hemoglobin 11.7 g/dL (13.0-16.5); Mean Corp Hgb Conc 33.1 g/dL (32-36); Mean Corpuscular Hgb 32.6 pg (27.0-32.0); Mean Corpuscular Volume 98.3 fL (80-94); Platelet Count 188 K/mm3 (150-450); RBC Distribution Width CV 13.1 % (11.6-14.6); RBC Distribution Width SD 46.6 fl (35.1-43.9); Red Blood Count 3.59 M/mm3 (4.6-6.2); White Blood Count 11.3 K/mm3 (4.4-11.0)
[2023-10-05 14:48] LABS: BNP,B-Type NATRIURETIC PEPTIDE 16.9 pg/mL (0-100)
[2023-10-05 15:02] LABS: Vitamin B12 > 2000 pg/mL (211-911)
[2023-10-05 15:03] LABS: ALB/GLOB Ratio 0.9 RATIO (0.9-2.4); AST(SGOT) 33 U/L (15-37); Alanine Aminotransfer ALT/SGPT 20 U/L (16-61); Albumin, Serum 3.4 g/dL (3.2-5.0); Alkaline Phosphatase 152 U/L (45-117); Anion Gap 15 (5-15); BUN 25 mg/dL (7-18); BUN/Creat Ratio 13.2 RATIO (10-20); Calcium,Total 8.7 mg/dL (8.5-10.1); Chloride 99 mmol/L (98-107); Cholesterol 169 mg/dL (200); EST Glomerular Filtration Rate 38 mL/min (>60); Est Glom Filt Rate - Afr Amer 46 mL/min (>60); Globulin 3.7 g/dL (2.2-4.2); Glucose 111 mg/dL (74-106); High Density Lipoprotein 87 mg/dL; Protein, Total 7.1 g/dL (6.4-8.2); Sodium Level 133 mmol/L (136-145); Triglycerides 183 mg/dL; Very Low Density Lipoprotein 37 mg/dL (5-40)
== END | disposition home or self-care (01) ==
LOC: LAB 13:43
PROVIDERS: Referring Provider Nurse Practitioner Family; Visit Provider Nurse Practitioner Family
DX: R22.41 Localized swelling, mass and lump, right lower limb (principal); E53.9 Vitamin B deficiency, unspecified; K76.0 Fatty (change of) liver, not elsewhere classified; E78.2 Mixed hyperlipidemia; F10.11 Alcohol abuse, in remission; Z12.5 Encounter for screening for malignant neoplasm of prostate
CPT/HCPCS: 84153; 36415; 80053; 80061; 82607; 83880; 85027; G0103

== ENCOUNTER → 2023-10-13 | Outpatient (CLI) | payer MEDICAID, SELFPAY ==
--- NOTE | 2023-10-13 17:40 | RAD_ITS ---
INDICATION: PAIN EXAMINATION/TECHNIQUE: X-RAY - XR Spine Lumbar 2 Views COMPARISON: XR lumbar spine November 21, 2020. FINDINGS: Frontal and lateral views of the lumbar spine were obtained. No acute fracture is identified. 2 mm of anterolisthesis of L4 over L5 is similar to the prior exam. Mild degenerative changes. Several loops of small bowel are moderately dilated. RAD/Lumbar Spine 2 or 3 Views IMPRESSION: No acute fracture. Mild degenerative changes. Dilated loops of small bowel could represent enteritis, ileus or small bowel obstruction. Electronically Signed: Ashwin Ibrahim MD at 22:26 EST ,
--- NOTE | 2023-10-13 17:40 | RAD_ITS ---
INDICATION: PAIN EXAMINATION/TECHNIQUE: X-RAY - XR Spine Thoracic 3 Views COMPARISON: XR thoracic spine January 11, 2020 FINDINGS: 3 views of the thoracic spine were obtained. A fracture of a mid to lower thoracic vertebral body, likely T8 or T9 results in loss of height of 50-75% and is new since the prior exam. Mild to moderate degenerative changes of the thoracic spine. A mildly displaced fracture of the left lateral fourth rib is new since the prior exam. RAD/Thoracic Spine 3 Views IMPRESSION: Fracture of a mid to lower thoracic vertebral body, likely T8 or T9, with loss of height of 50-75%. Fracture of the left lateral fourth rib. Electronically Signed: Ashwin Ibrahim MD at 22:33 EST ,
== END | disposition home or self-care (01) ==
LOC: RAD 17:36
PROVIDERS: Visit Provider Anesthesiology Pain Medicine
DX: M51.36 Other intervertebral disc degeneration, lumbar region (principal); M51.37 Other intervertebral disc degeneration, lumbosacral region
CPT/HCPCS: 72072; 72100

== ENCOUNTER 2024-01-06 14:23 | Outpatient (CLI) | payer MEDICAID, SELFPAY ==
[2024-01-06 15:45] LABS: Anion Gap 8 (5-15); BUN 15 mg/dL (7-18); Chloride 108 mmol/L (98-107); Creatinine, Serum 1.07 mg/dL (0.70-1.30); EST Glomerular Filtration Rate 74 mL/min (>60); Est Glom Filt Rate - Afr Amer 89 mL/min (>60); Glucose 93 mg/dL (74-106); Potassium 3.7 mmol/L (3.5-5.1); Sodium Level 138 mmol/L (136-145)
== END 2024-01-06 23:59 | disposition home or self-care (01) ==
LOC: LAB 14:26
PROVIDERS: Referring Provider Nurse Practitioner Family; Visit Provider Nurse Practitioner Family
DX: I10 Essential (primary) hypertension (principal)
CPT/HCPCS: 36415; 80048

== ENCOUNTER → 2024-03-17 | Outpatient (CLI) | payer MEDICAID, SELFPAY | END | disposition home or self-care (01) | PROVIDERS: Referring Provider Nurse Practitioner Family; Visit Provider Nurse Practitioner Family | DX: R22.41 Localized swelling, mass and lump, right lower limb (principal) | CPT/HCPCS: 93971 ==

== ENCOUNTER → 2024-04-13 | Outpatient (CLI) | payer MEDICAID, SELFPAY ==
[2024-04-13 13:54] LABS: Hematocrit 41.8 % (40-54); Hemoglobin 13.7 g/dL (13.0-16.5); Mean Corp Hgb Conc 32.8 g/dL (32-36); Mean Corpuscular Hgb 31.9 pg (27.0-32.0); Mean Corpuscular Volume 97.4 fL (80-94); Mean Platelet Vol. 9.5 fl (6.2-12.0); Platelet Count 273 K/mm3 (150-450); RBC Distribution Width CV 12.8 % (11.6-14.6); RBC Distribution Width SD 45.4 fl (35.1-43.9); Red Blood Count 4.29 M/mm3 (4.6-6.2); White Blood Count 8.8 K/mm3 (4.4-11.0)
[2024-04-13 14:19] LABS: Vitamin B12 549 pg/mL (211-911)
[2024-04-13 14:20] LABS: AST(SGOT) 14 U/L (15-37); Alanine Aminotransfer ALT/SGPT 20 U/L (16-61); Albumin, Serum 3.6 g/dL (3.2-5.0); Alkaline Phosphatase 94 U/L (45-117); Anion Gap 6 (5-15); BUN 24 mg/dL (7-18); BUN/Creat Ratio 22.4 RATIO (10-20); Calcium,Total 9.2 mg/dL (8.5-10.1); Chloride 108 mmol/L (98-107); Cholesterol 212 mg/dL (200); Creatinine, Serum 1.07 mg/dL (0.70-1.30); EST Glomerular Filtration Rate 74 mL/min (>60); Est Glom Filt Rate - Afr Amer 89 mL/min (>60); Globulin 3.6 g/dL (2.2-4.2); Glucose 88 mg/dL (74-106); High Density Lipoprotein 61 mg/dL; Potassium 3.5 mmol/L (3.5-5.1); Protein, Total 7.2 g/dL (6.4-8.2); Sodium Level 139 mmol/L (136-145); Triglycerides 314 mg/dL; Very Low Density Lipoprotein 63 mg/dL (5-40)
[2024-04-13 14:26] LABS: Hemoglobin A1c 4.5 % (3.8-5.6)
[2024-04-18 12:08] LABS: Vitamin D 1,25-Dihydroxy 29.9 pg/mL (24.8-81.5)
== END | disposition home or self-care (01) ==
LOC: LAB 12:58
PROVIDERS: PCP Nurse Practitioner Family; Referring Provider Nurse Practitioner Family; Visit Provider Nurse Practitioner Family
DX: Z13.1 Encounter for screening for diabetes mellitus (principal); E53.9 Vitamin B deficiency, unspecified; K76.0 Fatty (change of) liver, not elsewhere classified; E78.2 Mixed hyperlipidemia
CPT/HCPCS: 36415; 80053; 80061; 82607; 82652; 83036; 85027

== ENCOUNTER 2024-05-06 21:16 | Emergency (ER) | payer MEDICAID, SELFPAY ==
[2024-05-06 21:17] VITALS: BP 141/101; PULSE 117; RESP 16; TEMP 36.1; O2SAT 99
[2024-05-06 21:26] VITALS: BMI 26.7
--- NOTE | 2024-05-06 21:29 | ED.VIS.DENTA ---
HPI History of Present Illness Chief Complaint: Dental Detail of Chief Complaint: Dental pain that started yesterday and now jaw swelling Informant: patient Onset/Context/Timing Onset: Yesterday Context: Sudden Onset Timing: Continuous Quality: Pain Location: Right lower molars Current Severity: Moderate Maximum Severity: Severe Worsened by: Cold liquids Associated Symptoms Assocated Symptom - Dental: jaw swelling, face swelling and cold sensitivity; Negative for fever or hot sensitivity Narrative Narrative: Patient is a 63-year-old male. He has history of fatty liver, nonsustained ventricular tachycardia, hyperlipidemia, who presents with dental pain that started yesterday. Jaw swelling and facial swelling started today. He denies change in voice. He denies drooling. He denies inability to open or close his mouth completely. He denies history rheumatic fever, valvular heart disease, mitral valve prolapse or SBE. Patient does drink daily and had a drink prior to arrival. Patient is not allergic to penicillin. He has not noted any skin lesions. He denies myalgias arthralgias. 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 Greater trochanter fracture Iron deficiency anemia Subcutaneous nodules Essential (primary) hypertension Hyperlipidemia Anxiety and depression Nicotine dependence Gynecomastia Hepatomegaly Non-sustained ventricular tachycardia Home Medications ?Medication ?Instructions ?Recorded ?Last Taken ?Type loratadine 10 mg tablet 10 mg PO DAILY allergies 07/31/18 07/31/18 History acetaminophen 500 mg capsule 500 - 1,000 mg (1 - 2 x 500 mg) PO 12/12/20 Unknown Rx .Q8hr PRN pain (scale score 4-6) #100 caps omeprazole 40 mg capsule,delayed 40 mg PO DAILY Indigestion 12/11/21 Unknown History release fluticasone fur. 100 mcg-umeclid 1 inh inhalation DAILY breathing 09/01/22 09/02/22 10:00 History 62.5 mcg-vilant 25 mcg inhalat.powder (Trelegy Ellipta) albuterol sulfate 90 mcg/actuation 2 puff inhalation Q4H PRN 12/18/22 Unknown History aerosol inhaler shortness of breath aripiprazole 5 mg tablet 5 mg PO DAILY mental health 12/18/22 Unknown History bupropion HCl 300 mg 24 hr tablet, 300 mg PO DAILY mental health 12/18/22 Unknown History extended release citalopram 20 mg tablet 20 mg PO DAILY mental health 12/18/22 Unknown History cyanocobalamin (vitamin B-12) 1,000 mcg IM QMONTH vitamin 12/18/22 Unknown History 1,000 mcg/mL injection solution mirtazapine 15 mg tablet (Remeron) 15 mg PO DAILY mental health 08/18/23 Unknown History folic acid 1 mg tablet 1 mg PO DAILY@0800 30 days #30 tabs 08/20/23 Unknown Rx potassium chloride 10 mEq 20 meq (2 x 10 mEq) PO DAILY 30 08/20/23 Unknown Rx capsule,extended release days #60 caps thiamine HCl (vitamin B1) 100 mg 100 mg PO DAILYCM 30 days #30 tabs 08/20/23 Unknown Rx tablet (Vitamin B-1) blood pressure monitor #1 ea 10/02/23 Unknown Rx tamsulosin 0.4 mg capsule 0.4 mg PO DAILY 04/05/24 Unknown History topiramate 50 mg tablet 50 mg PO DAILY 04/05/24 Unknown History cholestyramine (with sugar) 4 gram 4 g PO BID #348.6 grams 04/29/24 Unknown Rx oral powder citalopram 40 mg tablet 40 mg PO DAILY 05/06/24 Unknown History Allergy/AdvReac Type Severity Reaction Status Date / Time No Known Allergies Allergy Verified 05/06/24 21:21 Family History Father CVA (cerebral vascular accident) Myocardial infarction HAS ICD Heart disease Sister Breast cancer Mother Heart disease Sister Colon cancer Surgical History History of colonoscopy (01/2020) History of ankle surgery H/O shoulder surgery History of vascular surgery Social History household members: none Smoking Status: Current every day smoker tobacco type: cigarettes Tobacco: How many years used: 40 alcohol intake: current alcohol intake frequency: 3 or more drinks per day Alcohol type: hard liquor details: 8-16 ounces vodka daily. substance use type: does not use caffeine: Yes Type: carbonated beverages ROS ROS ED Constitutional Constitutional ED: Denies chills, fever(s), subjective, sweats or weight loss Eyes Eyes: Denies blurry vision or change in vision ENT ENT ED: Denies ear pain, rhinorrhea or sore throat Cardiovascular Cardiovascular: Denies chest pain or palpitations Respiratory/Chest Respiratory/Chest: Denies cough, dyspnea or dyspnea on exertion Gastrointestinal Gastrointestinal: Denies nausea or vomiting Integumentary Denies rash Neurologic Neurologic: Denies headache(s) Psychiatric Psychiatric: Denies anxiety Hematologic/Lymphatic Hematologic/Lymphatic: Denies easy bleeding or easy bruising Allergic/Immunologic Allergic/Immunologic ED: Reports mouth swelling; Denies tongue swelling or urticaria EXAM Physical Exam Const Vital Signs: 05/06/24 21:17 05/06/24 22:20 Temperature 97 F L 97.8 F Temperature Source Temporal Temporal Pulse Rate 117 H 105 H Respiratory Rate 16 20 H Blood Pressure 141/101 H 138/84 H Blood Pressure Mean 114 102 Pulse Ox 99 97 Oxygen Delivery Method Room Air Room Air Positive well nourished and well developed Constitutional Narrative: Vital signs are marked for slightly elevated blood pressure and tachycardia. He is not hypoxic or febrile. General Appearance ED: well developed; Negative for NAD HEENT HEENT Narrative: Head is atraumatic, cephalic. Ears normal. Nares patent. Posterior pharynx out erythema exudate. Uvula midline. No deviation with protrusion. Patient has necrotizing ulcerative gingivitis the proximity of tooth #30 and 31. There is swelling on the buccal side of the same teeth. He has significant facial swelling with some edema. There is no evidence of facial cellulitis. There is no trismus. There is no drooling. There is no dysphonia. The floor of his mouth is soft. tenderness; Negative for trauma Mouth ED: Yes lips normal, Yes tongue normal, Yes salivary gland normal and Yes oral and palatal mucosa abnormal Mouth: lips normal, tongue normal, salivary gland normal and oral and palatal mucosa abnormal Teeth and Gingiva: abnormal tooth and associated gingiva, caries, gingiva abnormal and poor dentition Throat: posterior oropharynx normal Eyes PERRL and EOMs intact bilaterally General Eye ED: Negative for pale conjunctiva or scleral icterus Neck No no lymphadenopathy, supple and no JVD General: submandibular swelling Chest Wall inspection of chest normal and palpation of chest normal Resp normal respiratory effort, no retractions and clear to auscultation bilaterally Cardio regular rhythm, S1 normal heart sound, S2 normal heart sound and no murmurs Rate: tachycardic Neuro oriented x3, CN's II-XII intact bilaterally and moves all extremities Sensorium / Orientation: alert Psych mental status grossly normal Skin no rashes or lesions noted and no wounds MDM MDM MDM Narrative Medical decision making narrative: Patient has a dental abscess as well as necrotizing ulcerative gingivitis. Drug of choice is metronidazole. Since patient drinks will treat with Augmentin. He will see pain medicine and department since he is ride home. Will obtain baseline blood work since he is tachycardic and to assess kidney function to determine if the dose of Augmentin needs to be adjusted. There is no evidence clinically of Ludewig's angina. There is no evidence of facial cellulitis. Lab Data Attestation: I reviewed the patient's lab results. Lab results narrative: White count is elevated 13.1 thousand without shift. Basic metabolic panel reveals a CO2 of 19 with a normal anion gap. Electrolytes are normal. Renal function is normal. Patient has 2 SIRS criteria. Labs: Laboratory Results - last 24 hr 05/06/24 21:45 WBC 13.1 H RBC 4.36 L Hgb 13.8 Hct 40.8 MCV 93.6 MCH 31.7 MCHC 33.8 RDW Std Deviation 42.0 RDW Coeff of Susanne 12.1 Plt Count 246 MPV 9.1 Immature Gran % (Auto) 0.700 Neut % (Auto) 67.8 Lymph % (Auto) 19.5 Wetzel % (Auto) 9.0 Eos % (Auto) 2.4 Baso % (Auto) 0.6 Absolute Neuts (auto) 8.9 H Absolute Lymphs (auto) 2.55 Nucleated RBC % 0 Sodium 140 Potassium 3.6 Chloride 111 H Carbon Dioxide 19.0 L Anion Gap 10 BUN 18 Creatinine 1.03 Estim Creat Clear Calc 79.53 Est GFR (MDRD) Af Amer 93 Est GFR (MDRD) Non-Af 77 BUN/Creatinine Ratio 17.5 Glucose 97 Calcium 8.5 Discharge Plan Triage Chief Complaint: Dental ED Provider: Luis Carlos Yoon Dx/Rx/DC Orders Clinical Impression: Sepsis without acute organ dysfunction, Dental infection, Necrotizing ulcerative gingivitis, Dental caries Instructions: Dental Abscess Prescriptions: No Action citalopram 20 mg tablet 20 mg PO DAILY Rx Instructions: Take with 40 mg tablet to = 60 mg daily acetaminophen 500 mg capsule 500 - 1,000 mg PO .Q8hr PRN (Reason: pain (scale score 4-6)) Qty: 100 1RF aripiprazole 5 mg tablet 5 mg PO DAILY bupropion HCl 300 mg tablet extended release 24 hr 300 mg PO DAILY cyanocobalamin (vitamin B-12) 1,000 mcg/mL solution 1,000 mcg IM QMONTH albuterol sulfate 90 mcg/actuation HFA aerosol inhaler 2 puff inhalation Q4H PRN (Reason: shortness of breath) Patient Comments: INHALE 2 PUFFS BY MOUTH EVERY 4 HOURS NEEDED (DME) blood pressure monitor Kit See Rx Instructions .Route Qty: 1 0RF Rx Instructions: As directed tamsulosin 0.4 mg capsule 0.4 mg PO DAILY topiramate 50 mg tablet 50 mg PO DAILY loratadine 10 MG tablet 10 mg PO DAILY omeprazole 40 mg capsule,delayed release(DR/EC) 40 mg PO DAILY Rx Instructions: TAKE 1 CAPSULE BY MOUTH EVERY DAY Trelegy Ellipta 100-62.5-25 mcg blister with device 1 inh INHALATION DAILY Patient Comments: INHALE 1 PUFF DAILY mirtazapine [Remeron] 15 mg tablet 15 mg PO DAILY thiamine HCl (vitamin B1) [Vitamin B-1] 100 mg Tablet 100 mg PO DAILYCM 30 Days Qty: 30 2RF folic acid 1 mg Tablet 1 mg PO DAILY@0800 30 Days Qty: 30 2RF potassium chloride 10 mEq capsule, extended release 20 meq PO DAILY 30 Days Qty: 60 0RF citalopram 40 mg tablet 40 mg PO DAILY cholestyramine (with sugar) 4 gram powder 4 g PO BID Qty: 348.6 1RF Rx Instructions: administer w/meal; avoid other meds within 1hr before or 4-6hr after dose Primary Care Provider: Gina Peres Referrals: Gina Peres, REPAIR CAMERAMAN-C [Primary Care Provider] - Activity Restrictions/Additional Instructions: 1. Take antibiotics until gone 2. You must contact a dentist. Recommend you walk into the [facility] on Thursday. 3. If you are unable to open or close her mouth completely, have change in voice, you are drooling or have any concerns please return to the emergency department Print Language: Hong Konger Disposition Disposition: Home, Self Care
[2024-05-06] MEDS: Ondansetron 4 MG/2 ML Vial IV (21:55)
[2024-05-06] MEDS: Morphine 4 MG/ML Syringe IV (21:55)
[2024-05-06] MEDS: Piperacil/Tazobactam 4.5 GM in 0.9% Normal Saline (100mL MB+) 100 ML IV (21:55)
[2024-05-06 22:02] LABS: Absolute Lymphocyte Count 2.55 X10^3/uL (0.83-4.51); Absolute Neutrophil Count 8.9 X10^3/uL (2.0-7.7); Basophil# 0.08 X10^3/uL; Basophil% 0.6 % (0-1); Eosinophil# 0.32 X10^3/uL; Eosinophils% 2.4 % (0-5); Hematocrit 40.8 % (40-54); Hemoglobin 13.8 g/dL (13.0-16.5); Lymphocyte # 2.55 X10^3/ul (0.83-4.51); Lymphocyte % 19.5 % (19-41); Mean Corp Hgb Conc 33.8 g/dL (32-36); Mean Corpuscular Hgb 31.7 pg (27.0-32.0); Mean Corpuscular Volume 93.6 fL (80-94); Mean Platelet Vol. 9.1 fl (6.2-12.0); Monocyte# 1.18 X10^3/uL; NRBC Flagged by Analyzer 0 % (0-5); Neutrophil # 8.85 X10^3/uL (2.7-7.7); Neutrophil % 67.8 % (47-70); Platelet Count 246 K/mm3 (150-450); RBC Distribution Width CV 12.1 % (11.6-14.6); Red Blood Count 4.36 M/mm3 (4.6-6.2); White Blood Count 13.1 K/mm3 (4.4-11.0)
[2024-05-06 22:14] LABS: Anion Gap 10 (5-15); BUN 18 mg/dL (7-18); BUN/Creat Ratio 17.5 RATIO (10-20); Calcium,Total 8.5 mg/dL (8.5-10.1); Chloride 111 mmol/L (98-107); Creatinine, Serum 1.03 mg/dL (0.70-1.30); EST Glomerular Filtration Rate 77 mL/min (>60); Est Glom Filt Rate - Afr Amer 93 mL/min (>60); Estimated Creatinine Clearance 79.53 ml/min; Glucose 97 mg/dL (74-106); Potassium 3.6 mmol/L (3.5-5.1); Sodium Level 140 mmol/L (136-145)
[2024-05-06 22:20] VITALS: BP 138/84; PULSE 105; RESP 20; TEMP 36.6; O2SAT 97
== END 2024-05-06 23:01 | disposition home or self-care (01) ==
PROVIDERS: Emergency Provider Emergency Medicine; PCP Nurse Practitioner Family; Visit Provider Emergency Medicine
DX: A41.9 Sepsis, unspecified organism (principal); J44.9 Chronic obstructive pulmonary disease, unspecified; K02.9 Dental caries, unspecified; E78.5 Hyperlipidemia, unspecified; K04.7 Periapical abscess without sinus; A69.1 Other Vincent's infections; I10 Essential (primary) hypertension; Z79.899 Other long term (current) drug therapy; Z79.51 Long term (current) use of inhaled steroids; F41.8 Other specified anxiety disorders; F17.210 Nicotine dependence, cigarettes, uncomplicated
CPT/HCPCS: 80048; 85025; 96365; 96375; 99283; J7050; J2405

== ENCOUNTER 2024-11-15 09:00 | Outpatient (RCR) | payer MEDICAID, MEDICARE, SELFPAY ==
--- NOTE | 2024-05-24 14:32 | HP.PTEVAL ---
Patient's Visit Information Visit Information Visit Information: YADIEL SOSA is a 63 year old M referred to Physical Therapy by Gina Peres [facility], LICENSED PSYCHIATRIC TECHNICIAN-C with a diagnosis of MUSCLE WEAKNESS GENERALIZED. Date of Evaluation: 05/24/24 Physical Therapist: David Johnson, PT, Cert MDT, OCS Visit Plan Frequency: 2x /Week Duration: 6 Weeks Plan: PATIENT USES W/C AT HOME BUT CAN WALK SHORT DISTANCE WITH WALKER PT INTERVENTIONS PROGRESSIVE GAIT TRAINING ,BALANCE TRAINING,BLE STRENGTHENING ,AEROBIC EX'S AND FUNCTIONAL STRENGTHENING Subjective Subjective: This 63 y/o male presents to physical therapy with weakness and frequent falls. Patient seen DR recommended PT due to weakness and frequent falls.Patient has not fallen past month ,but was depressed from losing partner. Patient c/o weakness and stamin and unable to walk. Patient home situation power lift to entrance to house. Patient lives 2 story home bath 2nd floor 2 bedrooms upstairs and has day bed on 1st floor. Walk in shower and grab rails with shower chair. Patient will have Aide Thursday 3x week 4 hours /day. Patient denies paresthesia/tingling. Patient sleeping okay at night. Patient has own w/c patient stays in w/c for mobility . Patient has FWW and rollator short distances unable to use due to space.Patient condition affects QOL and function with gait. Patient goals to walk SOCIAL: single VOCATION: disabiliy Pain Bilateral Back: Pain Intensity (Out of 10): 4 Pain Intensity Range: 10 Objective Objective: POSTURE: posterior pelvic tilt rounded shoulder ,standing with hips/knees flexed NEURO: denies paresthesia/tingling ,reflexes L3-4,L4-5 ,L5 -S 1/3 GAIT: reciprocal pattern hips/knees flexed slow nesha decrease hip/knee flexion ~ 20ft with FWW TRANSFER: sit-stand with SBA BED MOBILITY: mod I BALANCE: fair- with fww MMT: ( peak force) quads 9.9 right ,left 10.3 ,hip flexion right 13.1 ,left 12.2 ,hamstrings left 12.9 ,right 13.2 FLEXABILIY: mod tight Balance/Special Test Scores Lower Extremity Functional Score: 13 Goals Goal 1:: Patient to be I with HEP Goal Time Frame: 4-6 Weeks Goal 2:: Patient reuben ambulate with supervision/mod I 150 ft x2 with fww. Goal Time Frame: 4-6 Weeks Goal 3:: Patient to improve peak force quads/hams/hip by 10 # strength to improve function. Goal Time Frame: 4-6 Weeks Goal 4:: Patient to improve LFES score by 5-10 points to improve QOL and function Goal Time Frame: 4-6 Weeks Goal 5:: Patient to demonstrate 50% improvement with increase function with gait and mod I with transfers safely Goal Time Frame: 4-6 Weeks Goal 6:: Patient to improve dynamic balance with fww fair+ to decrease risk of falls Goal Time Frame: 4-6 Weeks Rehabilitation Potential Physical Therapy Diagnosis: This patient has generalized weakness with decrease gait with min walking at home ,decrease strength BLE ,impaired balance thus benefit skilled PT to address these impairments Rehabilitation Potential: Fair Anticipated Interventions Patient/Client Instruction: Educate patient on: Condition and Plan of Care For the Purpose of:: To decrease pain, To increase ROM, To improve muscle performance and motor function, To improve ability to perform ADL's, To increase tolerance to activity/condition/position, To improve performance and independence with ADL's, To improve ability of physical actions for home/community/work/leisure, To improve gait and locomotor functions, To improve safety with gait and To improve tolerance to ADL's Therapeutic Exercise to Include: Strength training, Endurance training, Balance training, Flexibilty training, Gait and locomotor training and Active ROM Comment: BLE QUADS/HAMS/HIP For the Purpose of:: To improve muscle performance and motor function, To improve ability to perform ADL's, To increase tolerance to activity/condition/position, To improve ability of physical actions for home/community/work/leisure, To improve gait and locomotor functions, To increase flexibility/ROM, To improve endurance, To improve balance and To improve tolerance to ADL's Text: Thank you for the opportunity to evaluate your patient. For Medicare and Medicare HMO plans, please review the plan of care and approve it. It will need to be FAXED BACK to us at [phone] for Medicare purposes. For Medicare only, by signing this I certify the plan of care. Please let me know if there are questions or concerns regarding this plan of care. Physician Signature: Date:
--- NOTE | 2024-08-25 09:30 | HP.PTREVAL_ITS ---
Re-Evaluation Intro: Gina Peres [facility], CHANNEL PROCESS PLANT OPERATOR-C, It has been my pleasure to treat YADIEL SOSA over the last 25 visits for MUSCLE WEAKNESS GENERALIZED. Please see the progress note below for an update on the physical therapy plan of care! Subjective Subjective: Doing better.. walking with aide using walker more Objective Objective/Function: POSTURE: posterior pelvic tilt rounded shoulder ,standing with hips/knees flexed NEURO: denies paresthesia/tingling ,reflexes L3-4,L4-5 ,L5 -S 1/3 GAIT: reciprocal pattern hips/knees flexed slow nesha decrease hip/knee flexion ~ 350 FT( able to ambulate ~50 FT with no device with CGA w/c follow) TRANSFER: sit-stand with mod I BED MOBILITY: mod I BALANCE: fair +with fww MMT: ( peak force) quads 44.8 ght ,left 43.8 ,hip flexion right 44.5 ,left 44.7 ,hamstrings left 37.2 ,right 33.5 FLEXABILIY: min tight hamstrings Plan Plan Plan: PT INTERVENTIONS PROGRESSIVE GAIT TRAINING ,BALANCE TRAINING,BLE STRENGTHENING ,AEROBIC EX'S AND FUNCTIONAL STRENGTHENING Balance/Gait/Functional tests Balance/Special Test Scores Lower Extremity Functional Score: 24 Goals Goals Goal 1:: Patient to be I with HEP Goal Time Frame: 4-6 Weeks Goal Progress: Progressing Goal 2:: Patient reuben ambulate with supervision/mod I 500 ft x with fww.( NEW GOAL) Progressing with no device 100ft with CGA Goal Time Frame: 4-6 Weeks Goal Progress: Progressing Goal 3:: Patient to improve peak force quads/hams/hip by 10 # strength to improve function.( NEW GOAL) Goal Time Frame: 4-6 Weeks Goal Progress: Progressing Goal 4:: Patient to improve LFES score by 5-10 points to improve QOL and function Goal Time Frame: 4-6 Weeks Goal Progress: Progressing Goal 5:: Patient to demonstrate 80% improvement with increase function with gait and mod I with transfers safely( new goal) Goal Time Frame: 4-6 Weeks Goal Progress: Progressing Goal 6:: Patient to improve dynamic balance with fww fair+ to decrease risk of falls Goal Time Frame: 4-6 Weeks Goal Progress: Progressing Anticipated Interventions Anticipated Interventions Patient/Client Instruction: Educate patient on: Condition and Plan of Care For the Purpose of:: To decrease pain, To increase ROM, To improve muscle performance and motor function, To improve ability to perform ADL's, To increase tolerance to activity/condition/position, To improve performance and independence with ADL's, To improve ability of physical actions for home/community/work/leisure, To improve gait and locomotor functions, To improve safety with gait and To improve tolerance to ADL's Therapeutic Exercise to Include: Strength training, Endurance training, Balance training, Flexibilty training, Gait and locomotor training and Active ROM Comment: BLE QUADS/HAMS/HIP For the Purpose of:: To improve muscle performance and motor function, To improve ability to perform ADL's, To increase tolerance to activity/condition/position, To improve ability of physical actions for home/community/work/leisure, To improve gait and locomotor functions, To increase flexibility/ROM, To improve endurance, To improve balance and To improve tolerance to ADL's Re-Evaluation Ending Re-evaluation ending: Please do not hesitate to contact me at [phone] by phone or if you have questions or concerns regarding this new plan of care! Sincerely, David Johnson, PT, Cert MDT, OCS
--- NOTE | 2024-09-27 10:13 | HP.PTREVAL_ITS ---
Re-Evaluation Intro: Gina Peres [facility], CONTROLS TECHNICIAN-C, It has been my pleasure to treat YADIEL SOSA over the last 33 visits for MUSCLE WEAKNESS GENERALIZED. Please see the progress note below for an update on the physical therapy plan of care! Subjective Subjective: Doing good , Walking with cane Independent at home SURVEILLANCE MANAGER 3 x week for cooking/cleaning Objective Objective/Function: Patient will cont to benefit from skilled PT progressing with gait using cane and adjustment with new goals and appropriate POSTURE: posterior pelvic tilt rounded shoulder ,standing with hips/knees flexed NEURO: denies paresthesia/tingling ,reflexes L3-4,L4-5 ,L5 -S / GAIT: reciprocal pattern hips/knees with cane with close SBA 300 ft TRANSFER: sit-stand with mod I BALANCE: fair +with cane MMT: ( peak force) quads 44.7 ght ,left 42.8 ,hip flexion right 44.7 ,left 44.8 ,hamstrings left 37.2 ,right 33.5 FLEXABILIY: min tight hamstrings Plan Plan Plan: PT INTERVENTIONS PROGRESSIVE GAIT TRAINING ,BALANCE TRAINING,BLE STRENGTHENING ,AEROBIC EX'S AND FUNCTIONAL STRENGTHENING Balance/Gait/Functional tests Balance/Special Test Scores Lower Extremity Functional Score: 34 Goals Goals Goal 1:: Patient to be I with HEP Goal Time Frame: 4-6 Weeks Goal Progress: Progressing Goal 2:: Patient reuben ambulate with mod I 500 ft x with cane.( NEW GOAL) Goal Time Frame: 4-6 Weeks Goal Progress: Progressing Goal 3:: Patient to improve peak force quads/hams/hip by 10 # strength to improve function.( NEW GOAL) Goal Time Frame: 4-6 Weeks Goal Progress: Progressing Goal 4:: Patient to improve LFES score by 5-10 points to improve QOL and function Goal Time Frame: 4-6 Weeks Goal Progress: Progressing Goal 5:: Patient to improve CATSIB 5 points to improve balance :( new goal) Goal Time Frame: 4-6 Weeks Goal Progress: Progressing Goal 6:: Patient to improve functional gait assessment by 5 points to improve gait.( new goal) Goal Time Frame: 4-6 Weeks Goal Progress: Progressing Anticipated Interventions Anticipated Interventions Patient/Client Instruction: Educate patient on: Condition and Plan of Care For the Purpose of:: To decrease pain, To increase ROM, To improve muscle performance and motor function, To improve ability to perform ADL's, To increase tolerance to activity/condition/position, To improve performance and independence with ADL's, To improve ability of physical actions for home/community/work/leisure, To improve gait and locomotor functions, To improve safety with gait and To improve tolerance to ADL's Therapeutic Exercise to Include: Strength training, Endurance training, Balance training, Flexibilty training, Gait and locomotor training and Active ROM Comment: BLE QUADS/HAMS/HIP For the Purpose of:: To improve muscle performance and motor function, To improve ability to perform ADL's, To increase tolerance to activity/condition/position, To improve ability of physical actions for home/community/work/leisure, To improve gait and locomotor functions, To increase flexibility/ROM, To improve endurance, To improve balance and To improve tolerance to ADL's Re-Evaluation Ending Re-evaluation ending: Please do not hesitate to contact me at [phone] by phone or if you have questions or concerns regarding this new plan of care! Sincerely, David Johnson, PT, Cert MDT, OCS
--- NOTE | 2024-10-28 09:36 | HP.PTREVAL ---
Re-Evaluation Intro: Gina Peres, [facility], MOT[employer] BLOCK MECH[employer]IC-[employer], It has been my pleasure to treat YADIEL SOSA over the last 40 visits for MUSCLE WEAKNESS GENERALIZED. Please see the progress note below for an update on the physical therapy plan of care! Subjective Subjective: Pt states he has been doing really well, uses cane to ambulate when at home and FWW when outside. Only uses w/c when coming to therapy and when going long distances. Objective Objective/Function: Pt has shown great progress overall, showing improved endurance with ambulation today with use of SPC and CGA. Increased volume with step ups, no change with PRE's in gym. Pt requires extended rest breaks between functional exercises in PT area today. Plan Plan Plan: PT INTERVENTIONS PROGRESSIVE GAIT TRAINING ,BALANCE TRAINING,BLE STRENGTHENING ,AEROBIC EX'S AND FUNCTIONAL STRENGTHENING Balance/Gait/Functional tests Balance/Special Test Scores Lower Extremity Functional Score: 34 Goals Goals Goal 1:: Patient to be I with HEP Goal Time Frame: 4-6 Weeks Goal Progress: Progressing Goal 2:: Patient reuben ambulate with mod I 500 ft x with cane.( NEW GOAL) Goal Time Frame: 4-6 Weeks Goal Progress: Progressing Goal 3:: Patient to improve peak force quads/hams/hip by 10 # strength to improve function.( NEW GOAL) Goal Time Frame: 4-6 Weeks Goal Progress: Progressing Goal 4:: Patient to improve LFES score by 5-10 points to improve QOL and function Goal Time Frame: 4-6 Weeks Goal Progress: Progressing Goal 5:: Patient to improve CATSIB 5 points to improve balance :( new goal) Goal Time Frame: 4-6 Weeks Goal Progress: Progressing Goal 6:: Patient to improve functional gait assessment by 5 points to improve gait.( new goal) Goal Time Frame: 4-6 Weeks Goal Progress: Progressing Anticipated Interventions Anticipated Interventions Patient/Client Instruction: Educate patient on: Condition and Plan of Care For the Purpose of:: To decrease pain, To increase ROM, To improve muscle performance and motor function, To improve ability to perform ADL's, To increase tolerance to activity/condition/position, To improve performance and independence with ADL's, To improve ability of physical actions for home/community/work/leisure, To improve gait and locomotor functions, To improve safety with gait and To improve tolerance to ADL's Therapeutic Exercise to Include: Strength training, Endurance training, Balance training, Flexibilty training, Gait and locomotor training and Active ROM Comment: BLE QUADS/HAMS/HIP For the Purpose of:: To improve muscle performance and motor function, To improve ability to perform ADL's, To increase tolerance to activity/condition/position, To improve ability of physical actions for home/community/work/leisure, To improve gait and locomotor functions, To increase flexibility/ROM, To improve endurance, To improve balance and To improve tolerance to ADL's Re-Evaluation Ending Re-evaluation ending: Please do not hesitate to contact me at [phone] by phone or if you have questions or concerns regarding this new plan of care! Sincerely, David Johnson, PT, Cert MDT, OCS
--- NOTE | 2024-10-28 09:37 | HP.PTREVAL ---
Re-Evaluation Intro: Gina Peres [facility], [employer]LE [employer]ER-[employer], It has been my pleasure to treat YADIEL SOSA over the last 41 visits for MUSCLE WEAKNESS GENERALIZED. Please see the progress note below for an update on the physical therapy plan of care! Subjective Subjective: Patient walking around with cane . Uses with cane Dr Talbert Objective Objective/Function: *Patient will cont to benefit from skilled PT progressing with gait using cane and adjustment with new goals and appropriate progressing with gait at home with cane* POSTURE: posterior pelvic tilt rounded shoulder ,standing with hips/knees flexed NEURO: denies paresthesia/tingling ,reflexes L3-4,L4-5 ,L5 -S 1/ GAIT: reciprocal pattern hips/knees with cane with SBA/supervision 340 ft TRANSFER: sit-stand with mod I BALANCE: fair +with cane MMT: ( peak force) quads 47.7 ght ,left 41.8 ,hip flexion right 60.7 ,left 50.5 ,hamstrings left 42.2 ,right 43.5 FLEXABILIY: min tight hamstrings Plan Plan Plan: work on gait without cane PT INTERVENTIONS PROGRESSIVE GAIT TRAINING ,BALANCE TRAINING,BLE STRENGTHENING ,AEROBIC EX'S AND FUNCTIONAL STRENGTHENING Balance/Gait/Functional tests Balance/Special Test Scores Functional Gait Assessment Score: 13 % Disability: 56.6700 CATSIB Score (Max score 120 seconds): 55 Lower Extremity Functional Score: 34 Goals Goals Goal 1:: Patient to be I with HEP Goal Time Frame: 4-6 Weeks Goal Progress: Progressing Goal 2:: Patient reuben ambulate with mod I 500 ft x with/without cane.( NEW GOAL) Goal Time Frame: 4-6 Weeks Goal Progress: Progressing Goal 3:: Patient to improve peak force quads/hams/hip by 10 # strength to improve function.( NEW GOAL) Goal Time Frame: 4-6 Weeks Goal Progress: Progressing Goal 4:: Patient to improve LFES score by 5-10 points to improve QOL and function Goal Time Frame: 4-6 Weeks Goal Progress: Progressing Goal 5:: Patient to improve CATSIB 5 points to improve balance :( new goal) Goal Time Frame: 4-6 Weeks Goal Progress: Progressing Goal 6:: Patient to improve functional gait assessment by 5 points to improve gait.( new goal) Goal Time Frame: 4-6 Weeks Goal Progress: Progressing Anticipated Interventions Anticipated Interventions Patient/Client Instruction: Educate patient on: Condition and Plan of Care For the Purpose of:: To decrease pain, To increase ROM, To improve muscle performance and motor function, To improve ability to perform ADL's, To increase tolerance to activity/condition/position, To improve performance and independence with ADL's, To improve ability of physical actions for home/community/work/leisure, To improve gait and locomotor functions, To improve safety with gait and To improve tolerance to ADL's Therapeutic Exercise to Include: Strength training, Endurance training, Balance training, Flexibilty training, Gait and locomotor training and Active ROM Comment: BLE QUADS/HAMS/HIP For the Purpose of:: To improve muscle performance and motor function, To improve ability to perform ADL's, To increase tolerance to activity/condition/position, To improve ability of physical actions for home/community/work/leisure, To improve gait and locomotor functions, To increase flexibility/ROM, To improve endurance, To improve balance and To improve tolerance to ADL's Re-Evaluation Ending Re-evaluation ending: Please do not hesitate to contact me at [phone] by phone or if you have questions or concerns regarding this new plan of care! Sincerely, David Johnson, PT, Cert MDT, OCS
== END 2024-11-15 19:00 | disposition home or self-care (01) ==
LOC: PT 09:00
PROVIDERS: PCP Nurse Practitioner Family; Referring Provider Nurse Practitioner Family; Visit Provider Nurse Practitioner Family
DX: R53.1 Weakness (principal); Z87.81 Personal history of (healed) traumatic fracture; Z91.81 History of falling
CPT/HCPCS: 97110; 97116; 97162; 97530

== ENCOUNTER 2024-11-29 09:00 | Outpatient (RCR) | payer MEDICARE, MEDICAID, SELFPAY ==
--- NOTE | 2024-11-29 09:19 | HP.PTDCSUM_ITS ---
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 Discharge Date: 11/29/24 Please see the following information for a summary of their discharge status. Subjective Subjective: Doing well happy with progress Patient uses cane for gait Overall Improvement % Improvement: 90 Objective Objective/Function: POSTURE: posterior pelvic tilt rounded shoulder ,standing with hips/knees flexed NEURO: denies paresthesia/tingling ,reflexes L3-4,L4-5 ,L5 -S 1/ GAIT: Ambulated with cane short distances in community ,ambulates with no device TRANSFER: I BALANCE: GOOD- MMT: ( peak force) quads 47.7 ght ,left 41.8 ,hip flexion right 60.7 ,left 50.5 ,hamstrings left 42.2 ,right 43.5 FLEXABILIY: min tight hamstrings Goals Goal 1:: Patient to improve peak force quads/hams/hip by 10 # strength to improve function.( NEW GOAL) Goal Progress: Goal Met Goal 2:: Patient reuben ambulate with mod I 500 ft x with cane.( NEW GOAL) Goal Progress: Goal Met Goal 3:: Patient to improve LFES score by 5-10 points to improve QOL and function Goal Progress: Goal Met Goal 4:: Patient to improve CATSIB 5 points to improve balance :( new goal) Goal Progress: Progressing Goal 5:: Patient to improve functional gait assessment by 5 points to improve gait.( new goal) Goal Progress: Goal Met Goal 6:: I with HEP to improve gait and balance Goal Progress: Goal Met Plan Plan: D/C D/C Information Discharge Comments: HEP DOING GREAT d/c sentence: If there are questions or concerns regarding this patient's physical therapy, please feel free to call me at [phone]. Thank you for the referral of this patient. Sincerely, David Johnson, PT, Cert MDT, OCS Balance/Gait/Functional tests Balance/Special Test Scores Lower Extremity Functional Score: 54 Improvement % Improvement: 90
== END 2024-11-29 09:55 | disposition home or self-care (01) ==
LOC: PT 09:00
PROVIDERS: PCP Nurse Practitioner Family; Referring Provider Nurse Practitioner Family; Visit Provider Nurse Practitioner Family
DX: R53.1 Weakness (principal); Z91.81 History of falling
CPT/HCPCS: 97110; 97530

== ENCOUNTER → 2024-12-22 | Outpatient (CLI) | payer MEDICARE, MEDICAID, SELFPAY ==
[2024-12-22 16:29] LABS: Absolute Lymphocyte Count 3.49 X10^3/uL (0.83-4.51); Absolute Neutrophil Count 7.4 X10^3/uL (2.0-7.7); Basophil# 0.07 X10^3/uL; Basophil% 0.6 % (0-1); Eosinophil# 0.33 X10^3/uL; Eosinophils% 2.7 % (0-5); Hematocrit 39.2 % (40-54); Lymphocyte # 3.49 X10^3/ul (0.83-4.51); Lymphocyte % 28.1 % (19-41); Mean Corp Hgb Conc 33.2 g/dL (32-36); Mean Corpuscular Hgb 30.7 pg (27.0-32.0); Mean Corpuscular Volume 92.5 fL (80-94); Mean Platelet Vol. 10.3 fl (6.2-12.0); Monocyte% 8.9 % (0-10); NRBC Flagged by Analyzer 0 % (0-5); Neutrophil # 7.37 X10^3/uL (2.7-7.7); Neutrophil % 59.3 % (47-70); Platelet Count 270 K/mm3 (150-450); RBC Distribution Width CV 12.2 % (11.6-14.6); RBC Distribution Width SD 41.1 fl (35.1-43.9); Red Blood Count 4.24 M/mm3 (4.6-6.2); White Blood Count 12.4 K/mm3 (4.4-11.0)
[2024-12-22 17:08] LABS: AST(SGOT) 16 U/L (15-37); Alanine Aminotransfer ALT/SGPT 22 U/L (16-61); Albumin, Serum 3.5 g/dL (3.2-5.0); Alkaline Phosphatase 88 U/L (45-117); Anion Gap 8 (5-15); BUN 23 mg/dL (7-18); BUN/Creat Ratio 18.3 RATIO (10-20); Calcium,Total 9.3 mg/dL (8.5-10.1); Chloride 106 mmol/L (98-107); Cholesterol 161 mg/dL (200); Creatinine, Serum 1.26 mg/dL (0.70-1.30); EST Glomerular Filtration Rate 61 mL/min (>60); Est Glom Filt Rate - Afr Amer 74 mL/min (>60); Globulin 3.4 g/dL (2.2-4.2); Glucose 92 mg/dL (74-106); High Density Lipoprotein 56 mg/dL; PSA,Total - Annual Screen 0.22 ng/mL (0.00-4.00); Potassium 3.8 mmol/L (3.5-5.1); Protein, Total 6.9 g/dL (6.4-8.2); Sodium Level 137 mmol/L (136-145); Triglycerides 258 mg/dL; Very Low Density Lipoprotein 52 mg/dL (5-40)
[2024-12-22 17:33] LABS: Hepatitis C Antibody Non-Reactive (Nonreactive)
== END | disposition home or self-care (01) ==
LOC: POLAB3 15:53
PROVIDERS: PCP Nurse Practitioner Family; Visit Provider Family Medicine Geriatric Medicine
DX: I10 Essential (primary) hypertension (principal); E78.5 Hyperlipidemia, unspecified; Z13.89 Encounter for screening for other disorder; Z12.5 Encounter for screening for malignant neoplasm of prostate
CPT/HCPCS: 36415; 80053; 80061; 84153; 84443; 85025; 86803; G0103

== ENCOUNTER → 2025-02-15 | Outpatient (CLI) | payer MEDICARE, MEDICAID, SELFPAY ==
--- NOTE | 2025-02-15 07:04 | AAAS_ITS ---
Reason For Study Reason For Study: AAA Screening Aorta Measurements Aorta Doppler Measurements Proximal aorta measures1.90 x 2.09cm. in cross-sectional Peak systolic flow velocities within the proximal aorta axis. measure 92.2 cm/sec. Proximal aorta measures2.35cm. in longitudinal axis. Peak systolic flow velocities within the mid aorta measure Mid aorta measures2.02 x 1.86cm. in cross-sectional axis. 95.9 cm/sec. Mid aorta measures1.92cm. in longitudinal axis. Peak systolic flow velocities within the distal aorta Distal aorta measures1.79 x1.98cm. in cross-sectional axis. measure 88.6 cm/sec. Distal aorta measures1.75cm. in longitudinal axis. Left Iliac Artery Left iliac artery measures 1.12 x 1.06 cm. in the cross-sectional axis. Left iliac artery measures 1.15 cm. in the longitudinal axis. Peak systolic velocity in the left iliac artery measures 106.7 cm/sec. Right Iliac Artery Right iliac artery measures 1.14 x 1.15 cm. in the cross-sectional axis. Right iliac artery measures 1.18 cm. in the longitudinal axis. Peak systolic velocity in the right iliac artery measures 112.2 cm/sec. Procedure Aorta IVC Iliac vasculature or bypass grafts 36937. The exam was diagnostic. Exam performed in department. VL/AAA Screening Interpretation Summary The dimensions of the intra-abdominal aorta appear normal, without evidence of aneurysmal dilatation. The iliac arteries also appear normal in caliber bilaterally. The intra-abdominal aorta and iliac arteries appear patent, demonstrating normal, pulsatile arterial flow and normal peak systolic velocities. Ordering Physician: Chris Wyman Chi Referring Physician: Chris Wyman Chi Performed By: Camron Vazquez, RVT
--- NOTE | 2025-02-15 07:05 | CT_ITS ---
PROCEDURE: LOW DOSE CT LUNG SCREENING 02/15/2025 REASON FOR EXAM: Nicotine dependence. Lung cancer screening. 40 pack-year history. TECHNIQUE: Contiguous unenhanced axial CT images were obtained through the chest. Coronal and Sagittal reconstruction series were provided. One or more dose reduction techniques were used (e.g., Automated exposure control, adjustment of the mA and/or kV according to patient size, use of iterative reconstruction technique). COMPARISON: Chest radiograph 09/07/2023. No prior chest CT. RADIATION DOSE SUMMARY: DLP: 100.46 mGycm FINDINGS: Bones/soft tissues: The bones are osteopenic, with moderate degenerative changes in the spine. There is age-indeterminate probable chronic moderate/severe compression deformity of T8. There are some old bilateral rib deformities. Upper abdomen: Limited evaluation of upper abdominal structures shows no specific abnormality. Mediastinum: Evaluation of the hilar/vascular/mediastinal structures is limited due to lack of intravenous contrast. Heart size within normal limits. No sizable pericardial effusion. Mild coronary artery calcifications. No thoracic adenopathy. Included thyroid shows no specific abnormality. Ascending thoracic aorta at the upper limits of normal in diameter at 3.8 cm. Descending thoracic aorta mildly dilated at 2.7 cm. Central airway is clear. Lungs: No pneumothorax, focal airspace consolidation, or pleural effusion. Mild scarring or subsegmental atelectasis in the right middle lobe and left lingula. No dominant pulmonary parenchymal nodule. CT/Low Dose CT Lung Screening IMPRESSION: No acute findings in the chest. No thoracic adenopathy or concerning pulmonary parenchymal nodules. Recommend follow-up lung screening CT in 1 year. 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 The ascending thoracic aorta is at the upper limits of normal at 3.8 cm. Mild coronary artery calcifications. Lung-RADS Category: 1. Negative. Reading Location: [facility]
== END | disposition home or self-care (01) ==
LOC: CT 07:04
PROVIDERS: PCP Family Medicine Geriatric Medicine; Referring Provider Family Medicine Geriatric Medicine; Visit Provider Family Medicine Geriatric Medicine
DX: I71.40 Abdominal aortic aneurysm, without rupture, unspecified (principal); F17.210 Nicotine dependence, cigarettes, uncomplicated
CPT/HCPCS: 71271; 76706

== ENCOUNTER 2025-05-27 20:42 | Emergency (ER) | payer MEDICARE, MEDICAID, SELFPAY ==
[2025-05-27 20:43] VITALS: BP 148/99; PULSE 85; RESP 18; TEMP 36.8; O2SAT 98; BMI 26.4
--- NOTE | 2025-05-27 21:00 | RAD_ITS ---
PROCEDURE: ANKLE MIN 3 VIEWS N/A REASON FOR EXAM: INJURY/PAIN TECHNIQUE: ANKLE MIN 3 VIEWS COMPARISON: None. FINDINGS: Bones: No acute fracture. No aggressive osseous lesions. Diffuse osseous demineralization. Joints: Normal alignment. Mortise appears intact. Moderate degenerative changes. Soft tissues: Mild soft tissue swelling. RAD/Ankle min 3 Views IMPRESSION: SOFT TISSUE SWELLING. NO FRACTURE IDENTIFIED. Reading Location: [id number]
--- OUTSIDE RECORDS SUMMARY | 2025-05-27 21:11 | XMS RPT_ITS | CCD ---
Author Organization [facility] Care Team Providers Care Zoology Technical Officer Name Role Phone [facility], Madhuri Milton Primary Care Pro vider [facility], [place] Karine Referring Provid er Doron DBA MANAGER, DBA MANAGER-C Ml Attending Provider NIDA Quigley Attending Provider [facility], [place] Karine Primary Care Pro vider [facility], [place] Karine Referring Provid er Dr. Thomas Berumen Attending Provider Cristy Álvarez (Director Of Clinical Applications) Primary Care Provider Cristy Álvarez (Director Of Clinical Applications) Primary Care Provider [phone] [facility], [place] Karine Primary Care Pro vider Dr. Thomas Berumen Attending Provider [facility], Madhuri Carrerapankaj Referring Provid er Dr. Nitin Choi Attending Provider [facility], [place] Karine Primary Care Pro vider Dr. Thomas Berumen Attending Provider [facility] DBA MANAGER, DBA MANAGER-C Terrence Reddy Attending Provider PHYSICIAN, NONE Primary Care Physician Unavailab le PHYSICIAN, NONE Attending Unavailable PHYSICIAN, NONE Primary Care Unavailable PHYSICIAN, NONE Primary Care Unavailable DARVIN BANKS DO Attending Unavailable [facility], Madhuri Milton Primary Care Pro vider Dr. Aram Castillo Emergency Provider [phone] Linda Villavicencio Admit Provider Dr. Linda Villavicencio Other Provider Dr. Aj Rao Attending Provider Dr. Aj Rao Other Provider Apolinar, Dr. Chahal Attending Provider Apolinar, Dr. Chahal Other Provider [facility] Referring Provid er Doron DBA MANAGER, DBA MANAGER-C Ml Attending Provider Dr. Aram Garcia Attending Provider [place] [address] Primary Care Pro vider Doron DBA MANAGER, DBA MANAGER-C Ml Referring Provider [place] WINDLACE MACHINE OPERATOR, Cristy (Director Of Clinical Applications) Primary Care Provide r [place] WINDLACE MACHINE OPERATOR, Cristy Primary Care Provider [phone] HOCTORYBERRY, CRISTY Primary Care Unavailable TESTRAKE, KENDRICK Attending Unavailable SELF Referring Unavailable HOCKENBERRY, CRISTY Primary Care Unavailable TESTRAKE, KENDRICK Attending Unavailable HOCKENBERRY, CRISTY Primary Care Unavailable TESTRAKE, KENDRICK Attending Unavailable TESTRAKE, KENDRICK Referring Unavailable Ja DBA MANAGER-C, Gina Primary Care Provider Ja DBA MANAGER-C, Gina Attending Provider Ja DBA MANAGER-C, Gina Referring Provider Garo KC, Dr. Chris Grove Attending Provider Garo KC, Dr. Chris Grove Primary Care Provider Dr. Chris Wyman MD, Chi Referring Provider Ja DBA MANAGER-C, Gina Primary Care Provider Job KC, Dr. Kyree Garcia Attending Provider Ja DBA MANAGER-C, Gina Referring Provider Brennon GUSMAN-CTerrence Attending Provider Chris Wyman Chi Attending Unavailable Ja, Gina Primary Care Unavailable Garo, Chris Chi Primary Care Unavailable Chris Wyman Chi Attending Unavailable Garo Chris Chi Referring Unavailable Ja, Gina Attending Unavailable Ja, Gina Referring Unavailable Ja, Gina Primary Care Unavailable Luis Carlos Yoon Attending Unavailable Gina Peres Primary Care Unavailable Garo, Chris Chi Primary Care Unavailable Gina Peres Referring Unavailable Brennon DBA MANAGER, Terrence Reddy Attending Unavailable Doron GUSMAN, Ml Attending Unavailable [facility] Madhuri Milton Referring Unavailable Gina Peres Primary Care Unavailable Gina Peres Primary Care Unavailable Gina Peres Attending Unavailable Gina Peres Referring Unavailable Medications Current Medications Medication Drug Class(es) Dates Sig (Normalized) Sig (Original) acetaminophen 500 mg oral capsule (18 sources) Start: 12-12-2020 Acetaminophen 500 mg cap Take 1,000 mg by mouth. 12/12/2020 Active Start: 12-12-2020 take 500-1000 mg by mouth every eight hours as needed for pain Acetaminophen 500 mg capsule Active 500 - 1000 mg PO .Q8hr as needed for pain (scale score 4-6) 100 December 12, 2020 1:00am acetaminophen 325 mg / HYDROcodone bitartrate 5 mg oral tablet (20 sources) Opioid Agonist Start: 05-06-2024 take 1 tablet by mouth every six hours as needed for pain Hydrocodone-Acetaminophen 5-325 mg tablet Active 1 {tbl} PO EVERY 6 HOURS NEEDED as needed for Pain 10 3 May 06, 2024 Start: 07-17-2019 End: 11-03-2019 take 1-2 tablets by mouth every six hours as needed Hydrocodone-Acetaminophen Discontinued 1 - 2 TABLET PO EVERY 6 HOURS NEEDED 40 5 September 16, 2019 September 28, 2019 11:09pm stop all other narcotics and tylenol products Start: 08-06-2016 End: 11-03-2019 take 1-2 tablets by mouth every six hours as needed for pain Hydrocodone-Acetaminophen 1 TABLET table t Discontinued 1 - 2 {tbl} PO EVERY 6 HOURS NEEDED as needed for Pain 40 5 September 16, 2019 September 20, 2019 12:00am September 29, 2019 12:09am stop all other narcotics and tylenol products Comment on above: Take 1 tablet by gaurav th every 6 hours as needed. Blood Pressure Monitor (3 sources) Start: 3 Blood Pressure Monitor Active 0 .Route 1 October 01, 2023 11:00pm As directed Blood Pressure Monitor kit (3 sources) Start: 3 Blood Pressure Monitor kit Active 0 .Route 1 October 02, 2023 12:00am As directed 24 hr buPROPion hydrochloride 300 mg extended release oral tablet (20 sources) Aminoketone Start: 2 take 1 tablet by mouth once daily Bupropion Hcl 300 mg tablet extended release 24 hr Active 300 mg PO DAILY December 18, 2022 1:00am Start: 09-01-2022 End: 12-18-2022 Bupropion Hcl 150 mg tablet extended release 24 hr Discontinued 300 mg PO DAILY September 01, 2022 12:00am December 18, 2022 4:36pm Start: 09-01-2022 End: 12-18-2022 take 300 mg by mouth once daily Bupropion Hcl Disconti nued 300 MG PO DAILY August 31, 2022 11:00pm December 18, 2022 3:36pm Start: 01-15-2022 take 300 mg by mouth once prosper y Bupropion Hcl Active 300 MG PO DAILY January 15, 2022 3:11pm Start: 08-13-2020 End: 01-15-2022 take 1 tablet by mouth once daily Bupropion Hcl 150 mg tablet extended release 24 hr Discontinued 150 mg PO DAILY August 13, 2020 12:00am January 15, 2022 3:12pm Comment on above: Take 300 mg by mouth once daily. cholestyramine resin 4000 mg powder for oral suspension (4 sources) Bile Acid Sequestrant Start: 04-17-20 take 1 dose by mouth twice daily as needed Cholestyramine (With Sugar) 4 gram powder Active 4 g PO TWICE A DAY as needed April 17, 2025 1:26pm administer w/meal; avoid other meds within 1hr before or 4-6hr after dose Start: 04-29-2024 End: 04-17-2025 take 1 dose by mouth twice daily Cholestyramine (With Sugar) 4 gram powder Discontinued 4 g PO TWICE A DAY 348.6 April 29, 2024 12:00am April 17, 2025 1:29pm administer w/meal; avoid other meds within 1hr before or 4-6hr after dose Start: 04-29-2024 take 1 dose by mouth twice daily Cholestyramine (With Sugar) 4 gram powder Active 4 g PO TWICE A DAY 348.6 April 29, 2024 12:00am administer w/meal; avoid other meds within 1hr before or 4-6hr after dose ciclopirox 80 mg/ml topical solution (2 sources) Start: 01-26-2025 End: 02-25-2025 Ciclopirox (CICLODAN) 8 % solution Indications: Onychomycosis , Pain in toe of left foot , Pain in toe of right foot Apply to affected area daily at bedtime. 6.6 mL 2 01/26/2025 02/25/2025 Active Start: 10-21-2024 End: 11-20-2024 Ciclopirox (CICLODAN) 8 % so lution Indications: Onychomycosis Apply to affected area daily at bedtime. 6.6 mL 2 10/21/2024 11/20/2024 Active 30 actuat fluticasone furoate 0.1 mg/actuat / umeclidinium 0.0625 mg/actuat / vilanterol 0.025 mg/actuat dry powder inhaler (20 sources) Anticholinergic, Corticosteroid, beta2-Adrenergic Agonist Start: 09-17-2022 take 1 puff(s) by inhalation once daily TRELEGY ELLIPTA 100-62.5-25 mcg inhalation powder Inhale 1 Puff as instructed once daily. 09/17/2022 Active Start: 09-01-2022 End: 10-11-2024 Iodkffzhktd-Swlytsxky-Iretmu er (Trelegy Ellipta) 100-62.5-25 mcg blister with device Discontinued 1 NMA INHALATION DAILY September 01, 2022 12:00am October 11, 2024 2:10pm Start: 09-01-2022 Fluticasone-Um eclidin-Vilanter (Trelegy Ellipta) 100-62.5-25 mcg blister with device Active 1 INH INHALATION DAILY August 31, 2022 11:00pm Start: 09-01-2022 Fluticasone-Um eclidin-Vilanter (Trelegy Ellipta) 100-62.5-25 mcg blister with device Active 1 INH INHALATION DAILY September 01, 2022 12:00am Start: 10-17-2021 Fluticasone-Um eclidin-Vilanter (Trelegy Ellipta) 100-62.5-25 mcg blister with device Active 1 INH INHALATION October 17, 2021 5:07pm Start: 10-17-2021 Fluticasone-Um eclidin-Vilanter (Trelegy Ellipta) 100-62.5-25 mcg blister with device Active 1 INH INHALATION October 17, 2021 1:00am Comment on above: Inhale 1 Puff as ins tructed once daily. hydroCHLOROthiazide 12.5 mg oral tablet (8 sources) Thiazide Diuretic Start: 2015 hydrochlorothiazide (HYDRODIURIL, ESIDRIX) 12.5 mg tablet 01/29/2016 Active hydrOXYzine hydrochloride 25 mg oral tablet (20 sources) Antihistamine Start: 2023 take 1 tablet by mouth every eight hours as needed hydrOXYzine HCl (ATARAX) 25 mg tablet Take 25 mg by mouth three times a day as needed for anxiety. 07/06/2024 Active Start: 10-17-2021 End: 12-11-2021 Hydroxyzine Hcl 25 mg tablet Discontinued 25 mg PO as needed October 17, 2021 1:00am December 11, 2021 5:13pm Start: 10-17-2021 End: 04-05-2024 take 1 tablet by mouth once daily Hydroxyzine Hcl 25 mg tablet Discontinued 25 mg PO DAILY December 11, 2021 5:11pm April 05, 2024 2:21pm loratadine 10 mg oral tablet (18 sources) Start: 07-31-2018 take 1 tablet by mouth once daily Loratadine 10 MG tablet Active 10 mg PO DAILY July 31, 2018 12:00am 24 hr metoprolol succinate 25 mg extended release oral tablet (20 sources) beta-Adrenergic Benny Start: 10-11-2024 End: 04-17-2025 take 1 tablet by mouth once daily Metoprolol Succinate 25 mg tablet extended release 24 hr Active 25 mg PO daily April 17, 2025 1:41pm Start: 07-03-2020 End: 10-17-2021 take 1 tablet by mouth once daily Metoprolol Succinate (Toprol Xl) 50 mg tablet extended release 24 hr Discontinued 50 mg PO DAILY July 03, 2020 12:00am October 17, 2021 5:08pm mirtazapine 7.5 mg oral tablet (11 sources) Start: 04-17-2025 take 1 tablet by mouth at bedtime Mirtazapine 7.5 mg tablet Active 7.5 mg PO AT BEDTIME April 17, 2025 12:00am Start: 07-11-2024 take 1 tablet by gaurav once daily at bedtime Mirtazapine (REMERON) 7.5 mg tablet Take 7.5 mg by mouth daily at bedtime. 07/11/2024 Active Start: 08-18-2023 End: 04-17-2025 take 1 tablet by mouth once daily Mirtazapine (Remeron) 15 mg tablet Discontinued 15 mg PO DAILY August 18, 2023 12:00am April 17, 2025 1:27pm Multivitamin capsule (8 sources) take 1 capsule by mo uth once daily Multivitamin capsule Take 1 capsule by mouth once daily. Active take 1 capsule by mouth once barbara ly Multivitamin capsule Take 1 capsule by mouth once daily. 0 Active Comment on above: Take 1 capsule by mo uth once daily. Vkbzs-2-EQM-EPA-Fish Oil 1,000 mg (120 mg-180 mg) cap (8 sources) take 1 capsule by mouth once daily Awrcm-5-OUB-EPA-Fish Oil 1,000 mg (120 mg-180 mg) cap Take 2 g by mouth once daily. Active take 1 capsule by mouth once barbara ly Jljhm-2-FWZ-EPA-Fish Oil 1,000 mg (120 mg- 180 mg) cap Take 2 g by mouth once daily. 0 Active Comment on above: Take 2 g by mouth on ce daily. pantoprazole 40 mg delayed release oral tablet (3 sources) Proton Pump Inhibitor Start: 07-11-[address] (PROTONIX) 40 mg tablet 40 mg once daily. 07/11/2024 Active microencapsulated potassium chloride 20 meq extended release oral tablet (20 sources) Start: 07-11-2024 potassium chloride ER (KLOR-CON) 20 mEq tablet 07/11/2024 Active Start: 08-20-2023 End: 04-17-2025 take 2 capsules by mouth once daily Potassium Chloride 10 mEq capsule, extended release Discontinued 20 meq PO DAILY 60 August 20, 2023 1:59pm April 17, 2025 1:27pm Start: 08-20-2023 take 20 mEq by mouth once prosper y Potassium Chloride Active 20 MEQ PO DAILY 60 August 20, 2023 12:59pm Start: 10-17-2021 End: 08-20-2023 take 1 capsule by mouth once daily Potassium Chloride 10 mEq capsule, extended release Discontinued 10 meq PO DAILY October 17, 2021 1:00am August 20, 2023 1:59pm rosuvastatin calcium 5 mg oral tablet (3 sources) HMG-CoA Reductase Inhibitor Start: 07-11-2024 rosuvastatin (CRESTOR) 5 mg tablet 07/11/2024 Active sertraline 50 mg oral tablet (5 sources) Serotonin Reuptake Inhibitor Start: 10-03-2024 take 1 tablet by mouth once daily Sertraline (Zoloft) 50 mg tablet Active 50 mg PO daily October 11, 2024 1:00am tiZANidine 4 mg oral tablet (3 sources) Central alpha-2 Adrenergic Agonist Start: 07-11-2024 tiZANidine (ZANAFLEX) 4 mg tablet 07/11/2024 Active topiramate 50 mg oral tablet (20 sources) Start: 04-05-2024 take 1 tablet by mouth once daily Topiramate 50 mg tablet Active 50 mg PO DAILY April 05, 2024 12:00am Start: 02-02-2019 End: 08-18-2023 take 1 tablet by mouth once daily Topiramate 50 mg tablet Discontinued 50 mg PO DAILY July 03, 2020 12:00am August 18, 2023 3:25pm Start: 06-16-2018 End: 07-03-2020 take 1 capsule by mouth every twenty-four hours at bedtime as needed for sleep Topiramate 25 mg capsule,extended release 24hr Discontinued 25 mg PO AT BEDTIME as needed for Sleep June 16, 2018 12:00am July 03, 2020 10:03am Comment on above: Take 1 tablet by gaurav th daily at bedtime. Completed/Discontinued Medications Medication Drug Class(es) Dates Sig (Normalized) Sig (Original) acetaminophen 325 mg / oxyCODONE hydrochloride 5 mg oral tablet (20 sources) Opioid Agonist Start: 02-27-2021 End: 03-04-2021 Oxycodone-Acetamino phen 1 TABLET tablet Discontinued 1 - 2 {tbl} PO EVERY 6 HOURS NEEDED as needed for Pain 26 04February 27, 2021 March 03, 2021 12:00am March 04, 2021 12:02am Start: 02-27-2021 End: 03-04-2021 take 1 tablet by mouth every six hours as needed Oxycodone-Acetaminophen Discontinued 1 - 2 TABLET PO EVERY 6 HOURS NEEDED 26 04February 27, 2021 March 03, 2021 11:02pm Start: 08-03-2019 End: 08-12-2019 take 1-2 tablets by mouth every six hours as needed for pain Oxycodone-Acetaminophen 1 TABLET tablet Discontinued 1 - 2 {tbl} PO EVERY 6 HOURS NEEDED as needed for Pain 26 04August 03, 2019 August 07, 2019 12:00am August 12, 2019 12:10am take as prescribed, stop all other narcotics and tylenol products Start: 08-03-2019 End: 08-12-2019 take 1-2 tablets by mouth every six hours as needed Oxycodone-Acetaminophen Discontinued 1 - 2 TABLET PO EVERY 6 HOURS NEEDED 26 04August 03, 2019 August 11, 2019 11:10pm take as prescribed, stop all other narcotics and tylenol products [id number] 200 actuat albuterol 0.09 mg/actuat metered dose inhaler (20 sources) beta2-Adrenergic Agonist Start: 12-18-2022 End: 10-11-2024 Albuterol Sulfate 90 mcg/actuation HFA aerosol inhaler Discontinued 2 NMA INHALATION Q4H as needed for shortness of breath December 18, 2022 1:00am October 11, 2024 2:10pm Start: 12-18-2022 take 1 puff(s) by in halation every four hours Albuterol Sulfate Active 2 PUFF INHALATION Q4H December 18, 2022 12:00am Start: 09-16-2022 take 2 puff(s) by in halation every four hours as needed albuterol HFA (PROVENTIL HFA, VENTOLIN HFA) 90 mcg/actuation inhaler Inhale 2 Puffs as instructed every 4 hours as needed. 09/16/2022 Active Start: 10-17-2021 Albuterol Sulf ate Active 2 PUFF INHALATION October 17, 2021 5:11pm Start: 10-17-2021 Albuterol Sulf ate Active 2 PUFF INHALATION October 17, 2021 1:00am Comment on above: Inhale 2 Puffs as in structed every 4 hours as needed. alendronic acid 70 mg oral tablet (15 sources) Bisphosphonate Start: 02-17-20 End: 08-18-20 take 1 tablet by mouth every week Alendronate 70 MG tablet Discontinued 70 mg PO Q7D@0700 February 17, 2020 12:00am August 18, 2023 3:24pm ALPRAZolam 0.5 mg oral tablet (20 sources) Benzodiazepine Start: 10-31-20 16 End: 10-17-20 21 take 1 tablet by mouth once daily as needed for anxiety Alprazolam 0.5 MG tablet Discontinued 0.5 mg PO DAILY NEEDED as needed for Anxiety October 31, 2016 1:00am October 17, 2021 5:08pm take 2 tablets by mo ut every twenty-four hours as needed ALPRAZolam (XANAX) 0.5 mg tablet Take 1 mg by mouth at bedtime as needed. Active Comment on above: Take 1 mg by mouth a t bedtime as needed. amoxicillin 875 mg / clavulanate 125 mg oral tablet (3 sources) Penicillin-class Antibacterial Start: 05-06-20 End: 10-11-20 take 1 tablet by mouth every twelve hours Amoxicillin-Pot Clavulanate 875-125 mg tablet Discontinued 875 mg PO Q12H May 06, 2024 12:00am October 11, 2024 2:29pm ARIPiprazole 5 mg oral tablet (20 sources) Atypical Antipsychotic Start: 09-16-20 End: 04-17-20 take 1 tablet by mouth once daily Aripiprazole 5 mg tablet Discontinued 5 mg PO DAILY December 18, 2022 1:00am April 17, 2025 1:26pm Start: 09-01-2022 End: 12-18-2022 take 5 mg by mouth once daily Aripiprazole 2 mg tablet Discontinued 5 mg PO DAILY September 01, 2022 12:00am December 18, 2022 4:36pm Start: 09-01-2022 End: 12-18-2022 take 5 mg by mouth once daily Aripiprazole Discontinue d 5 MG PO DAILY August 31, 2022 11:00pm December 18, 2022 3:36pm Comment on above: Take 5 mg by mouth e very morning. atorvastatin 40 mg oral tablet (20 sources) HMG-CoA Reductase Inhibitor Start: 8 End: 3 take 1 tablet by mouth at bedtime Atorvastatin 40 mg tablet Discontinued 40 mg PO AT BEDTIME June 16, 2018 12:00am October 02, 2023 2:52pm Comment on above: Take 40 mg by mouth once daily. Bp Pill (15 sources) Start: 6 End: 8 Bp Pill Discontinued October 31, 2016 8:09pm June 16, 2018 7:10am Start: 10-31-2016 End: 06-16-2018 Bp Pill Discontinued Decembe r 2015 12:00am June 16, 2018 6:10am Start: 10-31-2016 End: 06-16-2018 Bp Pill Discontinued Decembe r 2015 1:00am June 16, 2018 7:10am calcium carbonate 1500 mg oral tablet (11 sources) Start: 09-01-2022 End: 04-05-2024 take 1 tablet by mouth once daily Calcium Carbonate 600 mg calcium (1,500 mg) tablet Discontinued 600 mg PO DAILY September 01, 2022 12:00am April 05, 2024 2:20pm cephalexin 500 mg oral capsule (15 sources) Cephalosporin Antibacterial Start: 08-16-2019 End: 08-26-2019 take 1 capsule by mouth twice daily at mealtime Cephalexin (Keflex) 500 mg capsule Discontinued 500 mg PO TWICE A DAY 14 August 16, 2019 12:00am August 22, 2019 12:00am August 26, 2019 12:08am take with food cholecalciferol 1.25 mg oral capsule (20 sources) Vitamin D Start: 10-17-2021 End: 04-05-2024 take 1 capsule by mouth every other week Cholecalciferol (Vitamin D3) 1,250 mcg (50,000 unit) capsule Discontinued 13929 U PO .COMPLEX October 17, 2021 5:11pm April 05, 2024 2:20pm 50,000 units PO every 2 weeks; EVERY 2 WEEKS Start: 12-17-2018 End: 10-17-2021 take 1 capsule by mouth every week Cholecalciferol (Vitamin D3) 50,000 unit capsule Discontinued 32240 U PO EVERY WEEK December 17, 2018 1:00am October 17, 2021 5:14pm EVERY 2 WEEKS Comment on above: Take 1 capsule by [facility] once each week. citalopram 40 mg oral tablet (20 sources) Serotonin Reuptake Inhibitor Start: 05-06-2024 End: 10-11-2024 take 1 tablet by mouth once daily Citalopram 40 mg tablet Discontinued 40 mg PO DAILY May 06, 2024 12:00am October 11, 2024 2:11pm Start: 12-18-2022 End: 08-18-2023 Citalopram 40 mg tablet Disc ontinued 40 mg PO DAILY December 18, 2022 1:00am August 18, 2023 3:25pm Take with 20 mg tablet to = 60 mg daily Start: 07-03-2020 End: 10-11-2024 take 2 tablets by mouth once daily, then take 3 tablets by mouth once daily Citalopram 20 mg tablet Discontinued 20 mg PO DAILY December 18, 2022 4:38pm October 11, 2024 2:11pm Take with 40 mg tablet to = 60 mg daily Start: 07-03-2020 End: 12-18-2022 Citalopram Active 40 MG PO D AILY December 18, 2022 3:38pm Take with 40 mg tablet to = 60 mg daily Start: 07-03-2020 take 60 mg by mouth once daily Citalopram Active 60 MG PO DAILY July 03, 2020 10:04am Start: 06-16-2018 End: 07-03-2020 take 4 tablets by mouth once daily Citalopram 10 mg tablet Discontinued 40 mg PO DAILY June 16, 2018 7:11am July 03, 2020 10:04am Start: 06-16-2018 End: 07-03-2020 take 40 mg by mouth once daily Citalopram Discontinued 40 MG PO DAILY June 16, 2018 6:11am July 03, 2020 9:04am Start: 10-31-2016 End: 06-16-2018 take 1 mg by mouth once daily Citalopram 10 MG tablet Discontinued mg PO DAILY October 31, 2016 1:00am June 16, 2018 7:11am Start: 10-31-2016 End: 06-16-2018 take 1 mg by mouth once daily Citalopram Discontinued MG PO DAILY October 31, 2016 12:00am June 16, 2018 6:11am Comment on above: Take 40 mg by mouth once daily. colestipol hydrochloride 1000 mg oral tablet (3 sources) Bile Acid Sequestrant Start: 4 End: 4 Colestipol 1 gram tablet Discontinued 2 g PO TWICE A DAY February 18, 2024 12:00am April 29, 2024 3:42pm ferrous sulfate 325 mg delayed release oral tablet (20 sources) Start: 2 End: 3 take 1 tablet by mouth twice daily Ferrous Sulfate 325 mg (65 mg iron) tablet,delayed release (DR/EC) Discontinued 325 mg PO TWICE A DAY December 11, 2021 5:10pm December 18, 2022 4:38pm Start: 02-17-2020 End: 12-11-2021 take 1 tablet by mouth once daily Ferrous Sulfate 325 MG tablet,delayed release (DR/EC) Discontinued 325 mg PO DAILY February 17, 2020 12:00am December 11, 2021 5:13pm folic acid 1 mg oral tablet (6 sources) Start: 08-20-2023 End: 04-17-2025 take 1 tablet by mouth once daily Folic Acid 1 mg Tablet Discontinued 1 mg PO DAILY@0800 30 August 20, 2023 12:00am April 17, 2025 1:26pm ibuprofen 800 mg oral tablet (20 sources) Nonsteroidal Anti-inflammatory Drug Start: 10-16-2021 End: 12-11-2021 take 1 tablet by mouth three times daily as needed for pain Ibuprofen 800 mg tablet Discontinued 800 mg PO THREE TIMES A DAY as needed for pain 50 October 16, 2021 1:00am December 11, 2021 5:12pm Do not take in conjunction with other NSAIDs. Tylenol is okay Start: 07-19-2019 End: 08-20-2023 take 1 tablet by mouth every six hours as needed for pain Ibuprofen 800 mg tablet Discontinued 800 mg PO EVERY 6 HOURS as needed for Pain July 19, 2019 12:00am August 20, 2023 1:54pm Start: 07-31-2018 End: 06-21-2019 take 1 tablet by mouth three times daily Ibuprofen 800 MG tablet Discontinued 800 mg PO THREE TIMES A DAY August 01, 2018 11:38am June 21, 2019 1:44pm Start: 08-06-2016 take 1 tablet by gaurav every six hours as needed ibuprofen (MOTRIN) 600 mg tablet Take 1 tablet by mouth every 6 hours as needed for Pain. 45 tablet 0 08/06/2016 Active Comment on above: Take 1 tablet by gaurav th every 6 hours as needed for Pain. losartan potassium 25 mg oral tablet (20 sources) Angiotensin 2 Receptor Benny Start: End: take 1 tablet by mouth once daily Losartan 25 MG tablet Discontinued 25 mg PO DAILY July 31, 2018 12:00am October 17, 2021 5:08pm Start: 06-16-2018 End: 06-16-2018 take 1 tablet by mouth once daily Losartan 25 mg tablet Discontinued 25 mg PO daily June 16, 2018 12:00am June 16, 2018 9:59am Comment on above: Take 25 mg by mouth once daily. magnesium chloride 535 mg delayed release oral tablet (6 sources) Start: 08-20-2023 End: 04-05-2024 take 2 tablets by mouth twice daily Magnesium Chloride 64 mg tablet,delayed release (DR/EC) Discontinued 128 mg PO TWICE A DAY 26 06August 20, 2023 12:00am April 05, 2024 2:21pm Start: 08-20-2023 take 128 mg by mouth twice barbara ly Magnesium Chloride Active 128 MG PO TWICE A DAY 26 06August 19, 2023 11:00pm Multivitamin (Tab-A-Jayesh) tablet (15 sources) Start: 06-16-2018 End: 12-11-2021 take 1 tablet by mouth once daily in the morning Multivitamin (Tab-A-Jayesh) tablet Discontinued 1 TABLET PO EVERY MORNING June 16, 2018 9:45am December 11, 2021 5:12pm Start: 06-16-2018 End: 12-11-2021 Multivitamin (Tab-A-Jayesh) ta blet Discontinued 1 {tbl} PO EVERY MORNING June 16, 2018 12:00am December 11, 2021 5:12pm Start: 06-16-2018 End: 12-11-2021 take 1 tablet by mouth once daily in the morning Multivitamin (Tab-A-Jayesh) tablet Discontinued 1 TABLET PO EVERY MORNING June 15, 2018 11:00pm December 11, 2021 4:12pm Start: 06-16-2018 End: 12-11-2021 take 1 tablet by mouth once daily in the morning Multivitamin (Tab-A-Jayesh) tablet Discontinued 1 TABLET PO EVERY MORNING June 16, 2018 12:00am December 11, 2021 5:12pm 24 hr nicotine 0.875 mg/hr transdermal system (6 sources) Cholinergic Nicotinic Agonist Start: 08-20-2023 End: 04-05-2024 apply 1 dose transdermal route every twenty-four hours Nicotine 21 mg/24 hr Patch 24 Hour Discontinued 21 mg TD DAILY August 20, 2023 12:00am April 05, 2024 2:20pm Start: 08-20-2023 Nicotine Activ e 21 MG TD DAILY August 19, 2023 11:00pm omeprazole 40 mg delayed release oral capsule (20 sources) Proton Pump Inhibitor Start: 02-28-2020 End: 04-17-2025 take 1 capsule by mouth once daily Omeprazole 40 mg capsule,delayed release(DR/EC) Discontinued 0 .ROUTE .COMPLEX April 30, 2020 7:59am August 22, 2020 9:16pm TAKE 1 CAPSULE BY MOUTH EVERY DAY sucralfate 100 mg/ml oral suspension (9 sources) Aluminum Complex Start: 11-17-2022 End: 08-18-2023 take 1 mL by mouth three times daily 1 hour(s) before mealtime Sucralfate 100 mg/mL suspension Discontinued 10 mL PO before meals 999November 17, 2022 1:00am August 18, 2023 3:25pm take three times a day, one hour before meals and two hours away from other medications. tamsulosin hydrochloride 0.4 mg oral capsule (5 sources) alpha-Adrenerg ic Benny Start: 04-05-2024 End: 04-17-2025 take 1 capsule by mouth once daily Tamsulosin 0.4 mg capsule Discontinued 0.4 mg PO DAILY April 05, 2024 12:00am April 17, 2025 1:28pm thiamine 100 mg oral tablet (9 sources) Start: 08-20-2023 End: 04-17-2025 take 1 tablet by mouth once daily at mealtime Thiamine Hcl (Vitamin B1) (Vitamin B-1) 100 mg Tablet Discontinued 100 mg PO DAILY WITH MEALS August 20, 2023 12:00am April 17, 2025 1:28pm vitamin b12 1 mg/ml injectable solution (16 sources) Vitamin B12 Start: 12-18-2022 inject 1000 ug by intramuscular injection every month Cyanocobalamin (Vitamin B-12) Active 1000 MCG IM EVERY MONTH December 18, 2022 12:00am Start: 10-17-2021 End: 04-17-2025 inject 1000 ug by intramuscular injection every month Cyanocobalamin (Vitamin B-12) 1,000 mcg/mL solution Discontinued 1000 ug IM EVERY MONTH December 18, 2022 1:00am April 17, 2025 1:26pm Start: 10-17-2021 Cyanocobalamin (Vitamin B-12) Active 1000 MCG IM October 17, 2021 5:11pm Water Pill (15 sources) Start: 10-31-2016 End: 06-16-2018 Water Pill Discontinued [facility] 2015 8:09pm June 16, 2018 7:10am Start: 10-31-2016 End: 06-16-2018 Water Pill Discontinued [facility] 2015 12:00am June 16, 2018 6:10am Start: 10-31-2016 End: 06-16-2018 Water Pill Discontinued [facility] 2015 1:00am June 16, 2018 7:10am Problems Active Problems Problem Classification Problem Date Documented Da te Episodic/Chronic Acquired foot deformities (2 sources) Hammer toe; Translations: [Other hammer toe(s) (acquired), right foot] Chronic Anxiety disorders (8 sources) Anxiety; Translations: [Anxiety disorder, unspecified] Onset: 07-30-2016 07-30-2016 Chronic Cardiac dysrhythmias (19 sources) Nonsustained ventricular tachycardia ; Translations: [Ventricular tachycardia] Chronic Comment on above: 5 beat per 30 day Cardiac dysrhythmias (20 sources) Tachycardia; Translations: [Tachycardia, unspecified] Episodic Conditions associated with dizziness or vertigo (15 sources) Dizziness and giddiness; Translations: [Dizziness and giddiness] 06-20-2019 Episodic Deficiency and other anemia (15 sources) Iron deficiency anemia; Translations: [Iron deficiency anemia, unspecified] 12-08-2022 Episodic Disorders of lipid metabolism (20 sources) Hyperlipidemia; Translations: [Hyperlipidemia, unspecified] Chronic Disorders of teeth and jaw (6 sources) Dental caries; Translations: [Dental caries, unspecified] 05-14-2024 Episodic E Codes: Fall (15 sources) Fall (on) (from) other stairs and steps, initial encounter; Translations: [Fall down stairs] 08-24-2020 Episodic Epilepsy; convulsions (8 sources) Seizure; Translations: [Unspecified convulsions] 08-18-2023 Episodic Essential hypertension (20 sources) Essential hypertension; Translations: [Essential (primary) hypertension] Onset: 07-30-2016 Chronic Comment on above: 09/01/2022 PT STATES HE NO LONGER HAS HTN - STATES HE HAS LOW BP Fluid and electrolyte disorders (10 sources) Hypokalemia; Translations: [Hypokalemia] 08-18-2023 Episodic Fracture of neck of femur (hip) (20 sources) Closed fracture of femur, greater trochanter; Translations: [Displaced fracture of greater trochanter of unspecified femur, subsequent encounter for closed fracture with nonunion] Episodic Mood disorders (8 sources) Depressive disorder; Translations: [Depression] Onset: 07-30-2016 07-30-2016 Chronic Mycoses (4 sources) Onychomycosis; Translations: [Tinea unguium] Episodic Nonspecific chest pain (18 sources) Tight chest; Translations: [Other chest pain] Episodic Open wounds of extremities (1 source) Avulsion of toenail; Translations: [Unspecified open wound of unspecified toe(s) with damage to nail, initial encounter] Episodic Osteoarthritis (15 sources) Osteoarthritis of joint right ankle; Translations: [Primary osteoarthritis, right ankle and foot] 12-08-2022 Chronic Other acquired deformities (15 sources) Contracture of right hip joint; Translations: [Contracture, right hip] 08-24-2020 Chronic Other aftercare (15 sources) Follow-up status; Translations: [Encounter for other orthopedic aftercare] 12-08-2022 Episodic Other circulatory disease (1 source) Abnormal peripheral pulse; Translations: [Other specified symptoms and signs involving the circulatory and respiratory systems] Episodic Other connective tissue disease (15 sources) Trochanteric bursitis; Translations: [Trochanteric bursitis, right hip] 12-08-2022 Episodic Other connective tissue disease (3 sources) Trochanteric bursitis, right hip; Translations: [Enthesopathy of hip region] Episodic Other connective tissue disease (4 sources) Pain of toe of left foot; Translations: [Pain in left toe(s)] Episodic Other connective tissue disease (4 sources) Pain of toe of right foot; Translations: [Pain in right toe(s)] Episodic Other diseases of veins and lymphatics (1 source) Vascular insufficiency; Translations: [Venous insufficiency (chronic) (peripheral)] Episodic Other gastrointestinal disorders (12 sources) Diarrhea; Translations: [Diarrhea, unspecified] 12-08-2022 Episodic Other gastrointestinal disorders (3 sources) Diarrhea, unspecified; Translations: [Diarrhea] Episodic Other infections; including parasitic (3 sources) Necrotizing ulcerative gingivitis; Translations: [Other Vincent's infections] 05-14-2024 Episodic Other liver diseases (11 sources) Steatosis of liver; Translations: [Fatty (change of) liver, not elsewhere classified] 12-08-2022 Chronic Other non-traumatic joint disorders (15 sources) Traumatic joint effusion; Translations: [Effusion, unspecified joint] 08-08-2020 Episodic Residual codes; unclassified (15 sources) Drinking session; Translations: [Other specified health status] 08-24-2020 Episodic Residual codes; unclassified (6 sources) Edema of right lower limb; Translations: [Localized edema] 10-02-2023 Episodic Residual codes; unclassified (3 sources) Localized edema; Translations: [Edema] 10-02-2023 Episodic Syncope (15 sources) Syncope and collapse; Translations: [Syncope and collapse] 06-20-2019 Episodic Unclassified (1 source) Abdominal aortic aneurysm, without rupture, unspecified; Translations: [Abdominal aortic aneurysm, without rupture, unspecified] Onset: 02-23-2025 Past or Other Problems Problem Classification Problem Date Documented Da te Episodic/Chronic Nonmalignant breast conditions (8 sources) Gynecomastia; Translations: [Hypertrophy of breast] Onset: 04-01-2017 04-01-2017 Episodic Other connective tissue disease (1 source) Muscle weakness (generalized); Translations: [Muscle weakness (generalized)] Onset: 01-03-2025 Episodic Septicemia (except in labor) (4 sources) Sepsis without acute organ dysfunction; Translations: [Sepsis, unspecified organism] Onset: 05-14-2024 05-14-2024 Episodic Sprains and strains (8 sources) Sprain of sacroiliac ligament; Translations: [Sprain of sacroiliac joint, initial encounter] Onset: 02-18-2019 02-18-2019 Episodic Varicose veins of lower extremity (8 sources) Venous varices; Translations: [Varicose veins of left lower extremity with other complications] Onset: 01-13-2016 01-13-2016 Episodic Results Test Name Value Interpretation Reference Range Facility Cardiology Visit Reporton Cardiology Visit Report [facility] [address] [place] [address] OFFICE VISIT Date of Service: 04/17/25 MR#: [id number] Acct: [id number] Name: YADIEL SOSA Rep #: [id number] : 1960 Provider: RADHA jackson Age/Sex: 64/M Location: [facility] Status: Signed HPI HPI History of Present Illness Details: YADIEL SOSA, is a 64 M who presents to the office today for a cardiovascular outpatient follow- up. 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 The patient underwent an echocardiogram and stress test in 2018. His echocardiogram showed preserved ejection fraction and his nuclear stress test was negative for ischemia. He denies chest, arm, jaw, or neck discomfort. He denies palpitations. He states bilateral lower extremity edema, which is chronic and at baseline today. He denies claudication. He denies shortness of breath with activity, shortness of breath at rest, orthopnea, or PND. He denies chronic cough. He denies significant, sudden weight gain. He denies lightheadedness, dizziness, near-syncope, or syncope. He denies blood in urine, blood in stool, or epistaxis. He denies fever with chills. He denies myalgia. He denies fatigue. His exercise level has remained stable. He states intermittent left arm numbness. This is not with exercise. This resolves on its own. He attributes to previous shoulder related. 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 Is patient in pain?: No Allergies No Known Allergies Allergy (Verified 04/17/25 13:24) Medications ???Medication ???Instructions ???Recorded ???Confirmed ???Type loratadine 10 mg tablet 10 mg PO DAILY allergies 07/31/18 04/17/25 History acetaminophen 500 mg capsule 500 - 1,000 mg (1 - 2 x 500 mg) PO 12/12/20 04/17/25 Rx .Q8hr PRN pain (scale score 4-6) #100 caps bupropion HCl 300 mg 24 hr tablet, 300 mg PO DAILY mental health 04/17/25 History extended release blood pressure monitor #1 ea 10/02/23 10/11/24 Rx topiramate 50 mg tablet 50 mg PO DAILY 04/05/24 04/17/25 H istory hydrocodone-acetaminophe n 5-325mg 1 tab PO Q6H PRN PRN Pain 3 days 05/06/24 04/17/25 Rx 5mg-325mg #10 TABLETS sertraline 50 mg tablet (Zoloft) 50 mg PO QDAY 10/11/24 04/17/25 Hi story cholestyramine (with sugar) 4 gram 4 g PO BID PRN 04/17/25 History oral powder metoprolol succinate 25 mg 25 mg PO QDAY #30 tabs 04/17/25 Rx tablet,extended release 24 hr mirtazapine 7.5 mg tablet 7.5 mg PO QHS 04/17/25 04/17/25 Hi story Ejection fraction %: 60 Have you fallen in the past year?: Yes (No injuries) [facility] Medical History Alcohol abuse New onset seizure Wears glasses Loose, teeth Walker as ambulation aid Restless legs COPD (chronic obstructive pulmonary disease) Former smoker Degenerative arthritis Gout Fatty infiltration of liver Vitamin D deficiency Elevated liver enzymes Anemia Greater trochanteric bursitis of right hip Degenerative joint disease, right, 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 Greater trochanter fracture Iron deficiency anemia Subcutaneous nodules Essential (primary) hypertension Hyperlipidemia Anxiety and depression Nicotine dependence Gynecomastia Hepatomegaly Non-sustained ventricular tachycardia Surgical History History of colonoscopy (01/2020) History of ankle surgery H/O shoulder surgery History of vascular surgery Family History Father CVA (cerebral vascular accident) Myocardial infarction HAS ICD Heart disease Sister Breast cancer Mother Heart disease Sister Colon cancer Social History household members: none Smoking Status: Current every day smoker tobacco type: cigarettes Tobacco: How many years used: 40 alcohol intake: current alcohol intake frequency: 3 or more drinks per day Alcohol type: hard liquor details: 8-16 ounces vodka daily. substance use type: does not use caffeine: Yes Type: carbonated beverages ROS Const Const: Positive for other (Decreased energy since stopping B12 shots); Negative for fatigue or weakness Eyes Eyes: Negative for change in vision ENT ENT: Negative for dizziness or balance problems Cardio Chest Pain: No Palpitations: No Edema: Bilateral Muscle aches with walking: None Resp Respiratory: Negative (more content not included)... Normal [facility] AAA Screeningon 02-15-2025 AAA Screening [facility] [address] [place] [address] AAA Screening 02/15/25 0802 MR#: [id number] Acct: [id number] Name: YADIEL SOSA Rep #: [id number] : 1960 64 From: Kyree Kaiser MD Attending Dr: Dr. Chris Wyman MD Status: REG I Ordering Dr: Chris Wyman MD Date: 02/15/25 Location: CT Sex: M C Admitted: Reason For Study Reason For Study: AAA Screening Aorta Measurements Aorta Doppler Measurements Proximal aorta measures1.90 x 2.09cm. in cross-sectional Peak systolic flow velocities within the proximal aorta axis. measure 92.2 cm/sec. Proximal aorta measures2.35cm. in longitudinal axis. Peak systolic flow velocities within the mid aorta measure Mid aorta measures2.02 x 1.86cm. in cross-sectional axis. 95.9 cm/sec. Mid aorta measures1.92cm. in longitudinal axis. Peak systolic flow velocities within the distal aorta Distal aorta measures1.79 x1.98cm. in cross-sectional axis. measure 88.6 cm/sec. Distal aorta measures1.75cm. in longitudinal axis. Left Iliac Artery Left iliac artery measures 1.12 x 1.06 cm. in the cross-sectional axis. Left iliac artery measures 1.15 cm. in the longitudinal axis. Peak systolic velocity in the left iliac artery measures 106.7 cm/sec. Right Iliac Artery Right iliac artery measures 1.14 x 1.15 cm. in the cross-sectional axis. Right iliac artery measures 1.18 cm. in the longitudinal axis. Peak systolic velocity in the right iliac artery measures 112.2 cm/sec. Procedure Aorta IVC Iliac vasculature or bypass grafts 11082. The exam was diagnostic. Exam performed in department. VL/AAA Screening Interpretation Summary The dimensions of the intra-abdominal aorta appear normal, without evidence of aneurysmal dilatation. The iliac arteries also appear normal in caliber bilaterally. The intra-abdominal aorta and iliac arteries appear patent, demonstrating normal, pulsatile arterial flow and normal peak systolic velocities. Ordering Physician: Chris Wyman Chi Referring Physician: Chris Wyman Chi Performed By: Camron Vazquez, T 02/15/25 1515 Date Kyree Kaiser MD CC: Dr. Chris Wyman MD Date Dictated: 02/15/25 08 Date Transcribed: 02/15/251514 Senior Asset Manager: Signed Normal [facility] Cardiovascular ultrasound re portOrdered By: Kyree Kaiser on 02-15-2025 Study report [facility] Cardiovascular Services [address] [place] [address] AAA Screening 02/15/25 0802 MR#: [id number] Acct: [id number] Name: YADIEL SOSA Rep #:[id number] : 1960 64 From: Kyree Kaiser MD Attending Dr: Dr. Chris Wyman MD Status: REG CLI Ordering Dr: Chris Wyman MD Date: Location: CT Sex: M C Admitted: Reason For Study Reason For Study: AAA Screening Aorta Measurements Aorta Doppler Measurements Proximal aorta measures1.90 x 2.09cm. in cross-sectional Peak systolic flow velocities within the proximal aorta axis. measure 92.2 cm/sec. Proximal aorta measures2.35cm. in longitudinal axis. Peak systolic flow velocities within the mid aorta measure Mid aorta measures2.02 x 1.86cm. in cross-sectional axis. 95.9 cm/sec. Mid aorta measures1.92cm. in longitudinal axis. Peak systolic flow velocities within the distal aorta Distal aorta measures1.79 x1.98cm. in cross-sectional axis. measure 88.6 cm/sec. Distal aorta measures1.75cm. in longitudinal axis. Left Iliac Artery Left iliac artery measures 1.12 x 1.06 cm. in the cross-sectional axis. Left iliac artery measures 1.15 cm. in the longitudinal axis. Peak systolic velocity in the left iliac artery measures 106.7 cm/sec. Right Iliac Artery Right iliac artery measures 1.14 x 1.15 cm. in the cross-sectional axis. Right iliac artery measures 1.18 cm. in the longitudinal axis. Peak systolic velocity in the right iliac artery measures 112.2 cm/sec. Procedure Aorta IVC Iliac vasculature or bypass grafts 19934. The exam was diagnostic. Exam performed in department. VL/AAA Screening Interpretation Summary The dimensions of the intra-abdominal aorta appear normal, without evidence of aneurysmal dilatation. The iliac arteries also appear normal in caliber bilaterally. The intra-abdominal aorta and iliac arteries appear patent, demonstrating normal, pulsatile arterial flow and normal peak systolic velocities. Ordering Physician: Chris Wyman Chi Referring Physician: Chris Wyman Chi Performed By: Camron Vazquez, RVT 02/15/251514 Date _ Kyree Kaiser MD CC: Dr. Chris Wyman MD ~ Date Dictated: 02/15/25801 Date Transcribed: 02/15/251514 Senior Asset Manager: Signed [facility] Other Phone: Low Dose CT Lung Screeningon 02-15-[address] Lung Screening [facility] Imaging Services [address] [place] [id number] Lung Screening MR#: [id number] Acct: [id number] Name: YADIEL SOSA Rep #: [id number] : 1960 M 64 From: Felix Evans i, DO PCP: Dr. Chris Wyman MD Status: [facility] Study: Low Dose CT Lung Screening Date of Exam: 02/15 Exam# [id number] Ordering Dr: Chris Wyman MD PROCEDURE: LOW DOSE CT LUNG SCREENING 02/15/2025 REASON FOR EXAM: Nicotine dependence. Lung cancer screening. 40 pack-year history. TECHNIQUE: Contiguous unenhanced axial CT images were obtained through the chest. Coronal and Sagittal reconstruction series were provided. One or more dose reduction techniques were used (e.g., Automated exposure control, adjustment of the mA and/or kV according to patient size, use of iterative reconstruction technique). COMPARISON: Chest radiograph 09/07/2023. No prior chest CT. RADIATION DOSE SUMMARY: DLP: 100.46 mGycm FINDINGS: Bones/soft tissues: The bones are osteopenic, with moderate degenerative changes in the spine. There is age-indeterminate probable chronic moderate/severe compression deformity of T8. There are some old bilateral rib deformities. Upper abdomen: Limited evaluation of upper abdominal structures shows no specific abnormality. Mediastinum: Evaluation of the hilar/vascular/mediastin al structures is limited due to lack of intravenous contrast. Heart size within normal limits. No sizable pericardial effusion. Mild coronary artery calcifications. No thoracic adenopathy. Included thyroid shows no specific abnormality. Ascending thoracic aorta at the upper limits of normal in diameter at 3.8 cm. Descending thoracic aorta mildly dilated at 2.7 cm. Central airway is clear. Lungs: No pneumothorax, focal airspace consolidation, or pleural effusion. Mild scarring or subsegmental atelectasis in the right middle lobe and left lingula. No dominant pulmonary parenchymal nodule. CT/Low Dose CT Lung Screening IMPRESSION: No acute findings in the chest. No thoracic adenopathy or concerning pulmonary parenchymal nodules. Recommend follow-up lung screening CT in 1 year. 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 The ascending thoracic aorta is at the upper limits of normal at 3.8 cm. Mild coronary artery calcifications. Lung-RADS Category: 1. Negative. Reading Location: [facility] CC: Dr. Chris Wyman MD Senior Asset Manager: Signed Normal [facility] CNOVon 01-26-2025 CNOV Office Visit (PODIWS ) -------- YADIEL SOSA ([id number]) 1960 M Date Time Provider Department 01/26/25 2:00 PM KENDRICK SCALES PODIWS During your visit today, we recorded the following information about you: Paulina Morales LPN 01/26/2025 2:18 PM Signed AMB ROOMING INTAKE FLOWSHEET DATA Pain Pain Level: 2 Pain Location: Toe Description: Sore Duration Amount of Time: 2 Duration Units: Weeks Frequency: Intermittent Intervention/Comfort measure: Relaxation, Reposition Patient presents with: Left Foot - Established Patient, Follow Up, Nail Fungus, nail care Right Foot - Established Patient, Follow Up, nail care, Callous Patient has been using ciclopirox 8% solution to nail fungus. Patient is currently out of medication. KITTY Gray Matthew 01/26/2025 2:18 PM Signed Subjective: Patient presents to clinic c/o painful toenails. They state that the nails are especially painful with shoe gear and pressure. Patient states that nails 1-5 b/l are painful. Patient is currently applying penlac. Not sure if this is helping but the nails are not getting any worse. Requests a refill. No other pedal complaints at this time. Patient states no change in medications or medical history since last visit. Objective: Patient presents to clinic ambulating in [facility] Vasc: DP and PT pulses are nonpalpable bilateral. CFT is less than 5 seconds bilateral. Skin temperature is warm to cool proximal to distal bilateral. There is mild edema or varicosities noted. Neuro: Protective sensation is decreased to the foot and toes when tested with the 5.07 SWM bilateral. Vibratory sensation is absent at the hallux IPJ bilateral. The hallux is downgoing bilateral. Derm: Nails 1-5 b/l are painful, discolored-yellow, thick, crumbly, dystrophic and with subungal debris. Skin is of normal turgor, texture and hair growth is absent bilateral. There are no hyperkeratosis, ulcerations, scars, verruca or other lesions noted. One colony Epidermophyton floccosum Abnormal By microscopic morphology Rare Kayla parapsilosis complex Abnormal This test was developed and its performance characteristics determined by the [facility] [place] ([facility]). It has not been cleared or approved by the FDA. -[facility] is regulated under CLIA as qualified to perform high-complexity testing. This test is used for clinical purposes. It should not be regarded as investigational or for research. Fungal Smear Abnormal Many Septate hyphae Ortho: Muscle strength is 5/5 for all pedal groups tested. Ankle joint DF is decreased with the knee extended with no pain or crepitus noted. 1st MPJ ROM is decreased bilateral. Assessment: (B35.1) Onychomycosis (primary encounter diagnosis) (M79.675) Pain in toe of left foot (M79.674) Pain in toe of right foot Plan: We discussed the possible etiologies of discolored, dystrophic, and thickened nails including fungus, yeast, mold as well as in some instances, prior trauma, or mechanical causes such as repetitive microtrauma in shoe gear. We discussed topical medication for discolored toenails which has very low success but no major side effects. We discussed oral medication. Patient will need hepatic testing prior to use. Patient informed of risks associated with Lamisil. We discussed removal of toenails. Patient would like to proceed with continued topical medication. [facility] was called in. Offered oral medication. Patient declined this. Toenails 1-5 b/l debrided in length and thickness If patient were to ever consider removal of the toenails, would recommend pvr prior. . Kendrick Scales DPM Referring Provider: KENDRICK SCALES [[id number]] Allergies As of Date: 01/26/2025 (No Known Allergies) Date Reviewed: 01/26/2025 Reviewed by: Paulina Morales LPN - Fully Assessed Reason for Visit: Established Patient [175] Follow Up [171] Nail Fungus [764] nail care [Other] Established Patient [175] Follow Up [171] nail care [Other] Callous [1028] Primary Visit Diagnosis:Onychomycosis [B35.1] Other Visit Diagnoses:Pain in toe of left foot [M79.675] Pain in toe of right foot [M79.674] Order(s):Ciclopirox (CICLODAN) 8 % solutionApply to affected area daily at bedtime.Disp: 6.6 mLRfl: 2 Prescriptions as of 01/26/2025 - Ciclopirox (CICLODAN) 8 % solution Apply to affected area daily at bedtime. - metoprolol succinate ER (TOPROL XL) 25 mg 24 hr tablet Take 25 mg by mouth once daily. - sertraline (ZOLOFT) 50 mg tablet Take 50 mg by mouth once daily. - tamsulosin (FLOMAX) 0.4 mg Take 0.4 mg by mouth once daily. - Acetaminophen 500 mg cap Take 1,000 mg by mouth. - tiZANidine (ZANAFLEX) 4 mg tablet - thiamine (VITAMIN B1) 100 mg tablet - rosuvastatin (CRESTOR) 5 mg tablet - potassium chloride ER (KLOR-CON) 20 (more content not included)... Normal [facility] Absolute lymphocyte countOrd ered By: Chris Wyman on 12-22-2024 Lymphocytes Auto (Unsp spec) [#/Vol] 3.49 10*3/uL 0.83-4.51 [facility] Absolute neutrophil countOrd ered By: Chris [place] on 12-22-2024 Neutrophils (Bld) [#/Vol] 7.4 10*3/uL 2.0-7.7 [facility] Albumin to globulin ratioOrd ered By: Chris Wyman on 12-22-2024 Albumin/Globulin [Mass ratio] 1.0 {ratio} 0.9-2.4 [facility] Automated lymphocyte count a s percentage of total leukocytesOrdered By: Chris Wyman on 12-22-2024 Lymphocytes/100 WBC Auto (Unsp spec) 28.1 % 19-41 [facility] Basophil percentageOrdered B y: Chris Wyman on 12-22-2024 Basophils/100 WBC (Bld) 0.6 % 0-1 [facility] Bilirubin, totalOrdered By: Chris Wyman on 12-22-2024 Bilirubin [Mass/Vol] 0.50 mg/dL 0.20-1.00 [facility] Comment on above: For patients on eltr ombopag therapy, use of Dimension [place] TBIL is not recommended. Blood urea nitrogen (BUN)/cr eatinine ratioOrdered By: Chris Wyman on 12-22-2024 Urea nitrogen/Creatinine [Mass ratio] 18.3 mg/mg 10-20 [facility] CBC W/Diff, Automatedon 12-01 Absolute Lymph 3.49 X10 3/uL Normal 0.83-4.51 [facility] Comment on above: Performed By: #### L 3890.6300, L100.0100, L500.4050, L500.4100, L501.9520, L501.9910 #### [facility] [place], [address] Absolute Neut 7.4 X10 3/uL Normal 2.0-7.7 [facility] Comment on above: Performed By: #### L 3890.6300, L100.0100, L500.4050, L500.4100, L501.9520, L501.9910 #### [facility] [address] [place], [address] Basophils/100 WBC (Bld) 0.6 % Normal 0-1 [facility] Comment on above: Performed By: #### L 3890.6300, L100.0100, L500.4050, L500.4100, L501.9520, L501.9910 #### [facility] [address] [place], [address] Eosinophils/100 WBC (Bld) 2.7 % Normal 0-5 [facility] Comment on above: Performed By: #### L 3890.6300, L100.0100, L500.4050, L500.4100, L501.9520, L501.9910 #### [facility] [address] [place], [address] Erythrocyte distribution width (RBC) [Ratio] 12.2 % Normal 11.6-14.6 [facility] Comment on above: Performed By: #### L 3890.6300, L100.0100, L500.4050, L500.4100, L501.9520, L501.9910 #### [facility] [address] [place], [address] Hematocrit (Bld) [Volume fraction] 39.2 % Low 40-54 [facility] Comment on above: Performed By: #### L 3890.6300, L100.0100, L500.4050, L500.4100, L501.9520, L501.9910 #### [facility] [address] [place], [address] Hemoglobin (Bld) [Mass/Vol] 13.0 g/dL Normal 13.0-16.5 [facility] Comment on above: Performed By: #### L 3890.6300, L100.0100, L500.4050, L500.4100, L501.9520, L501.9910 #### [facility] [address] [place], [address] IG% 0.400 Normal 0.0-0.9 [facility] Comment on above: Result Comment: IG% - Immature Granulocytes (promyelocytes, myelocytes and metamyelocytes) > 1% indicates that a LEFT SHIFT is Present. Performed By: #### L 3890.6300, L100.0100, L500.4050, L500.4100, L501.9520, L501.9910 #### [facility] [address] [place], [address] Lymphocytes/100 WBC (Bld) 28.1 % Normal 19-41 [facility] Comment on above: Performed By: #### L 3890.6300, L100.0100, L500.4050, L500.4100, L501.9520, L501.9910 #### [facility] [address] [place], [address] MCH (RBC) [Entitic mass] 30.7 pg Normal 27.0-32.0 [facility] Comment on above: Performed By: #### L 3890.6300, L100.0100, L500.4050, L500.4100, L501.9520, L501.9910 #### [facility] [address] [place], [address] MCHC (RBC) [Mass/Vol] 33.2 g/dL Normal 32-36 [facility] Comment on above: Performed By: #### L 3890.6300, L100.0100, L500.4050, L500.4100, L501.9520, L501.9910 #### [facility] [address] [place], [address] MCV (RBC) [Entitic vol] 92.5 fL Normal 80-94 [facility] Comment on above: Performed By: #### L 3890.6300, L100.0100, L500.4050, L500.4100, L501.9520, L501.9910 #### [facility] [address] [place], [address] Monocytes/100 WBC (Bld) 8.9 % Normal 0-10 [facility] Comment on above: Performed By: #### L 3890.6300, L100.0100, L500.4050, L500.4100, L501.9520, L501.9910 #### [facility] [address] [place], [address] Neutrophils/100 WBC (Bld) 59.3 % Normal 47-70 [facility] Comment on above: Performed By: #### L 3890.6300, L100.0100, L500.4050, L500.4100, L501.9520, L501.9910 #### [facility] [address] [place], [address] Nucleated RBC (Bld) [#/Vol] 0 10*3/uL Normal 0-5 [facility] Comment on above: Performed By: #### L 3890.6300, L100.0100, L500.4050, L500.4100, L501.9520, L501.9910 #### [facility] [address] [place], [address] Platelet mean volume (Bld) [Entitic vol] 10.3 fL Normal 6.2-12.0 [facility] Comment on above: Performed By: #### L 3890.6300, L100.0100, L500.4050, L500.4100, L501.9520, L501.9910 #### [facility] [address] [place], [address] Platelets (Bld) [#/Vol] 270 10*3/uL Normal 150-450 [facility] Comment on above: Performed By: #### L 3890.6300, L100.0100, L500.4050, L500.4100, L501.9520, L501.9910 #### [facility] [address] [place], [address] RBC (Bld) [#/Vol] 4.24 10*6/uL Low 4.6-6.2 [facility] Comment on above: Performed By: #### L 3890.6300, L100.0100, L500.4050, L500.4100, L501.9520, L501.9910 #### [facility] [address] [place], [address] RDW SD 41.1 fl Normal 35.1-43.9 [facility] Comment on above: Performed By: #### L 3890.6300, L100.0100, L500.4050, L500.4100, L501.9520, L501.9910 #### [facility] [address] [place], [address] WBC (Bld) [#/Vol] 12.4 10*3/uL High 4.4-11.0 [facility] Comment on above: Performed By: #### L 3890.6300, L100.0100, L500.4050, L500.4100, L501.9520, L501.9910 #### [facility] [address] [place], [address] Carbon dioxide measurementOr dered By: Chris Wyman on 12-22-2024 CO2 [Moles/Vol] 23.0 mmol/L 21.0-32.0 [facility] Chloride measurementOrdered By: Chris Wyman on 12-22-2024 Chloride [Moles/Vol] 106 mmol/L 98-107 [facility] Comprehensive Metabolic Prof ilon 12-22-2024 Albumin [Mass/Vol] 3.5 g/dL Normal 3.2-5.0 [facility] Comment on above: Performed By: #### L 3890.6300, L100.0100, L500.4050, L500.4100, L501.9520, L501.9910 #### [facility] [address] [place], [address] Albumin/Globulin [Mass ratio] 1.0 {ratio} Normal 0.9-2.4 [facility] Comment on above: Performed By: #### L 3890.6300, L100.0100, L500.4050, L500.4100, L501.9520, L501.9910 #### [facility] [address] [place], [address] ALK P 88 U/L Normal 45-117 [facility] Comment on above: Performed By: #### L 3890.6300, L100.0100, L500.4050, L500.4100, L501.9520, L501.9910 #### [facility] [address] [place], [address] ALT [Catalytic activity/Vol] 22 U/L Normal 16-61 [facility] Comment on above: Performed By: #### L 3890.6300, L100.0100, L500.4050, L500.4100, L501.9520, L501.9910 #### [facility] [address] [place], [address] AST [Catalytic activity/Vol] 16 U/L Normal 15-37 [facility] Comment on above: Performed By: #### L 3890.6300, L100.0100, L500.4050, L500.4100, L501.9520, L501.9910 #### [facility] [address] [place], [address] Bilirubin [Mass/Vol] 0.50 mg/dL Normal 0.20-1.00 [facility] Comment on above: Result Comment: For patients on eltrombopag therapy, use of Dimension [place] TBIL is not recommended. Performed By: #### L 3890.6300, L100.0100, L500.4050, L500.4100, L501.9520, L501.9910 #### [facility] [address] [place], [address] BUN/CRE 18.3 RATIO Normal 10-20 [facility] Comment on above: Performed By: #### L 3890.6300, L100.0100, L500.4050, L500.4100, L501.9520, L501.9910 #### [facility] [address] [place], [address] CA,Total 9.3 mg/dL Normal 8.5-10.1 [facility] Comment on above: Performed By: #### L 3890.6300, L100.0100, L500.4050, L500.4100, L501.9520, L501.9910 #### [facility] [address] [place], [address] Chloride [Moles/Vol] 106 mmol/L Normal 98-107 [facility] Comment on above: Performed By: #### L 3890.6300, L100.0100, L500.4050, L500.4100, L501.9520, L501.9910 #### [facility] [address] [place], [address] CO2 [Moles/Vol] 23.0 mmol/L Normal 21.0-32.0 [facility] Comment on above: Performed By: #### L 3890.6300, L100.0100, L500.4050, L500.4100, L501.9520, L501.9910 #### [facility] [address] [place], [address] Creatinine [Mass/Vol] 1.26 mg/dL Normal 0.70-1.30 [facility] Comment on above: Result Comment: The validity of the calculated GFR GFRAA in patients over 70 years has not been determined. Clinical correlation is essential. Performed By: #### L 3890.6300, L100.0100, L500.4050, L500.4100, L501.9520, L501.9910 #### [facility] [address] [place], [place], [id number] (633) EST GFR - AA 74 mL/min Normal >60 [facility] Comment on above: Result Comment: Afri can Icelandic GFR Calc Performed By: #### L 3890.6300, L100.0100, L500.4050, L500.4100, L501.9520, L501.9910 #### [facility] [address] [place], [place], [id number] (439) GAP 8 Normal 5-15 [facility] Comment on above: Performed By: #### L 3890.6300, L100.0100, L500.4050, L500.4100, L501.9520, L501.9910 #### [facility] [address] [place], [place], [phone] (719) GFR/1.73 sq M.predicted among non-blacks MDRD (S/P/Bld) [Vol rate/Area] 61 mL/min/{1.73_m2} Normal >60 [facility] Comment on above: Result Comment: Non- GFR Calc Performed By: #### L 3890.6300, L100.0100, L500.4050, L500.4100, L501.9520, L501.9910 #### [facility] [address] [place], [place], [phone] (029) Globulin (S) [Mass/Vol] 3.4 g/dL Normal 2.2-4.2 [facility] Comment on above: Performed By: #### L 3890.6300, L100.0100, L500.4050, L500.4100, L501.9520, L501.9910 #### [facility] [address] [place], [address] Glucose [Mass/Vol] 92 mg/dL Normal 74-106 [facility] Comment on above: Performed By: #### L 3890.6300, L100.0100, L500.4050, L500.4100, L501.9520, L501.9910 #### [facility] [address] [place], [address] Potassium [Moles/Vol] 3.8 mmol/L Normal 3.5-5.1 [facility] Comment on above: Performed By: #### L 3890.6300, L100.0100, L500.4050, L500.4100, L501.9520, L501.9910 #### [facility] [address] [place], [address] Sodium [Moles/Vol] 137 mmol/L Normal 136-145 [facility] Comment on above: Performed By: #### L 3890.6300, L100.0100, L500.4050, L500.4100, L501.9520, L501.9910 #### [facility] [address] [place], [address] T PROT 6.9 g/dL Normal 6.4-8.2 [facility] Comment on above: Performed By: #### L 3890.6300, L100.0100, L500.4050, L500.4100, L501.9520, L501.9910 #### [facility] [address] [place], [address] Urea nitrogen [Mass/Vol] 23 mg/dL High 7-18 [facility] Comment on above: Performed By: #### L 3890.6300, L100.0100, L500.4050, L500.4100, L501.9520, L501.9910 #### [facility] [address] [place], [place], [id number] Eosinophil percentageOrdered By: Chris Wyman on 12-22-2024 Eosinophils/100 WBC (Bld) 2.7 % 0-5 [facility] Erythrocyte distribution wid th ratioOrdered By: Chris Wyman on 12-22-2024 Erythrocyte distribution width (RBC) [Ratio] 12.2 % 11.6-14.6 [facility] Erythrocyte distribution wid th standard deviationOrdered By: Chris Garo on 12-22-2024 Erythrocyte distribution width (RBC) [Entitic vol] 41.1 fL 35.1-43.9 [facility] Erythrocyte distribution width (RBC) [Ratio] 41.1 fl 35.1-43.9 [facility] Estimated glomerular filtrat ion rate (GFR) AmericanOrdered By: Chris Wyman on 12-22-2024 Estimated GFR (MDRD) Amer 74 mL/min >60 [facility] Comment on above: GFR Calc Glomerular filtration rate ( GFR) estimationOrdered By: Chris Wyman on 12-22-2024 Estimated GFR (MDRD) Non-Af Amer 61 mL/min >60 [facility] Comment on above: Non- GFR Calc GFR/1.73 sq M.predicted among non-blacks MDRD (S/P/Bld) [Vol rate/Area] 61 mL/min/{1.73_m2} >60 [facility] Comment on above: Non- GFR Calc Glucose measurementOrdered B y: Chris Wyman on 12-22-2024 Glucose [Mass/Vol] 92 mg/dL 74-106 [facility] Hematocrit Auto (Bld) [Volum e fraction]Ordered By: Chris Wyman on 12-22-2024 Hematocrit (Bld) [Volume fraction] 39.2 % Low 40-54 [facility] Hemoglobin measurementOrdere d By: Chris Wyman on 12-22-2024 Hemoglobin (Bld) [Mass/Vol] 13.0 g/dL 13.0-16.5 [facility] Hepatitis C Antibodyon 12-22 Hepatitis C AB Non-Reactive Normal Nonreactive [facility] Comment on above: Result Comment: Non Reactive: < 0.8 Equivocal: >/= 0.8 to < 1.0 Reactive: >/= 1.0 The CDC requires that a reactive/equivocal HCV antibody result be sent out for confirmation. HCV Quant by PCR testing. Performed By: #### L 3890.6300, L100.0100, L500.4050, L500.4100, L501.9520, L501.9910 ####[facility] [id number] [place], [address] Hepatitis C virus antibody a ssayOrdered By: Chris Wyman on 12-22-2024 Hepatitis C Antibody Non-Reactive Nonreactive [facility] Comment on above: Non Reactive: < 0.8 Equivocal: >/= 0.8 to < 1.0 Reactive: >/= 1.0The [facility] requires that a reactive/equivocal HCV antibody result be sent out for confirmation. HCV Quant by PCR testing. High density lipoprotein (HD L) measurementOrdered By: Chris Wymna on 12-22-2024 Cholesterol in HDL [Mass/Vol] 56 mg/dL >40 [facility] Comment on above: The drugs N-Acetylcy steine and Metamizole may falsely depress this assay. Reference Range HDL <40 mg/dL Low HDL Cholesterol HDL >or= 60 mg/dL High HDL Cholesterol Immature granulocytes/100 WB C Auto (Bld)Ordered By: Chris Wyman on 12-22-2024 Immature granulocytes/100 WBC (Bld) 0.400 % 0.0-0.9 [facility] Comment on above: IG% - Immature Granu locytes (promyelocytes, myelocytes and metamyelocytes) > 1% indicates that a LEFT SHIFT is Present. Laboratory - Chemistry and C hemistry - challengeOrdered By: Chris Wyman on 12-22-2024 AST [Catalytic activity/Vol] 16 U/L 15-37 [facility] Lipid Profileon 12-22-2024 Cholesterol [Mass/Vol] 161 mg/dL Normal 200 [facility] Comment on above: Result Comment: <200 mg/dL Desirable 200-240 mg/dL Borderline >240 mg/dL High Risk Performed By: #### L 3890.6300, L100.0100, L500.4050, L500.4100, L501.9520, L501.9910 #### [facility] [address] [place], [address] Cholesterol in HDL [Mass/Vol] 56 mg/dL Normal [facility] Comment on above: Result Comment: The drugs N-Acetylcysteine and Metamizole may falsely depress this assay. Reference Range HDL <40 mg/dL Low HDL Cholesterol HDL >or= 60 mg/dL High HDL Cholesterol Performed By: #### L 3890.6300, L100.0100, L500.4050, L500.4100, L501.9520, L501.9910 #### [facility] [address] [place], [address] Cholesterol in LDL [Mass/Vol] 53 mg/dL Normal 0-130 [facility] Comment on above: Performed By: #### L 3890.6300, L100.0100, L500.4050, L500.4100, L501.9520, L501.9910 #### [facility] [address] [place], [address] Cholesterol in VLDL [Mass/Vol] 52 mg/dL High 5-40 [facility] Comment on above: Performed By: #### L 3890.6300, L100.0100, L500.4050, L500.4100, L501.9520, L501.9910 #### [facility] [address] [place], [address] Triglyceride [Mass/Vol] 258 mg/dL High [facility] Comment on above: Result Comment: The drugs N-Acetylcysteine and Metamizole may falsely depress this assay. Serum Triglycerides Reference Interval Normal <150 mg/dL Borderline high 150 - 199 mg/dL High 200 - 499 mg/dL Very High > or = 500 mg/dL Performed By: #### L 3890.6300, L100.0100, L500.4050, L500.4100, L501.9520, L501.9910 #### [facility] [place], [address] Low density lipoprotein (LDL ) cholesterol measurementOrdered By: Chris Wyamn on 12-22-2024 Cholesterol in LDL [Mass/Vol] 53 mg/dL 0-130 [facility] Lymphocytes Auto (Unsp spec) [#/Vol]Ordered By: Chris Wyman on 12-22-2024 Lymphocytes (Bld) [#/Vol] 3.49 10*3/uL 0.83-4.51 [facility] Lymphocytes/100 WBC Auto (Un sp spec)Ordered By: Chris Wyman on 12-22-2024 Lymphocytes/100 WBC (Bld) 28.1 % 19-41 [facility] MCV (mean corpuscular volume ) determinationOrdered By: Chris Wyman on 12-22-2024 MCV (RBC) [Entitic vol] 92.5 fL 80-94 [facility] Mean corpuscular hemoglobin (MCH) determinationOrdered By: Chris Wyman on 12-22-2024 MCH (RBC) [Entitic mass] 30.7 pg 27.0-32.0 [facility] Mean corpuscular hemoglobin concentration (MCHC) determinationOrdered By: Chris Wyman on 12-22-2024 MCHC (RBC) [Mass/Vol] 33.2 g/dL 32-36 [facility] Mean platelet volume determi nationOrdered By: Chris Wyman on 12-22-2024 Platelet mean volume (Bld) [Entitic vol] 10.3 fL 6.2-12.0 [facility] Monocyte percentageOrdered B y: Chris Wyman on 12-22-2024 Monocytes/100 WBC (Bld) 8.9 % 0-10 [facility] Neutrophil percentageOrdered By: Chris Wyman on 12-22-2024 Neutrophils/100 WBC (Bld) 59.3 % 47-70 [facility] Nucleated red blood cell per centageOrdered By: Chris Wyman on 12-22-2024 Nucleated RBC/100 WBC (Bld) [Ratio] 0 % 0-5 [facility] PSA,Total - Annual Screenon 01-23-2025 PSA,TOT SCREEN 0.22 ng/mL Normal 0.00-4.00 [facility] Comment on above: Result Comment: This test was performed using the TPSA assay method for the [employer] chemistry system. Values obtained with different assay methods cannot be used interchangably. When changing PSA assays in the course of monitoring a patient, additional sequential testing should be carried out to confirm baseline values. Performed By: #### L 3890.6300, L100.0100, L500.4050, L500.4100, L501.9520, L501.9910 #### [facility] [address] [place], [address] Platelet countOrdered By: Avel Wyman on 12-22-2024 Platelets (Bld) [#/Vol] 270 10*3/uL 150-450 [facility] Potassium measurementOrdered By: Chris Wyman on 12-22-2024 Potassium [Moles/Vol] 3.8 mmol/L 3.5-5.1 [facility] RBC Auto (Bld) [#/Vol]Ordere d By: Chris Wyman on 12-22-2024 RBC (Bld) [#/Vol] 4.24 10*6/uL Low 4.6-6.2 [facility] Screening prostate specific antigen (PSA) measurementOrdered By: Chris Wyman on 12-22-2024 Prostate Specific Antigen Screen 0.22 ng/mL 0.00-4.00 [facility] Comment on above: This test was perfor med using the TPSA assay method for the[employer] chemistry system. Values obtained with differentassay methods cannot be used interchangably.When changing PSA assays in the course of monitoring apatient, additional sequential testing should be carriedout to confirm baseline values. Serum anion gap measurementO rdered By: Chris Wyman on 12-22-2024 Anion gap [Moles/Vol] 8 mmol/L 5-15 [facility] Serum globulin measurementOr dered By: Chris Wyman on 12-22-2024 Globulin (S) [Mass/Vol] 3.4 g/dL 2.2-4.2 [facility] Serum or plasma alanine martinez otransferase (ALT) measurementOrdered By: Chris Wyman on 12-22-2024 ALT [Catalytic activity/Vol] 22 U/L 16-61 [facility] Serum or plasma albumin link urement (mass/volume)Ordered By: Chris Wyman on 12-22-2024 Albumin [Mass/Vol] 3.5 g/dL 3.2-5.0 [facility] Serum or plasma alkaline donald sphatase measurementOrdered By: Chris Wyman 12-22-2024 ALP [Catalytic activity/Vol] 88 U/L 45-117 [facility] Serum or plasma calcium link urement (mass/volume)Ordered By: Chris Wyman on 12-22-2024 Calcium [Mass/Vol] 9.3 mg/dL 8.5-10.1 [facility] Serum or plasma cholesterol measurement (mass/volume)Ordered By: Chris Wyman on 12-22-2024 Cholesterol [Mass/Vol] 161 mg/dL <200 [facility] Comment on above: <200 mg/dL Desirable 200-240 mg/dL Borderline >240 mg/dL High Risk Serum or plasma creatinine m easurement (mass/volume)Ordered By: Chris Wyman 12-22-2024 Creatinine [Mass/Vol] 1.26 mg/dL 0.70-1.30 [facility] Comment on above: The validity of the calculated GFR & GFRAA in patients over 70 years has not been determined. Clinical correlation is essential. Serum or plasma thyroid stim ulating hormone (TSH) measurement (units/volume)Ordered By: Chris Wyman on 12-22-2024 TSH Qn 3.260 uIU/mL 0.358-3.740 [facility] Serum or plasma urea nitroge n measurement (mass/volume)Ordered By: Chris Wyman 12-22-2024 Urea nitrogen [Mass/Vol] 23 mg/dL High 7-18 [facility] Sodium levelOrdered By: Chris Wyman 12-22-2024 Sodium [Moles/Vol] 137 mmol/L 136-145 [facility] TSH QnOrdered By: Chris Wyman o n 12-22-2024 Thyroid Stimulating Hormone (TSH) 3.260 uIU/mL 0.358-3.740 [facility] Thyroid Stim Hormone (TSH)on 12-22-2024 TSH 3.260 uIU/mL Normal 0.358-3.740 [facility] Comment on above: Performed By: #### L 3890.6300, L100.0100, L500.4050, L500.4100, L501.9520, L501.9910 #### [facility] [address] [place], [address] Total proteinOrdered By: Chris Wyman on 12-22-2024 Protein [Mass/Vol] 6.9 g/dL 6.4-8.2 [facility] Triglycerides measurementOrd ered By: Chris Wyman on 12-22-2024 Triglyceride [Mass/Vol] 258 mg/dL High <199 [facility] Comment on above: The drugs N-Acetylcy steine and Metamizole may falsely depress this assay.Serum Triglycerides Reference Interval Normal <150 mg/dL Borderline high 150 - 199 mg/dL High 200 - 499 mg/dL Very High > or = 500 mg/dL Very low density lipoprotein (VLDL) cholesterol measurementOrdered By: Chris Wyman on 12-22-2024 Very low density lipoprotein (VLDL) cholesterol measurement 52 mg/dL High 5-40 [facility] VLDL Cholesterol 52 mg/dL High 5-40 [facility] White blood cell (WBC) count Ordered By: Chris Wyman on 12-22-2024 WBC (Bld) [#/Vol] 12.4 10*3/uL High 4.4-11.0 [facility] PT D/C Summary (1)on 024 PT D/C Summary (1) [facility] Physical Therapy [address] [place] [address] / REHABILITATION SERVICES DISCHARGE SUMMARY MR#: [id number] Acct: [id number] Name: YADIEL SOSA Rep #: [id number] : 1960 64 From: David Johnson PT, Cert. T, OCS Referring Dr.: [facility] DBA MANAGER-C Gina Peres Status: REG RCR Insurance: [facility] MCRDUAL COMPLETE [facility] COMMUNITY PLAN Discharge Summary D/C summary: It has been my pleasure to treat YADIEL SOSA referred by Gina Peres, [facility], DBA MANAGER-C, with the diagnosis of MUSCLE WEAKNESS GENERALIZED for a total of 49 visit(s). Discharge Date: 11/29/24 Please see the following information for a summary of their discharge status. Subjective Subjective: Doing well happy with progress Patient uses cane for gait Overall Improvement % Improvement: 90 Objective Objective/Function: POSTURE: posterior pelvic tilt rounded shoulder ,standing with hips/knees flexed NEURO: denies paresthesia/tingling ,reflexes L3-4,L4-5 ,L5 -S 1/3 GAIT: Ambulated with cane short distances in community ,ambulates with no device TRANSFER: I BALANCE: GOOD- MMT: ( peak force) quads 47.7 ght ,left 41.8 ,hip flexion right 60.7 ,left 50.5 ,hamstrings left 42.2 ,right 43.5 FLEXABILIY: min tight hamstrings Goals Goal 1:: Patient to improve peak force quads/hams/hip by 10 # strength to improve function.( NEW GOAL) Goal Progress: Goal Met Goal 2:: Patient reuben ambulate with mod I 500 ft x with cane.( NEW GOAL) Goal Progress: Goal Met Goal 3:: Patient to improve LFES score by 5-10 points to improve QOL and function Goal Progress: Goal Met Goal 4:: Patient to improve CATSIB 5 points to improve balance :( new goal) Goal Progress: Progressing Goal 5:: Patient to improve functional gait assessment by 5 points to improve gait.( new goal) Goal Progress: Goal Met Goal 6:: I with HEP to improve gait and balance Goal Progress: Goal Met Plan Plan: D/C D/C Information Discharge Comments: HEP DOING GREAT d/c sentence: If there are questions or concerns regarding this patient's physical therapy, please feel free to call me at [phone]. Thank you for the referral of this patient. Sincerely, David Johnson, PT, Cert MDT, OCS Balance/Gait/Functional tests Balance/Special Test Scores Lower Extremity Functional Score: 54 Improvement % Improvement: 90 11/29/24 0919 CC: [facility] DBA MANAGER-C Gina Peres JLA Signed Normal [facility] Re-Evaluation - PT (1)on Re-Evaluation - PT (1) [facility] [address] [place] [address] / REEVALUATION / MEDICARE RECERTIFICATION PHYSICAL THERAPY MR#: [id number] Acct: [id number] Name: YADIEL SOSA Rep #: [id number] : 1960 64 From: David oJhnson PT, Cert. T, OCS Referring Dr.: [facility] DBA MANAGER-C Gina Peres Status:REG RCR Insurance: [facility] COMPLETE MEDICAID Re-Evaluation Intro: Gina Peres, [facility], DBA MANAGER-C, It has been my pleasure to treat YADIEL SOSA over the last 41 visits for MUSCLE WEAKNESS GENERALIZED. Please see the progress note below for an update on the physical therapy plan of care! Subjective Subjective: Patient walking around with cane . Uses with cane Dr Talbert Objective Objective/Function: *Patient will cont to benefit from skilled PT progressing with gait using cane and adjustment with new goals and appropriate progressing with gait at home with cane* POSTURE: posterior pelvic tilt rounded shoulder ,standing with hips/knees flexed NEURO: denies paresthesia/tingling ,reflexes L3-4,L4-5 ,L5 -S 1/3 GAIT: reciprocal pattern hips/knees with cane with SBA/supervision 340 ft TRANSFER: sit-stand with mod I BALANCE: fair +with cane MMT: ( peak force) quads 47.7 ght ,left 41.8 ,hip flexion right 60.7 ,left 50.5 ,hamstrings left 42.2 ,right 43.5 FLEXABILIY: min tight hamstrings Plan Plan Plan: work on gait without cane PT INTERVENTIONS PROGRESSIVE GAIT TRAINING ,BALANCE TRAINING,BLE STRENGTHENING ,AEROBIC EX'S AND FUNCTIONAL STRENGTHENING Balance/Gait/Functional tests Balance/Special Test Scores Functional Gait Assessment Score: 13 % Disability: 56.6700 CATSIB Score (Max score 120 seconds): 55 Lower Extremity Functional Score: 34 Goals Goals Goal 1:: Patient to be I with HEP Goal Time Frame: 4-6 Weeks Goal Progress: Progressing Goal 2:: Patient reuben ambulate with mod I 500 ft x with/without cane.( NEW GOAL) Goal Time Frame: 4-6 Weeks Goal Progress: Progressing Goal 3:: Patient to improve peak force quads/hams/hip by 10 # strength to improve function.( NEW GOAL) Goal Time Frame: 4-6 Weeks Goal Progress: Progressing Goal 4:: Patient to improve LFES score by 5-10 points to improve QOL and function Goal Time Frame: 4-6 Weeks Goal Progress: Progressing Goal 5:: Patient to improve CATSIB 5 points to improve balance :( new goal) Goal Time Frame: 4-6 Weeks Goal Progress: Progressing Goal 6:: Patient to improve functional gait assessment by 5 points to improve gait.( new goal) Goal Time Frame: 4-6 Weeks Goal Progress: Progressing Anticipated Interventions Anticipated Interventions Patient/Client Instruction: Educate patient on: Condition and Plan of Care For the Purpose of:: To decrease pain, To increase ROM, To improve muscle performance and motor function, To improve ability to perform ADL's, To increase tolerance to activity/condition/posit ion, To improve performance and independence with ADL's, To improve ability of physical actions for home/community/work/leis ure, To improve gait and locomotor functions, To improve safety with gait and To improve tolerance to ADL's Therapeutic Exercise to Include: Strength training, Endurance training, Balance training, Flexibilty training, Gait and locomotor training and Active ROM Comment: BLE QUADS/HAMS/HIP For the Purpose of:: To improve muscle performance and motor function, To improve ability to perform ADL's, To increase tolerance to activity/condition/posit ion, To improve ability of physical actions for home/community/work/leis ure, To improve gait and locomotor functions, To increase flexibility/ROM, To improve endurance, To improve balance and To improve tolerance to ADL's Re-Evaluation Ending Re-evaluation ending: Please do not hesitate to contact me at [phone] by phone or if you have questions or concerns regarding this new plan of care! Sincerely, David Johnson, PT, Cert MDT, [facility] 10/28/24 0939 CC: [facility] DBA MANAGERHang Peres YOVANA Signed For Medicare only, by signing this I certify the plan of care. ____ Physicians Signature [facility] Office Visit (PODIWS ) -------- YADIEL SOSA ([id number]) 1960 M Date Time Provider Department 10/21/24 3:00 PM KENDRICK SCALESIWS During your visit today, we recorded the following information about you: Nena Webb RN 10/22/2024 6:32 AM Signed Patient presents with: Left Foot - Established Patient, Follow Up, Nail Fungus, nail care Right Foot - Established Patient, Follow Up, nail care, Callous Patient presents for follow up nail care and fungus results. Results were sent through [facility]. Patient does not have access to [employer] Left big toenail thick and discolored. Right 3rd toe tip has callus than can be tender. [facility] 07/15/24 Kendrick Scales 10/22/2024 6:32 AM Signed Subjective: Patient presents to clinic c/o painful toenails. They state that the nails are especially painful with shoe gear and pressure. Patient states that nails 1-5 b/l are painful. No other pedal complaints at this time. Patient states no change in medications or medical history since last visit. Objective: Patient presents to clinic ambulating in sneakers Vasc: DP and PT pulses are palpable bilateral. CFT is less than 5 seconds bilateral. Skin temperature is warm to cool proximal to distal bilateral. There is minimal edema or varicosities noted. Neuro: Protective sensation is intact to the foot and toes when tested with the 5.07 SWM bilateral. Vibratory sensation is decreased at the hallux IPJ bilateral. The hallux is downgoing bilateral. Derm: Nails 1-5 b/l are painful, discolored-yellow, thick, crumbly, dystrophic and with subungal debris. Skin is of normal turgor, texture and hair growth is decreased bilateral. There are no hyperkeratosis, ulcerations, scars, verruca or other lesions noted. One colony Epidermophyton floccosum Abnormal By microscopic morphology Rare Kayla parapsilosis complex Abnormal This test was developed and its performance characteristics determined by the [facility] [place] ([facility]). It has not been cleared or approved by the FDA. [facility] is regulated under CLIA as qualified to perform high-complexity testing. This test is used for clinical purposes. It should not be regarded as investigational or for research. Fungal Smear Abnormal Many Septate hyphae Ortho: Muscle strength is 5/5 for all pedal groups tested. Ankle joint DF is full with the knee extended with no pain or crepitus noted. 1st MPJ ROM is full bilateral. Assessment: (B35.1) Onychomycosis (primary encounter diagnosis) (M79.675) Pain in toe of left foot (M79.674) Pain in toe of right foot Plan: Patient was seen and evaluated. Nails 1-5 bilateral were debrided in length and thickness. Discussed past fungal culture. Discussed topical medication, oral medication, laser therapy vs removal. Patient has elected to try topical medication Kendrick Scales DPM Allergies As of Date: 10/21/2024 (No Known Allergies) Date Reviewed: 10/21/2024 Reviewed by: Nena Webb RN - Fully Assessed Reason for Visit: Established Patient [175] Follow Up [171] Nail Fungus [764] nail care [Other] Established Patient [175] Follow Up [171] nail care [Other] Callous [1028] Primary Visit Diagnosis:Onychomycosis [B35.1] Other Visit Diagnoses:Pain in toe of left foot [M79.675] Pain in toe of right foot [M79.674] Order(s):Ciclopirox (CICLODAN) 8 % solutionApply to affected area daily at bedtime.Disp: 6.6 mLRfl: 2 Prescriptions as of 10/22/2024 - metoprolol succinate ER (TOPROL XL) 25 mg 24 hr tablet Take 25 mg by mouth once daily. - sertraline (ZOLOFT) 50 mg tablet Take 50 mg by mouth once daily. - tamsulosin (FLOMAX) 0.4 mg Take 0.4 mg by mouth once daily. - Ciclopirox (CICLODAN) 8 % solution Apply to affected area daily at bedtime. - Acetaminophen 500 mg cap Take 1,000 mg by mouth. - tiZANidine (ZANAFLEX) 4 mg tablet - thiamine (VITAMIN B1) 100 mg tablet - rosuvastatin (CRESTOR) 5 mg tablet - potassium chloride ER (KLOR-CON) 20 mEq tablet - pantoprazole DR (PROTONIX) 40 mg tablet 40 mg once daily. - Mirtazapine (REMERON) 7.5 mg tablet Take 7.5 mg by mouth daily at bedtime. - loratadine (CLARITIN) 10 mg tablet Take 10 mg by mouth once daily. - hydrOXYzine HCl (ATARAX) 25 mg tablet Take 25 mg by mouth three times a day as needed for anxiety. - cyanocobalamin 1,000 mcg/mL Inject 1,000 mcg intramuscularly. - TRELEGY ELLIPTA 100-62.5-25 mcg inhalation powder Inhale 1 Puff as instructed once daily. - albuterol HFA (PROVENTIL HFA, VENTOLIN HFA) 90 mcg/actuation inhaler Inhale 2 Puffs as instructed every 4 hours as needed. - buPROPion XL (WELLBUTRIN XL) 300 mg 24 hr tablet Take 300 mg by mouth once daily. - ARIPiprazole (ABILIFY) 5 mg tablet Take 5 mg by mouth every morning. - cholecalciferol, Vitamin D3, (VITAMIN D3) 50,0 (more content not included)... Normal [facility] Cardiology Visit Reporton Cardiology Visit Report [facility] [address] [place], [place] [address] OFFICE VISIT Date of Service: 10/11/24 MR#: [id number] Acct: [id number] Name: YADIEL SOSA Rep #: [id number] : 1960 Provider: RADHA gomes Age/Sex: 64/M Location: [facility] Status: Signed HPI HPI History of Present Illness Details: YADIEL SOSA, is a 64 M who presents to the office today for a cardiovascular outpatient follow- up. 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 The patient underwent an echocardiogram and stress test in 2018. His echocardiogram showed preserved ejection fraction and his nuclear stress test was negative for ischemia. From a cardiac standpoint, the patient is doing well. He presents to the office today in a wheel chair. He denies any palpitations, chest pain, pressure or heaviness. He denies SOB, Orthopnea, and PND. He does not have bleeding issues; no blood in urine, stool or nosebleeds. He denies any decrease in energy level, myalgias, or claudication. He does not have edema, or sudden weight gain. He denies dizziness, lightheadedness, syncopal or near syncopal episodes, and headaches. Intake Vital Signs 04/05/24 14:14 05/06/24 21:17 10/11/24 13:08 Height 6 ft 6 ft 6 ft Weight: 186 lb BMI 25.2 BP 110/78 Blood Pressure Location Lt brachial Position Sitting Respiration 18 Pulse 105 H Pulse Source Monitor Pulse Oximetry (%) 98 Intake Visit Reasons: 6 M Monogram And Letter Paster Required: No Is patient in pain?: No Allergies No Known Allergies Allergy (Verified 10/11/24 13:19) Medications ???Medication ???Instructions ???Recorded ???Confirmed ???Type loratadine 10 mg tablet 10 mg PO DAILY allergies 07/31/18 10/11/24 History acetaminophen 500 mg capsule 500 - 1,000 mg (1 - 2 x 500 mg) PO 12/12/20 10/11/24 Rx .Q8hr PRN pain (scale score 4-6) #100 caps omeprazole 40 mg capsule,delayed 40 mg PO DAILY Indigestion 12/11/21 10/11/24 History release aripiprazole 5 mg tablet 5 mg PO DAILY mental health 12/18/22 10/11/24 History bupropion HCl 300 mg 24 hr tablet, 300 mg PO DAILY mental health 12/18/22 10/11/24 History extended release cyanocobalamin (vitamin B-12) 1,000 mcg IM QMONTH vitamin 12/18/22 10/11/24 History 1,000 mcg/mL injection solution mirtazapine 15 mg tablet (Remeron) 15 mg PO DAILY mental health 08/18/23 10/11/24 History folic acid 1 mg tablet 1 mg PO DAILY@0800 30 days #30 tabs 08/20/23 10/11/24 Rx potassium chloride 10 mEq 20 meq (2 x 10 mEq) PO DAILY 30 08/20/23 10/11/24 Rx capsule,extended release days #60 caps thiamine HCl (vitamin B1) 100 mg 100 mg PO DAILYCM 30 days #30 tabs 08/20/23 10/11/24 Rx tablet (Vitamin B-1) blood pressure monitor #1 ea 10/02/23 10/11/24 Rx tamsulosin 0.4 mg capsule 0.4 mg PO DAILY 04/05/24 10/11/24 History topiramate 50 mg tablet 50 mg PO DAILY 04/05/24 10/11/24 History cholestyramine (with sugar) 4 gram 4 g PO BID #348.6 grams 04/29/24 10/11/24 Rx oral powder hydrocodone-acetaminophe n 5-325mg 1 tab PO Q6H PRN PRN Pain 3 days 05/06/24 10/11/24 Rx 5mg-325mg #10 TABLETS metoprolol succinate 25 mg 25 mg PO QDAY #30 tabs 10/11/24 10/11/24 Rx tablet,extended release 24 hr sertraline 50 mg tablet (Zoloft) 50 mg PO QDAY 10/11/24 10/11/24 History Have you fallen in the past year?: No PFSH Medical History Alcohol abuse New onset seizure Wears glasses Loose, teeth Walker as ambulation aid Restless legs COPD (chronic obstructive pulmonary disease) Former smoker Degenerative arthritis Gout Fatty infiltration of liver Vitamin D deficiency Elevated liver enzymes Anemia Greater trochanteric bursitis of right hip Degenerative joint disease, right, 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 Greater trochanter fracture Iron deficiency anemia Subcutaneous nodules Essential (primary) hypertension Hyperlipidemia Anxiety and depression Nicotine dependence Gynecomastia Hepatomegaly Non-sustained ventricular tachycardia Surgical History History of colonoscopy (01/2020) History of ankle surgery H/O shoulder surgery History of vascular surgery Family History Father CVA (cerebral vascular accident) Myocardial infarction HAS ICD Heart disease Sister Breast cancer Mother Heart disease Sister Colon cancer Social History household members: none Smoking Status: Current every day smoker tobacco type: cigarettes Tobacco: How many years used: 40 alcohol intake: cu (more content not included)... Normal [facility] Re-Evaluation - PT (1)on Re-Evaluation - PT (1) [facility] Physical Therapy [facility] [address] [place] [address] / REEVALUATION / MEDICARE RECERTIFICATION PHYSICAL THERAPY MR#: [id number] Acct: [id number] Name: YADIEL SOSA Rep #: [id number] : 1960 64 From: David Johnson PT, Cert. T, OCS Referring Dr.: [facility] DBA MANAGER-C Gina Peres Status:REG RCR Insurance: [facility] MCRDUAL COMPLETE [facility] COMMUNITY PLAN Re-Evaluation Intro: Gina Peres [facility], DBA MANAGER-C, It has been my pleasure to treat YADIEL SOSA over the last 33 visits for MUSCLE WEAKNESS GENERALIZED. Please see the progress note below for an update on the physical therapy plan of care! 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 for cooking/cleaning Objective Objective/Function: Patient will cont to benefit from skilled PT progressing with gait using cane and adjustment with new goals and appropriate POSTURE: posterior pelvic tilt rounded shoulder ,standing with hips/knees flexed NEURO: denies paresthesia/tingling ,reflexes L3-4,L4-5 ,L5 -S 1/3 GAIT: reciprocal pattern hips/knees with cane with close SBA 300 ft TRANSFER: sit-stand with mod I BALANCE: fair +with cane MMT: ( peak force) quads 44.7 ght ,left 42.8 ,hip flexion right 44.7 ,left 44.8 ,hamstrings left 37.2 ,right 33.5 FLEXABILIY: min tight hamstrings Plan Plan Plan: PT INTERVENTIONS PROGRESSIVE GAIT TRAINING ,BALANCE TRAINING,BLE STRENGTHENING ,AEROBIC EX'S AND FUNCTIONAL STRENGTHENING Balance/Gait/Functional tests Balance/Special Test Scores Lower Extremity Functional Score: 34 Goals Goals Goal 1:: Patient to be I with HEP Goal Time Frame: 4-6 Weeks Goal Progress: Progressing Goal 2:: Patient reuben ambulate with mod I 500 ft x with cane.( NEW GOAL) Goal Time Frame: 4-6 Weeks Goal Progress: Progressing Goal 3:: Patient to improve peak force quads/hams/hip by 10 # strength to improve function.( NEW GOAL) Goal Time Frame: 4-6 Weeks Goal Progress: Progressing Goal 4:: Patient to improve LFES score by 5-10 points to improve QOL and function Goal Time Frame: 4-6 Weeks Goal Progress: Progressing Goal 5:: Patient to improve CATSIB 5 points to improve balance :( new goal) Goal Time Frame: 4-6 Weeks Goal Progress: Progressing Goal 6:: Patient to improve functional gait assessment by 5 points to improve gait.( new goal) Goal Time Frame: 4-6 Weeks Goal Progress: Progressing Anticipated Interventions Anticipated Interventions Patient/Client Instruction: Educate patient on: Condition and Plan of Care For the Purpose of:: To decrease pain, To increase ROM, To improve muscle performance and motor function, To improve ability to perform ADL's, To increase tolerance to activity/condition/posit ion, To improve performance and independence with ADL's, To improve ability of physical actions for home/community/work/leis ure, To improve gait and locomotor functions, To improve safety with gait and To improve tolerance to ADL's Therapeutic Exercise to Include: Strength training, Endurance training, Balance training, Flexibilty training, Gait and locomotor training and Active ROM Comment: BLE QUADS/HAMS/HIP For the Purpose of:: To improve muscle performance and motor function, To improve ability to perform ADL's, To increase tolerance to activity/condition/posit ion, To improve ability of physical actions for home/community/work/leis ure, To improve gait and locomotor functions, To increase flexibility/ROM, To improve endurance, To improve balance and To improve tolerance to ADL's Re-Evaluation Ending Re-evaluation ending: Please do not hesitate to contact me at [phone] by phone or if you have questions or concerns regarding this new plan of care! Sincerely, David Johnson, PT, Cert MICHAEL, OCS 09/27/24 1428 CC: [facility] RADHA Peres YOVANA Signed For Medicare only, by signing this I certify the plan of care. ____ Physicians Signature Date Normal [facility] Re-Evaluation - PT (1)on Re-Evaluation - PT (1) [facility] Physical Therapy [facility] [address] [place] [address] / REEVALUATION / MEDICARE RECERTIFICATION PHYSICAL THERAPY MR#: [id number] Acct: [id number] Name: YADIEL SOSA Rep #: [id number] : 1960 64 From: David Johnson PT, Arianna. MD Guillermo, OCS Referring Dr.: [facility] RADHA Peres Status:REG RCR [facility] COMMUNITY PLAN Re-Evaluation Intro: Gina Peres, [facility], DBA MANAGERHang, It has been my pleasure to treat YADIEL SOSA over the last 25 visits for MUSCLE WEAKNESS GENERALIZED. Please see the progress note below for an update on the physical therapy plan of care! Subjective Subjective: Doing better.. walking with aide using walker more Objective Objective/Function: POSTURE: posterior pelvic tilt rounded shoulder ,standing with hips/knees flexed NEURO: denies paresthesia/tingling ,reflexes L3-4,L4-5 ,L5 -S 1/3 GAIT: reciprocal pattern hips/knees flexed slow nesha decrease hip/knee flexion 350 FT( able to ambulate 50 FT with no device with CGA w/c follow) TRANSFER: sit-stand with mod I BED MOBILITY: mod I BALANCE: fair +with fww MMT: ( peak force) quads 44.8 ght ,left 43.8 ,hip flexion right 44.5 ,left 44.7 ,hamstrings left 37.2 ,right 33.5 FLEXABILIY: min tight hamstrings Plan Plan Plan: PT INTERVENTIONS PROGRESSIVE GAIT TRAINING ,BALANCE TRAINING,BLE STRENGTHENING ,AEROBIC EX'S AND FUNCTIONAL STRENGTHENING Balance/Gait/Functional tests Balance/Special Test Scores Lower Extremity Functional Score: 24 Goals Goals Goal 1:: Patient to be I with HEP Goal Time Frame: 4-6 Weeks Goal Progress: Progressing Goal 2:: Patient reuben ambulate with supervision/mod I 500 ft x with fww.( NEW GOAL) Progressing with no device 100ft with CGA Goal Time Frame: 4-6 Weeks Goal Progress: Progressing Goal 3:: Patient to improve peak force quads/hams/hip by 10 # strength to improve function.( NEW GOAL) Goal Time Frame: 4-6 Weeks Goal Progress: Progressing Goal 4:: Patient to improve LFES score by 5-10 points to improve QOL and function Goal Time Frame: 4-6 Weeks Goal Progress: Progressing Goal 5:: Patient to demonstrate 80% improvement with increase function with gait and mod I with transfers safely( new goal) Goal Time Frame: 4-6 Weeks Goal Progress: Progressing Goal 6:: Patient to improve dynamic balance with fww fair+ to decrease risk of falls Goal Time Frame: 4-6 Weeks Goal Progress: Progressing Anticipated Interventions Anticipated Interventions Patient/Client Instruction: Educate patient on: Condition and Plan of Care For the Purpose of:: To decrease pain, To increase ROM, To improve muscle performance and motor function, To improve ability to perform ADL's, To increase tolerance to activity/condition/posit ion, To improve performance and independence with ADL's, To improve ability of physical actions for home/community/work/leis ure, To improve gait and locomotor functions, To improve safety with gait and To improve tolerance to ADL's Therapeutic Exercise to Include: Strength training, Endurance training, Balance training, Flexibilty training, Gait and locomotor training and Active ROM Comment: BLE QUADS/HAMS/HIP For the Purpose of:: To improve muscle performance and motor function, To improve ability to perform ADL's, To increase tolerance to activity/condition/posit ion, To improve ability of physical actions for home/community/work/leis ure, To improve gait and locomotor functions, To increase flexibility/ROM, To improve endurance, To improve balance and To improve tolerance to ADL's Re-Evaluation Ending Re-evaluation ending: Please do not hesitate to contact me at [phone] by phone or if you have questions or concerns regarding this new plan of care! Sincerely, David Johnson, PT, Cert MDT, OCS 08/25/24 0955 CC: [facility] DBA MANAGERLinneaC Gina Peres YOVANA Signed For Medicare only, by signing this I certify the plan of care. ____ Physicians Signature Date Normal [facility] CNOVon 07-15-2024 CNOV Office Visit (PODIWS ) -------- YADIEL SOSA ([id number]) 1960 M Date Time Provider Department 07/15/24 2:20 PM KENDRICK SCALES PODIWS During your visit today, we recorded the following information about you: Nena Webb, CRISTIN 07/15/2024 2:40 PM Signed Patient presents with: Left Foot - Established Patient, Nail Check, Nail Fungus Right Foot - Established Patient, Nail Check, Nail Fungus Patient presents for nail care. Patient has some toenails that are thick, discolored and growing backwards. Patient states that he has a hard time trimming his own nails. 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 KALPANA 09/26/22 Kendrick Scales 07/15/2024 2:40 PM Signed Initial Podiatric Office Visit: Chief Complaint: This 63 year old male who presents with chief complaint:nail discoloration HPI Patient presents to clinic as recommended by dermatology for his dystrophic toenails Reports pain and thickening of nails and has difficult time cutting the nails No other complaints PAIN EVALUATION No data found in the last 1 encounters. No results found for: HBA1C PCP: Cristy Álvarez DBA MANAGER, WINDLACE MACHINE OPERATOR PAST MEDICAL HISTORY 07/30/2016: Anxiety 07/30/2016: Depression No date: Hypercholesterolemia No date: Hypertension No date: Mental disorder No date: Varicose veins of left lower extremity Current Outpatient Medications Medication Sig Acetaminophen 500 mg cap Take 1,000 mg by mouth. tiZANidine (ZANAFLEX) 4 mg tablet thiamine (VITAMIN B1) 100 mg tablet rosuvastatin (CRESTOR) 5 mg tablet potassium chloride ER (KLOR-CON) [address] (PROTONIX) 40 mg tablet 40 mg once daily. Mirtazapine (REMERON) 7.5 mg tablet Take 7.5 mg by mouth daily at bedtime. loratadine (CLARITIN) 10 mg tablet Take 10 mg by mouth once daily. hydrOXYzine HCl (ATARAX) 25 mg tablet Take 25 mg by mouth three times a day as needed for anxiety. cyanocobalamin 1,000 mcg/mL Inject 1,000 mcg intramuscularly. TRELEGY ELLIPTA 100-62.5-25 mcg inhalation powder Inhale 1 Puff as instructed once daily. buPROPion XL (WELLBUTRIN XL) 300 mg 24 hr tablet Take 300 mg by mouth once daily. topiramate (TOPAMAX) 50 mg tablet Take 1 tablet by mouth daily at bedtime. atorvastatin (LIPITOR) 40 mg tablet Take 40 mg by mouth once daily. ibuprofen (MOTRIN) 600 mg tablet Take 1 tablet by mouth every 6 hours as needed for Pain. losartan (COZAAR) 25 mg tablet Take 25 mg by mouth once daily. citalopram (CELEXA) 40 mg tablet Take 40 mg by mouth once daily. albuterol HFA (PROVENTIL HFA, VENTOLIN HFA) 90 mcg/actuation inhaler Inhale 2 Puffs as instructed every 4 hours as needed. (Patient not taking: Reported on 07/15/2024) ARIPiprazole (ABILIFY) 5 mg tablet Take 5 mg by mouth every morning. (Patient not taking: Reported on 07/15/2024) cholecalciferol, Vitamin D3, (VITAMIN D3) 50,000 unit cap capsule Take 1 capsule by mouth once each week. (Patient not taking: Reported on 07/15/2024) Gyjzg-0-IKJ-EPA-Fish Oil 1,000 mg (120 mg-180 mg) cap Take 2 g by mouth once daily. (Patient not taking: Reported on 09/26/2022) Multivitamin capsule Take 1 capsule by mouth once daily. (Patient not taking: Reported on 09/26/2022) HYDROcodone-acetaminophe n (NORCO) 5-325 mg per tablet Take 1 tablet by mouth every 6 hours as needed. (Patient not taking: Reported on 02/09/2019) hydrochlorothiazide (HYDRODIURIL, ESIDRIX) 12.5 mg tablet (Patient not taking: Reported on 07/15/2024) ALPRAZolam (XANAX) 0.5 mg tablet Take 1 mg by mouth at bedtime as needed. (Patient not taking: Reported on 09/26/2022) No current facility-administered medications for this visit. ALLERGIES No Known Allergies PAST SURGICAL HISTORY 10/01/15: COLONOSCOPY FLX DX W/COLLJ SPEC WHEN PFRMD Comment: Colonoscopy No date: PAST SURGICAL HISTORY OF Comment: heel spur No date: PAST SURGICAL HISTORY OF; Left Comment: fx shoulder AND humerus 2016: PAST SURGICAL HISTORY OF; Left Comment: Varicose vein surgery left leg FAMILY HISTORY Problem Relation Age of Onset Heart Father Stroke Father Hypertension Father Colon Cancer Sister Cancer Sister breast Social History Tobacco Use Smoking status: Every Day Packs/day: 0.50 Years: 10.00 Additional pack years: 0.00 Total pack years: 5.00 Types: Cigarettes Smokeless tobacco: Never Tobacco comments: 01/2018 - down to 12/01 ppd Vaping Use Vaping Use: Never used Substance Use Topics Alcohol use: Yes Comment: Sometimes Drug use: No REVIEW OF SYSTEMS GENERAL: Negative for Malaise, significant weight loss, fever RESPIRATORY: Negative for cough, wheezing and shortness of breath CARDIOVASCULAR: Negative for chest pain, leg swelling and palpitations GI: Negative for abdominal discomfort, blood in stools or black stools and change in bowel habits : Negative for dysuria, frequency and incontinence MUSCULOSKELETAL: Ne (more content not included)... 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 CLIA [id number] [address] [facility] [address] [address] [place] Inital Evaluation (1) - PTon 05-24-2024 Inital Evaluation (1) - PT [facility] Physical Therapy [facility] [address] [place] [address] / REHABILITATION SERVICES INITIAL EVALUATION MR#: [id number] Acct: [id number] Name: YADIEL SOSA Rep #: [id number] : 1960 63 From: David Johnson PT, Cert. MD Guillermo, OCS Referring Dr.: LIZ Christine, DBA MANAGER-C Status: REG R Insurance: [facility] SELF PAY INSURANCE Patient's Visit Information Visit Information Visit Information: YADIEL SOSA is a 63 year old M referred to Physical Therapy by LIZ Christine, DBA MANAGER-C with a diagnosis of MUSCLE WEAKNESS GENERALIZED. Date of Evaluation: 05/24/24 Physical Therapist: David Johnson PT, Cert T, OCS Visit Plan Frequency: 2x /Week Duration: 6 Weeks Plan: PATIENT USES W/C AT HOME BUT CAN WALK SHORT DISTANCE WITH WALKER PT INTERVENTIONS PROGRESSIVE GAIT TRAINING ,BALANCE TRAINING,BLE STRENGTHENING ,AEROBIC EX'S AND FUNCTIONAL STRENGTHENING Subjective Subjective: This 63 y/o male presents to physical therapy with weakness and frequent falls. Patient seen DR john PT due to weakness and frequent falls.Patient has not fallen past month ,but was depressed from losing partner. Patient c/o weakness and stamin and unable to walk. Patient home situation power lift to entrance to house. Patient lives 2 story home bath 2nd floor 2 bedrooms upstairs and has day bed on 1st floor. Walk in shower and grab rails with shower chair. Patient will have Aide Thursday 3x week 4 hours /day. Patient denies paresthesia/tingling. Patient sleeping okay at night. Patient has own w/c patient stays in w/c for mobility . Patient has FWW and rollator short distances unable to use due to space.Patient condition affects QOL and function with gait. Patient goals to walk SOCIAL: single VOCATION: disabiliy Pain Bilateral Back: Pain Intensity (Out of 10): 4 Pain Intensity Range: 10 Objective Objective: POSTURE: posterior pelvic tilt rounded shoulder ,standing with hips/knees flexed NEURO: denies paresthesia/tingling ,reflexes L3-4,L4-5 ,L5 -S 1/3 GAIT: reciprocal pattern hips/knees flexed slow nesha decrease hip/knee flexion 20ft with FWW TRANSFER: sit-stand with SBA BED MOBILITY: mod I BALANCE: fair- with fww MMT: ( peak force) quads 9.9 right ,left 10.3 ,hip flexion right 13.1 ,left 12.2 ,hamstrings left 12.9 ,right 13.2 FLEXABILIY: mod tight Balance/Special Test Scores Lower Extremity Functional Score: 13 Goals Goal 1:: Patient to be I with HEP Goal Time Frame: 4-6 Weeks Goal 2:: Patient reuben ambulate with supervision/mod I 150 ft x2 with fww. Goal Time Frame: 4-6 Weeks Goal 3:: Patient to improve peak force quads/hams/hip by 10 # strength to improve function. Goal Time Frame: 4-6 Weeks Goal 4:: Patient to improve LFES score by 5-10 points to improve QOL and function Goal Time Frame: 4-6 Weeks Goal 5:: Patient to demonstrate 50% improvement with increase function with gait and mod I with transfers safely Goal Time Frame: 4-6 Weeks Goal 6:: Patient to improve dynamic balance with fww fair+ to decrease risk of falls Goal Time Frame: 4-6 Weeks Rehabilitation Potential Physical Therapy Diagnosis: This patient has generalized weakness with decrease gait with min walking at home ,decrease strength BLE ,impaired balance thus benefit skilled PT to address these impairments Rehabilitation Potential: Fair Anticipated Interventions Patient/Client Instruction: Educate patient on: Condition and Plan of Care For the Purpose of:: To decrease pain, To increase ROM, To improve muscle performance and motor function, To improve ability to perform ADL's, To increase tolerance to activity/condition/posit ion, To improve performance and independence with ADL's, To improve ability of physical actions for home/community/work/leis ure, To improve gait and locomotor functions, To improve safety with gait and To improve tolerance to ADL's Therapeutic Exercise to Include: Strength training, Endurance training, Balance training, Flexibilty training, Gait and locomotor training and Active ROM Comment: BLE QUADS/HAMS/HIP For the Purpose of:: To improve muscle performance and motor function, To improve ability to perform ADL's, To increase tolerance to activity/condition/posit ion, To improve ability of physical actions for home/community/work/leis ure, To improve gait and locomotor functions, To increase flexibility/ROM, To improve endurance, To improve balance and To improve tolerance to ADL's Text: Thank you for the opportunity to evaluate your patient. For Medicare and Medicare HMO plans, please review the plan of care and approve it. It will need to be FAXED BACK to us at [phone] for Medicare purposes. For Medicare only, by signing this I certify the plan of care. Please let me know if there are questions or concerns regarding this plan (more content not included)... Normal [facility] Basic Metabolic Profile (BMP )on 05-06-2024 BUN/CRE 17.5 RATIO Normal 10-20 [facility] Comment on above: Performed By: #### L 100.0100, L500.2500 #### [facility] [address] [place], [address] CA,Total 8.5 mg/dL Normal 8.5-10.1 [facility] Comment on above: Performed By: #### L 100.0100, L500.2500 #### [facility] [address] [place], [address] Chloride [Moles/Vol] 111 mmol/L High 98-107 [facility] Comment on above: Performed By: #### L 100.0100, L500.2500 #### [facility] [address] [place], [address] CO2 [Moles/Vol] 19.0 mmol/L Low 21.0-32.0 [facility] Comment on above: Performed By: #### L 100.0100, L500.2500 #### [facility] [address] [place], [address] Creatinine [Mass/Vol] 1.03 mg/dL Normal 0.70-1.30 [facility] Comment on above: Result Comment: The validity of the calculated GFR GFRAA in patients over 70 years has not been determined. Clinical correlation is essential. Performed By: #### L 100.0100, L500.2500 #### [facility] [address] [place], [address] ECRCL 79.53 ml/min Normal [facility] Comment on above: Performed By: #### L 100.0100, L500.2500 #### [facility] [address] [place], [address] EST GFR - AA 93 mL/min Normal >60 [facility] Comment on above: Result Comment: Afri can Icelandic GFR Calc Performed By: #### L 100.0100, L500.2500 #### [facility] [address] [place], [address] GAP 10 Normal 5-15 [facility] Comment on above: Performed By: #### L 100.0100, L500.2500 #### [facility] [address] [place], [address] GFR/1.73 sq M.predicted among non-blacks MDRD (S/P/Bld) [Vol rate/Area] 77 mL/min/{1.73_m2} Normal >60 [facility] Comment on above: Result Comment: Non- GFR Calc Performed By: #### L 100.0100, L500.2500 #### [facility] [address] [place], [address] Glucose [Mass/Vol] 97 mg/dL Normal 74-106 [facility] Comment on above: Performed By: #### L 100.0100, L500.2500 #### [facility] [address] [place], [address] Potassium [Moles/Vol] 3.6 mmol/L Normal 3.5-5.1 [facility] Comment on above: Performed By: #### L 100.0100, L500.2500 #### [facility] [address] [place], [address] Sodium [Moles/Vol] 140 mmol/L Normal 136-145 [facility] Comment on above: Performed By: #### L 100.0100, L500.2500 #### [facility] [address] [place], [address] Urea nitrogen [Mass/Vol] 18 mg/dL Normal 7-18 [facility] Comment on above: Performed By: #### L 100.0100, L500.2500 #### [facility] [address] [place], [address] CBC W/Diff, Automatedon 06-0 7-2024 Absolute Lymph 2.55 X10 3/uL Normal 0.83-4.51 [facility] Comment on above: Performed By: #### L 100.0100, L500.2500 #### [facility] [address] [place], [address] Absolute Neut 8.9 X10 3/uL High 2.0-7.7 [facility] Comment on above: Performed By: #### L 100.0100, L500.2500 #### [facility] [address] [place], [address] Basophils/100 WBC (Bld) 0.6 % Normal 0-1 [facility] Comment on above: Performed By: #### L 100.0100, L500.2500 #### [facility] [address] [place], [address] Eosinophils/100 WBC (Bld) 2.4 % Normal 0-5 [facility] Comment on above: Performed By: #### L 100.0100, L500.2500 #### [facility] [address] [place], [address] Erythrocyte distribution width (RBC) [Ratio] 12.1 % Normal 11.6-14.6 [facility] Comment on above: Performed By: #### L 100.0100, L500.2500 #### [facility] [address] [place], [address] Hematocrit (Bld) [Volume fraction] 40.8 % Normal 40-54 [facility] Comment on above: Performed By: #### L 100.0100, L500.2500 #### [facility] [address] [place], [address] Hemoglobin (Bld) [Mass/Vol] 13.8 g/dL Normal 13.0-16.5 [facility] Comment on above: Performed By: #### L 100.0100, L500.2500 #### [facility] [address] [place], [address] IG% 0.700 Normal 0.0-0.9 [facility] Comment on above: Result Comment: IG% - Immature Granulocytes (promyelocytes, myelocytes and metamyelocytes) > 1% indicates that a LEFT SHIFT is Present. Performed By: #### L 100.0100, L500.2500 #### [facility] [address] [place], [address] Lymphocytes/100 WBC (Bld) 19.5 % Normal 19-41 [facility] Comment on above: Performed By: #### L 100.0100, L500.2500 #### [facility] [address] [place], [address] MCH (RBC) [Entitic mass] 31.7 pg Normal 27.0-32.0 [facility] Comment on above: Performed By: #### L 100.0100, L500.2500 #### [facility] [address] [place], [address] MCHC (RBC) [Mass/Vol] 33.8 g/dL Normal 32-36 [facility] Comment on above: Performed By: #### L 100.0100, L500.2500 #### [facility] [address] [place], [address] MCV (RBC) [Entitic vol] 93.6 fL Normal 80-94 [facility] Comment on above: Performed By: #### L 100.0100, L500.2500 #### [facility] [address] [place], [address] Monocytes/100 WBC (Bld) 9.0 % Normal 0-10 [facility] Comment on above: Performed By: #### L 100.0100, L500.2500 #### [facility] [address] [place], [address] Neutrophils/100 WBC (Bld) 67.8 % Normal 47-70 [facility] Comment on above: Performed By: #### L 100.0100, L500.2500 #### [facility] [address] [place], [address] Nucleated RBC (Bld) [#/Vol] 0 10*3/uL Normal 0-5 [facility] Comment on above: Performed By: #### L 100.0100, L500.2500 #### [facility] [address] [place], [address] Platelet mean volume (Bld) [Entitic vol] 9.1 fL Normal 6.2-12.0 [facility] Comment on above: Performed By: #### L 100.0100, L500.2500 #### [facility] [address] [place], [address] Platelets (Bld) [#/Vol] 246 10*3/uL Normal 150-450 [facility] Comment on above: Performed By: #### L 100.0100, L500.2500 #### [facility] [address] [place], [address] RBC (Bld) [#/Vol] 4.36 10*6/uL Low 4.6-6.2 [facility] Comment on above: Performed By: #### L 100.0100, L500.2500 #### [facility] [address] [place], [address] RDW SD 42.0 fl Normal 35.1-43.9 [facility] Comment on above: Performed By: #### L 100.0100, L500.2500 #### [facility] [address] [place], [address] WBC (Bld) [#/Vol] 13.1 10*3/uL High 4.4-11.0 [facility] Comment on above: Performed By: #### L 100.0100, L500.2500 #### [facility] [address] [place], [address] Emergency Department Summary on 05-06-2024 Emergency Department Summary [facility] Medical Records Department [address] [place] [address] Emergency Department Summary 05/06/24 MR#: [id number] Acct: [id number] Name: YADIEL SOSA Rep #: [id number] : 1960 63 From: Luis Carlos Yoon MD PCP: LIZ Christine, DBA MANAGER-C Status:REG ER Location: ED HPI History of Present Illness Chief Complaint: Dental Detail of Chief Complaint: Dental pain that started yesterday and now jaw swelling Informant: patient Onset/Context/Timing Onset: Yesterday Context: Sudden Onset Timing: Continuous Quality: Pain Location: Right lower molars Current Severity: Moderate Maximum Severity: Severe Worsened by: Cold liquids Associated Symptoms Assocated Symptom - Dental: jaw swelling, face swelling and cold sensitivity; Negative for fever or hot sensitivity Narrative Narrative: Patient is a 63-year-old male. He has history of fatty liver, nonsustained ventricular tachycardia, hyperlipidemia, who presents with dental pain that started yesterday. Jaw swelling and facial swelling started today. He denies change in voice. He denies drooling. He denies inability to open or close his mouth completely. He denies history rheumatic fever, valvular heart disease, mitral valve prolapse or SBE. Patient does drink daily and had a drink prior to arrival. Patient is not allergic to penicillin. He has not noted any skin lesions. He denies myalgias arthralgias. 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 Greater trochanter fracture Iron deficiency anemia Subcutaneous nodules Essential (primary) hypertension Hyperlipidemia Anxiety and depression Nicotine dependence Gynecomastia Hepatomegaly Non-sustained ventricular tachycardia Home Medications ???Medication ???Instructions ???Recorded ???Last Taken ???Type loratadine 10 mg tablet 10 mg PO DAILY allergies 07/31/18 07/31/18 History acetaminophen 500 mg capsule 500 - 1,000 mg (1 - 2 x 500 mg) PO 12/12/20 Unknown Rx .Q8hr PRN pain (scale score 4-6) #100 caps omeprazole 40 mg capsule,delayed 40 mg PO DAILY Indigestion 12/11/21 Unknown History release fluticasone fur. 100 mcg-umeclid 1 inh inhalation DAILY breathing 09/01/22 09/02/22 10:00 History 62.5 mcg-vilant 25 mcg inhalat.powder (Trelegy Ellipta) albuterol sulfate 90 mcg/actuation 2 puff inhalation Q4H PRN 12/18/22 Unknown History aerosol inhaler shortness of breath aripiprazole 5 mg tablet 5 mg PO DAILY mental health 12/18/22 Unknown History bupropion HCl 300 mg 24 hr tablet, 300 mg PO DAILY mental health 12/18/22 Unknown History extended release citalopram 20 mg tablet 20 mg PO DAILY mental health 12/18/22 Unknown History cyanocobalamin (vitamin B-12) 1,000 mcg IM QMONTH vitamin 12/18/22 Unknown History 1,000 mcg/mL injection solution mirtazapine 15 mg tablet (Remeron) 15 mg PO DAILY mental health 08/18/23 Unknown History folic acid 1 mg tablet 1 mg PO DAILY@0800 30 days #30 tabs 08/20/23 Unknown Rx potassium chloride 10 mEq 20 meq (2 x 10 mEq) PO DAILY 30 08/20/23 Unknown Rx capsule,extended release days #60 caps thiamine HCl (vitamin B1) 100 mg 100 mg PO DAILYCM 30 days #30 tabs 08/20/23 Unknown Rx tablet (Vitamin B-1) blood pressure monitor #1 ea 10/02/23 Unknown Rx tamsulosin 0.4 mg capsule 0.4 mg PO DAILY 04/05/24 Unknown History topiramate 50 mg tablet 50 mg PO DAILY 04/05/24 Unknown History cholestyramine (with sugar) 4 gram 4 g PO BID #348.6 grams 04/29/24 Unknown Rx oral powder citalopram 40 mg tablet 40 mg PO DAILY 05/06/24 Unknown History Allergy/AdvReac Type Severity Reaction Status Date / Time No Known Allergies Allergy Verified 05/06/24 21:21 Family History Father CVA (cerebral vascular accident) Myocardial infarction HAS ICD Heart disease Sister Breast cancer Mother Heart disease Sister Colon cancer Surgical History History of colonoscopy (01/2020) History of ankle surgery H/O shoulder surgery History of vascular surgery Social History household members: none Smoking Status: Current every day smoker tobacco type: cigarettes Tobacco: How many years used: 40 alcohol intake: cur (more content not included)... Normal [facility] Basophil percentageOrdered B y: Gina Peres on 01-06-2024 Chloride [Moles/Vol] 108 mmol/L 98-[address] [facility] Glucose [Mass/Vol] 93 mg/dL 74-106 [place] [facility] Potassium [Moles/Vol] 3.7 mmol/L 3.5-5.1 [facility] Sodium [Moles/Vol] 138 mmol/L 136-145 [facility] Laboratory - Chemistry and C hemistry - challengeOrdered By: Gina Peres on 01-06-2024 CO2 [Moles/Vol] 22.0 mmol/L 21.0-32.0 [facility] Urea nitrogen/Creatinine [Mass ratio] 14.0 mg/mg 10-20 [facility] No Panel InformationOrdered By: Gina Peres on 01-06-2024 Estimated GFR (MDRD) Amer 89 mL/min >60 [facility] Comment on above: GFR Calc Estimated GFR (MDRD) Non-Af Amer 74 mL/min >60 [facility] Comment on above: Non- GFR Calc Serum or plasma calcium link urement (mass/volume)Ordered By: Gina Peres on 01-06-2024 Calcium [Mass/Vol] 9.0 mg/dL 8.5-10.1 [facility] Serum or plasma creatinine m easurement (mass/volume)Ordered By: Gina Peres on 01-06-2024 Creatinine [Mass/Vol] 1.07 mg/dL 0.70-1.30 [facility] Comment on above: The validity of the calculated GFR & GFRAA in patients over 70 years has not been determined. Clinical correlation is essential. Serum or plasma urea nitroge n measurement (mass/volume)Ordered By: Gina Peres on 01-06-2024 Urea nitrogen [Mass/Vol] 15 mg/dL 7-18 [facility] Thin prep Papanicolaou smear with manual screeningOrdered By: Gina Peres on 01-06-2024 Thin prep Papanicolaou smear with manual screening 8 5-15 [facility] Basophil percentageOrdered B y: Gina Peres on 10-05-2023 Bilirubin [Mass/Vol] 1.40 mg/dL 0.20-1.00 [facility] Comment on above: For patients on eltr ombopag therapy, use of Dimension [place] TBIL is not recommended. Chloride [Moles/Vol] 99 mmol/L 98-107 [facility] Cholesterol [Mass/Vol] 169 mg/dL <200 [facility] Comment on above: <200 mg/dL Desirable 200-240 mg/dL Borderline >240 mg/dL High Risk Glucose [Mass/Vol] 111 mg/dL 74-106 [facility] Comment on above: Fasting Glucose resu lt from 100 to 125 mg/dL suggests IMPAIRED HOMEOSTASIS per A.D.A. criteria. Potassium [Moles/Vol] 3.0 mmol/L 3.5-5.1 [facility] Protein [Mass/Vol] 7.1 g/dL 6.4-8.2 [facility] Sodium [Moles/Vol] 133 mmol/L 136-145 [facility] Triglyceride [Mass/Vol] 183 mg/dL <199 [facility] Comment on above: The drugs N-Acetylcy steine and Metamizole may falsely depress this assay.Serum Triglycerides Reference Interval Normal <150 mg/dL Borderline high 150 - 199 mg/dL High 200 - 499 mg/dL Very High > or = 500 mg/dL WBC (Bld) [#/Vol] 11.3 10*3/uL 4.4-11.0 [facility] Blood erythrocytes count (nu mber/volume)Ordered By: Gina Peres on 10-05-2023 RBC (Bld) [#/Vol] 3.59 10*6/uL 4.6-6.2 [facility] Blood hemoglobin measurement (mass/volume)Ordered By: Gina Peres on 10-05-2023 Hemoglobin (Bld) [Mass/Vol] 11.7 g/dL 13.0-16.5 [facility] Blood platelet mean volumeOr dered By: Gina Peres on 10-05-2023 Platelet mean volume (Bld) [Entitic vol] 10.0 fL 6.2-12.0 [facility] Determination of erythrocyte mean corpuscular volume (MCV)Ordered By: Gina Peres on 10-05-2023 MCV (RBC) [Entitic vol] 98.3 fL 80-94 [facility] Hematocrit Auto (Bld) [Volum e fraction]Ordered By: Gina Peres on 10-05-2023 Hematocrit (Bld) [Volume fraction] 35.3 % 40-54 [facility] Laboratory - Chemistry and C hemistry - challengeOrdered By: Gina Peres on 10-05-2023 ALP [Catalytic activity/Vol] 152 U/L 45-117 [facility] ALT [Catalytic activity/Vol] 20 U/L 16-61 [facility] CO2 [Moles/Vol] 19.0 mmol/L 21.0-32.0 [facility] Globulin (S) [Mass/Vol] 3.7 g/dL 2.2-4.2 [facility] Natriuretic peptide B (Bld) [Mass/Vol] 16.9 pg/mL 0-100 [facility] Urea nitrogen/Creatinine [Mass ratio] 13.2 mg/mg 10-20 [facility] Laboratory - Hematology and Cell countsOrdered By: Gina Peres on 10-05-2023 Erythrocyte distribution width (RBC) [Entitic vol] 46.6 fL 35.1-43.9 [facility] Erythrocyte distribution width (RBC) [Ratio] 13.1 % 11.6-14.6 [facility] MCH (RBC) [Entitic mass] 32.6 pg 27.0-32.0 [facility] MCHC Auto (RBC) [Mass/Vol]Or dered By: Gina Peres on 10-05-2023 MCHC (RBC) [Mass/Vol] 33.1 g/dL 32-36 [facility] No Panel InformationOrdered By: Gina Peres on 10-05-2023 Estimated GFR (MDRD) Amer 46 mL/min >60 [facility] Comment on above: GFR Calc Estimated GFR (MDRD) Non-Af Amer 38 mL/min >60 [facility] Comment on above: Non- GFR Calc Prostate Specific Antigen Screen 0.30 ng/mL 0.00-4.00 [facility] Comment on above: This test was perfor med using the TPSA assay method for thePiqqual chemistry system. Values obtained with differentassay methods cannot be used interchangably.When changing PSA assays in the course of monitoring apatient, additional sequential testing should be carriedout to confirm baseline values. Vitamin B12 Level > 2000 pg/mL 211-911 [facility] Platelets bldOrdered By: Viridiana Peres on 10-05-2023 Platelets (Bld) [#/Vol] 188 10*3/uL 150-450 [facility] Serum or plasma albumin link urement (mass/volume)Ordered By: Gina Peres on 10-05-2023 Albumin [Mass/Vol] 3.4 g/dL 3.2-5.0 [facility] Serum or plasma albumin/glob ulin mass ratioOrdered By: Gina Peres on 10-05-2023 Albumin/Globulin [Mass ratio] 0.9 {ratio} 0.9-2.4 [facility] Serum or plasma calcium link urement (mass/volume)Ordered By: Gina Peres on 10-05-2023 Calcium [Mass/Vol] 8.7 mg/dL 8.5-10.1 [facility] Serum or plasma cholesterol in HDL measurement (mass/volume)Ordered By: Gina Peres on 10-05-2023 Cholesterol in HDL [Mass/Vol] 87 mg/dL >40 [facility] Comment on above: The drugs N-Acetylcy steine and Metamizole may falsely depress this assay. Reference Range HDL <40 mg/dL Low HDL Cholesterol HDL >or= 60 mg/dL High HDL Cholesterol Serum or plasma cholesterol in VLDL measurement (mass/volume)Ordered By: Gina Peres on 10-05-2023 Cholesterol in VLDL [Mass/Vol] 37 mg/dL 5-40 [facility] Serum or plasma creatinine m easurement (mass/volume)Ordered By: Gina Peres on 10-05-2023 Creatinine [Mass/Vol] 1.90 mg/dL 0.70-1.30 [facility] Comment on above: The validity of the calculated GFR & GFRAA in patients over 70 years has not been determined. Clinical correlation is essential. Serum or plasma low density lipoprotein (LDL) cholesterol measurement (mass/volume)Ordered By: Gina Peres on 10-05-2023 Cholesterol in LDL [Mass/Vol] 45 mg/dL 0-130 [facility] Serum or plasma urea nitroge n measurement (mass/volume)Ordered By: Gina Peres on 10-05-2023 Urea nitrogen [Mass/Vol] 25 mg/dL 7-18 [facility] Thin prep Papanicolaou smear with manual screeningOrdered By: Gina Peres on 10-05-2023 Thin prep Papanicolaou smear with manual screening 33 U/L 15-37 [facility] Thin prep Papanicolaou smear with manual screening 15 15 [facility] .Auto Diffon 09-21-2023 Basophil, Absolute 0.1 10 3/mcL Normal 0.0-0.2 [facility] ([place]) Comment on above: Performed By: #### C BC, MG, ADIFF, CMP, MDW, ANEU, GFR, PRO, AMM #### [address] [address] Basophils/100 WBC (Bld) 1.0 % Normal 0.0-2.5 [facility] ([place]) Comment on above: Performed By: #### C BC, MG, ADIFF, CMP, MDW, ANEU, GFR, PRO, AMM #### [address] [address] Eosinophil, Absolute 0.1 10 3/mcL Normal 0.0-0.4 [facility] ([place]) Comment on above: Performed By: #### C BC, MG, ADIFF, CMP, MDW, ANEU, GFR, PRO, AMM #### [address] [address] Eosinophils/100 WBC (Bld) 1.0 % Normal 0.0-7.0 [facility] ([place]) Comment on above: Performed By: #### C BC, MG, ADIFF, CMP, MDW, ANEU, GFR, PRO, AMM #### [address] [address] Lymphocyte, Absolute 4.3 10 3/mcL High 0.8-3.9 [facility] ([place]) Comment on above: Performed By: #### C BC, MG, ADIFF, CMP, MDW, ANEU, GFR, PRO, AMM #### [address] [address] Lymphocytes/100 WBC (Bld) 45.1 % Normal 10.0-50.0 [facility] ([place]) Comment on above: Performed By: #### C BC, MG, ADIFF, CMP, MDW, ANEU, GFR, PRO, AMM #### [address] [address] Monocyte, Absolute 1.3 10 3/mcL High 0.2-1.0 [facility] ([place]) Comment on above: Performed By: #### C BC, MG, ADIFF, CMP, MDW, ANEU, GFR, PRO, AMM #### [address] [address] Monocytes/100 WBC (Bld) 13.6 % High 1.7-13.0 [facility] ([place]) Comment on above: Performed By: #### C BC, MG, ADIFF, CMP, MDW, ANEU, GFR, PRO, AMM #### [address] [address] Neutrophils/100 WBC (Bld) 39.3 % Normal 37.0-80.0 [facility] ([place]) Comment on above: Performed By: #### C BC, MG, ADIFF, CMP, MDW, ANEU, GFR, PRO, AMM #### [address] [address] .GFRon 09-21-2023 GFR Non- 59 ml/min/1.73sqm Normal [facility] ([place]) Comment on above: Result Comment: GFR Population mean for , Non- Americans Ages 20-29 = 116 mL/min/1.73 sq.m. Ages 30-39 = 107 mL/min/1.73 sq.m. Ages 40-49 = 99 mL/min/1.73 sq.m. Ages 50-59 = 93 mL/min/1.73 sq.m. Ages 60-69 = 85 mL/min/1.73 sq.m. Ages 70+ = 75 mL/min/1.73 sq.m. Chronic Kidney Disease: Less than 60 mL/min/1.73 square meters End Stage Renal Disease: Less than 15 mL/min/1.73 square meters Performed By: #### C BC, MG, ADIFF, CMP, MDW, ANEU, GFR, PRO, AMM #### [address] [address] GFR 71 ml/min/1.73sqm Normal [facility] ([place]) Comment on above: Result Comment: GFR Population mean for , Non- Americans Ages 20-29 = 116 mL/min/1.73 sq.m. Ages 30-39 = 107 mL/min/1.73 sq.m. Ages 40-49 = 99 mL/min/1.73 sq.m. Ages 50-59 = 93 mL/min/1.73 sq.m. Ages 60-69 = 85 mL/min/1.73 sq.m. Ages 70+ = 75 mL/min/1.73 sq.m. Chronic Kidney Disease: Less than 60 mL/min/1.73 square meters End Stage Renal Disease: Less than 15 mL/min/1.73 square meters Performed By: #### C BC, MG, ADIFF, CMP, MDW, ANEU, GFR, PRO, AMM #### [place] [address] .MDWon 09-21-2023 Monocyte Distribution Width 19.69 Normal 0.00-20.00 [facility] ([place]) Comment on above: Result Comment: For ED adult patients suspected of sepsis, MDW<=20.0 does not rule out sepsis or risk of sepsis Performed By: #### C BC, MG, ADIFF, CMP, MDW, ANEU, GFR, PRO, AMM #### [place] [address] .NEUABSon 09-21-2023 Neutrophil, Absolute 3.7 10 3/mcL Normal 2.9-6.2 [facility] ([place]) Comment on above: Performed By: #### C BC, MG, ADIFF, CMP, MDW, ANEU, GFR, PRO, AMM #### [place] [address] Radha 09-21-2023 Ethanol Level <3 Normal 0-3 [facility] ([place]) Comment on above: Performed By: #### C BC, MG, ADIFF, CMP, MDW, ANEU, GFR, PRO, AMM #### [place] [address] Nicole 09-21-2023 Ammonia (P) [Moles/Vol] 106 umol/L High 11-32 [facility] ([place]) Comment on above: Performed By: #### C BC, MG, ADIFF, CMP, MDW, ANEU, GFR, PRO, AMM #### [address] [address] CBCon 09-21-2023 Erythrocyte distribution width (RBC) [Ratio] 14.8 % High 11.5-14.5 [facility] ([place]) Comment on above: Performed By: #### C BC, MG, ADIFF, CMP, MDW, ANEU, GFR, PRO, AMM #### [place] [address] Hematocrit (Bld) [Volume fraction] 38.2 % Low 42.0-52.0 [facility] ([place]) Comment on above: Performed By: #### C BC, MG, ADIFF, CMP, MDW, ANEU, GFR, PRO, AMM #### [place] [address] Hgb 12.3 G/dL Low 14.0-18.0 [facility] ([place]) Comment on above: Performed By: #### C BC, MG, ADIFF, CMP, MDW, ANEU, GFR, PRO, AMM #### [address] [address] MCH (RBC) [Entitic mass] 32.9 pg High 27.0-31.2 [facility] ([place]) Comment on above: Performed By: #### C BC, MG, ADIFF, CMP, MDW, ANEU, GFR, PRO, AMM #### [address] [address] MCHC 32.3 G/dL Normal 31.8-35.4 [facility] ([place]) Comment on above: Performed By: #### C BC, MG, ADIFF, CMP, MDW, ANEU, GFR, PRO, AMM #### [place] [id number] MCV (RBC) [Entitic vol] 101.8 fL High 80.0-94.0 [facility] ([place]) Comment on above: Performed By: #### C BC, MG, ADIFF, CMP, MDW, ANEU, GFR, PRO, AMM #### [address] [address] Platelet 257 10 3/mcL Normal 130-400 [facility] ([place]) Comment on above: Performed By: #### C BC, MG, ADIFF, CMP, MDW, ANEU, GFR, PRO, AMM #### [address] [address] Platelet mean volume (Bld) [Entitic vol] 7.1 fL Low 7.4-10.4 [facility] ([place]) Comment on above: Performed By: #### C BC, MG, ADIFF, CMP, MDW, ANEU, GFR, PRO, AMM #### [address] [address] RBC 3.75 10 6/mcL Low 4.04-6.13 [facility] ([place]) Comment on above: Performed By: #### C BC, MG, ADIFF, CMP, MDW, ANEU, GFR, PRO, AMM #### [address] [address] WBC 9.4 10 3/mcL Normal 4.6-10.8 [facility] ([place]) Comment on above: Performed By: #### C BC, MG, ADIFF, CMP, MDW, ANEU, GFR, PRO, AMM #### [address] [address] CMPon 09-21-2023 Albumin Level 3.7 G/dL Normal 3.4-4.8 [facility] ([place]) Comment on above: Performed By: #### C BC, MG, ADIFF, CMP, MDW, ANEU, GFR, PRO, AMM #### [address] [address] Albumin/Globulin [Mass ratio] 1.1 {ratio} Normal 1.1-2.5 [facility]) Comment on above: Performed By: #### C BC, MG, ADIFF, CMP, MDW, ANEU, GFR, PRO, AMM #### [address] [address] ALP [Catalytic activity/Vol] 147 U/L High 40-135 [facility] ([place]) Comment on above: Performed By: #### C BC, MG, ADIFF, CMP, MDW, ANEU, GFR, PRO, AMM #### [place] [address] ALT [Catalytic activity/Vol] 17 U/L Normal 16-63 [facility] ([place]) Comment on above: Performed By: #### C BC, MG, ADIFF, CMP, MDW, ANEU, GFR, PRO, AMM #### [place] [address] AST [Catalytic activity/Vol] 31 U/L Normal 10-40 [facility] ([place]) Comment on above: Performed By: #### C BC, MG, ADIFF, CMP, MDW, ANEU, GFR, PRO, AMM #### [address] [address] Bili Total 1.0 mg/dL Normal 0.2-1.0 [facility] ([place]) Comment on above: Result Comment: Use of this assay is not recommended for patients undergoing treatment with eltrombopag due to the potential for falsely elevated results. Performed By: #### C BC, MG, ADIFF, CMP, MDW, ANEU, GFR, PRO, AMM #### [address] [address] BUN/Creatinine Ratio 9 ratio Normal 7-27 [facility] ([place]) Comment on above: Performed By: #### C BC, MG, ADIFF, CMP, MDW, ANEU, GFR, PRO, AMM #### [address] [address] Calcium [Mass/Vol] 8.5 mg/dL Normal 8.4-10.2 [facility] ([place]) Comment on above: Performed By: #### C BC, MG, ADIFF, CMP, MDW, ANEU, GFR, PRO, AMM #### [address] [address] Chloride [Moles/Vol] 101 mmol/L Normal 98-107 [facility] ([place]) Comment on above: Performed By: #### C BC, MG, ADIFF, CMP, MDW, ANEU, GFR, PRO, AMM #### [address] [address] CO2 [Moles/Vol] 14 mmol/L Low 23-31 [facility] ([place]) Comment on above: Performed By: #### C BC, MG, ADIFF, CMP, MDW, ANEU, GFR, PRO, AMM #### [address] [address] Creatinine [Mass/Vol] 1.24 mg/dL Normal 0.70-1.30 [facility] ([place]) Comment on above: Performed By: #### C BC, MG, ADIFF, CMP, MDW, ANEU, GFR, PRO, AMM #### [address] [address] Electrolyte Balance 26.0 mEq/L High 4.0-15.0 [facility] ([place]) Comment on above: Performed By: #### C BC, MG, ADIFF, CMP, MDW, ANEU, GFR, PRO, AMM #### [address] [address] Globulin 3.4 G/dL Normal [facility] ([place]) Comment on above: Performed By: #### C BC, MG, ADIFF, CMP, MDW, ANEU, GFR, PRO, AMM #### [address] [address] Glucose [Mass/Vol] 121 mg/dL High 80-115 [facility] ([place]) Comment on above: Performed By: #### C BC, MG, ADIFF, CMP, MDW, ANEU, GFR, PRO, AMM #### [address] [address] Potassium [Moles/Vol] 3.5 mmol/L Normal 3.5-5.1 [facility] ([place]) Comment on above: Performed By: #### C BC, MG, ADIFF, CMP, MDW, ANEU, GFR, PRO, AMM #### [address] [address] Sodium [Moles/Vol] 141 mmol/L Normal 136-145 [facility] ([place]) Comment on above: Performed By: #### C BC, MG, ADIFF, CMP, MDW, ANEU, GFR, PRO, AMM #### [address] [address] Total Protein 7.1 G/dL Normal 6.4-8.2 [facility] ([place]) Comment on above: Performed By: #### C BC, MG, ADIFF, CMP, MDW, ANEU, GFR, PRO, AMM #### [address] [address] Urea nitrogen [Mass/Vol] 11 mg/dL Normal 7-18 [facility] ([place]) Comment on above: Performed By: #### C BC, MG, ADIFF, CMP, MDW, ANEU, GFR, PRO, AMM #### [address] [address] [address] HEAD OR BRAIN W/O CONTRAS Ton 09-21-2023 CT HEAD OR BRAIN W/O CONTRAST ORIGINAL EXAMINATION: CT OF THE HEAD WITHOUT CONTRAST 09/21/2023 6:47 pm TECHNIQUE: CT of the head was performed without the administration of intravenous contrast. Automated exposure control, iterative reconstruction, and/or weight based adjustment of the mA/kV was utilized to reduce the radiation dose to as low as reasonably achievable. COMPARISON: None. HISTORY: ORDERING SYSTEM PROVIDED HISTORY: Reason for Exam: seizures FINDINGS: BRAIN/VENTRICLES: There is no acute intracranial hemorrhage, mass effect or midline shift. No abnormal extra-axial fluid collection. There are scattered areas of low attenuation in the periventricular and subcortical white matter, which are nonspecific, possibly due to chronic microangiopathy. The justice-white differentiation is maintained without evidence of an acute infarct. There is no evidence of hydrocephalus. ORBITS: The visualized portion of the orbits demonstrate no acute abnormality. SINUSES: The visualized paranasal sinuses and mastoid air cells demonstrate no acute abnormality. SOFT TISSUES/SKULL: No acute abnormality of the visualized skull or soft tissues. A few prominent arachnoid granulations are noted. IMPRESSION: No acute intracranial abnormality. Interpreted by: David Stringer Preliminary Report By: David Stringer Electronically signed By David Stringer Dictated Date: 09/21/2023 6:59:03 PM Prelim Date: 09/21/2023 7:00:50 PM Sign Date: 09/21/2023 7:00:50 PM Ordering Provider: HANSA Morales [facility] ([place]) LABORATORYOrdered By: Andreia Goff on 09-21-2023 Amphetamines Screen Ql (U) Negative *NA* (09/21/23 7:18 PM) Invalid Interpretation Code Negative AO ADM SS Barbiturates Screen Ql (U) Positive *ABN* (09/21/23 7:18 PM) Invalid Interpretation Code Negative AO ADM SS Benzodiazepines Ql (U) Negative *NA* (09/21/23 7:18 PM) Invalid Interpretation Code Negative AO ADM SS Benzoylecgonine Screen Ql (U) Negative *NA* (09/21/23 7:18 PM) Invalid Interpretation Code Negative AO ADM SS Cannabinoids Screen Ql (U) Positive *ABN* (09/21/23 7:18 PM) Invalid Interpretation Code Negative AO ADM SS Methadone Screen Ql (U) Negative *NA* (09/21/23 7:18 PM) Invalid Interpretation Code Negative AO ADM SS Opiates Screen Ql (U) Negative *NA* (09/21/23 7:18 PM) Invalid Interpretation Code Negative AO ADM SS Phencyclidine Ql (U) Negative *NA* (09/21/23 7:18 PM) Invalid Interpretation Code Negative AO ADM SS LABORATORYOrdered By: Nao Menendez on 09-21-2023 Appearance (U) Clear (09/21/23 7:18 PM) Invalid Interpretation Code Clear AO Auto Urine SS Bilirubin Ql (U) Negative (09/21/23 7:18 PM) Invalid Interpretation Code Negative AO Auto Urine SS Color (U) Dark yellow Invalid Interpretation Code AO Auto Urine SS Glucose Test strip (U) [Mass/Vol] Negative Invalid Interpretation Code Negative AO Auto Urine SS Hemoglobin Auto test strip (U) [Mass/Vol] Negative (09/21/23 7:18 PM) Invalid Interpretation Code Negative AO Auto Urine SS Ketones Ql (U) Negative Invalid Interpretation Code Negative AO Auto Urine SS UA Leuk Est Negative (09/21/23 7:18 PM) Invalid Interpretation Code Negative AO Auto Urine SS UA Nitrite Negative (09/21/23 7:18 PM) Invalid Interpretation Code Negative AO Auto Urine SS UA pH 7.5 (09/21/23 7:18 PM) Invalid Interpretation Code 5.0 - 8.0 AO Auto Urine SS UA Protein Negative Invalid Interpretation Code Negative AO Auto Urine SS UA Spec Grav 1.020 (09/21/23 7:18 PM) Invalid Interpretation Code 1.015-1.025 AO Auto Urine SS UA Specimen Type Clean Catch (09/21/23 7:18 PM) Invalid Interpretation Code AO Auto Urine SS UA Urobilinogen 0.2 E.U./dL Invalid Interpretation Code 0.2-1.0 AO Auto Urine SS Urine Drugs screened: See Below 4 (09/21/23 7:18 PM) Invalid Interpretation Code AO Chemistry S Comment on above: Interpretive Data: T his drug screen is a presumptive screening only. No confirmation will be performed unless requested. Drugs screened include: Threshold Amphetamines/Methamphetamines 1,000 ng/mL Barbiturates 200 ng/mL Benzodiazepine metabolites 200 ng/mL Cannabinoids (THC metabolites) 50 ng/mL Cocaine 300 ng/mL Opiates 300 ng/mL Methadone 300 ng/mL Phencyclidine (PCP) 25 ng/mL Testing has been performed FOR MEDICAL PURPOSES ONLY. INR Coag (PPP) [Relative time] 1.1 {INR} Invalid Interpretation Code AO [facility] SS Comment on above: Interpretive Data: Mima manning [employer] (CHEST, 1991, [id number]) recommended therapeutic range for oral anticoagulant therapy is: LOW RISK: Prophylaxis of venous thrombosis INR: 2.0-3.0 Treatment of pulmonary embolism 2.0-3.0 Prevention of systemic embolism 2.0-3.0 HIGH RISK: Mechanical prosthetic valves 2.5-3.5 PT Coag (PPP) [Time] 12.6 s Invalid Interpretation Code 9.0 - 14.2 seconds AO [facility] SS LABORATORYOrdered By: SYSTEM SYSTEM on 09-21-2023 Albumin BCP dye [Mass/Vol] 3.7 G/dL Invalid Interpretation Code 3.4 - 4.8 G/dL AO ADM SS Albumin/Globulin [Mass ratio] 1.1 {ratio} Invalid Interpretation Code 1.1 - 2.5 ratio AO ADM SS ALP [Catalytic activity/Vol] 147 U/L Invalid Interpretation Code 40 - 135 U/L AO ADM SS ALT With P-5'-P [Catalytic activity/Vol] 17 U/L Invalid Interpretation Code 16 - 63 U/L AO ADM SS Ammonia (P) [Moles/Vol] 106 umol/L Invalid Interpretation Code 11 - 32 umol/L AO ADM SS AST With P-5'-P [Catalytic activity/Vol] 31 U/L Invalid Interpretation Code 10 - 40 U/L AO ADM SS Basophil, Absolute 0.1 103/mcL Invalid Interpretation Code 0.0 - 0.2 10^3/mcL AO Workflow SS Basophils/100 WBC (Bld) 1.0 % Invalid Interpretation Code 0.0 - 2.5 % AO Workflow SS Bilirubin [Mass/Vol] 1.0 mg/dL Invalid Interpretation Code 0.2 - 1.0 mg/dL AO ADM SS Comment on above: Interpretive Data: U se of this assay is not recommended for patients undergoing treatment with eltrombopag due to the potential for falsely elevated results. Calcium [Mass/Vol] 8.5 mg/dL Invalid Interpretation Code 8.4 - 10.2 mg/dL AO ADM SS Chloride [Moles/Vol] 101 mmol/L Invalid Interpretation Code 98 - 107 mmol/L AO ADM SS CO2 [Moles/Vol] 14 mmol/L Invalid Interpretation Code 23 - 31 mmol/L AO ADM SS Creatinine [Mass/Vol] 1.24 mg/dL Invalid Interpretation Code 0.70 - 1.30 mg/dL AO ADM SS Electrolyte Balance 26.0 mEq/L Invalid Interpretation Code 4.0 - 15.0 mEq/L AO ADM SS Eosinophil, Absolute 0.1 103/mcL Invalid Interpretation Code 0.0 - 0.4 10^3/mcL AO Workflow SS Eosinophils/100 WBC (Bld) 1.0 % Invalid Interpretation Code 0.0 - 7.0 % AO Workflow SS Erythrocyte distribution width (RBC) [Ratio] 14.8 % Invalid Interpretation Code 11.5 - 14.5 % AO Workflow SS Ethanol [Mass/Vol] mg/dL Invalid Interpretation Code 0 - 3 mg/dL AO ADM SS GFR/1.73 sq M.predicted among blacks MDRD (S/P/Bld) [Vol rate/Area] 71 ml/min/1.73sqm Invalid Interpretation Code AO Chemistry S Comment on above: Interpretive Data: GFR Population mean for , Non- Americans Ages 20-29 = 116 mL/min/1.73 sq.m. Ages 30-39 = 107 mL/min/1.73 sq.m. Ages 40-49 = 99 mL/min/1.73 sq.m. Ages 50-59 = 93 mL/min/1.73 sq.m. Ages 60-69 = 85 mL/min/1.73 sq.m. Ages 70+ = 75 mL/min/1.73 sq.m. Chronic Kidney Disease: Less than 60 mL/min/1.73 square meters End Stage Renal Disease: Less than 15 mL/min/1.73 square meters GFR/1.73 sq M.predicted among non-blacks MDRD (S/P/Bld) [Vol rate/Area] 59 ml/min/1.73sqm Invalid Interpretation Code AO Chemistry S Comment on above: Interpretive Data: GFR Population mean for , Non- Americans Ages 20-29 = 116 mL/min/1.73 sq.m. Ages 30-39 = 107 mL/min/1.73 sq.m. Ages 40-49 = 99 mL/min/1.73 sq.m. Ages 50-59 = 93 mL/min/1.73 sq.m. Ages 60-69 = 85 mL/min/1.73 sq.m. Ages 70+ = 75 mL/min/1.73 sq.m. Chronic Kidney Disease: Less than 60 mL/min/1.73 square meters End Stage Renal Disease: Less than 15 mL/min/1.73 square meters Globulin 3.4 G/dL Invalid Interpretation Code AO ADM SS Glucose [Mass/Vol] 121 mg/dL Invalid Interpretation Code 80 - 115 mg/dL AO ADM SS Hematocrit (Bld) [Volume fraction] 38.2 % Invalid Interpretation Code 42.0 - 52.0 % AO Workflow SS Hemoglobin (Bld) [Mass/Vol] 12.3 G/dL Invalid Interpretation Code 14.0 - 18.0 G/dL AO Workflow SS Lymphocyte, Absolute 4.3 103/mcL Invalid Interpretation Code 0.8 - 3.9 10^3/mcL AO Workflow SS Lymphocytes/100 WBC (Bld) 45.1 % Invalid Interpretation Code 10.0 - 50.0 % AO Workflow SS Magnesium [Mass/Vol] 1.2 mg/dL Invalid Interpretation Code 1.8 - 2.4 mg/dL AO ADM SS MCH (RBC) [Entitic mass] 32.9 pg Invalid Interpretation Code 27.0 - 31.2 pg AO Workflow SS MCHC 32.3 G/dL Invalid Interpretation Code 31.8 - 35.4 G/dL AO Workflow SS MCV (RBC) [Entitic vol] 101.8 fL Invalid Interpretation Code 80.0 - 94.0 fL AO Workflow SS Monocyte distribution width Auto (Bld) [Entitic vol] 19.69 1 Invalid Interpretation Code 0.00 - 20.00 AO Workflow SS Comment on above: Result Comment: For ED adult patients suspected of sepsis, MDW<=20.0 does not rule out sepsis or risk of sepsis Monocyte, Absolute 1.3 103/mcL Invalid Interpretation Code 0.2 - 1.0 10^3/mcL AO Workflow SS Monocytes/100 WBC (Bld) 13.6 % Invalid Interpretation Code 1.7 - 13.0 % AO Workflow SS Neutrophil, Absolute 3.7 103/mcL Invalid Interpretation Code 2.9 - 6.2 10^3/mcL AO Workflow SS Neutrophils/100 WBC (Bld) 39.3 % Invalid Interpretation Code 37.0 - 80.0 % AO Workflow SS Platelet mean volume (Bld) [Entitic vol] 7.1 fL Invalid Interpretation Code 7.4 - 10.4 fL AO Workflow SS Platelets (Bld) [#/Vol] 257 103/mcL Invalid Interpretation Code 130 - 400 10^3/mcL AO Workflow SS Potassium [Moles/Vol] 3.5 mmol/L Invalid Interpretation Code 3.5 - 5.1 mmol/L AO ADM SS Protein [Mass/Vol] 7.1 G/dL Invalid Interpretation Code 6.4 - 8.2 G/dL AO ADM SS RBC (Bld) [#/Vol] 3.75 106/mcL Invalid Interpretation Code 4.04 - 6.13 10^6/mcL AO Workflow SS Sodium [Moles/Vol] 141 mmol/L Invalid Interpretation Code 136 - 145 mmol/L AO ADM SS Urea nitrogen [Mass/Vol] 11 mg/dL Invalid Interpretation Code 7 - 18 mg/dL AO ADM SS Urea nitrogen/Creatinine [Mass ratio] 9 ratio Invalid Interpretation Code 7 - 27 ratio AO ADM SS WBC (Bld) [#/Vol] 9.4 103/mcL Invalid Interpretation Code 4.6 - 10.8 10^3/mcL AO Workflow SS MGon 09-21-2023 Magnesium [Mass/Vol] 1.2 mg/dL Low 1.8-2.4 [facility] ([place]) Comment on above: Performed By: #### C BC, MG, ADIFF, CMP, MDW, ANEU, GFR, PRO, AMM #### [address] [address] PROon 09-21-2023 PT Coag (PPP) [Time] 12.6 s Normal 9.0-14.2 [facility] ([place]) Comment on above: Performed By: #### C BC, MG, ADIFF, CMP, MDW, ANEU, GFR, PRO, AMM #### [address] [address] PT International Ratio 1.1 Normal [facility] ([place]) Comment on above: Result Comment: The [employer] (CHEST, 1992, [id number]) recommended therapeutic range for oral anticoagulant therapy is: LOW RISK: Prophylaxis of venous thrombosis INR: 2.0-3.0 Treatment of pulmonary embolism 2.0-3.0 Prevention of systemic embolism 2.0-3.0 HIGH RISK: Mechanical prosthetic valves 2.5-3.5 Performed By: #### C BC, MG, ADIFF, CMP, MDW, ANEU, GFR, PRO, AMM #### [address] [address] UAon 09-21-2023 Color (U) Dark yellow Normal [facility] ([place]) Comment on above: Performed By: #### U DRUG, UA #### [address] [address] Glucose (U) [Mass/Vol] Negative Normal Negative [facility] ([place] Comment on above: Performed By: #### U DRUG, UA #### [address] [address] Ketones Ql (U) Negative Normal Negative [facility] ([place]) Comment on above: Performed By: #### U DRUG, UA #### [address] [place] [address] UA Appear Clear Normal Clear [facility] ([place]) Comment on above: Performed By: #### U DRUG, UA #### [address] [place] [address] UA Blood Negative Normal Negative [facility] ([place]) Comment on above: Performed By: #### U DRUG, UA #### [address] [place] [address] UA Leuk Est Negative Normal Negative [facility] ([place]) Comment on above: Performed By: #### U DRUG, UA #### [address] [place] [address] UA Nitrite Negative Normal Negative [facility] ([place]) Comment on above: Performed By: #### U DRUG, UA #### [address] [place] [address] UA pH 7.5 Normal 5.0 - 8.0 [facility] ([place]) Comment on above: Performed By: #### U DRUG, UA #### [place] [address] UA Protein Negative Normal Negative [facility] ([place]) Comment on above: Performed By: #### U DRUG, UA #### [address] [address] UA Spec Grav 1.020 Normal 1.015-1.025 [facility] ([place]) Comment on above: Performed By: #### U DRUG, UA #### [place] [address] UA Specimen Type Clean Catch Normal [facility] ([place]) Comment on above: Performed By: #### U DRUG, UA #### [place] [address] UA Urobilinogen 0.2 E.U./dL Normal 0.2-1.0 [facility] ([place]) Comment on above: Performed By: #### U DRUG, UA #### [place] [address] Urobilinogen (U) [Mass/Vol] Negative Normal Negative [facility] ([place]) Comment on above: Performed By: #### U DRUG, UA #### [place] [address] UDRUGon 09-21-2023 Amphetamine (u) Negative Normal Negative [facility] ([place]) Comment on above: Performed By: #### C BC, MG, ADIFF, CMP, MDW, ANEU, GFR, PRO, AMM #### [place] [address] Barbiturate (u) Positive Abnormal Negative [facility] ([place]) Comment on above: Performed By: #### C BC, MG, ADIFF, CMP, MDW, ANEU, GFR, PRO, AMM #### [place] [address] Benzodiazepine (u) Negative Normal Negative [facility] ([place]) Comment on above: Performed By: #### C BC, MG, ADIFF, CMP, MDW, ANEU, GFR, PRO, AMM #### [place] [address] Cannabinoid (u) Positive Abnormal Negative [facility] ([place]) Comment on above: Performed By: #### C BC, MG, ADIFF, CMP, MDW, ANEU, GFR, PRO, AMM #### [place] [address] Cocaine Ql (U) Negative Normal Negative [facility] ([place]) Comment on above: Performed By: #### C BC, MG, ADIFF, CMP, MDW, ANEU, GFR, PRO, AMM #### [place] [address] Methadone Ql (U) Negative Normal Negative [facility] ([place]) Comment on above: Performed By: #### C BC, MG, ADIFF, CMP, MDW, ANEU, GFR, PRO, AMM #### [address] [address] Opiate (u) Negative Normal Negative [facility] ([place]) Comment on above: Performed By: #### C HONEY, , BIMAL, CASSI ANDERSON, ANEU, GFR, PRO, AMM #### [address] [address] PCP (u) Negative Normal Negative [facility] ([place]) Comment on above: Performed By: #### C HONEY, , BIMAL, CASSI ANDERSON, ANEU, GFR, PRO, AMM #### [place] [address] [address] Urine Drugs screened: See Below Normal [facility] ([place]) Comment on above: Result Comment: This drug screen is a presumptive screening only. No confirmation will be performed unless requested. Drugs screened include: Threshold Amphetamines/Methamphetamines 1,000 ng/mL Barbiturates 200 ng/mL Benzodiazepine metabolites 200 ng/mL Cannabinoids (THC metabolites) 50 ng/mL Cocaine 300 ng/mL Opiates 300 ng/mL Methadone 300 ng/mL Phencyclidine (PCP) 25 ng/mL Testing has been performed FOR MEDICAL PURPOSES ONLY. Performed By: #### C HONEY, , BIMAL, CASSI ANDERSON, ANEU, GFR, PRO, AMM #### [address] [address] Absolute lymphocyte countOrd ered By: Mikey Hess on 09-07-2023 Lymphocytes Auto (Unsp spec) [#/Vol] 4.17 10*3/uL 0.83-4.51 [facility] Basophil percentageOrdered B y: Mikey Hess on 09-07-2023 Basophils/100 WBC (Bld) 1.9 % 0-1 [facility] Chloride [Moles/Vol] 108 mmol/L 98-107 [facility] Eosinophils/100 WBC (Bld) 2.2 % 0-5 [facility] Glucose [Mass/Vol] 84 mg/dL 74-106 [facility] Neutrophils (Bld) [#/Vol] 2.3 10*3/uL 2.0-7.7 [facility] Neutrophils/100 WBC (Bld) 31.4 % 47-70 [facility] Potassium [Moles/Vol] 3.8 mmol/L 3.5-5.1 [facility] Sodium [Moles/Vol] 144 mmol/L 136-145 [facility] WBC (Bld) [#/Vol] 7.4 10*3/uL 4.4-11.0 [facility] Blood erythrocytes count (nu mber/volume)Ordered By: Mikey Hess on 09-07-2023 RBC (Bld) [#/Vol] 3.77 10*6/uL 4.6-6.2 [facility] Blood hemoglobin measurement (mass/volume)Ordered By: Mikey Hess on 09-07-2023 Hemoglobin (Bld) [Mass/Vol] 12.6 g/dL 13.0-16.5 [facility] Blood lymphocytes/100 leukoc ytesOrdered By: Mkiey Hess on 09-07-2023 Lymphocytes/100 WBC (Bld) 56.6 % 19-41 [facility] Blood monocytes/100 leukocyt esOrdered By: Mikey Hess on 09-07-2023 Monocytes/100 WBC (Bld) 7.5 % 0-10 [facility] Blood platelet mean volumeOr dered By: Mikey Hess on 09-07-2023 Platelet mean volume (Bld) [Entitic vol] 8.9 fL 6.2-12.0 [facility] Determination of erythrocyte mean corpuscular volume (MCV)Ordered By: Mikey Hess on 09-07-2023 MCV (RBC) [Entitic vol] 100.3 fL 80-94 [facility] Hematocrit Auto (Bld) [Volum e fraction]Ordered By: Mikey Hess on 09-07-2023 Hematocrit (Bld) [Volume fraction] 37.8 % 40-54 [facility] Laboratory - Chemistry and C hemistry - challengeOrdered By: Mikey Hess on 09-07-2023 CO2 [Moles/Vol] 24.0 mmol/L 21.0-32.0 [facility] Urea nitrogen/Creatinine [Mass ratio] 11.7 mg/mg 10-20 [facility] Laboratory - Hematology and Cell countsOrdered By: Mikey Hess on 09-07-2023 Erythrocyte distribution width (RBC) [Entitic vol] 48.0 fL 35.1-43.9 [facility] Erythrocyte distribution width (RBC) [Ratio] 13.2 % 11.6-14.6 [facility] Immature granulocytes/100 WBC (Bld) 0.400 % 0.0-0.9 [facility] Comment on above: IG% - Immature Granu locytes (promyelocytes, myelocytes and metamyelocytes) > 1% indicates that a LEFT SHIFT is Present. MCH (RBC) [Entitic mass] 33.4 pg 27.0-32.0 [facility] Nucleated RBC/100 WBC (Bld) [Ratio] 0 % 0-5 [facility] MCHC Auto (RBC) [Mass/Vol]Or dered By: Mikey Hess on 09-07-2023 MCHC (RBC) [Mass/Vol] 33.3 g/dL 32-36 [facility] No Panel InformationOrdered By: Mikey Hess on 09-07-2023 Troponin I High Sensitivity 7 pg/mL 3.0-78.0 [facility] Comment on above: Please Note: New Marissa t Units and Gender Specific Reference Ranges. For more information see Policy Stat Procedure [place] High Sensitivity Troponin (TNIH) and attachments. Estimated Creatinine Clearance Calc 79.53 ml/min [facility] Estimated GFR (MDRD) Amer 94 mL/min >60 [facility] Comment on above: GFR Calc Estimated GFR (MDRD) Non-Af Amer 77 mL/min >60 [facility] Comment on above: Non- GFR Calc Platelets bldOrdered By: Owen Hess on 09-07-2023 Platelets (Bld) [#/Vol] 288 10*3/uL 150-450 [facility] Serum or plasma calcium link urement (mass/volume)Ordered By: Mikey Hess on 09-07-2023 Calcium [Mass/Vol] 8.3 mg/dL 8.5-10.1 [facility] Serum or plasma creatinine m easurement (mass/volume)Ordered By: Mikey Hess on 09-07-2023 Creatinine [Mass/Vol] 1.03 mg/dL 0.70-1.30 [facility] Comment on above: The validity of the calculated GFR & GFRAA in patients over 70 years has not been determined. Clinical correlation is essential. Serum or plasma urea nitroge n measurement (mass/volume)Ordered By: Mikey Hess on 09-07-2023 Urea nitrogen [Mass/Vol] 12 mg/dL 7-18 [facility] Thin prep Papanicolaou smear with manual screeningOrdered By: Mikey Hess on 09-07-2023 Thin prep Papanicolaou smear with manual screening 12 5-15 [facility] Basophil percentageOrdered B y: Tirso Jiang on 08-20-2023 Basophil percentage 2.8 mg/dL 2.5-4.9 [facility] Basophil percentageOrdered B y: Aj Rao on 08-20-2023 Bilirubin [Mass/Vol] 0.40 mg/dL 0.20-1.00 [facility] Comment on above: For patients on eltr ombopag therapy, use of Dimension [place] TBIL is not recommended. Chloride [Moles/Vol] 116 mmol/L 98-107 [facility] Glucose [Mass/Vol] 97 mg/dL 74-106 [facility] Potassium [Moles/Vol] 3.5 mmol/L 3.5-5.1 [facility] Protein [Mass/Vol] 5.2 g/dL 6.4-8.2 [facility] Sodium [Moles/Vol] 141 mmol/L 136-145 [facility] Laboratory - Chemistry and C hemistry - challengeOrdered By: Aj Rao on 08-20-2023 ALP [Catalytic activity/Vol] 148 U/L 45-117 [facility] ALT [Catalytic activity/Vol] 29 U/L 16-61 [facility] CO2 [Moles/Vol] 20.0 mmol/L 21.0-32.0 [facility] Globulin (S) [Mass/Vol] 2.7 g/dL 2.2-4.2 [facility] Urea nitrogen/Creatinine [Mass ratio] 8.2 mg/mg 10-20 [facility] Laboratory - Chemistry and C hemistry - challengeOrdered By: Tirso Jiang on 08-20-2023 Magnesium [Mass/Vol] 1.4 mg/dL 1.6-2.6 [facility] No Panel InformationOrdered By: Aj Rao on 08-20-2023 Estimated Creatinine Clearance Calc 95.25 ml/min [facility] Estimated GFR (MDRD) Amer 116 mL/min >60 [facility] Comment on above: GFR Calc Estimated GFR (MDRD) Non-Af Amer 96 mL/min >60 [facility] Comment on above: Non- GFR Calc Serum or plasma albumin link urement (mass/volume)Ordered By: Aj Rao on 08-20-2023 Albumin [Mass/Vol] 2.5 g/dL 3.2-5.0 [facility] Serum or plasma albumin/glob ulin mass ratioOrdered By: Aj Rao on 08-20-2023 Albumin/Globulin [Mass ratio] 0.9 {ratio} 0.9-2.4 [facility] Serum or plasma calcium link urement (mass/volume)Ordered By: Aj Rao on 08-20-2023 Calcium [Mass/Vol] 7.2 mg/dL 8.5-10.1 [facility] Serum or plasma creatinine m easurement (mass/volume)Ordered By: Aj Rao on 08-20-2023 Creatinine [Mass/Vol] 0.86 mg/dL 0.70-1.30 [facility] Comment on above: The validity of the calculated GFR & GFRAA in patients over 70 years has not been determined. Clinical correlation is essential. Serum or plasma urea nitroge n measurement (mass/volume)Ordered By: Aj Rao on 08-20-2023 Urea nitrogen [Mass/Vol] 7 mg/dL 7-18 [facility] Thin prep Papanicolaou smear with manual screeningOrdered By: Aj Rao on 08-20-2023 Thin prep Papanicolaou smear with manual screening 42 U/L 15-37 [facility] Thin prep Papanicolaou smear with manual screening 5 5-15 [facility] Absolute lymphocyte countOrd ered By: Linda Villavicencio on 08-19-2023 Lymphocytes Auto (Unsp spec) [#/Vol] 2.25 10*3/uL 0.83-4.51 [facility] Basophil percentageOrdered B y: Linda Villavicencio on 08-19-2023 Basophils/100 WBC (Bld) 1.0 % 0-1 [facility] Eosinophils/100 WBC (Bld) 2.7 % 0-5 [facility] Neutrophils (Bld) [#/Vol] 2.8 10*3/uL 2.0-7.7 [facility] Neutrophils/100 WBC (Bld) 47.2 % 47-70 [facility] WBC (Bld) [#/Vol] 6.0 10*3/uL 4.4-11.0 [facility] Blood erythrocytes count (nu mber/volume)Ordered By: Linda Saud on 08-19-2023 RBC (Bld) [#/Vol] 3.18 10*6/uL 4.6-6.2 [facility] Blood hemoglobin measurement (mass/volume)Ordered By: Linda Villavicencio on 08-19-2023 Hemoglobin (Bld) [Mass/Vol] 10.8 g/dL 13.0-16.5 [facility] Blood lymphocytes/100 leukoc ytesOrdered By: Linda Villavicencio on 08-19-2023 Lymphocytes/100 WBC (Bld) 37.8 % 19-41 [facility] Blood monocytes/100 leukocyt esOrdered By: Saud on 08-19-2023 Monocytes/100 WBC (Bld) 10.8 % 0-10 [facility] Blood platelet mean volumeOr dered By: Linda Villavicencio on 08-19-2023 Platelet mean volume (Bld) [Entitic vol] 9.2 fL 6.2-12.0 [facility] Determination of erythrocyte mean corpuscular volume (MCV)Ordered By: Linda Villavicencio on 08-19-2023 MCV (RBC) [Entitic vol] 100.6 fL 80-94 [facility] Hematocrit Auto (Bld) [Volum e fraction]Ordered By: Linda Saud on 08-19-2023 Hematocrit (Bld) [Volume fraction] 32.0 % 40-54 [facility] Laboratory - Hematology and Cell countsOrdered By: Linda Saud on 08-19-2023 Erythrocyte distribution width (RBC) [Entitic vol] 50.9 fL 35.1-43.9 [facility] Erythrocyte distribution width (RBC) [Ratio] 13.8 % 11.6-14.6 [facility] Immature granulocytes/100 WBC (Bld) 0.500 % 0.0-0.9 [facility] Comment on above: IG% - Immature Granu locytes (promyelocytes, myelocytes and metamyelocytes) > 1% indicates that a LEFT SHIFT is Present. MCH (RBC) [Entitic mass] 34.0 pg 27.0-32.0 [facility] Nucleated RBC/100 WBC (Bld) [Ratio] 0 % 0-5 [facility] MCHC Auto (RBC) [Mass/Vol]Or dered By: Linda Villavicencio on 08-19-2023 MCHC (RBC) [Mass/Vol] 33.8 g/dL 32-36 [facility] No Panel InformationOrdered By: Linda Villavicencio on 08-19-2023 Thyroid Stimulating Hormone (TSH) 3.78 uIU/mL 0.358-3.74 [facility] Platelets bldOrdered By: Nahun Villavicencio on 08-19-2023 Platelets (Bld) [#/Vol] 208 10*3/uL 150-450 [facility] Absolute lymphocyte countOrd ered By: Aram Castillo on 08-18-2023 Lymphocytes Auto (Unsp spec) [#/Vol] 1.45 10*3/uL 0.83-4.51 [facility] Basophil percentageOrdered B y: Aram Castillo on 08-18-2023 Basophil percentage 0 SEEN /hpf 0-5 [facility] Basophils/100 WBC (Bld) 0.7 % 0-1 [facility] Bilirubin [Mass/Vol] 0.90 mg/dL 0.20-1.00 [facility] Comment on above: For patients on eltr ombopag therapy, use of Dimension [place] TBIL is not recommended. Chloride [Moles/Vol] 112 mmol/L 98-107 [facility] Eosinophils/100 WBC (Bld) 0.8 % 0-5 [facility] Glucose [Mass/Vol] 133 mg/dL 74-106 [facility] Comment on above: Fasting Glucose resu lt greater than or equal to 126 mg/dL suggests DIABETES MELLITUS per A.D.A. criteria. Neutrophils (Bld) [#/Vol] 6.3 10*3/uL 2.0-7.7 [facility] Neutrophils/100 WBC (Bld) 72.9 % 47-70 [facility] Potassium [Moles/Vol] 3.1 mmol/L 3.5-5.1 [facility] Protein [Mass/Vol] 6.1 g/dL 6.4-8.2 [facility] Sodium [Moles/Vol] 143 mmol/L 136-145 [facility] WBC (Bld) [#/Vol] 8.6 10*3/uL 4.4-11.0 [facility] Bilirubin Test strip Ql (U)O rdered By: Aram Castillo on 08-18-2023 Bilirubin Ql (U) Negative Negative [facility] Blood erythrocytes count (nu mber/volume)Ordered By: Aram Castillo on 08-18-2023 RBC (Bld) [#/Vol] 3.51 10*6/uL 4.6-6.2 [facility] Blood hemoglobin measurement (mass/volume)Ordered By: Aram Castillo on 08-18-2023 Hemoglobin (Bld) [Mass/Vol] 12.1 g/dL 13.0-16.5 [facility] Blood lymphocytes/100 leukoc ytesOrdered By: Aram Castillo on 08-18-2023 Lymphocytes/100 WBC (Bld) 16.8 % 19-41 [facility] Blood monocytes/100 leukocyt esOrdered By: Aram Castillo on 08-18-2023 Monocytes/100 WBC (Bld) 8.3 % 0-10 [facility] Blood platelet mean volumeOr dered By: Aram Castillo on 08-18-2023 Platelet mean volume (Bld) [Entitic vol] 8.5 fL 6.2-12.0 [facility] Determination of erythrocyte mean corpuscular volume (MCV)Ordered By: Aram Castillo on 08-18-2023 MCV (RBC) [Entitic vol] 98.6 fL 80-94 [facility] Hematocrit Auto (Bld) [Volum e fraction]Ordered By: Aram Castillo on 08-18-2023 Hematocrit (Bld) [Volume fraction] 34.6 % 40-54 [facility] INR in Blood by Coagulation assayOrdered By: Aram Castillo on 08-18-2023 INR Coag (Bld) [Relative time] 1.2 {INR} [facility] Ketones Test strip Ql (U)Ord ered By: Aram Castillo on 08-18-2023 Ketones Ql (U) 5 mg/dl Negative [facility] Laboratory - Chemistry and C hemistry - challengeOrdered By: Aram Castillo on 08-18-2023 ALP [Catalytic activity/Vol] 155 U/L 45-117 [facility] ALT [Catalytic activity/Vol] 48 U/L 16-61 [facility] CO2 [Moles/Vol] 22.0 mmol/L 21.0-32.0 [facility] Globulin (S) [Mass/Vol] 3.0 g/dL 2.2-4.2 [facility] Urea nitrogen/Creatinine [Mass ratio] 10.0 mg/mg 10-20 [facility] Laboratory - CoagulationOrde red By: Aram Castillo on 08-18-2023 aPTT Coag (Bld) [Time] 25.4 s 24.1-36.2 [facility] PT Coag (PPP) [Time] 15.0 s 11.7-14.9 [facility] Laboratory - Drug toxicology Ordered By: Linda Villavicencio on 08-18-2023 Amphetamines Ql (U) Negative <1000 ng/mL [facility] Benzodiazepines Ql (U) Negative < 200 ng/mL [facility] Cannabinoids Screen Ql (U) Positive < 50 ng/mL [facility] Cocaine Ql (U) Negative < 300 ng/mL [facility] Opiates Ql (U) Negative < 300 ng/mL [facility] Laboratory - Hematology and Cell countsOrdered By: Aram Castillo on 08-18-2023 Erythrocyte distribution width (RBC) [Entitic vol] 49.1 fL 35.1-43.9 [facility] Erythrocyte distribution width (RBC) [Ratio] 13.7 % 11.6-14.6 [facility] Immature granulocytes/100 WBC (Bld) 0.500 % 0.0-0.9 [facility] Comment on above: IG% - Immature Granu locytes (promyelocytes, myelocytes and metamyelocytes) > 1% indicates that a LEFT SHIFT is Present. MCH (RBC) [Entitic mass] 34.5 pg 27.0-32.0 [facility] Nucleated RBC/100 WBC (Bld) [Ratio] 0 % 0-5 [facility] MCHC Auto (RBC) [Mass/Vol]Or dered By: Aram Castillo on 08-18-2023 MCHC (RBC) [Mass/Vol] 35.0 g/dL 32-36 [facility] Mucus LM Ql (Urine sed)Order ed By: Aram Castillo on 08-18-2023 Mucus Ql (Urine sed) 0 SEEN /hpf [facility] Nitrite Test strip Ql (U)Ord ered By: Aram Castillo on 08-18-2023 Nitrite Ql (U) Negative Negative [facility] No Panel InformationOrdered By: Aram Castillo on 08-18-2023 Troponin I High Sensitivity 9 pg/mL 3.0-78.0 [facility] Comment on above: Please Note: New Marissa t Units and Gender Specific Reference Ranges. For more information see Policy Stat Procedure [place] High Sensitivity Troponin (TNIH) and attachments. Estimated Creatinine Clearance Calc 44.44 ml/min [facility] Estimated GFR (MDRD) Amer 97 mL/min >60 [facility] Comment on above: GFR Calc Estimated GFR (MDRD) Non-Af Amer 80 mL/min >60 [facility] Comment on above: Non- GFR Calc No Panel InformationOrdered By: Linda Villavicencio on 08-18-2023 MDMA (Ecstasy) Screen Positive < 500 ng/mL [facility] Urine Barbiturates Screen Positive < 200 ng/mL [facility] Urine Drug Screen Comment [facility] Comment on above: CONFIRMATORY TESTING FOR ALL POSITIVE URINE DRUG SCREENRESULTS WILL ONLY BE SENT OUT UPON PHYSICIAN ORDER. VISTA Urine Drug Screen methods provide only preliminaryanalytical test results. A more specific alternate chemicalmethod must be used in order to obtain a confirmedanalytical result. Gas chromatography/mass spectrometery(GC/MS) is the preferred confirmatory method. Clinicalconsideration and professional judgement should be appliedto any drug of abuse test result, particularly whenpreliminary positive results are used. URINE TCA TESTING MUST BE ORDERED SEPARATELY. USE TESTMNEMONIC: UTCA Urine Methadone Screen Negative < 300 ng/mL [facility] Ethyl Alcohol Level < 3.0 mg/dL [facility] Comment on above: The serum:whole bloo d ethanol ratio is approximately 1.14and varies slightly with hematocrit. Medical Alcohol reference interval and critical value innon-tolerant individuals; 50 - 100 Impairment 100 Intoxication 100 - 250 Severe Poisoning 250 - 400 Deep/possible fatal coma Platelets bldOrdered By: Anabelle Castillo on 08-18-2023 Platelets (Bld) [#/Vol] 233 10*3/uL 150-450 [facility] Protein Test strip Ql (U)Ord ered By: Aram Castillo on 08-18-2023 Protein Ql (U) 30 mg/dl Negative [facility] Serum or plasma albumin link urement (mass/volume)Ordered By: Aram Castillo on 08-18-2023 Albumin [Mass/Vol] 3.1 g/dL 3.2-5.0 [facility] Serum or plasma albumin/glob ulin mass ratioOrdered By: Aram Castillo on 08-18-2023 Albumin/Globulin [Mass ratio] 1.0 {ratio} 0.9-2.4 [facility] Serum or plasma calcium link urement (mass/volume)Ordered By: Aram Castillo on 08-18-2023 Calcium [Mass/Vol] 7.7 mg/dL 8.5-10.1 [facility] Serum or plasma creatinine m easurement (mass/volume)Ordered By: Aram Castillo on 08-18-2023 Creatinine [Mass/Vol] 1.00 mg/dL 0.70-1.30 [facility] Comment on above: The validity of the calculated GFR & GFRAA in patients over 70 years has not been determined. Clinical correlation is essential. Serum or plasma urea nitroge n measurement (mass/volume)Ordered By: Aram Castillo on 08-18-2023 Urea nitrogen [Mass/Vol] 10 mg/dL 7-18 [facility] Squamous epithelial cells de tection in urine sediment by light microscopyOrdered By: Aram Castillo on 08-18-2023 Epithelial cells.squamous LM Ql (Urine sed) 0-5 SEEN /hpf 0-5 [facility] Thin prep Papanicolaou smear with manual screeningOrdered By: Aram Castillo on 08-18-2023 Thin prep Papanicolaou smear with manual screening 84 U/L 15-37 [facility] Thin prep Papanicolaou smear with manual screening 9 5-15 [facility] Urine blood detectionOrdered By: Aram Castillo on 08-18-2023 RBC Ql (U) Negative Negative [facility] RBC Ql (U) 0 SEEN /hpf 0-5 [facility] Urine clarityOrdered By: Anabelle Castillo on 08-18-2023 Clarity (U) Clear Clear [facility] Urine color determinationOrd ered By: Aram Castillo on 08-18-2023 Color (U) Yellow Yellow [facility] Urine glucose detectionOrder ed By: Aram Castillo on 08-18-2023 Glucose Ql (U) Normal mg/dl Normal [facility] Urine leukocyte esterase det ection by dipstickOrdered By: Aram Castillo on 08-18-2023 Leukocyte esterase Test strip Ql (U) Negative Negative [facility] Urine pHOrdered By: Aram peterson on 08-18-2023 pH (U) 6.5 [pH] 5.0 - 8.0 [facility] Urine phencyclidine (PCP) de tectionOrdered By: Linda Villavicencio on 08-18-2023 Phencyclidine Ql (U) Negative < 25 ng/mL [facility] Urine sediment bacteria coun t by microscopy (number/high power field)Ordered By: Aram Castillo on 08-18-2023 Bacteria LM.HPF (Urine sed) [#/Area] 0 /[HPF] None Seen [facility] Urine specific gravity measu rementOrdered By: Aram Castillo on 08-18-2023 Specific gravity (U) [Rel density] 1.010 1.002-1.030 [facility] Urobilinogen Auto test strip Ql (U)Ordered By: Aram Castillo on 08-18-2023 Urobilinogen Ql (U) Normal mg/dl Normal [facility] Basophil percentageOrdered B y: Ginasafia Peres on 09-17-2022 Cholesterol [Mass/Vol] 130 mg/dL <200 [facility] Comment on above: <200 mg/dL Desirable 200-240 mg/dL Borderline >240 mg/dL High Risk Triglyceride [Mass/Vol] 73 mg/dL <199 [facility] Comment on above: The drugs N-Acetylcy steine and Metamizole may falsely depress this assay.Serum Triglycerides Reference Interval Normal <150 mg/dL Borderline high 150 - 199 mg/dL High 200 - 499 mg/dL Very High > or = 500 mg/dL No Panel InformationOrdered By: Thomas Berumen on 09-17-2022 Miscellaneous Test See comment [facility] Comment on above: TEST RESULT LIMITSIB D Expanded PanelgASCA 35 units 0-50 Negative <45 Equivocal 45 - 50 Positive >50ACCA 55 units 0-90 Negative <80 Equivocal 80 - 90 Positive >90ALCA 6 units 0-60 Negative <55 Equivocal 55 - 60 Positive >60AMCA 18 units 0-100 Negative < 90 Equivocal 90 - 100 Positive >100 This test was developed and its performance characteristics determined by [facility]. It has not been cleared or approved by the Food and Drug Administration. The FDA has determined that such clearance or approval is not necessary.Atypical pANCA Negative NegativeCommentsPattern is not suggestive of Inflammatory Bowel Disease. ___ TESTING PERFORMED AT [facility]. ORIGINAL REPORT ON FILE IN LAB CONTAINS ADDITIONAL TEST SITE INFORMATION. Serum or plasma cholesterol in HDL measurement (mass/volume)Ordered By: Gina Peres on 09-17-2022 Cholesterol in HDL [Mass/Vol] 70 mg/dL >40 [facility] Comment on above: The drugs N-Acetylcy steine and Metamizole may falsely depress this assay. Reference Range HDL <40 mg/dL Low HDL Cholesterol HDL >or= 60 mg/dL High HDL Cholesterol Serum or plasma cholesterol in VLDL measurement (mass/volume)Ordered By: Gina Peres on 09-17-2022 Cholesterol in VLDL [Mass/Vol] 15 mg/dL 5-40 [facility] Serum or plasma low density lipoprotein (LDL) cholesterol measurement (mass/volume)Ordered By: Gina Peres on 09-17-2022 Cholesterol in LDL [Mass/Vol] 45 mg/dL 0-130 [facility] EP PanelOrdered By: Thomas Berumen on 09-03-2022 Gastrointestinal pathogens panel JACKY+probe (Stl) [facility] Albumin Elph [Mass/Vol]on Albumin [Mass/Vol] 3.1 g/dL 2.9-4.4 [facility] Work Phone: Atypical perinuclear antineu trophil cytoplasmic antibodies measurementon 06-03-2022 Neutrophil cytoplasmic Ab.perinuclear.atypical IF (S) [Titer] <1:20 titer Neg:<1:20 [facility] Work Phone: Comment on above: The atypical pANCA p attern has been observed in asignificant percentage of patients with ulcerative colitis,primary sclerosing cholangitis and autoimmune hepatitis.Performed at: [facility] [address] [id number] Director: Petey Clarke PhD, Phone: [phone] at: - [facility] [address] [id number] Director: Georgia Farmer MD, Phone: [phone] Basophil percentageon 2021 Basophil percentage < 0.2 AI 0.0-0.9 [facility] Work Phone: Bilirubin [Mass/Vol] 0.40 mg/dL 0.20-1.00 [facility] Work Phone: Comment on above: For patients on eltr ombopag therapy, use of Dimension [place] TBIL is not recommended. Chloride [Moles/Vol] 106 mmol/L 98-107 [facility] Work Phone: Glucose [Mass/Vol] 100 mg/dL 74-106 [facility] Work Phone: Comment on above: Fasting Glucose resu lt from 100 to 125 mg/dL suggests IMPAIRED HOMEOSTASIS per A.D.A. criteria. Potassium [Moles/Vol] 3.9 mmol/L 3.5-5.1 [facility] Work Phone: Protein [Mass/Vol] 5.9 g/dL 6.4-8.2 [facility] Work Phone: Sodium [Moles/Vol] 140 mmol/L 136-145 [facility] Work Phone: Erythrocyte sedimentation ra mely 06-03-2022 ESR (Bld) [Velocity] 3 mm/h 0-20 [facility] Work Phone: HIV 1 and HIV-2 antibody ass ay with HIV-1 p24 antigen detectionon 06-03-2022 HIV 1+2 Ab+HIV1 p24 Ag IA Ql Non-Reactive Nonreactive [facility] Work Phone: INR in Blood by Coagulation assayon 06-03-2022 INR Coag (Bld) [Relative time] 1.2 {INR} [facility] Work Phone: [phone] Interpretation of serum or p lasma protein pattern by immunofixation (narrative resulton 06-03-2022 Protein Fractions Immunofixation Davin [Interp] See comment [facility] Work Phone: Comment on above: NOT OBSERVED Laboratory - Chemistry and C hemistry - challengeon 06-03-2022 ALP [Catalytic activity/Vol] 124 U/L 45-117 [facility] Work Phone: [phone] ALT [Catalytic activity/Vol] 25 U/L 16-61 [facility] Work Phone: CO2 [Moles/Vol] 26.0 mmol/L 21.0-32.0 [facility] Work Phone: Cobalamin (Vitamin B12) [Mass/Vol] 296 pg/mL 211-911 [facility] Work Phone: Globulin (S) [Mass/Vol] 3.2 g/dL 2.2-4.2 [facility] Work Phone: Urea nitrogen/Creatinine [Mass ratio] 17.5 mg/mg 10-20 [facility] Work Phone: Laboratory - Coagulationon 0 06-03-2022 PT Coag (PPP) [Time] 14.5 s 11.7-14.9 [facility] Work Phone: No Panel Informationon 06-03 Addendum Document Comment . [facility] Work Phone: Comment on above: Protein electrophore sis scan will follow via computer,mail, or lockstitch lining maker delivery. Centromere B Antibody <0.2 AI 0.0-0.9 [facility] Work Phone: Endomysial IgA Antibody Negative Negative [facility] Work Phone: Estimated GFR (MDRD) Amer 116 mL/min >60 [facility] Work Phone: Comment on above: GFR Calc Estimated GFR (MDRD) Non-Af Amer 96 mL/min >60 [facility] Work Phone: Comment on above: Non- GFR Calc Hepatitis A IgM Antibody Negative Negative [facility] Work Phone: Hepatitis B Core IgM Antibody Negative Negative [facility] Work Phone: Hepatitis C Antibody (EIA) 0.1 s/co ratio 0.0-0.9 [facility] Work Phone: Hepatitis C Antibody Comment Comment . [facility] Work Phone: Comment on above: NegativeNot infected with HCV, unless recent infection issuspected or other evidence exists to indicate HCVinfection. Immunoglobulin E 28 IU/mL 6-495 [facility] Work Phone: WOOD MACHINIST Antibody <0.2 AI 0.0-0.9 [facility] Work Phone: Thyroid Stimulating Hormone (TSH) 5.18 uIU/mL 0.358-3.74 [facility] Work Phone: Serum DNA double strand anti body assay (units/volume)on 06-03-2022 DNA double strand Ab Qn (S) [IU]/mL 0-9 [facility] Work Phone: Comment on above: Negative <5 Equivoca l 5 - 9 Positive >9 Serum IgA measurement (units /volume)on 06-03-2022 IgA Qn (S) 391 mg/dL 61-437 [facility] Work Phone: Comment on above: Performed at: [address] [id number] Director: Petey Clarke PhD, Phone: [phone] Serum Kat-1 antibody assay (u nits/volume)on 06-03-2022 Kat-1 extractable nuclear Ab Qn (S) <0.2 AI 0.0-0.9 [facility] Work Phone: Serum Scl-70 extractable nuc lear antibody assay (units/volume)on 06-03-2022 SCL-70 extractable nuclear Ab Qn (S) <0.2 AI 0.0-0.9 [facility] Work Phone: Serum Morales extractable nucl ear antibody detectionon 06-03-2022 Morales extractable nuclear Ab Ql (S) <0.2 AI 0.0-0.9 [facility] Work Phone: Serum ambrp-4-cazcdmyx measu rement by electrophoresison 06-03-2022 Alpha 1 globulin Elph [Mass/Vol] 0.2 g/dL 0.0-0.4 [facility] Work Phone: Alpha 1 globulin Elph [Mass/Vol] 0.4 g/dL 0.4-1.0 [facility] Work Phone: Serum classic neutrophil cyt oplasmic antibody assay (units/volume)on 06-03-2022 Neutrophil cytoplasmic Ab.classic Qn (S) <1:20 titer Neg:<1:20 [facility] Work Phone: Serum globulin measurement ( mass/volume)on 06-03-2022 Globulin (S) [Mass/Vol] 2.5 g/dL 2.2-3.9 [facility] Work Phone: Serum or plasma C reactive p rotein measurement (mass/volume)on 06-03-2022 CRP [Mass/Vol] mg/L 0.0-3.0 [facility] Work Phone: Comment on above: C-Reactive Protein ( CRP) provides useful information for thediagnosis, therapy and monitoring of inflammatory processesand associated diseases. For the evaluation of Relative Riskfor Cardiovascular Disease, a High Sensitivity CRP (HSCRP)should be ordered. Serum or plasma IgA measurem ent (mass/volume)on 06-03-2022 IgA [Mass/Vol] 405 mg/dL 61-437 [facility] Work Phone: Serum or plasma IgG measurem ent (mass/volume)on 06-03-2022 IgG [Mass/Vol] 1028 mg/dL 603-1613 [facility] Work Phone: Serum or plasma IgM measurem ent (mass/volume)on 06-03-2022 IgM [Mass/Vol] 41 mg/dL 20-172 [facility] Work Phone: Serum or plasma albumin link urement (mass/volume)on 06-03-2022 Albumin [Mass/Vol] 2.7 g/dL 3.2-5.0 [facility] Work Phone: Serum or plasma albumin/glob ulin mass ratioon 06-03-2022 Albumin/Globulin [Mass ratio] 0.8 {ratio} 0.9-2.4 [facility] Work Phone: Serum or plasma beta globuli n measurement by electrophoresis (mass/volume)on 06-03-2022 Beta globulin Elph [Mass/Vol] 0.8 g/dL 0.7-1.3 [facility] Work Phone: Serum or plasma calcium link urement (mass/volume)on 06-03-2022 Calcium [Mass/Vol] 8.8 mg/dL 8.5-10.1 [facility] Work Phone: Serum or plasma creatinine m easurement (mass/volume)on 06-03-2022 Creatinine [Mass/Vol] 0.86 mg/dL 0.70-1.30 [facility] Work Phone: Comment on above: The validity of the calculated GFR & GFRAA in patients over 70 years has not been determined. Clinical correlation is essential. Serum or plasma folate measu rement (mass/volume)on 06-03-2022 Folate [Mass/Vol] 2.20 ng/mL 3.1-55.4 [facility] Work Phone: Serum or plasma gamma globul in measurement by electrophoresis (mass/volume)on 06-03-2022 Gamma globulin Elph [Mass/Vol] 1.1 g/dL 0.4-1.8 [facility] Work Phone: Serum or plasma hepatitis B virus surface antigen detection by immunoassayon 06-03-2022 HBV surface Ag IA Ql Negative Negative [facility] Work Phone: Serum or plasma immunoelectr ophoresis interpretation (nominal result)on 06-03-2022 Interpretation IEP [Interp] Comment . [facility] Work Phone: Comment on above: No monoclonality det ected. Serum or plasma urea nitroge n measurement (mass/volume)on 06-03-2022 Urea nitrogen [Mass/Vol] 15 mg/dL 7-18 [facility] Work Phone: Serum perinuclear neutrophil cytoplasmic antibody titer by immunofluorescenceon 06-03-2022 Neutrophil cytoplasmic Ab.perinuclear IF (S) [Titer] <1:20 titer Neg:<1:20 [facility] Work Phone: Comment on above: The presence of posi tive fluorescence exhibiting P-ANCA orC-ANCA patterns alone is not specific for the diagnosis ofWegener's Granulomatosis (WG) or microscopic polyangiitis.Decisions about treatment should not be based solely onANCA IFA results. The [employer] ANCA [employer] Consensusrecommends follow up testing of positive sera with both MI-3 and MPO-ANCA enzyme immunoassays. As many as 5% serumsamples are positive only by EIA. Ref. AM J Clin [id number];111:507-513. Serum tissue transglutaminas e IgA antibody assay (units/volume)on 06-03-2022 tTG IgA Qn (S) <2 U/mL 0-3 [facility] Work Phone: Comment on above: Negative 0 - 3 Weak Positive 4 - 10 Positive >10 Tissue Transglutaminase (tTG) has been identified as the endomysial antigen. Studies have demonstr- ated that endomysial IgA antibodies have over 99% specificity for gluten sensitive enteropathy. Thin prep Papanicolaou smear with manual screeningon 06-03-2022 Thin prep Papanicolaou smear with manual screening 65 U/L 15-37 [facility] Work Phone: Thin prep Papanicolaou smear with manual screening 8 5-15 [facility] Work Phone: Thin prep Papanicolaou smear with manual screening 192 U/L 87-241 [facility] Work Phone: Thin prep Papanicolaou smear with manual screening 1.3 0.7-1.7 [facility] Work Phone: Total protein bloodon 2021 Protein [Mass/Vol] 5.6 g/dL 6.0-8.5 [facility] Work Phone: Whole blood hemoglobin A1c/t otal hemoglobin ratio (mass fraction)on 06-03-2022 HbA1c (Bld) [Mass fraction] 4.5 % 3.8-5.6 [facility] Work Phone: Comment on above: Normal < 5.7 % Predi abetic 5.7 - 6.4 % Diabetic >or= 6.5 % Please note range changes. Laboratory - Chemistry and C hemistry - challengeon 03-25-2022 CK [Catalytic activity/Vol] 53 U/L 39-308 [facility] Work Phone: Lipase [Catalytic activity/Vol] 70 U/L 73-393 [facility] Work Phone: No Panel Informationon 03-25 Anti-Nuclear Antibody Screen Negative Negative [facility] Work Phone: Comment on above: Performed at: [address] [id number] Director: Georgia Farmer MD, Phone: [phone] at: CB - [facility] [address] [id number] Director: Petey Clarke PhD, Phone: [phone] Parathyroid Hormone (Intact) 35.9 pg/mL 18.4-80.1 [facility] Work Phone: Vitamin D 25-Hydroxy 97.7 ng/mL [facility] Work Phone: Comment on above: Vitamin D 25(OH) Sta tus Range Deficiency <20 ng/mL (50nmol/L) Insufficiency 20 - 30 ng/mL (50 - 75 nmol/L) Sufficiency 30 - 100 ng/mL (75 - 250 nmol/L) Toxicity >100 ng/mL (>250 nmol/L) Serum or plasma calcitriol m easurement (mass/volume)on 03-25-2022 1,25-dihydroxyvitamin D3 [Mass/Vol] 86.0 pg/mL 19.9-79.3 [facility] Work Phone: Absolute lymphocyte counton 03-21-2022 Lymphocytes Auto (Unsp spec) [#/Vol] 1.43 10*3/uL 0.83-4.51 [facility] Work Phone: Basophil percentageon 2021 Basophils/100 WBC (Bld) 0.9 % 0-1 [facility] Work Phone: Bilirubin [Mass/Vol] 0.90 mg/dL 0.20-1.00 [facility] Work Phone: Comment on above: For patients on eltr ombopag therapy, use of Dimension [place] TBIL is not recommended. Chloride [Moles/Vol] 105 mmol/L 98-107 [facility] Work Phone: Eosinophils/100 WBC (Bld) 2.1 % 0-5 [facility] Work Phone: Glucose [Mass/Vol] 104 mg/dL 74-106 [facility] Work Phone: Comment on above: Fasting Glucose resu lt from 100 to 125 mg/dL suggests IMPAIRED HOMEOSTASIS per A.D.A. criteria. Neutrophils (Bld) [#/Vol] 3.6 10*3/uL 2.0-7.7 [facility] Work Phone: Neutrophils/100 WBC (Bld) 64.4 % 47-70 [facility] Work Phone: [phone] Potassium [Moles/Vol] 3.6 mmol/L 3.5-5.1 [facility]: Protein [Mass/Vol] 6.7 g/dL 6.4-8.2 [facility] Work [facility]: Sodium [Moles/Vol] 138 mmol/L 136-145 [facility] Work Phone: WBC (Bld) [#/Vol] 5.7 10*3/uL 4.4-11.0 [facility] Work Phone: [phone] Blood erythrocytes count (nu mber/volume)on 03-21-2022 RBC (Bld) [#/Vol] 3.57 10*6/uL 4.6-[facility].[address] [facility] [facility]: Blood hemoglobin measurement (mass/volume)on 03-21-2022 Hemoglobin (Bld) [Mass/Vol] 11.6 g/dL 13.0-16.5 [facility] Work Phone: Blood lymphocytes/100 leukoc yteson 03-21-2022 Lymphocytes/100 WBC (Bld) 25.3 % 19-41 [facility] Work Phone: Blood monocytes/100 leukocyt eson 03-21-2022 Monocytes/100 WBC (Bld) 6.9 % 0-10 [facility] Work Phone: Blood platelet mean volumeon 03-21-2022 Platelet mean volume (Bld) [Entitic vol] 9.6 fL 6.2-12.0 [facility] Work Phone: Determination of erythrocyte mean corpuscular volume (MCV)on 03-21-2022 MCV (RBC) [Entitic vol] 100.3 fL 80-94 [facility] Work Phone: Hematocrit Auto (Bld) [Volum e fraction]on 03-21-2022 Hematocrit (Bld) [Volume fraction] 35.8 % 40-54 [facility] Work Phone: Iron measurement (mass/mass) on 03-21-2022 Iron (Unsp spec) [Mass/Mass] 67 ug/dL 65-175 [facility] Work Phone: Laboratory - Chemistry and C hemistry - challengeon 03-21-2022 ALP [Catalytic activity/Vol] 146 U/L 45-117 [facility] Work Phone: ALT [Catalytic activity/Vol] 22 U/L 16-61 [facility] Work Phone: CO2 [Moles/Vol] 24.0 mmol/L 21.0-32.0 [facility] Work Phone: Globulin (S) [Mass/Vol] 3.6 g/dL 2.2-4.2 [facility] Work Phone: Natriuretic peptide B (Bld) [Mass/Vol] 42.2 pg/mL 0-100 [facility] Work Phone: Urea nitrogen/Creatinine [Mass ratio] 10.8 mg/mg 10-20 [facility] Work Phone: Laboratory - Hematology and Cell countson 03-21-2022 Erythrocyte distribution width (RBC) [Entitic vol] 53.6 fL 35.1-43.9 [facility] Work Phone: Erythrocyte distribution width (RBC) [Ratio] 14.6 % 11.6-14.6 [facility] Work Phone: Immature granulocytes/100 WBC (Bld) 0.400 % 0.0-0.9 [facility] Work Phone: Comment on above: IG% - Immature Granu locytes (promyelocytes, myelocytes and metamyelocytes) > 1% indicates that a LEFT SHIFT is Present. MCH (RBC) [Entitic mass] 32.5 pg 27.0-32.0 [facility] Work Phone: Nucleated RBC/100 WBC (Bld) [Ratio] 0 % 0-5 [facility] Work Phone: MCHC Auto (RBC) [Mass/Vol]on 03-21-2022 MCHC (RBC) [Mass/Vol] 32.4 g/dL 32-36 [facility] Work Phone: No Panel Informationon 03-21 Estimated GFR (MDRD) Amer 86 mL/min >60 [facility] Work Phone: Comment on above: GFR Calc Estimated GFR (MDRD) Non-Af Amer 71 mL/min >60 [facility] Work Phone: Comment on above: Non- GFR Calc Total Iron Binding Capacity 193 ug/dL 250-450 [facility] Work Phone: Platelets bldon 03-21-2022 Platelets (Bld) [#/Vol] 376 10*3/uL 150-450 [facility] Work Phone: Serum or plasma albumin link urement (mass/volume)on 03-21-2022 Albumin [Mass/Vol] 3.1 g/dL 3.2-5.0 [facility] Work Phone: Serum or plasma albumin/glob ulin mass ratioon 03-21-2022 Albumin/Globulin [Mass ratio] 0.9 {ratio} 0.9-2.4 [facility] Work Phone: Serum or plasma calcium link urement (mass/volume)on 03-21-2022 Calcium [Mass/Vol] 8.1 mg/dL 8.5-10.1 [facility] Work Phone: Serum or plasma creatinine m easurement (mass/volume)on 03-21-2022 Creatinine [Mass/Vol] 1.11 mg/dL 0.70-1.30 [facility] Work Phone: Comment on above: The validity of the calculated GFR & GFRAA in patients over 70 years has not been determined. Clinical correlation is essential. Serum or plasma iron saturat ion measurement (mass fraction)on 03-21-2022 Iron saturation [Mass fraction] 34.7 % 15.0-55.0 [facility] Work Phone: Serum or plasma urea nitroge n measurement (mass/volume)on 03-21-2022 Urea nitrogen [Mass/Vol] 12 mg/dL 7-18 [facility] Work Phone: Thin prep Papanicolaou smear with manual screeningon 03-21-2022 Thin prep Papanicolaou smear with manual screening 32 U/L 15-37 [facility] Work Phone: Thin prep Papanicolaou smear with manual screening 9 5-15 [facility] [facility] Work Phone: Absolute lymphocyte counton 02-03-2022 Lymphocytes Auto (Unsp spec) [#/Vol] 1.59 10*3/uL 0.83-4.51 [facility] Work Phone: Basophil percentageon 2021 Basophils/100 WBC (Bld) 1.3 % 0-1 [facility] Work Phone: Bilirubin [Mass/Vol] 0.80 mg/dL 0.20-1.00 [facility] Work Phone: Comment on above: For patients on eltr ombopag therapy, use of Dimension [place] TBIL is not recommended. Chloride [Moles/Vol] 105 mmol/L 98-107 [facility] Work Phone: Eosinophils/100 WBC (Bld) 1.5 % 0-5 [facility] Work Phone: Glucose [Mass/Vol] 108 mg/dL 74-106 [facility] Work Phone: Comment on above: Fasting Glucose resu lt from 100 to 125 mg/dL suggests IMPAIRED HOMEOSTASIS per A.D.A. criteria. Neutrophils (Bld) [#/Vol] 6.4 10*3/uL 2.0-7.7 [facility] Work Phone: Neutrophils/100 WBC (Bld) 68.7 % 47-70 [facility] Work Phone: Potassium [Moles/Vol] 3.1 mmol/L 3.5-5.1 Aranda [facility] Work Phone: Protein [Mass/Vol] 6.7 g/dL 6.4-8.2 [facility] Work Phone: [phone] Sodium [Moles/Vol] 138 mmol/L 136-145 [facility] Work Phone: WBC (Bld) [#/Vol] 9.3 10*3/uL 4.4-11.0 [facility] Work Phone: Blood erythrocytes count (nu mber/volume)on 02-03-2022 RBC (Bld) [#/Vol] 3.42 10*6/uL 4.6-[facility] [facility] [facility] [facility]: Blood hemoglobin measurement (mass/volume)on 02-03-2022 Hemoglobin (Bld) [Mass/Vol] 11.6 g/dL 13.0-16.5 [facility] Work Phone: Blood lymphocytes/100 leukoc yteson 02-03-2022 Lymphocytes/100 WBC (Bld) 17.0 % 19-41 [facility] Work Phone: Blood monocytes/100 leukocyt eson 02-03-2022 Monocytes/100 WBC (Bld) 10.6 % 0-10 [facility] Work Phone: Blood platelet mean volumeon 02-03-2022 Platelet mean volume (Bld) [Entitic vol] 9.8 fL 6.2-12.0 [facility] Work Phone: Determination of erythrocyte mean corpuscular volume (MCV)on 02-03-2022 MCV (RBC) [Entitic vol] 99.7 fL 80-94 [facility] Work Phone: Hematocrit Auto (Bld) [Volum e fraction]on 02-03-2022 Hematocrit (Bld) [Volume fraction] 34.1 % 40-54 [facility] Work Phone: Iron measurement (mass/mass) on 02-03-2022 Iron (Unsp spec) [Mass/Mass] 148 ug/dL 65-175 [facility] Work Phone: Laboratory - Chemistry and C hemistry - challengeon 02-03-2022 ALP [Catalytic activity/Vol] 230 U/L 45-117 [facility] Work Phone: ALT [Catalytic activity/Vol] 40 U/L 16-61 [facility] Work Phone: CO2 [Moles/Vol] 22.0 mmol/L 21.0-32.0 [facility] Work Phone: Globulin (S) [Mass/Vol] 3.6 g/dL 2.2-4.2 [facility] Work Phone: Natriuretic peptide B (Bld) [Mass/Vol] 22.7 pg/mL 0-100 [facility] Work Phone: Urea nitrogen/Creatinine [Mass ratio] 11.5 mg/mg 10-20 [facility] Work Phone: Laboratory - Hematology and Cell countson 02-03-2022 Erythrocyte distribution width (RBC) [Entitic vol] 48.9 fL 35.1-43.9 [facility] Work Phone: Erythrocyte distribution width (RBC) [Ratio] 13.5 % 11.6-14.6 [facility] Work Phone: Immature granulocytes/100 WBC (Bld) 0.900 % 0.0-0.9 [facility] Work Phone: Comment on above: IG% - Immature Granu locytes (promyelocytes, myelocytes and metamyelocytes) > 1% indicates that a LEFT SHIFT is Present. MCH (RBC) [Entitic mass] 33.9 pg 27.0-32.0 [facility] Work Phone: Nucleated RBC/100 WBC (Bld) [Ratio] 0.2 % 0-5 [facility] Work Phone: MCHC Auto (RBC) [Mass/Vol]on 02-03-2022 MCHC (RBC) [Mass/Vol] 34.0 g/dL 32-36 [facility] Work Phone: No Panel Informationon 02-03 Estimated GFR (MDRD) Amer 77 mL/min >60 [facility] Work Phone: Comment on above: GFR Calc Estimated GFR (MDRD) Non-Af Amer 64 mL/min >60 [facility] Work Phone: Comment on above: Non- GFR Calc Total Iron Binding Capacity 169 ug/dL 250-450 [facility] Work Phone: Platelets bldon 02-03-2022 Platelets (Bld) [#/Vol] 376 10*3/uL 150-450 [facility] Work Phone: Serum or plasma albumin link urement (mass/volume)on 02-03-2022 Albumin [Mass/Vol] 3.1 g/dL 3.2-5.0 [facility] Work Phone: Serum or plasma albumin/glob ulin mass ratioon 02-03-2022 Albumin/Globulin [Mass ratio] 0.9 {ratio} 0.9-2.4 [facility] Work Phone: Serum or plasma calcium link urement (mass/volume)on 02-03-2022 Calcium [Mass/Vol] 8.4 mg/dL 8.5-10.1 [facility] Work Phone: Serum or plasma creatinine m easurement (mass/volume)on 02-03-2022 Creatinine [Mass/Vol] 1.22 mg/dL 0.70-1.30 [facility] Work Phone: Comment on above: The validity of the calculated GFR & GFRAA in patients over 70 years has not been determined. Clinical correlation is essential. Serum or plasma urea nitroge n measurement (mass/volume)on 02-03-2022 Urea nitrogen [Mass/Vol] 14 mg/dL 7-18 [facility] Work Phone: Thin prep Papanicolaou smear with manual screeningon 02-03-2022 Thin prep Papanicolaou smear with manual screening 98 U/L 15-37 [facility] Work Phone: [phone] Thin prep Papanicolaou smear with manual screening 11 5-15 [facility] Work Phone: Absolute lymphocyte counton 12-11-2021 Lymphocytes Auto (Unsp spec) [#/Vol] 3.29 10*3/uL 0.83-4.51 [facility] Work Phone: Basophil percentageon 2021 Basophils/100 WBC (Bld) 1.4 % 0-1 [facility] Work Phone: Bilirubin [Mass/Vol] 0.50 mg/dL 0.20-1.00 [facility] Work Phone: Comment on above: For patients on eltr ombopag therapy, use of [employer] [place] TBIL is not recommended. Chloride [Moles/Vol] 113 mmol/L 98-107 [facility] Work Phone: [phone] Eosinophils/100 WBC (Bld) 2.7 % 0-5 [facility] Work Phone: Glucose [Mass/Vol] 120 mg/dL 74-106 [facility] Work Phone: Comment on above: Fasting Glucose resu lt from 100 to 125 mg/dL suggests IMPAIRED HOMEOSTASIS per A.D.A. criteria. Neutrophils (Bld) [#/Vol] 5.5 10*3/uL 2.0-7.7 [facility] Work Phone: Neutrophils/100 WBC (Bld) 53.3 % 47-70 [facility] Work Phone: Potassium [Moles/Vol] 3.8 mmol/L 3.5-5.1 [facility] Work Phone: [phone] Protein [Mass/Vol] 7.0 g/dL 6.4-8.2 [facility] Work Phone: Sodium [Moles/Vol] 143 mmol/L 136-145 [facility] Work Phone: WBC (Bld) [#/Vol] 10.3 10*3/uL 4.4-11.0 [facility] Work Phone: Blood erythrocytes count (nu mber/volume)on 12-11-2021 RBC (Bld) [#/Vol] 3.33 10*6/uL 4.6-6.2 [facility] Work Phone: Blood hemoglobin measurement (mass/volume)on 12-11-2021 Hemoglobin (Bld) [Mass/Vol] 12.0 g/dL 13.0-16.5 [facility] Work Phone: Blood lymphocytes/100 leukoc yteson 12-11-2021 Lymphocytes/100 WBC (Bld) 32.0 % 19-41 [facility] Work Phone: Blood monocytes/100 leukocyt eson 12-11-2021 Monocytes/100 WBC (Bld) 9.4 % 0-10 [facility] Work Phone: Blood platelet mean volumeon 12-11-2021 Platelet mean volume (Bld) [Entitic vol] 9.2 fL 6.2-12.0 [facility] Work Phone: Determination of erythrocyte mean corpuscular volume (MCV)on 12-11-2021 MCV (RBC) [Entitic vol] 109.3 fL 80-94 [facility] Work Phone: Hematocrit Auto (Bld) [Volum e fraction]on 12-11-2021 Hematocrit (Bld) [Volume fraction] 36.4 % 40-54 [facility] Work Phone: Iron measurement (mass/mass) on 12-11-2021 Iron (Unsp spec) [Mass/Mass] 112 ug/dL 65-175 [facility] Work Phone: [phone] Laboratory - Chemistry and C hemistry - challengeon 12-11-2021 ALP [Catalytic activity/Vol] 189 U/L 45-117 [facility] Work Phone: ALT [Catalytic activity/Vol] 50 U/L 16-61 [facility] Work Phone: CO2 [Moles/Vol] 21.0 mmol/L 21.0-32.0 [facility] Work Phone: Globulin (S) [Mass/Vol] 3.9 g/dL 2.2-4.2 [facility] Work Phone: Urea nitrogen/Creatinine [Mass ratio] 10.0 mg/mg 10-20 [facility] Work Phone: Laboratory - Hematology and Cell countson 12-11-2021 Erythrocyte distribution width (RBC) [Entitic vol] 54.8 fL 35.1-43.9 [facility] Work Phone: Erythrocyte distribution width (RBC) [Ratio] 13.6 % 11.6-14.6 [facility] Work Phone: Immature granulocytes/100 WBC (Bld) 1.200 % 0.0-0.9 [facility] Work Phone: Comment on above: IG% - Immature Granu locytes (promyelocytes, myelocytes and metamyelocytes) > 1% indicates that a LEFT SHIFT is Present. MCH (RBC) [Entitic mass] 36.0 pg 27.0-32.0 [facility] Work Phone: Nucleated RBC/100 WBC (Bld) [Ratio] 0 % 0-5 [facility] Work Phone: MCHC Auto (RBC) [Mass/Vol]on 12-11-2021 MCHC (RBC) [Mass/Vol] 33.0 g/dL 32-36 [facility] Work Phone: No Panel Informationon 12-11 Estimated GFR (MDRD) Amer 87 mL/min >60 [facility] Work Phone: Comment on above: GFR Calc Estimated GFR (MDRD) Non-Af Amer 72 mL/min >60 [facility] Work Phone: Comment on above: Non- GFR Calc Total Iron Binding Capacity 187 ug/dL 250-450 [facility] Work Phone: Platelets bldon 12-11-2021 Platelets (Bld) [#/Vol] 392 10*3/uL 150-450 [facility] Work Phone: Serum or plasma albumin link urement (mass/volume)on 12-11-2021 Albumin [Mass/Vol] 3.1 g/dL 3.2-5.0 [facility] Work Phone: Serum or plasma albumin/glob ulin mass ratioon 12-11-2021 Albumin/Globulin [Mass ratio] 0.8 {ratio} 0.9-2.4 [facility] Work Phone: Serum or plasma calcium link urement (mass/volume)on 12-11-2021 Calcium [Mass/Vol] 8.8 mg/dL 8.5-10.1 [facility] Work Phone: Serum or plasma creatinine m easurement (mass/volume)on 12-11-2021 Creatinine [Mass/Vol] 1.10 mg/dL 0.70-1.30 [facility] Work Phone: Comment on above: The validity of the calculated GFR & GFRAA in patients over 70 years has not been determined. Clinical correlation is essential. Serum or plasma iron saturat ion measurement (mass fraction)on 12-11-2021 Iron saturation [Mass fraction] 59.9 % 15.0-55.0 [facility] Work Phone: Serum or plasma urea nitroge n measurement (mass/volume)on 12-11-2021 Urea nitrogen [Mass/Vol] 11 mg/dL 7-18 [facility] Work Phone: Thin prep Papanicolaou smear with manual screeningon 12-11-2021 Thin prep Papanicolaou smear with manual screening 70 U/L 15-37 [facility] Work Phone: Thin prep Papanicolaou smear with manual screening 9 5-15 [facility] Work Phone: No Panel Information Enteric Bacteriology [facility] Work Phone: Vital Signs Date Time Vital Sign Value Performing Clinician Facility 04-17-2025 13:23-0400 Body height 182.88 cm Gina Peres DBA MANAGER-C Work Phone: [phone] [place] [address] 04-17-2025 13:23-0400 Body mass index (BMI) [Ratio] 25.2 kg/m2 Gina Peres DBA MANAGER[employer]C Work Phone: [phone] [address] 04-17-2025 13:23-0400 Body weight 84.36 kg Gina Peres DBA MANAGER-C Work Phone: 6(080)[phone] [place] [address] 04-17-2025 13:23-0400 Diastolic blood pressure 91 mm[Hg] Gina Peres DBA MANAGER-C Work Phone: [phone])[phone] [address] 04-17-2025 13:23-0400 Heart rate 93 /min Gina Peres DBA MANAGER-C Work Phone: 2(373)[phone] [place] [address] 04-17-2025 13:23-0400 Respiratory rate 16 /min Gina Peres DBA MANAGER-C Work Phone: 9(486)[phone] [place] [address] 04-17-2025 13:23-0400 Systolic blood pressure 133 mm[Hg] Gina Peres DBA MANAGER-C Work Phone: 4(859)[phone] [place] [address] 10-02-2023 14:47-0400 Body height 182.88 cm [facility] Work Phone: 7(873)435-508872 [place] [address] 10-02-2023 14:47-0400 Body mass index (BMI) [Ratio] 24.3 kg/m2 [facility] Work Phone: [phone])[phone] [address] 10-02-2023 14:47-0400 Body weight 81.19 kg [facility] Work Phone: [phone])[phone] [place] [address] 10-02-2023 14:47-0400 Diastolic blood pressure 80 mm[Hg] [facility] Work Phone: 9(731)[phone] [place] [address] 10-02-2023 14:47-0400 Heart rate 107 /min [facility] Work Phone: [facility] 10-02-2023 14:47-0400 Respiratory rate 18 /min [facility] Work Phone: [facility] 10-02-2023 14:47-0400 SaO2% (BldA) [Mass fraction] 97 % [facility] Work Phone: [facility] 10-02-2023 14:47-0400 Systolic blood pressure 112 mm[Hg] [facility] Work Phone: [facility] 09-21-2023 18:35-0400 Diastolic Blood Pressure Non-Invasive 98 1 DARVIN HUBBARDT DO [facility] 09-21-2023 18:35-0400 Heart rate 136 /min DARVIN HUBBARDT DO [facility] 09-21-2023 18:35-0400 Respiratory rate 20 /min DARVIN HUBBARDT DO [facility] 09-21-2023 18:35-0400 Systolic Blood Pressure Non-Invasive 136 1 DARVIN HUBBARDT DO [facility] 09-21-2023 17:48-0400 Diastolic Blood Pressure Non-Invasive 94 1 DARVIN HUBBARDT DO [facility] 09-21-2023 17:48-0400 Heart rate 106 /min DARVIN HUBBARDT DO [facility] 09-21-2023 17:48-0400 Respiratory rate 20 /min DARVIN HUBBARDT DO [facility] 09-21-2023 17:48-0400 Systolic Blood Pressure Non-Invasive 137 1 DARVIN HUBBARDT DO [facility] 09-21-2023 17:30-0400 Body temperature 97.52 [degF] DARVIN HUBBARDT DO [facility] 09-21-2023 17:30-0400 Body weight 77.3 kg DARVIN BANKS DO [facility] 09-21-2023 17:30-0400 Diastolic Blood Pressure Non-Invasive 104 1 DARVIN BANKS DO [facility] 09-21-2023 17:30-0400 Heart rate 110 /min DARVIN BANKS DO [facility] 09-21-2023 17:30-0400 Respiratory rate 19 /min DARVIN BANKS DO [facility] 09-21-2023 17:30-0400 Systolic Blood Pressure Non-Invasive 157 1 DARVIN BANKS [employer] [facility] 09-07-2023 18:20-0400 Diastolic blood pressure 81 mm[Hg] [facility] Work Phone: [phone])[phone] [place] [address] 09-07-2023 18:20-0400 Heart rate 103 /min [facility] Work Phone: 1(089)[phone] [place] [address] 09-07-2023 18:20-0400 Respiratory rate 19 /min [facility] Work Phone: 7(737)[phone] [place] [address] 09-07-2023 18:20-0400 SaO2% (BldA) [Mass fraction] 99 % [facility] Work Phone: [phone])[phone] [place] [address] 09-07-2023 18:20-0400 Systolic blood pressure 149 mm[Hg] [facility] Work Phone: 0(386)[phone] [place] [address] 09-07-2023 15:33-0400 Body mass index (BMI) [Ratio] 25.9 kg/m2 [facility] Work Phone: 1(908)349-174472 [place] [address] 09-07-2023 15:33-0400 Body temperature 97.6 [degF] [facility] Work Phone: 3(511)[phone] [place] [address] 09-07-2023 15:33-0400 Body weight 86.8 kg [facility] Work Phone: 1([phone])[phone] [place] [address] 08-20-2023 13:47-0400 Body temperature 98.1 [degF] [facility] Work Phone: 4(576)892-941472 [place] [address] 08-20-2023 13:47-0400 Diastolic blood pressure 90 mm[Hg] [facility] Work Phone: 6(224)274-440272 [place] [address] 08-20-2023 13:47-0400 Heart rate 97 /min [facility] Work Phone: 0(111)[phone] [place] [address] 08-20-2023 13:47-0400 Respiratory rate 18 /min [facility] Work Phone: [phone])658-961172 [place] [address] 08-20-2023 13:47-0400 SaO2% (BldA) [Mass fraction] 97 % [facility] Work Phone: [phone])[phone] [place] [address] 08-20-2023 13:47-0400 Systolic blood pressure 120 mm[Hg] [facility] Work Phone: 0([phone])[phone] [place] [address] 08-20-2023 04:11-0400 Body mass index (BMI) [Ratio] 24.9 kg/m2 [facility] Work Phone: 0(709)[phone] [place] [address] 08-20-2023 04:11-0400 Body weight 83.4 kg [facility] Work Phone: [phone](019)771-565472 [place] [address] 08-18-2023 17:05-0400 Diastolic blood pressure 90 mm[Hg] [facility] 08-18-2023 17:05-0400 Heart rate 97 /min [facility] 08-18-2023 17:05-0400 Respiratory rate 18 /min [facility] 08-18-2023 17:05-0400 SaO2% (BldA) [Mass fraction] 98 % [facility] 08-18-2023 17:05-0400 Systolic blood pressure 121 mm[Hg] [facility] 08-18-2023 15:26-0400 Body temperature 97.8 [degF] [facility] 08-18-2023 11:00-0400 Body height 182.88 cm [facility] 08-18-2023 11:00-0400 Body mass index (BMI) [Ratio] 12.6 kg/m2 [facility] 08-18-2023 11:00-0400 Body weight 42.1 kg [facility] 12-18-2022 15:30-0500 Body height 182.88 cm [facility] Work Phone: 5(369)711-687172 [place] [address] 12-18-2022 15:30-0500 Body mass index (BMI) [Ratio] 21.9 kg/m2 [facility] Work Phone: 4(228)[phone] [place] [address] 12-18-2022 15:30-0500 Body weight 73.48 kg [facility] Work Phone: 0(125)[phone] [place] [address] 12-18-2022 15:30-0500 Diastolic blood pressure 63 mm[Hg] [facility] Work Phone: 5([phone])[phone] [place] [address] 12-18-2022 15:30-0500 Heart rate 116 /min [facility] Work Phone: 0(404)[phone] [place] [address] 12-18-2022 15:30-0500 Respiratory rate 18 /min [facility] Work Phone: 1(123)770-285272 [place] [address] 12-18-2022 15:30-0500 Systolic blood pressure 92 mm[Hg] [facility] Work Phone: 9(565)292-757372 [place] [address] 09-02-2022 16:38-0400 Body temperature 99 [degF] [facility] Work Phone: 6(889)[phone] [place] [address] 09-02-2022 16:38-0400 Diastolic blood pressure 89 mm[Hg] [facility] Work Phone: 7(147)[phone] [place] [address] 09-02-2022 16:38-0400 Heart rate 83 /min [facility] Work Phone: [phone])[phone] [place] [address] 09-02-2022 16:38-0400 Respiratory rate 18 /min [facility] Work Phone: 8(847)708-441872 [place] [address] 09-02-2022 16:38-0400 SaO2% (BldA) [Mass fraction] 100 % [facility] Work Phone: [facility] 09-02-2022 16:38-0400 Systolic blood pressure 118 mm[Hg] [facility] Work Phone: [facility] 09-02-2022 14:14-0400 Body height 182.88 cm [facility] Work Phone: [facility] Work Phone: 09-02-2022 14:14-0400 Body mass index (BMI) [Ratio] 48.2 kg/m2 [facility] Work Phone: [facility] 09-02-2022 14:14-0400 Body weight 161.4 kg [facility] Work Phone: [phone] [address] 01-10-2022 13:33-0500 Body height 182.88 cm [facility] Work Phone: [facility] Work Phone: 12-11-2021 10:09-0500 Body mass index (BMI) [Ratio] 24.5 kg/m2 [facility] Work Phone: [facility] Work Phone: 12-11-2021 10:09-0500 Body weight 82.27 kg [facility] Work Phone: [facility] Work Phone: 12-11-2021 10:09-0500 Diastolic blood pressure 65 mm[Hg] [facility] Work Phone: [facility] Work Phone: 12-11-2021 10:09-0500 Heart rate 113 /min [facility] Work Phone: [facility] Work Phone: 12-11-2021 10:09-0500 Respiratory rate 18 /min [facility] Work Phone: [facility] Work Phone: 12-11-2021 10:09-0500 SaO2% (BldA) [Mass fraction] 100 % [facility] Work Phone: [facility] Work Phone: 12-11-2021 10:09-0500 Systolic blood pressure 106 mm[Hg] [facility] Work Phone: [facility] Work Phone: Encounters Encounter Date Encounter Type Care Provider Facility Start: 04-17-2025 End: 04-17-2025 Patient encounter procedure Terrence Willett DBA MANAGER-C -[facility] Work Phone: Start: 04-17-2025 End: 04-17-2025 ambulatory Gina Peres DBA MANAGER-C Work Phone: [facility] Work Phone: Start: 02-15-2025 End: 02-15-2025 ambulatory Gina Peres DBA MANAGER-C Work Phone: [facility] Work Phone: Start: 02-15-2025 End: 02-15-[address] Chris Wyman MD -Cat Scan, [facility] Work Phone: Start: 02-15-2025 End: 02-15-2025 ambulatory Chris Wyman Facility:[facility] Start: 01-26-2025 End: 01-26-2025 ambulatory CRISTY ÁLVAREZ Facility:[facility] Start: 01-26-2025 End: 01-26-2025 Patient encounter procedure Kendrick Scales Work Phone: Podiatry Comment on above: Onychomycosis (Prima ry Dx); Pain in toe of left foot; Pain in toe of right foot Start: 12-22-2024 End: 12-22-[address] Chris Wyman MD -Laboratory, Phy Office 3rd [facility] Start: 12-22-2024 End: 12-22-2024 ambulatory Chris Wyman Facility:[facility] Start: 11-29-2024 End: 11-29-2024 ambulatory Gina Peres Facility:[facility] Start: 11-29-2024 End: 11-29-2024 Discharged Recurring [facility] Gina Peres DBA MANAGER-C -Physical Therapy Work Phone: Start: 11-15-2024 End: 11-15-2024 ambulatory Gina Peres Facility:[facility] Start: 11-15-2024 End: 11-15-2024 Discharged Recurring [facility] Gina Peres DBA MANAGER-C -Physical Therapy Work Phone: Start: 10-21-2024 End: 10-21-2024 ambulatory CRISTY ÁLVAREZ Facility:[facility] Start: 10-21-2024 End: 10-21-2024 Patient encounter procedure Kendrick Scales Work Phone: Podiatry Comment on above: Onychomycosis (Prima ry Dx); Pain in toe of left foot; Pain in toe of right foot Start: 10-11-2024 End: 10-11-2024 ambulatory Ml Sal NP Facility:[facility] Start: 07-15-2024 End: 07-15-2024 ambulatory CRISTYBALAJI DIAZBEATRIZ Facility:[facility] Start: 07-15-2024 End: 07-15-2024 Patient encounter procedure Kendrick Yordy Work Phone: Podiatry Comment on above: Onychomycosis (Prima ry Dx); Pain in toe of left foot; Pain in toe of right foot; Hammer toes of both feet Start: 05-06-2024 End: 05-06-2024 Emergency department patient visit Luis Carlos Yoon Facility:[facility] Start: 01-06-2024 End: 01-06-[address] [facility] Work Phone: [facility] Work Phone: Start: 01-06-2024 End: 01-06-2024 Patient encounter procedure [facility] Work Phone: [facility]Laboratory Work Phone: Start: 10-14-2023 Registered Referred [facility] Work Phone: [facility]-Cardiovascular Services Work Phone: Start: 10-13-2023 End: 10-13-2023 Patient encounter procedure [facility] Work Phone: [facility]-Radiology, [facility] Work Phone: Start: 10-05-2023 End: 10-05-[address] [facility] Work Phone: [facility] Work Phone: Start: 10-05-2023 End: 10-05-2023 Patient encounter procedure [facility] Work Phone: [facility] Work Phone: Start: 10-02-2023 Non-patient / Non-visit [facility] Work Phone: [facility] Start: 10-02-2023 End: 10-02-[address] [facility] Work Phone: [facility] Work Phone: Start: 10-02-2023 End: 10-02-2023 Patient encounter procedure [facility] Work Phone: [facility] Work Phone: Start: 09-21-2023 End: 09-21-2023 Emergency department patient visit NONE PHYSICIAN Facility:B Start: 09-21-2023 End: 09-21-2023 Emergency department patient visit DARVIN BANKS DO [facility] Start: 09-14-2023 ambulatory NONE PHYSICIAN Facility :R Start: 09-07-2023 End: 09-07-2023 Emergency department patient visit [facility] Work Phone: [facility]-Emergency Department Work Phone: Start: 08-20-2023 Non-patient / Non-visit [facility] Work Phone: [facility] Work Phone: Start: 08-19-2023 Non-patient / Non-visit [facility] Work Phone: [facility] Work Phone: Start: 08-18-2023 End: 08-20-2023 Evaluation and management of inpatient [facility]-Progressive Care Unit Work Phone: Start: 01-02-2023 Non-patient / Non-visit [facility] Work Phone: [facility] Start: 12-26-2022 Non-patient / Non-visit [facility] Work Phone: [facility] Start: 12-26-2022 End: 12-26-[address] [facility] Work Phone: [facility] Work Phone: Start: 12-26-2022 End: 12-26-2022 Patient encounter procedure [facility] Start: 12-18-2022 End: 12-18-2022 Patient encounter procedure [facility] Work Phone: [facility] Start: 12-10-2022 End: 12-10-[address] [facility] Work Phone: [facility] Work Phone: Start: 12-10-2022 End: 12-10-2022 Patient encounter procedure [facility] Work Phone: [facility] Start: 12-02-2022 Telephone encounter Kendrick Lopez Work Phone: Podiatry Comment on above: Patient Update Start: 11-07-2022 Orders Only Kendrick brown Work Phone: Podiatry Comment on above: Venous insufficiency (Primary Dx) Results Start: 10-29-2022 Telephone encounter Kendrick Lopez Work Phone: Podiatry Comment on above: Patient Question Start: 10-02-2022 End: 10-02-2022 Patient encounter procedure [facility] Work Phone: [facility] Gastroenter[facility] Start: 09-26-2022 End: 09-26-2022 Patient encounter procedure Kendrick Scales Work Phone: Podiatry Comment on above: Onychomycosis (Prima ry Dx); Pain in toe of left foot; Pain in toe of right foot; Hammer toes of both feet; Diminished pulses in lower extremity; Traumatic avulsion of nail plate of toe, initial encounter Start: 09-17-2022 End: 09-17-[address] [facility] Work Phone: [facility] Work Phone: Start: 09-17-2022 End: 09-17-2022 Patient encounter procedure [facility] Work Phone: [facility] Start: 09-02-2022 Non-patient / Non-visit [facility] Work Phone: [facility] Start: 09-02-2022 End: 09-02-2022 Admission to same day surgery center [facility] Work Phone: [facility]-Endoscopy Start: 09-02-2022 End: 09-02-[address] [facility] Work Phone: [facility] Work Phone: Start: 06-03-2022 End: 06-03-2022 Patient encounter procedure [facility] Work Phone: [facility] Start: 03-26-2022 End: 03-26-2022 Patient encounter procedure [facility] Work Phone: [facility] Start: 03-25-2022 End: 03-25-2022 Patient encounter procedure [facility] Work Phone: [facility] Start: 03-21-2022 End: 03-21-2022 Patient encounter procedure [facility] Work Phone: [facility] Start: 02-03-2022 End: 02-03-2022 Patient encounter procedure [facility] Work Phone: [facility] Start: 01-15-2022 End: 01-15-2022 Patient encounter procedure [facility] Work Phone: [facility] Start: 01-09-2022 End: 01-09-2022 Patient encounter procedure [facility] Work Phone: [facility]-Radiology, [facility] Start: 12-11-2021 End: 12-11-2021 Patient encounter procedure [facility] Work Phone: [facility] Start: 05-17-2019 Patient encounter status [facility] Work Phone: [facility] Procedures Date Procedure Procedure Detail Performing Clinician Start: 02-15-2025 CT of chest Gian mancera DBA MANAGER-C Work Phone: Start: 12-22-2024 Hepatitis C antibody measurement Ginamable Peres DBA MANAGER-C Work Phone: Comment on above: Non Reactive: < 0.8 Equivocal: >/= 0.8 to < 1.0 Reactive: >/= 1.0The CDC requires that a reactive/equivocal HCV antibody result be sent out for confirmation. HCV Quant by PCR testing. Start: 12-22-2024 Measurement of renal function Ginamable Peres DBA MANAGER-C Work Phone: Comment on above: GFR Calc Start: 12-22-2024 Prostate specific an tigen measurement Gina Ja DBA MANAGER-C Work Phone: Comment on above: This test was perfor med using the TPSA assay method for thePiqqual chemistry system. Values obtained with differentassay methods cannot be used interchangably.When changing PSA assays in the course of monitoring apatient, additional sequential testing should be carriedout to confirm baseline values. Start: 10-13-2023 Radiography of thora cic spine [facility] Work Phone: Start: 10-13-2023 X-ray of lumbar spin e, two or three views [facility] Work Phone: Start: 09-07-2023 Plain chest X-ray [facility] Work Phone: Start: 08-18-2023 MRI of brain without contrast [facility] Work Phone: Start: 08-18-2023 Plain chest X-ray Start: 08-18-2023 Plain X-ray of femur Start: 08-18-2023 CT of head without contrast Start: 12-10-2022 Radiologic examinati on of upper gastrointestinal tract and small bowel with serial films [facility] Work Phone: Start: 09-02-2022 Colonoscopy [facility] Work Phone: Start: 03-26-2022 Ultrasonography of abdomen [facility] Work Phone: Start: 01-09-2022 Plain x-ray of pelvi s and lower extremity [facility] Work Phone: Start: 10-01-2015 Colonoscopy Kendrick Lopez Work Phone: [facility] Bacteriology [facility] Work Phone: [facility] Work Phone: Plan of Treatment Date Care Activity Detail Author Start: 12-29-2034 Urine microalbumin profile DTa P,Tdap,Td Vaccine (2 - Td or Tdap) [facility] Start: 05-02-2025 End: 05-02-2025 Patient encounter procedure 05/02/2025 2:00 PM EDT Office Visit Podiatry [address] [place], [place] [address] Kendrick Scales [address] [id number] 3 to 4 month follow up Podiatry Comment on above: 3 to 4 month follow up Start: 02-24-2025 Shingrix Vaccine (2 of 2) Castro grix Vaccine (2 of 2) [facility] Start: 02-23-2025 Covid-19 Vaccine ( season) Covid-19 Vaccine ( season) [facility] Start: 01-23-2025 End: 01-23-2025 Patient encounter procedure 01/23/2025 1:00 PM EST Office Visit Podiatry [address] [place] [address] Kendrick Scales [address] [address] 3 month follow up nail care Podiatry Comment on above: 3 month follow up na il care Start: 11-30-2024 Advance Directive Discussion Advance Directive Discussion [facility] Start: 10-21-2024 End: 10-21-2024 Patient encounter procedure 10/21/2024 3:00 PM EST Office Visit Podiatry [address] [place] [address] Kendrick Scales [address] [place] [address] 3 mo nailcare Podiatry Comment on above: 3 mo nailcare Start: 2024 Advance Directive Discussion Advance Directive Discussion [facility] Start: 07-31-2024 Influenza vaccination Influenza Vacc ine (#1) [facility] Start: 10-05-2023 Assay of prostate sp ecific antigen total ASSAY OF PSA TOTAL [facility] Start: 09-07-2023 [facility] Start: 09-07-2023 [facility] Start: 08-20-2023 Patient discharge [facility] Start: 08-20-2023 Referral to service [facility] Start: 08-19-2023 [facility] Start: 08-19-2023 Referral to occupati onal therapist [facility] Start: 08-19-2023 Referral to service [facility] Start: 08-19-2023 Application of intermittent pneumatic compression device [facility] Start: 08-18-2023 Following clinical p athway protocol [facility] Start: 08-18-2023 Application of elast ic bandage [facility] Start: 08-18-2023 Aspiration precautions [facility] Start: 08-18-2023 Assessment of risk o f venous thromboembolism [facility] Start: 08-18-2023 Fall prevention [facility] Start: 08-18-2023 Insertion of cathete r into peripheral vein [facility] Start: 08-18-2023 Introduction of urin charlie catheter [facility] Start: 08-18-2023 Measuring intake and output [facility] Start: 08-18-2023 Notification of physician [facility] Start: 08-18-2023 Oxygen therapy [facility] Start: 08-18-2023 Providing care accor ding to standard [facility] Start: 08-18-2023 Provision of activit y privileges [facility] Start: 08-18-2023 Referral to service [facility] Start: 08-18-2023 Seizure precautions [facility] Start: 08-18-2023 Tobacco use cessatio n education [facility] Start: 08-18-2023 Vital signs measurements [facility] Start: 08-18-2023 End: 08-18-2023 [facility] Start: 08-18-2023 Verification routine [facility] Start: 08-18-2023 Admission procedure [facility] Start: 08-18-2023 Seizure precautions [facility] Start: 08-18-2023 Inhalation therapy procedure [facility] Start: 08-18-2023 Patient referral to dietitian [facility] Start: 09-17-2022 Procedure [facility] Work Phone: Start: 09-02-2022 Colonoscopy w/biopsy single/multiple COLONOSCOPY AND BIOPSY [facility] Start: 09-02-2022 Egd transoral biopsy single/multiple EGD BIOPSY SINGLE/MULTIPLE [facility] Start: 09-02-2022 Patient discharge [facility] Start: 07-31-2022 Influenza vaccination INFLUENZA (#1) [facility] Start: 06-03-2022 Acute hepatitis 2000 panel - Serum [facility] Work Phone: Start: 06-03-2022 Immunoglobulin measurement [facility] Work Phone: Start: 06-03-2022 Serum immunofixation [facility] Work Phone: Start: 06-03-2022 [facility] Work Phone: Start: 03-25-2022 Creatine kinase total ASSAY OF CK (C PK) [facility] Work Phone: Start: 01-16-2022 COVID-19 VACCINE (4 - Booster for Moderna series) COVID-19 VACCINE (4 - Booster for Moderna series) [facility] Start: 10-01-2020 Colonoscopy COLONOSCOPY [facility] Start: 10-01-2020 COLORECTAL CANCER SCREENING COLORECTAL CANCER SCREENING [facility] Start: 10-01-2020 Screening for malign ant neoplasm of colon [facility] Start: 2019 RSV Vaccine (1 - 1-d ose 60+ series) RSV Vaccine (1 - 1-dose 60+ series) [facility] Start: 07-30-2019 DIABETES SCREEN DIABETES SCREEN [facility] Start: 07-30-2019 Diabetes Screening Diabetes Screenin g [facility] Start: 2014 PROSTATE CANCER SCRE ENING DISCUSSION PROSTATE CANCER SCREENING DISCUSSION [facility] Start: 2014 Prostate specific an tigen measurement Prostate Cancer Screening Discussion [facility] Start: 2009 SHINGRIX VACCINE (1 of 2) CASTRO GRIX VACCINE (1 of 2) [facility] Start: 2004 COLOGUARD (FIT-DNA) COLOGUARD (FIT-D NA) [facility] Start: [address] COLONOGRAPHY [facility] Start: 2004 FECAL OCCULT BLOOD FECAL OCCULT BLOO D [facility] Start: 2004 Screening for malign ant neoplasm of colon [facility] Start: [address]IDOSCOPY [address] [facility] Start: 1994 Lipid panel Lipid Screening [facility] Start: 1994 LIPID SCREEN LIPID SCREEN [facility] Start: 1978 Pneumococcal Vaccine : 50+ (1 of 2 - PCV) Pneumococcal Vaccine: 50+ (1 of 2 - PCV) [facility] Start: 1978 Urine microalbumin profile [facility] Start: 1977 ANNUAL PCP TEAM LABOR MEDIATOR PAUL DISEASE VISIT ANNUAL PCP TEAM CHRONIC DISEASE VISIT [facility] Start: 1977 BP CONTROLLED (<130/80) BP CONTROLLE D (<130/80) [facility] Start: 1977 HEPATITIS C SCREENING HEPATITIS [facility] Start: 1977 Hepatitis C screening Hepatitis C [facility] Start: 1977 HIV SCREENING HIV SCREENING [facility] Start: 1977 HIV screening HIV Screening [facility] Start: 1965 PNEUMOCOCCAL (1 - PCV) PNEUMOCOCCAL (1 - PCV) [facility] Start: 1965 Pneumococcal vaccination Pneum ococcal Vaccine (1 of 2 - PCV) [facility] Start: 1965 Pneumococcal Vaccine : 65+ (1 of 2 - PCV) Pneumococcal Vaccine: 65+ (1 of 2 - PCV) [facility] Start: 1959 Abdominal aortic ane urysm screening Abdominal Aortic Aneurysm Screening [facility] Albumin [Moles/volum e] in Serum or Plasma [facility] Work Phone: Albumin/Globulin ratio [facility] Work Phone: Amphetamine [Mass/vo lume] in Urine [facility] Benzodiazepine measurement, urine [facility] Cardiac event recording [facility] Clostridioides diffi cile DNA [Presence] in Unspecified specimen by JACKY with probe detection [facility] Work Phone: Cocaine measurement, urine [facility] Elastase, pancreatic (el-1), fecal; quantitative [facility] Work Phone: Elastase, pancreatic (el-1), fecal; quantitative [facility] Electrophoresis: [id number] [facility] Work Phone: Electrophoresis: daniele ma globulin [facility] Work Phone: Ethanol [Mass/volume ] in Serum or Plasma [facility] Fat [Presence] in Stool [facility] Work Phone: Fat [Presence] in Stool [facility] Gastrointestinal pat hogens panel - Stool by JACKY with probe detection [facility] Work Phone: Giardia lamblia Ag [Presence] in Stool by Immunoassay [facility] Work Phone: Globulin measurement [facility] Work Phone: Hepatitis A virus Ig M Ab [Presence] in Serum [facility] Work Phone: Hepatitis B core ant ibody measurement, IgM type [facility] Work Phone: Hepatitis B surface antigen measurement [facility] Work Phone: Hepatitis C antibody measurement [facility] Work Phone: IgA [Mass/volume] in Serum or Plasma [facility] Work Phone: IgE [Units/volume] i n Serum or Plasma [facility] Work Phone: IgG [Mass/volume] in Serum or Plasma [facility] Work Phone: IgM [Mass/volume] in Serum or Plasma [facility] Work Phone: Lactoferrin [Presenc e] in Stool by Immunoassay [facility] Work Phone: Magnesium [Mass/volu me] in Serum or Plasma [facility] Measurement of 3,4-methylenedioxymethamph etamine in urine [facility] Methadone measuremen t, urine [facility] Microorganism identi fied in Unspecified specimen by Culture FUNGAL CULTURE AND SMEAR - DERMAL (HAIR, SKIN AND NAIL) Microbiology Routine Onychomycosis 07/15/2024 2:43 PM EDT [facility] Work Phone: Neutrophil cytoplasm ic Ab.classic [Units/volume] in Serum [facility] Work Phone: Ova and parasites identified in Unspecified specimen by Light microscopy [facility] Work Phone: P-ANCA measurement [facility] Work Phone: Patient Education Chest Pain UKO Ch [facility] Work Phone: Patient referral [facility] Work Phone: pH of Urine [facility] Phencyclidine [Prese nce] in Urine [facility] Procedure [facility] Work Phone: Protein electrophore sis panel - Serum or Plasma [facility] Work Phone: Protein measurement [facility] Work Phone: Protein measurement [facility] End: 09-26-2023 PVR ANK PRESS [facility]K [facility] V[facility] Lab Routine Diminished pulses in lower extremity Traumatic avulsion of nail plate of toe, initial encounter 1 Occurrences starting 09/26/2022 until 09/26/2023 [facility] Work Phone: Comment on above: 1 Occurrences starti ng 09/26/2022 until 09/26/2023 Serum protein electrophoresis [facility] Work Phone: Ultrasound elastography [facility] Work Phone: Urine barbiturate measurement [facility] Urine cannabinoid measurement [facility] Urine opiate measurement [facility] Payers Date Payer Category Payer Medicare (Managed Care) [facility] DUAL COMPLETE HMO POS SNP [id number] 2024 Medicare UHC MEDICARE UHC DUAL COMPLETE PPO SNP [id number] 2024-Present [phone] [address] [address] [place] [address] PPO [id number] 2024 Unknown [id number] 2023 Self-pay [id number] 2022 Unknown [id number] 2015 Medicaid [id number] 1959 Unknown [id number] 1959 Unknown [id number] Unknown [id number] Unknown [id number] Unknown [id number] Unknown [id number] Unknown [id number] Unknown [id number] Unknown [id number] Unknown [id number] Social History Date Type Detail Facility Start: 12-11-2021 End: 10-02-2023 Tobacco smoking status RIIS Unknown if ever smoked [facility] Start: 08-07-2020 None [facility] Start: 08-07-2020 Alone [facility] Start: 02-20-2021 Non-smoker [facility] Start: 1960 Sex Assigned At Male [facility] Start: 02-09-2019 End: 05-06-2024 Tobacco smoking status RIIS Smokes tobacco daily [facility] History of tobacco use Cigarette Smoker [facility] Start: 02-09-2019 End: 07-15-2024 Cigarettes smoked current (pack per day) - Reported 1 [facility] Start: 02-09-2019 End: 01-26-2025 Tobacco use and exposure Smokeless tobacco non-user [facility] Start: 09-26-2022 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) [facility] Start: 02-09-2019 End: 07-15-2024 Tobacco Comment 01/2018 - down to 1/ ppd [facility] Start: 1960 Sex Assigned At Not on file [facility] Start: 09-16-2022 End: 09-26-2022 Exposure to SARS-CoV-2 (event) Not sure [facility] Tobacco smoking status No Smokin g Status Entered [facility] Start: 07-15-2024 End: 01-26-2025 Alcohol intake Current drinker of alcohol (finding) [facility] Start: 07-15-2024 End: 01-26-2025 Tobacco use panel [facility] National Score (1-10 0), lower number is lower risk 90 [facility] Start: 07-15-2024 Alcohol Comment [facility] Start: 01-26-2025 Tobacco smoking stat us NHIS Occasional tobacco smoker [facility] Work Phone: Start: 01-26-2025 Tobacco Comment 01/2018 - down to 12/01 ppd01/26/2025- 3 packs a week. Smokes some days [facility] Start: 02-22-2025 End: 03-06-2025 Sex Male (finding) [facility] Medical Equipment Procedure Code Equipment Code Equipment Origin al Text Equipment Identifier Dates ORIF, ankle 3.5 CORTEX SCREW S SELF-TAPPING FDA Start: 08-03-2019 ORIF, ankle 3.5 CORTEX SCREW S SELF-TAPPING FDA Start: 08-03-2019 ORIF, ankle CANCELLOUS BONE SCREWS FDA Start: 08-03-2019 ORIF, ankle CANCELLOUS BONE SCREWS FDA Start: 08-03-2019 ORIF, ankle CANNULATED SCREW SHORT THREAD FDA Start: 08-03-2019 ORIF, ankle CANNULATED SCREW S SHORT THREAD FDA Start: 08-03-2019 ORIF, ankle CORTEX SCREWS SELF-TAPPING FDA Start: 08-03-2019 ORIF, ankle LOCKING SCREWS SELF-TAPPING FDA Start: 08-03-2019 ORIF, ankle TUBULAR LCP PLATE FDA Start: 08-03-2019 ORIF, ankle 3.5 Cortex Screws FDA Start: 09-16-2019 ORIF, ankle 3.5 Cortex Screws FDA Start: 09-16-2019 ORIF, ankle 3.5 Locking Screws FDA Start : 09-16-2019 ORIF, ankle 3.5 CORTEX SCREW S SELF-TAPPING FDA Start: 08-03-2019 ORIF, ankle 3.5 CORTEX SCREW S SELF-TAPPING FDA Start: 08-03-2019 ORIF, ankle CANCELLOUS BONE SCREWS FDA Start: 08-03-2019 ORIF, ankle CANCELLOUS BONE SCREWS FDA Start: 08-03-2019 ORIF, ankle CANNULATED SCREW SHORT THREAD FDA Start: 08-03-2019 ORIF, ankle CANNULATED SCREW S SHORT THREAD FDA Start: 08-03-2019 ORIF, ankle CORTEX SCREWS SELF-TAPPING FDA Start: 08-03-2019 ORIF, ankle LOCKING SCREWS SELF-TAPPING FDA Start: 08-03-2019 ORIF, ankle TUBULAR LCP PLATE FDA Start: 08-03-2019 ORIF, ankle 3.5 Cortex Screws FDA Start: 09-16-2019 ORIF, ankle 3.5 Cortex Screws FDA Start: 09-16-2019 ORIF, ankle 3.5 Locking Screws FDA Start : 09-16-2019 ORIF, ankle 3.5 CORTEX SCREW S SELF-TAPPING FDA Start: 08-03-2019 ORIF, ankle 3.5 CORTEX SCREW S SELF-TAPPING FDA Start: 08-03-2019 ORIF, ankle CANCELLOUS BONE SCREWS FDA Start: 08-03-2019 ORIF, ankle CANCELLOUS BONE SCREWS FDA Start: 08-03-2019 ORIF, ankle CANNULATED SCREW SHORT THREAD FDA Start: 08-03-2019 ORIF, ankle CANNULATED SCREW S SHORT THREAD FDA Start: 08-03-2019 ORIF, ankle CORTEX SCREWS SELF-TAPPING FDA Start: 08-03-2019 ORIF, ankle LOCKING SCREWS SELF-TAPPING FDA Start: 08-03-2019 ORIF, ankle TUBULAR LCP PLATE FDA Start: 08-03-2019 ORIF, ankle 3.5 Cortex Screws FDA Start: 09-16-2019 ORIF, ankle 3.5 Cortex Screws FDA Start: 09-16-2019 ORIF, ankle 3.5 Locking Screws FDA Start : 09-16-2019 ORIF, ankle 3.5 CORTEX SCREW S SELF-TAPPING FDA Start: 08-03-2019 ORIF, ankle 3.5 CORTEX SCREW S SELF-TAPPING FDA Start: 08-03-2019 ORIF, ankle CANCELLOUS BONE SCREWS FDA Start: 08-03-2019 ORIF, ankle CANCELLOUS BONE SCREWS FDA Start: 08-03-2019 ORIF, ankle CANNULATED SCREW SHORT THREAD FDA Start: 08-03-2019 ORIF, ankle CANNULATED SCREW S SHORT THREAD FDA Start: 08-03-2019 ORIF, ankle CORTEX SCREWS SELF-TAPPING FDA Start: 08-03-2019 ORIF, ankle LOCKING SCREWS SELF-TAPPING FDA Start: 08-03-2019 ORIF, ankle TUBULAR LCP PLATE FDA Start: 08-03-2019 ORIF, ankle 3.5 Cortex Screws FDA Start: 09-16-2019 ORIF, ankle 3.5 Cortex Screws FDA Start: 09-16-2019 ORIF, ankle 3.5 Locking Screws FDA Start : 09-16-2019 ORIF, ankle 3.5 CORTEX SCREW S SELF-TAPPING FDA Start: 08-03-2019 ORIF, ankle 3.5 CORTEX SCREW S SELF-TAPPING FDA Start: 08-03-2019 ORIF, ankle CANCELLOUS BONE SCREWS FDA Start: 08-03-2019 ORIF, ankle CANCELLOUS BONE SCREWS FDA Start: 08-03-2019 ORIF, ankle CANNULATED SCREW SHORT THREAD FDA Start: 08-03-2019 ORIF, ankle CANNULATED SCREW S SHORT THREAD FDA Start: 08-03-2019 ORIF, ankle CORTEX SCREWS SELF-TAPPING FDA Start: 08-03-2019 ORIF, ankle LOCKING SCREWS SELF-TAPPING FDA Start: 08-03-2019 ORIF, ankle TUBULAR LCP PLATE FDA Start: 08-03-2019 ORIF, ankle 3.5 Cortex Screws FDA Start: 09-16-2019 ORIF, ankle 3.5 Cortex Screws FDA Start: 09-16-2019 ORIF, ankle 3.5 Locking Screws FDA Start : 09-16-2019 ORIF, ankle 3.5 CORTEX SCREW S SELF-TAPPING FDA Start: 08-03-2019 ORIF, ankle 3.5 CORTEX SCREW S SELF-TAPPING FDA Start: 08-03-2019 ORIF, ankle CANCELLOUS BONE SCREWS FDA Start: 08-03-2019 ORIF, ankle CANCELLOUS BONE SCREWS FDA Start: 08-03-2019 ORIF, ankle CANNULATED SCREW SHORT THREAD FDA Start: 08-03-2019 ORIF, ankle CANNULATED SCREW S SHORT THREAD FDA Start: 08-03-2019 ORIF, ankle CORTEX SCREWS SELF-TAPPING FDA Start: 08-03-2019 ORIF, ankle LOCKING SCREWS SELF-TAPPING FDA Start: 08-03-2019 ORIF, ankle TUBULAR LCP PLATE FDA Start: 08-03-2019 ORIF, ankle 3.5 Cortex Screws FDA Start: 09-16-2019 ORIF, ankle 3.5 Cortex Screws FDA Start: 09-16-2019 ORIF, ankle 3.5 Locking Screws FDA Start : 09-16-2019 ORIF, ankle 3.5 CORTEX SCREW S SELF-TAPPING FDA Start: 08-03-2019 ORIF, ankle 3.5 CORTEX SCREW S SELF-TAPPING FDA Start: 08-03-2019 ORIF, ankle CANCELLOUS BONE SCREWS FDA Start: 08-03-2019 ORIF, ankle CANCELLOUS BONE SCREWS FDA Start: 08-03-2019 ORIF, ankle CANNULATED SCREW SHORT THREAD FDA Start: 08-03-2019 ORIF, ankle CANNULATED SCREW S SHORT THREAD FDA Start: 08-03-2019 ORIF, ankle CORTEX SCREWS SELF-TAPPING FDA Start: 08-03-2019 ORIF, ankle LOCKING SCREWS SELF-TAPPING FDA Start: 08-03-2019 ORIF, ankle TUBULAR LCP PLATE FDA Start: 08-03-2019 ORIF, ankle 3.5 Cortex Screws FDA Start: 09-16-2019 ORIF, ankle 3.5 Cortex Screws FDA Start: 09-16-2019 ORIF, ankle 3.5 Locking Screws FDA Start : 09-16-2019 ORIF, ankle 3.5 CORTEX SCREW S SELF-TAPPING FDA Start: 08-03-2019 ORIF, ankle 3.5 CORTEX SCREW S SELF-TAPPING FDA Start: 08-03-2019 ORIF, ankle CANCELLOUS BONE SCREWS FDA Start: 08-03-2019 ORIF, ankle CANCELLOUS BONE SCREWS FDA Start: 08-03-2019 ORIF, ankle CANNULATED SCREW SHORT THREAD FDA Start: 08-03-2019 ORIF, ankle CANNULATED SCREW S SHORT THREAD FDA Start: 08-03-2019 ORIF, ankle CORTEX SCREWS SELF-TAPPING FDA Start: 08-03-2019 ORIF, ankle LOCKING SCREWS SELF-TAPPING FDA Start: 08-03-2019 ORIF, ankle TUBULAR LCP PLATE FDA Start: 08-03-2019 ORIF, ankle 3.5 Cortex Screws FDA Start: 09-16-2019 ORIF, ankle 3.5 Cortex Screws FDA Start: 09-16-2019 ORIF, ankle 3.5 Locking Screws FDA Start : 09-16-2019 ORIF, ankle 3.5 CORTEX SCREW S SELF-TAPPING FDA Start: 08-03-2019 ORIF, ankle 3.5 CORTEX SCREW S SELF-TAPPING FDA Start: 08-03-2019 ORIF, ankle CANCELLOUS BONE SCREWS FDA Start: 08-03-2019 ORIF, ankle CANCELLOUS BONE SCREWS FDA Start: 08-03-2019 ORIF, ankle CANNULATED SCREW SHORT THREAD FDA Start: 08-03-2019 ORIF, ankle CANNULATED SCREW S SHORT THREAD FDA Start: 08-03-2019 ORIF, ankle CORTEX SCREWS SELF-TAPPING FDA Start: 08-03-2019 ORIF, ankle LOCKING SCREWS SELF-TAPPING FDA Start: 08-03-2019 ORIF, ankle TUBULAR LCP PLATE FDA Start: 08-03-2019 ORIF, ankle 3.5 Cortex Screws FDA Start: 09-16-2019 ORIF, ankle 3.5 Cortex Screws FDA Start: 09-16-2019 ORIF, ankle 3.5 Locking Screws FDA Start : 09-16-2019 ORIF, ankle 3.5 CORTEX SCREW S SELF-TAPPING FDA Start: 08-03-2019 ORIF, ankle 3.5 CORTEX SCREW S SELF-TAPPING FDA Start: 08-03-2019 ORIF, ankle CANCELLOUS BONE SCREWS FDA Start: 08-03-2019 ORIF, ankle CANCELLOUS BONE SCREWS FDA Start: 08-03-2019 ORIF, ankle CANNULATED SCREW SHORT THREAD FDA Start: 08-03-2019 ORIF, ankle CANNULATED SCREW S SHORT THREAD FDA Start: 08-03-2019 ORIF, ankle CORTEX SCREWS SELF-TAPPING FDA Start: 08-03-2019 ORIF, ankle LOCKING SCREWS SELF-TAPPING FDA Start: 08-03-2019 ORIF, ankle TUBULAR LCP PLATE FDA Start: 08-03-2019 ORIF, ankle 3.5 Cortex Screws FDA Start: 09-16-2019 ORIF, ankle 3.5 Cortex Screws FDA Start: 09-16-2019 ORIF, ankle 3.5 Locking Screws FDA Start : 09-16-2019 ORIF, ankle 3.5 CORTEX SCREW S SELF-TAPPING FDA Start: 08-03-2019 ORIF, ankle 3.5 CORTEX SCREW S SELF-TAPPING FDA Start: 08-03-2019 ORIF, ankle CANCELLOUS BONE SCREWS FDA Start: 08-03-2019 ORIF, ankle CANCELLOUS BONE SCREWS FDA Start: 08-03-2019 ORIF, ankle CANNULATED SCREW SHORT THREAD FDA Start: 08-03-2019 ORIF, ankle CANNULATED SCREW S SHORT THREAD FDA Start: 08-03-2019 ORIF, ankle CORTEX SCREWS SELF-TAPPING FDA Start: 08-03-2019 ORIF, ankle LOCKING SCREWS SELF-TAPPING FDA Start: 08-03-2019 ORIF, ankle TUBULAR LCP PLATE FDA Start: 08-03-2019 ORIF, ankle 3.5 Cortex Screws FDA Start: 09-16-2019 ORIF, ankle 3.5 Cortex Screws FDA Start: 09-16-2019 ORIF, ankle 3.5 Locking Screws FDA Start : 09-16-2019 ORIF, ankle 3.5 CORTEX SCREW S SELF-TAPPING FDA Start: 08-03-2019 ORIF, ankle 3.5 CORTEX SCREW S SELF-TAPPING FDA Start: 08-03-2019 ORIF, ankle CANCELLOUS BONE SCREWS FDA Start: 08-03-2019 ORIF, ankle CANCELLOUS BONE SCREWS FDA Start: 08-03-2019 ORIF, ankle CANNULATED SCREW SHORT THREAD FDA Start: 08-03-2019 ORIF, ankle CANNULATED SCREW S SHORT THREAD FDA Start: 08-03-2019 ORIF, ankle CORTEX SCREWS SELF-TAPPING FDA Start: 08-03-2019 ORIF, ankle LOCKING SCREWS SELF-TAPPING FDA Start: 08-03-2019 ORIF, ankle TUBULAR LCP PLATE FDA Start: 08-03-2019 ORIF, ankle 3.5 Cortex Screws FDA Start: 09-16-2019 ORIF, ankle 3.5 Cortex Screws FDA Start: 09-16-2019 ORIF, ankle 3.5 Locking Screws FDA Start : 09-16-2019 ORIF, ankle 3.5 CORTEX SCREW S SELF-TAPPING FDA Start: 08-03-2019 ORIF, ankle 3.5 CORTEX SCREW S SELF-TAPPING FDA Start: 08-03-2019 ORIF, ankle CANCELLOUS BONE SCREWS FDA Start: 08-03-2019 ORIF, ankle CANCELLOUS BONE SCREWS FDA Start: 08-03-2019 ORIF, ankle CANNULATED SCREW SHORT THREAD FDA Start: 08-03-2019 ORIF, ankle CANNULATED SCREW S SHORT THREAD FDA Start: 08-03-2019 ORIF, ankle CORTEX SCREWS SELF-TAPPING FDA Start: 08-03-2019 ORIF, ankle LOCKING SCREWS SELF-TAPPING FDA Start: 08-03-2019 ORIF, ankle TUBULAR LCP PLATE FDA Start: 08-03-2019 ORIF, ankle 3.5 Cortex Screws FDA Start: 09-16-2019 ORIF, ankle 3.5 Cortex Screws FDA Start: 09-16-2019 ORIF, ankle 3.5 Locking Screws FDA Start : 09-16-2019 ORIF, ankle 3.5 CORTEX SCREW S SELF-TAPPING FDA Start: 08-03-2019 ORIF, ankle 3.5 CORTEX SCREW S SELF-TAPPING FDA Start: 08-03-2019 ORIF, ankle CANCELLOUS BONE SCREWS FDA Start: 08-03-2019 ORIF, ankle CANCELLOUS BONE SCREWS FDA Start: 08-03-2019 ORIF, ankle CANNULATED SCREW SHORT THREAD FDA Start: 08-03-2019 ORIF, ankle CANNULATED SCREW S SHORT THREAD FDA Start: 08-03-2019 ORIF, ankle CORTEX SCREWS SELF-TAPPING FDA Start: 08-03-2019 ORIF, ankle LOCKING SCREWS SELF-TAPPING FDA Start: 08-03-2019 ORIF, ankle TUBULAR LCP PLATE FDA Start: 08-03-2019 ORIF, ankle 3.5 Cortex Screws FDA Start: 09-16-2019 ORIF, ankle 3.5 Cortex Screws FDA Start: 09-16-2019 ORIF, ankle 3.5 Locking Screws FDA Start : 09-16-2019 ORIF, ankle 3.5 CORTEX SCREW S SELF-TAPPING FDA Start: 08-03-2019 ORIF, ankle 3.5 CORTEX SCREW S SELF-TAPPING FDA Start: 08-03-2019 ORIF, ankle CANCELLOUS BONE SCREWS FDA Start: 08-03-2019 ORIF, ankle CANCELLOUS BONE SCREWS FDA Start: 08-03-2019 ORIF, ankle CANNULATED SCREW SHORT THREAD FDA Start: 08-03-2019 ORIF, ankle CANNULATED SCREW S SHORT THREAD FDA Start: 08-03-2019 ORIF, ankle CORTEX SCREWS SELF-TAPPING FDA Start: 08-03-2019 ORIF, ankle LOCKING SCREWS SELF-TAPPING FDA Start: 08-03-2019 ORIF, ankle TUBULAR LCP PLATE FDA Start: 08-03-2019 ORIF, ankle 3.5 Cortex Screws FDA Start: 09-16-2019 ORIF, ankle 3.5 Cortex Screws FDA Start: 09-16-2019 ORIF, ankle 3.5 Locking Screws FDA Start : 09-16-2019 Goals Date Patient Goal Desired Activity /State Functional Status Date Assessment Result Facility 09-21-2023 Functional Status Standard Safet y ID band on, Call device within reach, Bed in low position, Wheels locked, Upper/Half-Length side-rails up, Bedside Cart Locked, Safety level maintained [facility] 08-20-2023 Functional status Patient Activi ty Dangle Feet;Chair [facility] Work Phone: 08-20-2023 Functional status Activity Abili ty Standby Assist;With Assist of 1 [facility] Work Phone: Mental Status Date Assessment Result Facility 09-21-2023 Mental Status Orientation Oriented x 4 [facility] 09-07-2023 Cognitive function Voice/Name [facility] Work Phone: 08-20-2023 Cognitive function Patient Candelaria rodriguezion Person;Time [facility] Work Phone: 08-20-2023 Cognitive function Impulsive [facility] Work Phone: 08-20-2023 Cognitive function Voice/Name [facility] Work Phone: 08-18-2023 Cognitive function Level Of Cons ciousness Awake;Alert;Follows Commands;Disoriented [facility] Work Phone: 09-02-2022 Cognitive function Level Of Consciousness Awake [facility] Work Phone: 09-02-2022 Cognitive function Voice/Name [facility] Work Phone: Clinical Notes 09-26-2022 to 02-15-2025 Kendrick Scales - 01/26/2025 2:01 PM Paulina Valdez LPN - 01/26/2025 1:47 PM Kendrick Rubio - 10/21/2024 2:56 PM Nena Wahl RN - 10/21/2024 2:39 PM ESTPatient Instructions Note Date & Type Note Facility 02-15-2025 Radiology Diagnostic study note [facility] Imaging Services [address] [place] [address] Lung Screening MR#: [id number] Acct: [id number] Name: YADIEL SOSA Rep #: [id number] : 1960 M 64 From: [facility] PCP: Dr. Chris Wyman MD Status: YURI FUENTES Study:Low Dose CT Lung Screening Date of Exam : 02/15/25 Exam# [id number] Ordering Dr: Chris Wyman MD PROCEDURE: LOW DOSE CT LUNG SCREENING 02/15/2025 REASON FOR EXAM: Nicotine dependence. Lung cancer screening. 40 pack-year history. TECHNIQUE: Contiguous unenhanced axial CT images were obtained through the chest. Coronal and Sagittal reconstruction series were provided. One or more dose reduction techniques were used (e.g., Automated exposure control, adjustment of the mA and/or kV according to patient size, use of iterative reconstruction technique). COMPARISON: Chest radiograph 09/07/2023. No prior chest CT. RADIATION DOSE SUMMARY: DLP: 100.46 mGycm FINDINGS: Bones/soft tissues: The bones are osteopenic, with moderate degenerative changesin the spine. There is age-indeterminate probable chronic moderate/severe compression deformity of T8. There are some old bilateral rib deformities. Upper abdomen: Limited evaluation of upper abdominal structures shows no specific abnormality. Mediastinum: Evaluation of the hilar/vascular/mediastinal structures is limited due to lack of intravenous contrast. Heart size within normal limits. No sizable pericardial effusion. Mild coronary artery calcifications. No thoracic adenopathy. Included thyroid shows no specific abnormality. Ascending thoracic aorta at the upper limits of normal in diameter at 3.8 cm. Descending thoracic aorta mildly dilated at 2.7 cm. Central airway is clear. Lungs: No pneumothorax, focal airspace consolidation, or pleural effusion. Mildscarring or subsegmental atelectasis in the right middle lobe and left lingula. No dominant pulmonary parenchymal nodule. CT/Low Dose CT Lung Screening IMPRESSION: No acute findings in the chest. No thoracic adenopathy or concerning pulmonary parenchymal nodules. Recommend follow-up lung screening CT in 1 year. 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 The ascending thoracic aorta is at the upper limits of normal at 3.8 cm. Mild coronary artery calcifications. Lung-RADS Category: 1. Negative. Reading Location: [facility] CC: Dr. Chris Wyman MD ~ Senior Asset Manager: Signed [facility] 01-26-2025 Note HNO ID: [id number] Author: KENDRICK SCALES, ? Service: ? Author Type: Physician Type: Progress Notes Filed: 01/26/2025 14:18 Note Text: Subjective: Patient presents to clinic c/o painful toenails. They state that the nails are especially painful with shoe gear and pressure. Patient states that nails 1-5 b/l are painful. Patient is currently applying penlac. Not sure if this is helping but the nails are not getting any worse. Requests a refill. No other pedal complaints at this time. Patient states no change in medications or medical history since last visit. Objective: Patient presents to clinic ambulating in sneaker Vasc: DP and PT pulses are nonpalpable bilateral. CFT is less than 5 seconds bilateral. Skin temperature is warm to cool proximal to distal bilateral. There is mild edema or varicosities noted. Neuro: Protective sensation is decreased to the foot and toes when tested with the 5.07 SWM bilateral. Vibratory sensation is absent at the hallux IPJ bilateral. The hallux is downgoing bilateral. Derm: Nails 1-5 b/l are painful, discolored-yellow, thick, crumbly, dystrophic and with subungal debris. Skin is of normal turgor, texture and hair growth is absent bilateral. There are no hyperkeratosis, ulcerations, scars, verruca or other lesions noted. One colony Epidermophyton floccosum Abnormal By microscopic morphology Rare Kayla parapsilosis complex Abnormal This test was developed and its performance characteristics determined by the [facility] [place] ([facility] It has not been cleared or approved by the FDA. -[facility] is regulated under CLIA as qualified to perform high-complexity testing. This test is used for clinical purposes. It should not be regarded as investigational or for research. Fungal Smear Abnormal Many Septate hyphae Ortho: Muscle strength is 5/5 for all pedal groups tested. Ankle joint DF is decreased with the knee extended with no pain or crepitus noted. 1st MPJ ROM is decreased bilateral. Assessment: (B35.1) Onychomycosis (primary encounter diagnosis) (M79.675) Pain in toe of left foot (M79.674) Pain in toe of right foot Plan: We discussed the possible etiologies of discolored, dystrophic, and thickened nails including fungus, yeast, mold as well as in some instances, prior trauma, or mechanical causes such as repetitive microtrauma in shoe gear. We discussed topical medication for discolored toenails which has very low success but no major side effects. We discussed oral medication. Patient will need hepatic testing prior to use. Patient informed of risks associated with Lamisil. We discussed removal of toenails. Patient would like to proceed with continued topical medication. Penlac was called in. Offered oral medication. Patient declined this. Toenails 1-5 b/l debrided in length and thickness If patient were to ever consider removal of the toenails, would recommend pvr prior. . Kendrick Scales DPM [facility] 01-26-2025 History of Present illness Narrative Subjective: Patient presents to clinic c/o painful toenails. They state that the nails are especially painful with shoe gear and pressure. Patient states that nails 1-5 b/l are painful. Patient is currently applying penlac. Not sure if this is helping but the nails are not getting any worse. Requests a refill. No other pedal complaints at this time. Patient states no change in medications or medical history since last visit. Objective: Patient presents to clinic ambulating in [facility] Vasc: DP and PT pulses are nonpalpable bilateral. CFT is less than 5 seconds bilateral. Skin temperature is warm to cool proximal to distal bilateral. There is mild edema or varicosities noted. Neuro: Protective sensation is decreased to the foot and toes when tested with the 5.07 SWM bilateral. Vibratory sensation is absent at the hallux IPJ bilateral. The hallux is downgoing bilateral. Derm: Nails 1-5 b/l are painful, discolored-yellow, thick, crumbly, dystrophic and with subungal debris. Skin is of normal turgor, texture and hair growth is absent bilateral. There are no hyperkeratosis, ulcerations, scars, verruca or other lesions noted. One colony Epidermophyton floccosum Abnormal By microscopic morphology Rare Kayla parapsilosis complex Abnormal This test was developed and its performance characteristics determined by the [facility] [place] ([facility] It has not been cleared or approved by the FDA. [facility] is regulated under CLIA as qualified to perform high-complexity testing. This test is used for clinical purposes. It should not be regarded as investigational or for research. Fungal Smear Abnormal Many Septate hyphae Ortho: Muscle strength is 5/5 for all pedal groups tested. Ankle joint DF is decreased with the knee extended with no pain or crepitus noted. 1st MPJ ROM is decreased bilateral. Assessment: (B35.1) Onychomycosis (primary encounter diagnosis) (M79.675) Pain in toe of left foot (M79.674) Pain in toe of right foot Plan: We discussed the possible etiologies of discolored, dystrophic, and thickened nails including fungus, yeast, mold as well as in some instances, prior trauma, or mechanical causes such as repetitive microtrauma in shoe gear. We discussed topical medication for discolored toenails which has very low success but no major side effects. We discussed oral medication. Patient will need hepatic testing prior to use. Patient informed of risks associated with Lamisil. We discussed removal of toenails. Patient would like to proceed with continued topical medication. [facility] was called in. Offered oral medication. Patient declined this. Toenails 1-5 b/l debrided in length and thickness If patient were to ever consider removal of the toenails, would recommend pvr prior. . Kendrick Scales DPM AMB ROOMING INTAKE FLOWSHEET DATA Pain Pain Level: 2 Pain Location: Toe Description: Sore Duration Amount of Time: 2 Duration Units: Weeks Frequency: Intermittent Intervention/Comfort measure: Relaxation, Reposition Patient presents with: Left Foot - Established Patient, Follow Up, Nail Fungus, nail care Right Foot - Established Patient, Follow Up, nail care, Callous Patient has been using ciclopirox 8% solution to nail fungus. Patient is currently out of medication. Paulina Morales LPN documented in this encounter [facility] 01-26-2025 Note HNO ID: [id number] Author: PAULINA MORALES LPN Service: ? Author Type: LICENSED NURSE Type: Progress Notes Filed: 01/26/2025 14:18 Note Text: AMB ROOMING INTAKE FLOWSHEET DATA Pain Pain Level: 2 Pain Location: Toe Description: Sore Duration Amount of Time: 2 Duration Units: Weeks Frequency: Intermittent Intervention/Comfort measure: Relaxation, Reposition Patient presents with: Left Foot - Established Patient, Follow Up, Nail Fungus, nail care Right Foot - Established Patient, Follow Up, nail care, Callous Patient has been using ciclopirox 8% solution to nail fungus. Patient is currently out of medication. Paulina Morales LPN [facility] 10-21-2024 Note HNO ID: [id number] Author: KENDRICK SCALES, ? Service: ? Author Type: Physician Type: Progress Notes Filed: 10/22/2024 06:32 Note Text: Subjective: Patient presents to clinic c/o painful toenails. They state that the nails are especially painful with shoe gear and pressure. Patient states that nails 1-5 b/l are painful. No other pedal complaints at this time. Patient states no change in medications or medical history since last visit. Objective: Patient presents to clinic ambulating in sneakers Vasc: DP and PT pulses are palpable bilateral. CFT is less than 5 seconds bilateral. Skin temperature is warm to cool proximal to distal bilateral. There is minimal edema or varicosities noted. Neuro: Protective sensation is intact to the foot and toes when tested with the 5.07 SWM bilateral. Vibratory sensation is decreased at the hallux IPJ bilateral. The hallux is downgoing bilateral. Derm: Nails 1-5 b/l are painful, discolored-yellow, thick, crumbly, dystrophic and with subungal debris. Skin is of normal turgor, texture and hair growth is decreased bilateral. There are no hyperkeratosis, ulcerations, scars, verruca or other lesions noted. One colony Epidermophyton floccosum Abnormal By microscopic morphology Rare Kayla parapsilosis complex Abnormal This test was developed and its performance characteristics determined by the [facility] [place] ([facility] It has not been cleared or approved by the FDA. [facility] is regulated under CLIA as qualified to perform high-complexity testing. This test is used for clinical purposes. It should not be regarded as investigational or for research. Fungal Smear Abnormal Many Septate hyphae Ortho: Muscle strength is 5/5 for all pedal groups tested. Ankle joint DF is full with the knee extended with no pain or crepitus noted. 1st MPJ ROM is full bilateral. Assessment: (B35.1) Onychomycosis (primary encounter diagnosis) (M79.675) Pain in toe of left foot (M79.674) Pain in toe of right foot Plan: Patient was seen and evaluated. Nails 1-5 bilateral were debrided in length and thickness. Discussed past fungal culture. Discussed topical medication, oral medication, laser therapy vs removal. Patient has elected to try topical medication Kendrick Scales DPM [facility] 10-21-2024 History of Present illness Narrative Subjective: Patient presents to clinic c/o painful toenails. They state that the nails are especially painful with shoe gear and pressure. Patient states that nails 1-5 b/l are painful. No other pedal complaints at this time. Patient states no change in medications or medical history since last visit. Objective: Patient presents to clinic ambulating in sneakers Vasc: DP and PT pulses are palpable bilateral. CFT is less than 5 seconds bilateral. Skin temperature is warm to cool proximal to distal bilateral. There is minimal edema or varicosities noted. Neuro: Protective sensation is intact to the foot and toes when tested with the 5.07 SWM bilateral. Vibratory sensation is decreased at the hallux IPJ bilateral. The hallux is downgoing bilateral. Derm: Nails 1-5 b/l are painful, discolored-yellow, thick, crumbly, dystrophic and with subungal debris. Skin is of normal turgor, texture and hair growth is decreased bilateral. There are no hyperkeratosis, ulcerations, scars, verruca or other lesions noted. 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 It has not been cleared or approved by the FDA. [facility] is regulated under CLIA as qualified to perform high-complexity testing. This test is used for clinical purposes. It should not be regarded as investigational or for research. Fungal Smear Abnormal Many Septate hyphae Ortho: Muscle strength is 5/5 for all pedal groups tested. Ankle joint DF is full with the knee extended with no pain or crepitus noted. 1st MPJ ROM is full bilateral. Assessment: (B35.1) Onychomycosis (primary encounter diagnosis) (M79.675) Pain in toe of left foot (M79.674) Pain in toe of right foot Plan: Patient was seen and evaluated. Nails 1-5 bilateral were debrided in length and thickness. Discussed past fungal culture. Discussed topical medication, oral medication, laser therapy vs removal. Patient has elected to try topical medication Kendrick Scales DPM Patient presents with: Left Foot - Established Patient, Follow Up, Nail Fungus, nail care Right Foot - Established Patient, Follow Up, nail care, Callous Patient presents for follow up nail care and fungus results. Results were sent through [facility]. Patient does not have access to [facility]. Left big toenail thick and discolored. Right 3rd toe tip has callus than can be tender. [facility] 07/15/24 documented in this encounter [facility] 10-21-2024 Note HNO ID: [id number] Author: NENA WEBB RN Service: ? Author Type: Registered Nurse Type: Progress Notes Filed: 10/22/2024 06:32 Note Text: Patient presents with: Left Foot - Established Patient, Follow Up, Nail Fungus, nail care Right Foot - Established Patient, Follow Up, nail care, Callous Patient presents for follow up nail care and fungus results. Results were sent through [facility]. Patient does not have access to [facility]. Left big toenail thick and discolored. Right 3rd toe tip has callus than can be tender. [facility] 07/15/24 [facility] 07-15-2024 Note HNO ID: [id number] Author: KENDRICK SCALES, ? Service: ? Author Type: Physician Type: Progress Notes Filed: 07/15/2024 14:40 Note Text: Initial Podiatric Office Visit: Chief Complaint: This 63 year old male who presents with chief complaint:nail discoloration HPI Patient presents to clinic as recommended by dermatology for his dystrophic toenails Reports pain and thickening of nails and has difficult time cutting the nails No other complaints PAIN EVALUATION No data found in the last 1 encounters. No results found for: HBA1C PCP: Cristy Álvarez NP, [employer]ACHINE OPERATOR PAST MEDICAL HISTORY 07/30/2016: Anxiety 07/30/2016: Depression No date: Hypercholesterolemia No date: Hypertension No date: Mental disorder No date: Varicose veins of left lower extremity Current Outpatient Medications Medication Sig Acetaminophen 500 mg cap Take 1,000 mg by mouth. tiZANidine (ZANAFLEX) 4 mg tablet thiamine (VITAMIN B1) 100 mg tablet rosuvastatin (CRESTOR) 5 mg tablet potassium chloride ER (KLOR-CON) [address] (PROTONIX) 40 mg tablet 40 mg once daily. Mirtazapine (REMERON) 7.5 mg tablet Take 7.5 mg by mouth daily at bedtime. loratadine (CLARITIN) 10 mg tablet Take 10 mg by mouth once daily. hydrOXYzine HCl (ATARAX) 25 mg tablet Take 25 mg by mouth three times a day as needed for anxiety. cyanocobalamin 1,000 mcg/mL Inject 1,000 mcg intramuscularly. TRELEGY ELLIPTA 100-62.5-25 mcg inhalation powder Inhale 1 Puff as instructed once daily. buPROPion XL (WELLBUTRIN XL) 300 mg 24 hr tablet Take 300 mg by mouth once daily. topiramate (TOPAMAX) 50 mg tablet Take 1 tablet by mouth daily at bedtime. atorvastatin (LIPITOR) 40 mg tablet Take 40 mg by mouth once daily. ibuprofen (MOTRIN) 600 mg tablet Take 1 tablet by mouth every 6 hours as needed for Pain. losartan (COZAAR) 25 mg tablet Take 25 mg by mouth once daily. citalopram (CELEXA) 40 mg tablet Take 40 mg by mouth once daily. albuterol HFA (PROVENTIL HFA, VENTOLIN HFA) 90 mcg/actuation inhaler Inhale 2 Puffs as instructed every 4 hours as needed. (Patient not taking: Reported on 07/15/2024) ARIPiprazole (ABILIFY) 5 mg tablet Take 5 mg by mouth every morning. (Patient not taking: Reported on 07/15/2024) cholecalciferol, Vitamin D3, (VITAMIN D3) 50,000 unit cap capsule Take 1 capsule by mouth once each week. (Patient not taking: Reported on 07/15/2024) Tpzyz-9-ONM-EPA-Fish Oil 1,000 mg (120 mg-180 mg) cap Take 2 g by mouth once daily. (Patient not taking: Reported on 09/26/2022) Multivitamin capsule Take 1 capsule by mouth once daily. (Patient not taking: Reported on 09/26/2022) HYDROcodone-acetaminophen (NORCO) 5-325 mg per tablet Take 1 tablet by mouth every 6 hours as needed. (Patient not taking: Reported on 02/09/2019) hydrochlorothiazide (HYDRODIURIL, ESIDRIX) 12.5 mg tablet (Patient not taking: Reported on 07/15/2024) ALPRAZolam (XANAX) 0.5 mg tablet Take 1 mg by mouth at bedtime as needed. (Patient not taking: Reported on 09/26/2022) No current facility-administered medications for this visit. ALLERGIES No Known Allergies PAST SURGICAL HISTORY 10/01/15: COLONOSCOPY FLX DX W/COLLJ SPEC WHEN PFRMD Comment: Colonoscopy No date: PAST SURGICAL HISTORY OF Comment: heel spur No date: PAST SURGICAL HISTORY OF; Left Comment: fx shoulder AND humerus 2016: PAST SURGICAL HISTORY OF; Left Comment: Varicose vein surgery left leg FAMILY HISTORY Problem Relation Age of Onset Heart Father Stroke Father Hypertension Father Colon Cancer Sister Cancer Sister breast Social History Tobacco Use Smoking status: Every Day Packs/day: 0.50 Years: 10.00 Additional pack years: 0.00 Total pack years: 5.00 Types: Cigarettes Smokeless tobacco: Never Tobacco comments: 01/2018 - down to 12/01 ppd Vaping Use Vaping Use: Never used Substance Use Topics Alcohol use: Yes Comment: Sometimes Drug use: No REVIEW OF SYSTEMS GENERAL: Negative for Malaise, significant weight loss, fever RESPIRATORY: Negative for cough, wheezing and shortness of breath CARDIOVASCULAR: Negative for chest pain, leg swelling and palpitations GI: Negative for abdominal discomfort, blood in stools or black stools and change in bowel habits : Negative for dysuria, frequency and incontinence MUSCULOSKELETAL: Negative for joint pain or swelling, back pain, and muscle pain. SKIN: Negative for lesions, rash, and itching. HEMATOLOGY/LYMPHOLOGY Negative for prolonged bleeding, bruising easily, and swollen nodes. ENDOCRINE: Negative for cold or heat intolerance, polyuria, polydipsia and goiter. NEURO: negative Physical Exam: Constitutional: Pt is a well developed 63 year old male who is alert, oriented and cooperative Eyes: Following during examination. No redness or drainage. Respiratory: RR normal and nonlabored. Even breathing. No evidence of distress or shortness of breath. Psychology: Patient is e (more content not included)... [facility] 07-15-2024 History of Present illness Narrative Initial Podiatric Office Visit: Chief Complaint: This 63 year old male who presents with chief complaint:nail discoloration HPI Patient presents to clinic as recommended by dermatology for his dystrophic toenails Reports pain and thickening of nails and has difficult time cutting the nails No other complaints PAIN EVALUATION No data found in the last 1 encounters. No results found for: HBA1C PCP: Cristy Álvarez, NASEEM, [employer] MACHINE OPERATOR PAST MEDICAL HISTORY 07/30/2016: Anxiety 07/30/2016: Depression No date: Hypercholesterolemia No date: Hypertension No date: Mental disorder No date: Varicose veins of left lower extremity Current Outpatient Medications Medication Sig Acetaminophen 500 mg cap Take 1,000 mg by mouth. tiZANidine (ZANAFLEX) 4 mg tablet thiamine (VITAMIN B1) 100 mg tablet rosuvastatin (CRESTOR) 5 mg tablet potassium chloride ER (KLOR-CON) [address] (PROTONIX) 40 mg tablet 40 mg once daily. Mirtazapine (REMERON) 7.5 mg tablet Take 7.5 mg by mouth daily at bedtime. loratadine (CLARITIN) 10 mg tablet Take 10 mg by mouth once daily. hydrOXYzine HCl (ATARAX) 25 mg tablet Take 25 mg by mouth three times a day as needed for anxiety. cyanocobalamin 1,000 mcg/mL Inject 1,000 mcg intramuscularly. TRELEGY ELLIPTA 100-62.5-25 mcg inhalation powder Inhale 1 Puff as instructed once daily. buPROPion XL (WELLBUTRIN XL) 300 mg 24 hr tablet Take 300 mg by mouth once daily. topiramate (TOPAMAX) 50 mg tablet Take 1 tablet by mouth daily at bedtime. atorvastatin (LIPITOR) 40 mg tablet Take 40 mg by mouth once daily. ibuprofen (MOTRIN) 600 mg tablet Take 1 tablet by mouth every 6 hours as needed for Pain. losartan (COZAAR) 25 mg tablet Take 25 mg by mouth once daily. citalopram (CELEXA) 40 mg tablet Take 40 mg by mouth once daily. albuterol HFA (PROVENTIL HFA, VENTOLIN HFA) 90 mcg/actuation inhaler Inhale 2 Puffs as instructed every 4 hours as needed. (Patient not taking: Reported on 07/15/2024) ARIPiprazole (ABILIFY) 5 mg tablet Take 5 mg by mouth every morning. (Patient not taking: Reported on 07/15/2024) cholecalciferol, Vitamin D3, (VITAMIN D3) 50,000 unit cap capsule Take 1 capsule by mouth once each week. (Patient not taking: Reported on 07/15/2024) Hqyex-7-MVN-EPA-Fish Oil 1,000 mg (120 mg-180 mg) cap Take 2 g by mouth once daily. (Patient not taking: Reported on 09/26/2022) Multivitamin capsule Take 1 capsule by mouth once daily. (Patient not taking: Reported on 09/26/2022) HYDROcodone-acetaminophen (NORCO) 5-325 mg per tablet Take 1 tablet by mouth every 6 hours as needed. (Patient not taking: Reported on 02/09/2019) hydrochlorothiazide (HYDRODIURIL, ESIDRIX) 12.5 mg tablet (Patient not taking: Reported on 07/15/2024) ALPRAZolam (XANAX) 0.5 mg tablet Take 1 mg by mouth at bedtime as needed. (Patient not taking: Reported on 09/26/2022) No current facility-administered medications for this visit. ALLERGIES No Known Allergies PAST SURGICAL HISTORY 10/01/15: COLONOSCOPY FLX DX W/COLLJ SPEC WHEN PFRMD Comment: Colonoscopy No date: PAST SURGICAL HISTORY OF Comment: heel spur No date: PAST SURGICAL HISTORY OF; Left Comment: fx shoulder & humerus 2016: PAST SURGICAL HISTORY OF; Left Comment: Varicose vein surgery left leg FAMILY HISTORY Problem Relation Age of Onset Heart Father Stroke Father Hypertension Father Colon Cancer Sister Cancer Sister breast Social History Tobacco Use Smoking status: Every Day Packs/day: 0.50 Years: 10.00 Additional pack years: 0.00 Total pack years: 5.00 Types: Cigarettes Smokeless tobacco: Never Tobacco comments: 01/2018 - down to 12/01 ppd Vaping Use Vaping Use: Never used Substance Use Topics Alcohol use: Yes Comment: Sometimes Drug use: No REVIEW OF SYSTEMS GENERAL: Negative for Malaise, significant weight loss, fever RESPIRATORY: Negative for cough, wheezing and shortness of breath CARDIOVASCULAR: Negative for chest pain, leg swelling and palpitations GI: Negative for abdominal discomfort, blood in stools or black stools and change in bowel habits : Negative for dysuria, frequency and incontinence MUSCULOSKELETAL: Negative for joint pain or swelling, back pain, and muscle pain. SKIN: Negative for lesions, rash, and itching. HEMATOLOGY/LYMPHOLOGY Negative for prolonged bleeding, bruising easily, and swollen nodes. ENDOCRINE: Negative for cold or heat intolerance, polyuria, polydipsia and goiter. NEURO: negative Physical Exam: Constitutional: Pt is a well developed 63 year old male who is alert, oriented and cooperative Eyes: Following during examination. No redness or drainage. Respiratory: RR normal and nonlabored. Even breathing. No evidence of distress or shortness of breath. Psychology: Patient is engaged during conversation. Normal affect and mood. Does not appear depressed or anxious during encounter. Vascular: Dorsalis pedis and posterior tibial pulses faintly palpable as b/l Capillary Fill time < 5 seconds to digits 1-5 b/l Skin temperature warm to cool proximal to distal b/l Hair growth present to digits Neurological: intact light touch/epicritic sensation b/l intact protective sensation no significant neurological deficits Dermatological: Nails 1-5 b/l appear dystrophic, discolored, painful No open lesions noted Musculoskeletal/Orthopaedic: Patient has pain to palpation of dystrophic toenails Foot type is neutral structurally AJ ROM is full with knee extended and flexed 1st MPJ is full when loaded and no pain or crepitus are noted with ROM. Hammertoes are present MTJ, STJ are full and free of pain and crepitus. +5/5 muscle strength dorsiflexion, plantarflexion, inversion, eversion b/l Radiographs: n/a ASSESSMENT: (B35.1) Onychomycosis (primary encounter diagnosis) (M79.675) Pain in toe of left foot (M79.674) Pain in toe of right foot (M20.41, M20.42) Hammer toes of both feet PLAN: We discussed the possible etiologies of discolored, dystrophic, and thickened nails including fungus, yeast, mold as well as in some instances, prior trauma, or mechanical causes such as repetitive microtrauma in shoe gear. We discussed topical medication for discolored toenails which has very low success but no major side effects. We discussed oral medication. Patient will need hepatic testing prior to use. Patient informed of risks associated with Lamisil. We discussed removal of toenails. Patient would like to proceed with possible oral medication pending nail culture Toenails 1-5 b/l debrided in length and thickness. Small bleed to right 2nd and 3rd nail. Band aide applied. Call if any issues arise Fungal culture performed. Discussed hammertoes. Crest padding dispensed. Recommend wearing wider shoes . Kendrick Scales DPM Podiatry [address] [facility] [address] Dept: [phone] Dept Patient presents with: Left Foot - Established Patient, Nail Check, Nail Fungus Right Foot - Established Patient, Nail Check, Nail Fungus Patient presents for nail care. Patient has some toenails that are thick, discolored and growing backwards. Patient states that he has a hard time trimming his own nails. 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 [facility] 09/26/22 documented in this encounter [facility] 07-15-2024 Note HNO ID: [id number] Author: NENA WEBB RN Service: ? Author Type: Registered Nurse Type: Progress Notes Filed: 07/15/2024 14:40 Note Text: Patient presents with: Left Foot - Established Patient, Nail Check, Nail Fungus Right Foot - Established Patient, Nail Check, Nail Fungus Patient presents for nail care. Patient has some toenails that are thick, discolored and growing backwards. Patient states that he has a hard time trimming his own nails. 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 [facility] 09/26/22 [facility] 09-21-2023 Hospital Discharge instructions Patient Education 09/21/2023 19:19:35 Alcohol Withdrawal Seizure Alcohol Withdrawal Seizure Some seizures are caused by alcohol withdrawal. Alcohol withdrawal usually begins after prolonged or heavy drinking for a number of days, and then you suddenly stop drinking, or cut down on your alcohol use. Seizures can also be directly caused by alcohol, even without withdrawal. Seizures may occur as soon as a few hours after your last drink or 1 to 2 days later. If you have a history of seizures from any cause, you are more likely to have a seizure with alcohol abuse. Standard seizure medicines may not prevent alcohol withdrawal seizures. Delirium tremens or DTs When you have a seizure because of alcohol, you are more likely to develop DTs. DTs are the worst stage of the alcohol withdrawal syndrome. If it happens, it usually begins about 3 to 5 days after your last drink. It is potentially life-threatening. Symptoms of DTs include: Sudden and severe mental or nervous system changes Uncontrollable tremors Severe disorientation, confusion, hallucinations Heart racing, or irregular heartbeat High blood pressure Seizures Coma and Home care The following can help you care for yourself at home: You will need plenty of rest and fluids over the next several days. Eat regular meals. Do not drink any more alcohol. During this time, it is best that you stay with family or friends who can help and support you. You can also admit yourself to an outpatient, inpatient, or residential detox program. Don't drive until all symptoms are gone and you are feeling better. You should also not drive until you have been checked by your doctor. The doctor will need to rule out an actual seizure disorder. If you were given sedative medicine to help your symptoms, don't take it more often than prescribed and never take it with alcohol. Heavy regular drinking combined with poor nutrition can lead to a thiamine deficiency and cause permanent brain damage. It is important that you take daily vitamins. Follow-up care Once you have gone through the withdrawal symptoms, you have fought half of the arce. To avoid the risk of returning to your previous drinking pattern, you should get follow-up support and treatment. These resources can help you: Alcoholics Anonymous offers support through a self-help fellowship www.aa.org [facility] offers support to families of alcohol users 444-670-7344 www.al-anon.org National [place] on Alcoholism and Drug Dependence 987-359-4206 www.ncadd.org Search the Internet or check your phonebook for Drug Abuse & Treatment Centers. Call 911 Call 911 if any of these occur: Another seizure Trouble breathing or slow, irregular breathing Chest pain Sudden weakness on one side of your body or sudden trouble speaking Heavy bleeding or vomiting blood Very drowsy or trouble awakening Fainting or loss of consciousness Rapid heart rate When to seek medical advice Call your healthcare provider right away if any of these occur: Severe shakiness Hallucinations Fever of 100.4 F (38.0 C) or higher Headache, confusion Pain in your upper abdomen that gets worse Repeated vomiting [phone] [employer]. [address] [place] [address]. All rights reserved. This information is not intended as a substitute for professional medical care. Always follow your healthcare professional's instructions. Follow Up Care 09/21/2023 17:32:17 With:JAIRO FERNANDEZ DO Address: [address] [place] [address] [place] [address]- [phone] When:2-4 days [facility] 09-21-2023 Note ORIGINAL EXAMINATION: CT OF THE HEAD WITHOUT CONTRAST 09/21/2023 6:47 pm TECHNIQUE: CT of the head was performed without the administration of intravenous contrast. Automated exposure control, iterative reconstruction, and/or weight based adjustment of the mA/kV was utilized to reduce the radiation dose to as low as reasonably achievable. COMPARISON: None. HISTORY: ORDERING SYSTEM PROVIDED HISTORY: Reason for Exam: seizures FINDINGS: BRAIN/VENTRICLES: There is no acute intracranial hemorrhage, mass effect or midline shift. No abnormal extra-axial fluid collection. There are scattered areas of low attenuation in the periventricular and subcortical white matter, which are nonspecific, possibly due to chronic microangiopathy. The justice-white differentiation is maintained without evidence of an acute infarct. There is no evidence of hydrocephalus. ORBITS: The visualized portion of the orbits demonstrate no acute abnormality. SINUSES: The visualized paranasal sinuses and mastoid air cells demonstrate no acute abnormality. SOFT TISSUES/SKULL: No acute abnormality of the visualized skull or soft tissues. A few prominent arachnoid granulations are noted. IMPRESSION: No acute intracranial abnormality. Interpreted by: David Stringer Preliminary Report By: David Stringer Electronically signed By David Stringer Dictated Date: 09/21/2023 6:59:03 PM Prelim Date: 09/21/2023 7:00:50 PM Sign Date: 09/21/2023 7:00:50 PM Ordering Provider: HANSA HADLEY [facility] 09-21-2023 Note Sinus tachycardia Abnormal R-wave progression, early transition Borderline prolonged QT interval Electronic Signature: SARTHAK ENRIQUE MD 09/21/2023 18:15:11 [facility] 12-12-2022 Miscellaneous Notes Images from the original note were not included. Kendrick Steinberg; [facility] Podiatry Pool 15 hours ago (4:55 PM) I attempted to contact patient but no answer. Left message for patient to contact our office if he has any questions Kendrick Scales DPM Phone call to patient. Patient has stopped wearing compression stockings. States they aren't helping and they hurt. Thinks the stockings are making it worse. Per patient feet are 3 times the size they should be. Advised patient he should contact PCP but he wants to know Dr. Scales's opinion. Yadiel called. He spoke with Dr. Scales's office about a month ago regarding swelling in his lower legs. He was advised to use compression stockings, which he has been using, but the swelling has gotten worse. He would like to speak with someone in the office. He may be reached on his cell phone. Qian Nath RN documented in this encounter [facility] 11-13-2022 Miscellaneous Notes Order faxed to [facility] in [place]. Patient notified and verbalized understanding. Patient called back, [facility] for [facility] stockings. Please call again to confirm or resend script. Thank you. Yadiel# [phone] Patient returned call. This Nurse gave him the message below written by Paulina Morales LPN. Pt verbalized understanding. The patient stated his [facility] of choice was [facility] [place], [place]. Kirstin Lowe RN Call patient to inform him that order for compression stockings was order and is ready for pick up worker or to be faxed to your preferred drug mart. No response. Left VM for patient to call back for above information. Paulina Morales LPN Images from the original note were not included. Kendrick Scales [facility] Podiatry Pool 3 days ago Compression stockings ordered Kendrick Scales DPM Called patient informed patient of results. Patient states he is concerned about the amount of swelling he is having. Informed patient he can try compression stocking or tubagrip to reduce swelling. Patient verbalized understanding. Patient requesting prescription for compression stocking. Paulina Morales LPN Please call patient to inform him that circulation studies indicate normal blood flow Kendrick Scales DPM documented in this encounter [facility] 10-31-2022 Miscellaneous Notes Images from the original note were not included. Kendrick Scales You; [facility] [facility] 43 minutes ago (12:39 PM) I called patient to discuss his swelling. Told him he could use compression stockigns over the counter. If he has further issues, he could possible talk with his pcp about medication for swelling. Discussed getting the circulation study that was ordered. He was advised to schedule this. Directed im to our nurses if he needs help scheduling Kendrick Scales DPM Pt's sister Angeline called in to inquire about her brother Yadiel. She stated that Yadiel had seen Dr. Scales for his toenails. She stated that at that visit Dr. Scales had mentioned the patient had vascular issues and should see a vascular Doctor. She stated his legs are swollen and look like they are gonna bust, I did not see a referral for a Vascular consult in Dr. Scales's OV note. I did see an order for a vascular study, but it looks like it is still pending since 09/26, and no appointment has been set up at this time. Please contact the patient for further recommendations and advice.Kirstin Lowe RN documented in this encounter [facility] 09-26-2022 Instructions Kendrick Scales - 09/26/2022 10:17 AM EDT Recommend neosporin and band aide to right 3rd toe until healed Use gel pad for hammertoe Obtain vascular studies Call if issues arise documented in this encounter [facility] 09-26-2022 History of Present illness Narrative Initial Podiatric Office Visit: Chief Complaint: This 62 year old male who presents with chief complaint:painful toenails HPI Patient presents to clinic for evaluation of b/l feet Complains of thick mycotic toenials that cause him pain. Reports right 3rd nail fell off recently and has dry blood. He smokes about a pack of cigarettes/week PAIN EVALUATION No data found in the last 1 encounters. No results found for: HBA1C PCP: Cristy Álvarez NP PAST MEDICAL HISTORY Diagnosis Date Anxiety 07/30/2016 Depression 07/30/2016 Hypercholesterolemia Hypertension Mental disorder Varicose veins of left lower extremity Current Outpatient Medications Medication Sig TRELEGY ELLIPTA 100-62.5-25 mcg inhalation powder Inhale 1 Puff as instructed once daily. buPROPion XL (WELLBUTRIN XL) 300 mg 24 hr tablet Take 300 mg by mouth once daily. ARIPiprazole (ABILIFY) 5 mg tablet Take 5 mg by mouth every morning. cholecalciferol, Vitamin D3, (VITAMIN D3) 50,000 unit cap capsule Take 1 capsule by mouth once each week. topiramate (TOPAMAX) 50 mg tablet Take 1 tablet by mouth daily at bedtime. atorvastatin (LIPITOR) 40 mg tablet Take 40 mg by mouth once daily. ibuprofen (MOTRIN) 600 mg tablet Take 1 tablet by mouth every 6 hours as needed for Pain. losartan (COZAAR) 25 mg tablet Take 25 mg by mouth once daily. hydrochlorothiazide (HYDRODIURIL, ESIDRIX) 12.5 mg tablet citalopram (CELEXA) 40 mg tablet Take 40 mg by mouth once daily. albuterol HFA (PROVENTIL HFA, VENTOLIN HFA) 90 mcg/actuation inhaler Inhale 2 Puffs as instructed every 4 hours as needed. Jcmlf-6-KUJ-EPA-Fish Oil 1,000 mg (120 mg-180 mg) cap Take 2 g by mouth once daily. (Patient not taking: Reported on 09/26/2022) Multivitamin capsule Take 1 capsule by mouth once daily. (Patient not taking: Reported on 09/26/2022) HYDROcodone-acetaminophen (NORCO) 5-325 mg per tablet Take 1 tablet by mouth every 6 hours as needed. (Patient not taking: No sig reported) ALPRAZolam (XANAX) 0.5 mg tablet Take 1 mg by mouth at bedtime as needed. (Patient not taking: Reported on 09/26/2022) No current facility-administered medications for this visit. ALLERGIES No Known Allergies PAST SURGICAL HISTORY Procedure Laterality Date COLONOSCOPY FLX DX W/COLLJ SPEC WHEN PFRMD 10/01/15 Colonoscopy PAST SURGICAL HISTORY OF heel spur PAST SURGICAL HISTORY OF Left fx shoulder & humerus PAST SURGICAL HISTORY OF Left 2016 Varicose vein surgery left leg FAMILY HISTORY Problem Relation Age of Onset Heart Father Stroke Father Hypertension Father Colon Cancer Sister Cancer Sister breast Social History Tobacco Use Smoking status: Every Day Packs/day: 1.00 Years: 10.00 Pack years: 10.00 Types: Cigarettes Smokeless tobacco: Never Tobacco comments: 01/2018 - down to 12/01 ppd Substance Use Topics Alcohol use: No Drug use: No REVIEW OF SYSTEMS GENERAL: Negative for Malaise, significant weight loss, fever RESPIRATORY: Negative for cough, wheezing and shortness of breath CARDIOVASCULAR: Negative for chest pain, leg swelling and palpitations GI: Negative for abdominal discomfort, blood in stools or black stools and change in bowel habits : Negative for dysuria, frequency and incontinence MUSCULOSKELETAL: Negative for joint pain or swelling, back pain, and muscle pain. SKIN: Negative for lesions, rash, and itching. HEMATOLOGY/LYMPHOLOGY Negative for prolonged bleeding, bruising easily, and swollen nodes. ENDOCRINE: Negative for cold or heat intolerance, polyuria, polydipsia and goiter. NEURO: negative Physical Exam: Constitutional: Pt is a well developed 62 year old male who is alert, oriented and cooperative Eyes: Following during examination. No redness or drainage. Respiratory: RR normal and nonlabored. Even breathing. No evidence of distress or shortness of breath. Psychology: Patient is engaged during conversation. Normal affect and mood. Does not appear depressed or anxious during encounter. Vascular: Dorsalis pedis and posterior tibial pulses nonpalpable as b/l Capillary Fill time < 5 seconds to digits 1-5 b/l Skin temperature warm to cool proximal to distal b/l Hair growth absent to digits Neurological: decreased light touch/epicritic sensation Vibratory sensation absent b/l + protective sensation + significant neurological deficits Dermatological: Nails 1-5 left and 1-2,4-5 right appear thick, discolored, painful. Right 3rd nail is absent with dry blood. Superficial abrasion is noted to right 3rd toe dorsally. No signs of infection. Webspaces clean and dry 1-4 b/l. Skin appears well hydrated and supple. good color, texture, turgor. No open lesions present. No callosities present. Musculoskeletal/Orthopaedic: Patient has pain to palpation of toenails Hammertoes are present b/l. Radiographs: n/a ASSESSMENT: (B35.1) Onychomycosis (primary encounter diagnosis) (M79.675) Pain in toe of left foot (M79.674) Pain in toe of right foot (M20.41, M20.42) Hammer toes of both feet (R09.89) Diminished pulses in lower extremity (S91.209A) Traumatic avulsion of nail plate of toe, initial encounter PLAN: A review of the patient's PMH and Podiatric physical exam was completed. We discussed the possible etiologies of discolored, dystrophic, and thickened nails including fungus, yeast, mold as well as in some instances, prior trauma, or mechanical causes such as repetitive microtrauma in shoe gear. We discussed topical medication for discolored toenails which has very low success but no major side effects. We discussed oral medication. Patient will need hepatic testing prior to use. Patient informed of risks associated with Lamisil. We discussed removal of toenails. Patient would like to proceed with debridement. Discussed loss of right 3rd toenail. Offered debridement but he declined this. Will have him soak the toe in soap and water. Will check pvr to assure ability to heal given faint pulses and history of smoking Will have him use hammertoe pad for right 3rd toe. This will help protect superficial abrasion of right 3rd toe Call if any issues arise. Can f/u in 2 weeks or sooner if problems arise. Kendrick Scales DPM Podiatry [address] [facility] [address] Dept: [phone] Dept AMB ROOMING INTAKE FLOWSHEET DATA Risk Screening Do you have concerns about personal safety or safety in the home?: No Patient presents with: Left Foot - Established Patient, Debridement of Nail Right Foot - Established Patient, Debridement of Nail documented in this encounter [facility] Evaluation + Plan note No data available for this section [facility] Evaluation note Diagnosis Onset Date Chest tightness acute Tachycardia acute Essential (primary) hypertension chronic Hyperlipidemia chronic Non-sustained ventricular tachycardia resolved 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 acute Greater trochanteric bursitis of right hip acute [facility] Work Phone: Evaluation noteNo assessment information available [facility] Work Phone: Evaluation note* Diagnosis Onset Date Resolution Status Diarrhea acute [facility] Work Phone: Evaluation note* Diagnosis Onset Date Resolution Status Diarrhea chronic Diarrhea chronic [facility] Work Phone: Evaluation note* Diagnosis Onychomycosis- Primary Dermatophytosis of nail Pain in toe of left foot Pain in limb Pain in toe of right foot Pain in limb Hammer toes of both feet Diminished pulses in lower extremity Other symptoms involving cardiovascular system Traumatic avulsion of nail plate of toe, initial encounter [facility] Diagnosis Venous insufficiency- Primary Unspecified venous (peripheral) insufficiency [facility] Diagnosis Onset Date Resolution Status Tachycardia chronic [facility] Work Phone: Evaluation note* Diagnosis Onset Date Resolution Status Hypokalemia acute New onset seizure acute Essential (primary) hypertension chronic [facility] Work Phone: Evaluation note* Diagnosis Onset Date Resolution Status Hypokalemia resolved Leg edema, right acute Hyperlipidemia chronic Tachycardia [facility] Work Phone: Evaluation note* Diagnosis Onset Date Resolution Status Leg edema, right acute Hyperlipidemia chronic Tachycardia [facility] Work Phone: Evaluation note* Diagnosis Onychomycosis- Primary Dermatophytosis of nail Pain in toe of left foot Pain in limb Pain in toe of right foot Pain in limb Hammer toes of both feet [facility] Onychomycosis- Primary Dermatophytosis of nail Pain in toe of left foot Pain in limb Pain in toe of right foot Pain in limb [facility] Diagnosis Onychomycosis- Primary Dermatophytosis of nail Pain in toe of left foot Pain in limb Pain in toe of right foot Pain in limb [facility] Diagnosis Onset Date Resolution Status Admit Date Hyperlipidemia chronic April 17, 2025 12:56pm Tachycardia chronic April 17 12:56pm Non-sustained ventricular tachycardia resolved April 17, 2025 1 2:56pm [facility] Work Phone: Progress note No data available for this section [facility] Reason for referral (narrative)* Outpatient Procedure (Routine) - Pending Review Specialty Diagnoses / Procedures Referred By Contac t Referred To [facility] Diagnoses Diminished pulses in lower extremity Traumatic avulsion of nail plate of toe, initial encounter Procedures PVR ANK PRESS [facility] NON-INVAS PHYSIOLOGIC STD EXTREMITY ART 2 LEVEL Kendrick Scales [address] [place] [address] [facility] [address] [place] [id number] Referral ID Status Reason Start Date Expiration Date Visits Requested Visits Authorized [id number] Pending Review Auto-Generat ed Referral 2 09/26/2023 1 [facility]No reason for referral information [facility]WPrem[facility] Work Phone: Chief Complaint and Reason for Visit Chief Complaint 4 m fu HIP PAIN RIGHT HIP OTHER SPECIFIED DISEASES OF LIVER Reason for Visit Chest tightness Tachycardia Essential (primary) hypertension Hyperlipidemia Non-sustained ventricular tachycardia 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 Greater trochanteric bursitis of right hip Chief Complaint OTHER SPECIFIED DISE ASES OF LIVER Consult EORDERS Chief Complaint Consult EORDERS Reason for Visit Diarrhea Chief Complaint Consult EORDERS 2 WK FU Reason for Visit Diarrhea Diarrhea Chief Complaint 2 WK FU CAP ENDO ABN SMALL BOWEL MOVEMENT, DIARRHEA 1 Y FU Reason for Visit Tachycardia Chief Complaint 2 WK FU CAP ENDO ABN SMALL BOWEL MOVEMENT, DIARRHEA 1 Y FU TACHYCARDIA Amb Documentation Reason for Visit Tachycardia Chief Complaint NEW ONSET SEIZURE Reason for Visit Hypokalemia New onset seizure Essential (primary) hypertension Chief Complaint NEW ONSET SEIZURE NEW ONSET SEIZURE NEW ONSET SEIZURE CHEST PAIN 6 M FU EDEMA Reason for Visit Hypokalemia Leg edema, right Hyperlipidemia Tachycardia Chief Complaint 6 M FU EDEMA TACHYCARDIA, PALPITATIONS BMP Reason for Visit Leg edema, right Hyperlipidemia Tachycardia Chief Complaint Admit Date CHRONIC WEAKNESS,HX OF FALLS/RX HERE Oct 9:00am CHRONIC WEAKNESS,HX OF FALLS/RX HERE Oct 9:00am NICOTINE DEPENDENCE, AAA February 15 7:02am Chief Complaint Admit Date NICOTINE DEPENDENCE, AAA February 15 7:02am AAA SCREENING February 15, 2025 8:0 2am 6 M FU April 17, 2025 12:56 pm Reason for Visit Admit Date Hyperlipidemia April 17, 2025 12:56 pm Tachycardia April 17, 2025 12:56 pm Non-sustained ventricular tachycardia Ma 2024 12:56pm Family History No Family History Records Found Relationship Condition Age at Onset Recorded Date/T mabel father Cerebrovascular accident (CVA) Unknown Myocardial infarction Unknown Cardiac disease Unknown sister Malignant neoplasm of breast Unknown mother Cardiac disease Unknown sister Malignant neoplasm of colon Unknown Advance Directives No Advanced Directives Records Found Advance Directive Response Recorded Date/ Time Living Will No January 10 3:33pm Power of Gun Examiner No January 10, 2022 3:33pm Advance Directive Response Recorded Date/ Time Living Will No September 01 8:46am Power of Gun Examiner No September 01 8:46am Advance Directive Response Recorded Date/ Time Living Will No September 01 7:46am Power of Gun Examiner No September 01 7:46am Advance Directive Response Recorded Date/ Time Living Will No August 18, 2023 11:00am Power of Gun Examiner No July 11:00am Advance Directive Response Recorded Date/ Time Name of Medical Power of Gun Examiner Angeline Cortes n September 07, 2023 2:43pm Living Will Yes September 07 3 2:43pm Power of Gun Examiner Yes September 07, 2 023 2:43pm Name of Medical Power of Gun Examiner nAgeline Cortes on August 18, 2023 4:39pm Advance Directive Response Recorded Date/ Time Living Will Yes September 07 3 2:43pm Power of Gun Examiner Yes September 07, 2 023 2:43pm Advance Directive Response Recorded Date/ Time Living Will No May 06, 2024 9 :26pm Do you have a Healthcare Power of Gun Examiner? No May 06, 2024 9:26pm Summary Purpose Additional Source Comments Goals (unrecognized section and content) Goals may be documented in a n alternate sectionGoals may be documented in an alternate sectionGoals may be documented in an alternate sectionGoals may be documented in an alternate sectionGoals may be documented in an alternate sectionGoals may be documented in an alternate section No data available for this sectionGoals may be documented in an alternate sectionGoals may be documented in an alternate sectionGoals may be documented in an alternate sectionGoals may be documented in an alternate section Source Comments (unrecognize d section and content) In the event this informatio n is protected by the Federal Confidentiality of Alcohol and Drug Abuse Patient Records regulations: The Federal rules restrict any use of the information to criminally investigate or prosecute any alcohol or drug abuse patient.[facility] the event this information is protected by the Federal Confidentiality of Alcohol and Drug Abuse Patient Records regulations: The Federal rules restrict any use of the information to criminally investigate or prosecute any alcohol or drug abuse patient.[facility] the event this information is protected by the Federal Confidentiality of Alcohol and Drug Abuse Patient Records regulations: The Federal rules restrict any use of the information to criminally investigate or prosecute any alcohol or drug abuse patient.[facility] Rehabilitation[facility] the event this information is protected by the Federal Confidentiality of Alcohol and Drug Abuse Patient Records regulations: The Federal rules restrict any use of the information to criminally investigate or prosecute any alcohol or drug abuse patient.[facility] Rehabilitation[facility] the event this information is protected by the Federal Confidentiality of Alcohol and Drug Abuse Patient Records regulations: The Federal rules restrict any use of the information to criminally investigate or prosecute any alcohol or drug abuse patient.[facility] Rehabilitation[facility] the event this information is protected by the Federal Confidentiality of Alcohol and Drug Abuse Patient Records regulations: The Federal rules restrict any use of the information to criminally investigate or prosecute any alcohol or drug abuse patient.[facility] Rehabilitation[facility] the event this information is protected by the Federal Confidentiality of Alcohol and Drug Abuse Patient Records regulations: The Federal rules restrict any use of the information to criminally investigate or prosecute any alcohol or drug abuse patient.[facility] Rehabilitation[facility] the event this information is protected by the Federal Confidentiality of Alcohol and Drug Abuse Patient Records regulations: The Federal rules restrict any use of the information to criminally investigate or prosecute any alcohol or drug abuse patient.[facility] Reason for Visit (unrecogniz ed section and content) Reason Comments Established Patient Debridement of Nail Reason Comments Patient Question Reason Comments Results Reason Comments Patient Update Reason Comments Established Patient Nail Check Nail Fungus Reason Comments Established Patient Follow Up Nail Fungus nail care Callous Care Teams (unrecognized sec tion and content) Zoology Technical Officer Relationship Specialty Start Date End Date Cristy Álvarez (Director Of Clinical Applications) [address], [place] [address] PCP - General Family Medicine 03/26/17 Zoology Technical Officer Relationship Specialty Start Date End Date Cristy Álvarez (Director Of Clinical Applications) [address], [place] [id number] PCP - General Family Medicine 03/26/17 Zoology Technical Officer Relationship Specialty Start Date End Date Cristy Álvarez (Director Of Clinical Applications) [address] [place] [address] PCP - General Family Medicine 03/26/17 Zoology Technical Officer Relationship Specialty Start Date End Date Cristy Álvarez (Director Of Clinical Applications) [address] [place] [address] PCP - General Family Medicine 03/26/17 Team Status: Active Member Role Status Dates [facility] Family Provider Active [facility] Primary Care Provider A ctive Team Status: Inactive Member Role Status Dates [facility] Primary Care Provider, Referring Provider Active Dr. Thomas Berumen DO Attending Provider Active Team Status: Active Member Role Status Dates [facility] Primary Care Provider A ctive Dr. Thomas Berumen DO Attending Provider Active Team Status: Inactive Member Role Status Dates [facility] Primary Care Provider, Referring Provider Active Dr. Nitin Choi MD Attending Provider Active Team Status: Inactive Member Role Status Dates [facility] Primary Care Provider A ctive Gina Peres DBA MANAGER, DBA MANAGER-C Attending Provider Active Dr. Thomas Berumen DO Referring Provider Active Team Status: Inactive Member Role Status Dates [facility] Primary Care Provider A ctive Dr. Thomas Berumen DO Attending Provider, Referring Provider Active Zoology Technical Officer Relationship Specialty Start Date End Date Cristy Álvarez (Director Of Clinical Applications) [address] [place] [address] PCP - General Family Medicine 03/26/17 Team Status: Active Member Role Status Dates [facility] Primary Care Provider A ctive Dr. Nitin Choi MD Attending Provider Active Team Status: Active Member Role Status Dates [facility] Primary Care Provider A ctive Terrence Willett DBA MANAGER, DBA MANAGER-C Attending Provider Active Team Status: Inactive Member Role Status Dates [facility] Primary Care Provider A ctive Dr. Nitin Choi MD Attending Provider Active Team Status: Active Member Role Status Dates [facility] Primary Care Provider A ctive Dr. Aram Castillo , DO Emergency Provider Active Dr. Linda Villavicencio MD Admit Provider, Attending Prov ider Active Team Status: Inactive Member Role Status Dates [facility] Primary Care Provider, Referring Provider Active Ml Sal DBA MANAGER, DBA MANAGER-C Attending Provider Active Team Status: Active Member Role Status Dates [facility] Primary Care Provider A ctive Dr. Aram Castillo , DO Emergency Provider Active Dr. Linda Villavicencio MD Admit Provider, Other Provider Active Dr. Aj Rao , DO Attending Provider, Other Pro vider Active Team Status: Active Member Role Status Dates [facility] Primary Care Provider A ctive Dr. Aram Castillo , DO Emergency Provider Active Dr. Linda Villavicencio MD Admit Provider, Other Provider Active Dr. Tirso Jiang MD Attending Provider, Other Provi jose roberto Active Dr. Aj Rao , DO Other Provider Active Team Status: Active Member Role Status Dates [facility] Primary Care Provider A ctive Dr. Aram Garcia MD Attending Provider Active Team Status: Inactive Member Role Status Dates [facility] Primary Care Provider A ctive Dr. Mikey Hess , DO Attending Provider, Emergency P rovider Active Team Status: Active Member Role Status [facility] Primary Care Provider A ctive Gina Peres DBA MANAGER, DBA MANAGER-C Attending Provider, Referrin g Provider Active Team Status: Inactive Member Role Status [facility] Primary Care Provider A ctive Dr. Aram Castillo , DO Emergency Provider Active Dr. Linda Villavicencio MD Admit Provider, Other Provider Active Dr. Tirso Jiang MD Attending Provider Active Dr. Aj Rao , Other Provider Active Team Status: Inactive Member Role Status Dates [facility] Primary Care Provider A ctive Ml Sal DBA MANAGER, DBA MANAGER-C Attending Provider, Referring P rovider Active Team Status: Inactive Member Role Status Dates [facility] Primary Care Provider A ctive Gina Peres DBA MANAGER, DBA MANAGER-C Attending Provider, Referrin g Provider Active Team Status: Active Member Role Status Dates [facility] Primary Care Provider A ctive Dr. Aram Garcia MD Attending Provider Active Ml Sal DBA MANAGER, DBA MANAGER-C Referring Provider Active Team Status: Inactive Member Role Status Dates [facility] Primary Care Provider A ctive Dr. Dominick Olson MD Attending Provider Active Team Status: Active Member Role Status Dates Ml Sal DBA MANAGER, DBA MANAGER-C Attending Provider, Referring P lary Active [facility] Primary Care Provider A ctive Zoology Technical Officer Relationship Specialty Start Date End Date Cristy Álvarez (Director Of Clinical Applications), WINDLACE MACHINE OPERATOR [address] [place] [address] PCP - General Family Medicine 03/26/17 Zoology Technical Officer Relationship Specialty Start Date End Date ManpreetCristy owen, WINDLACE MACHINE OPERATOR [address], [place] [id number] PCP - General Family Medicine 03/26/17 Zoology Technical Officer Relationship Specialty Start Date End Date ManpreetCristy owen, WINDLACE MACHINE OPERATOR [address], [place] [id number] PCP - General Family Medicine 03/26/17 Team Status: Active Member Role Status Dates Dr. Chris Wyman MD Primary Care Provider Active Team Status: Inactive Member Role Status Dates Gina HILL, DBA MANAGER-C Primary Care Provider Activ e Start: November 15, 2024 End: November 15, 2024 Gina HILL, DBA MANAGER-C Attending Provider Active Start: November 15, 2024 End: November 15, 2024 Gina HILL, DBA MANAGER-C Referring Provider Active Start: November 15, 2024 End: November 15, 2024 Team Status: Inactive Member Role Status Dates Gina HILL, DBA MANAGER-C Primary Care Provider Activ e Start: November 29, 2024 End: November 29, 2024 Gina HILL, DBA MANAGER-C Attending Provider Active Start: November 29, 2024 End: November 29, 2024 Gina HILL, DBA MANAGER-C Referring Provider Active Start: November 29, 2024 End: November 29, 2024 Team Status: Inactive Member Role Status Dates Gina HILL, DBA MANAGER-C Primary Care Provider Activ e Start: December 22, 2024 End: December 22, 2024 Dr. Chris Wyman MD Attending Provider Active Start: December 22, 2024 End: December 22, 2024 Team Status: Inactive Member Role Status Dates Dr. Chris Wyman MD Primary Care Provider Active Start: February 15, 2025 End: February 15, 2025 Dr. Chris Wyman MD Attending Provider Active Start: February 15, 2025 End: February 15, 2025 Dr. Chris Wyman MD Referring Provider Active Start: February 15, 2025 End: February 15, 2025 Team Status: Active Member Role Status Dates Dr. Kyree Kaiser MD Attending Provider Active Start: February 15, 2025 Dr. Chris Wyman MD Referring Provider Active Start: February 15, 2025 Team Status: Inactive Member Role Status Dates Gina Peres VSLino, DBA MANAGER-C Referring Provider Active Start: April 17, 2025 End: April 17, 2025 Terrence Willett DBA MANAGER, DBA MANAGER-C Attending Provider Active S tart: April 17, 2025 End: April 17, 2025 Dr. Chris Wyman MD Primary Care Provider Active Start: April 17, 2025 End: April 17, 2025 (unrecognized sect ion and content) No Status Records FoundNo Status Records FoundNo Status Records Found INFORMATION SOURCE (unrecogn ized section and content) DATE CREATED AUTHOR 09/25/2023 [facility] ([place]) DATE CREATED AUTHOR AUTHOR'S ORGANIZ ATION 01/28/2025 [facility] DATE CREATED AUTHOR AUTHOR'S ORGANIZ ATION 04/18/2025 [facility] FOR RECORDS PERTAINING TO PATIENTS WHO ARE OR HAVE BEEN ENROLLED IN A CHEMICAL DEPENDENCY/SUBSTANCEABUSE PROGRAM, SOME INFORMATION MAY BE OMITTED. This clinical summary was aggregated from multiple sources. Caution should be exercised in using it in the provision of clinical care. This summary normalizes information from multiple sources, and as a consequence, information in this document may materially change the coding, format and clinical context of patient data. In addition, data may be omitted in some cases. CLINICAL DECISIONS SHOULD BE BASED ON THE PRIMARY CLINICAL RECORDS. [employer] [facility]. provides no warranty or guarantee of the accuracy or completeness of information in this document.
--- NOTE | 2025-05-27 21:14 | EDS_ITS ---
HPI History of Present Illness Chief Complaint: Lower Extremity Injury Detail of Chief Complaint: Injury to left ankle Informant: patient Onset/Context/Timing Onset: Days (Plantar inversion mechanism injury 3 days ago) Mechanism/Context: Blunt Injury Location of pain/injuries: Left ankle Quality of Pain: Dull and Aching Location: Left ankle Current Severity: Mild Maximum Severity: Moderate Worsened by: Weightbearing and palpation and movement Relieved by: Nothing Associated Symptoms Associated Symptoms: Negative for Parasthesias, Weakness, Loss of function, Inability to ambulate (Difficulty ambulating) or Loss of consciousness Narrative Narrative: Patient is a 64-year-old male. He had a twisting mechanism injury to his left ankle. He presents because of increased pain and swelling. He denies paresthesia, anesthesia Medicus. He does not have symptoms of claudication. He denies direct trauma. 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 Greater trochanter fracture Iron deficiency anemia Subcutaneous nodules Essential (primary) hypertension Hyperlipidemia Anxiety and depression Nicotine dependence Gynecomastia Hepatomegaly Non-sustained ventricular tachycardia Home Medications ?Medication ?Instructions ?Recorded ?Last Taken ?Type loratadine 10 mg tablet 10 mg PO DAILY allergies 12/1707/31/18 History acetaminophen 500 mg capsule 500 - 1,000 mg (1 - 2 x 5 00 mg) PO 12/12/20 Unknown Rx .Q8hr PRN pain (scale score 4-6) #100 caps bupropion HCl 300 mg 24 hr tablet, 300 mg PO DAILY [email or web address] 12/18/22 Unknown History extended release blood pressure monitor #1 ea 10/02/23 Unknown Rx topiramate 50 mg tablet 50 mg PO DAILY 04/05/24 Unkn own History hydrocodone-acetaminophen 5-325mg 1 tab PO Q6H PRN PRN Pain 3 days 05/06/24 Unknown Rx 5mg-325mg #10 TABLETS sertraline 50 mg tablet (Zoloft) 50 mg PO QDAY 4 Unknown History cholestyramine (with sugar) 4 gram 4 g PO BID PRN 03/30 08/24 Unknown History oral powder metoprolol succinate 25 mg 25 mg PO QDAY #30 tabs 03/30 08/24 Unknown Rx tablet,extended release 24 hr mirtazapine 7.5 mg tablet 7.5 mg PO QHS 04/17/25 Unkno wn History hydrocodone-acetaminophen 5-325mg 1 tab PO Q6H PRN PRN Pain 3 days 05/27/25 Unknown Rx 5mg-325mg #10 TABLETS Allergy/AdvReac Type Severity Reaction Status Date / Time No Known Allergies Allergy Verified 05/27/25 20:43 Family History Father CVA (cerebral vascular accident) Myocardial infarction HAS ICD Heart disease Sister Breast cancer Mother Heart disease Sister Colon cancer Surgical History History of colonoscopy (01/2020) History of ankle surgery H/O shoulder surgery History of vascular surgery Social History household members: none Smoking Status: Current every day smoker tobacco type: cigarettes Tobacco: How many years used: 40 alcohol intake: current alcohol intake frequency: 3 or more drinks per day Alcohol type: hard liquor details: 8-16 ounces vodka daily. substance use type: does not use caffeine: Yes Type: carbonated beverages ROS ROS ED Integumentary Reports other Details: There is no abrasion or laceration noted. There is soft tissue swelling and bruising Neurologic Neurologic: Denies paresthesias or weakness Hematologic/Lymphatic Hematologic/Lymphatic: Denies easy bleeding or easy bruising EXAM Physical Exam Const Vital Signs: 05/27/25 20:43 Temperature 98.2 F Temperature Source Oral Pulse Rate 85 Respiratory Rate 18 Blood Pressure 148/99 H Blood Pressure Mean 115 Pulse Ox 98 Oxygen Delivery Method Room Air Positive well nourished and well developed General Appearance ED: well developed and NAD HEENT HEENT Narrative: Head is atraumatic and normocephalic. Ears normal. Eyes PERRL and EOMs intact bilaterally Resp normal respiratory effort Cardio regular rhythm Rate: regular rate Extremity Negative for normal to inspection Extremity Narrative: There is significant swelling of the left ankle. There is pain outpatient over the lateral and medial malleolus. There is pain ovation over the anterior talofibular, calcaneofibular ligament and deltoid ligament. Patient has pain with drawer testing. There is no obvious laxity. Patient has stigmata of PAD with absence of hair on his toes and thickening of his nails. Do not appreciate a DP or PT pulse probably due to the swelling. Capillary fill of his toes is normal. Neuro oriented x3, CN's II-XII intact bilaterally and moves all extremities Psych mental status grossly normal and thought process normal Skin no rashes or lesions noted, no wounds, skin turgor normal and no jaundice MDM MDM MDM Narrative Medical decision making narrative: Imaging of the left ankle was obtained based on the [place] ankle rule. Patient received 1 hydrocodone and acetaminophen tablets since he has a ride home. Radiography Chest X-Ray - ED: Read by ED Physician (Three-view x-ray of the ankle was obtained. Per my interpretation there is no evidence of fracture, subluxation dislocation. There is soft tissue swelling.) Diagnostic Testing: Clinical Impression(s) from Imaging Studies Ankle X-Ray 05/27/25 21:00 IMPRESSION: SOFT TISSUE SWELLING. NO FRACTURE IDENTIFIED. Reading Location: [facility] Treatment and Re-Evaluation Narrative: Patient's pain improved. He was informed of his x-ray results. Plan is to discharge to home Discharge Plan Triage Chief Complaint: Lower Extremity Injury ED Provider: Luis Carlos Yoon Dx/Rx/DC Orders Clinical Impression: Sprain of anterior talofibular ligament of left ankle, Leg edema, right, Hyperlipidemia, Sprain of deltoid ligament of left ankle, Difficulty in walking, Elevated blood-pressure reading without diagnosis of hypertension Instructions: ED Hypertension, To Be Confirmed, ED Ankle Sprain (Adult) Prescriptions: New hydrocodone-acetaminophen 5-325 mg tablet 1 tab PO Q6H PRN PRN (Reason: Pain) 3 Days Qty: 10 0RF No Action acetaminophen 500 mg capsule 500 - 1,000 mg PO .Q8hr PRN (Reason: pain (scale score 4-6)) Qty: 100 1RF bupropion HCl 300 mg tablet extended release 24 hr 300 mg PO DAILY (DME) blood pressure monitor Kit See Rx Instructions .Route Qty: 1 0RF Rx Instructions: As directed topiramate 50 mg tablet 50 mg PO DAILY sertraline [Zoloft] 50 mg tablet 50 mg PO QDAY cholestyramine (with sugar) 4 gram powder 4 g PO BID PRN Rx Instructions: administer w/meal; avoid other meds within 1hr before or 4-6hr after dose mirtazapine 7.5 mg tablet 7.5 mg PO QHS metoprolol succinate 25 mg tablet extended release 24 hr 25 mg PO QDAY Qty: 30 11RF loratadine 10 MG tablet 10 mg PO DAILY hydrocodone-acetaminophen 5-325 mg tablet 1 tab PO Q6H PRN PRN (Reason: Pain) 3 Days Qty: 10 0RF Primary Care Provider: Chris Wyman Chi Referrals: Chris Wyman Chi, MD [Primary Care Provider] - Activity Restrictions/Additional Instructions: 1. Apply ice to your ankle 6-8 times a day. 2. Draw the alphabet with your foot 4 times a day Print Language: Kosovan Disposition Disposition: Home, Self Care
[2025-05-27] MEDS: HYDROcodone Bitartrate/Apap 5/325 Tablet PO (21:19)
[2025-05-27 22:19] VITALS: BP 148/99; PULSE 85; RESP 18; TEMP 36.8; O2SAT 98
== END 2025-05-27 22:24 | disposition home or self-care (01) ==
PROVIDERS: Emergency Provider Emergency Medicine; PCP Family Medicine Geriatric Medicine; Referring Provider Emergency Medicine; Visit Provider Emergency Medicine
DX: S93.422A Sprain of deltoid ligament of left ankle, initial encounter (principal); J44.9 Chronic obstructive pulmonary disease, unspecified; R60.0 Localized edema; R03.0 Elevated blood-pressure reading, without diagnosis of hypertension; S93.492A Sprain of other ligament of left ankle, initial encounter; F17.210 Nicotine dependence, cigarettes, uncomplicated; E78.5 Hyperlipidemia, unspecified; X50.1XXA Overexertion from prolonged static or awkward postures, initial encounter
CPT/HCPCS: 73610; 99284

== ENCOUNTER → 2025-06-21 | Outpatient (CLI) | payer MEDICARE, MEDICAID, SELFPAY ==
[2025-06-21 14:48] LABS: Hematocrit 41.5 % (40-54); Hemoglobin 14.3 g/dL (13.0-16.5); Immature Granulocytes Count 0.020 X10^3/uL (0.0-0.0); Mean Corp Hgb Conc 34.5 g/dL (32-36); Mean Corpuscular Volume 95.6 fL (80-94); Mean Platelet Vol. 9.1 fl (6.2-12.0); NRBC Flagged by Analyzer 0 % (0-5); Platelet Count 308 K/mm3 (150-450); RBC Distribution Width CV 13.2 % (11.6-14.6); RBC Distribution Width SD 46.5 fl (35.1-43.9); Red Blood Count 4.34 M/mm3 (4.6-6.2); White Blood Count 6.9 K/mm3 (4.4-11.0)
[2025-06-21 15:43] LABS: Vitamin D,25 Hydroxy 48.8 ng/mL (30-100)
[2025-06-21 15:56] LABS: Cholesterol 242 mg/dL (<=200); Low Density Lipoprotein Calc. -114 mg/dL; Triglycerides 1594 mg/dL; Very Low Density Lipoprotein 319 mg/dL (5-40); cholesterol:hdl ratio screen 6.47
[2025-06-21 16:29] LABS: AST(SGOT) 24 U/L (<=37); Alanine Aminotransfer ALT/SGPT 13 U/L (<=46); Albumin, Serum 3.7 g/dL (3.4-4.8); Alkaline Phosphatase 136 U/L (40-129); Anion Gap 18 (5-15); BUN 15 mg/dL (4-19); BUN/Creat Ratio 14.7 RATIO (10-20); Calcium,Total 8.7 mg/dL (7.6-11.0); Carbon Dioxide 17.4 mmol/L (21.0-32.0); Chloride 105 mmol/L (98-108); Globulin 2.8 g/dL (2.2-4.2); Glucose 88 mg/dL (70-99); Potassium 3.6 mmol/L (3.3-5.1)
[2025-06-21 22:13] LABS: Xtra Tube Kwok EXTRA TUBE
[2025-06-21 22:16] LABS: Xtra Tube Kwok EXTRA TUBE
== END | disposition home or self-care (01) ==
LOC: POLAB3 14:13
PROVIDERS: PCP Family Medicine Geriatric Medicine; Visit Provider Family Medicine Geriatric Medicine
DX: I10 Essential (primary) hypertension (principal); E78.5 Hyperlipidemia, unspecified; E55.9 Vitamin D deficiency, unspecified
CPT/HCPCS: 36415; 80053; 80061; 82306; 84443; 85025

== ENCOUNTER → 2025-07-26 | Outpatient (CLI) | payer MEDICARE, MEDICAID, SELFPAY ==
--- NOTE | 2025-07-26 11:40 | RAD_ITS ---
PROCEDURE: HIP, UNI W/ PELVIS 2-3 VIEWS 07/26/2025 REASON FOR EXAM: RIGHT HIP PAIN TECHNIQUE: HIP, UNI W/ PELVIS 2-3 VIEWS Laterality: FINDINGS: No evidence of acute fracture or dislocation. The hip joint spaces are maintained. RAD/HIP, UNI W/ Pelvis 2-3 Views IMPRESSION: No acute osseous abnormality. Reading Location: [id number]
== END | disposition home or self-care (01) ==
LOC: RAD 11:36
PROVIDERS: PCP Family Medicine Geriatric Medicine; Referring Provider Family Medicine Geriatric Medicine; Visit Provider Family Medicine Geriatric Medicine
DX: M25.551 Pain in right hip (principal)
CPT/HCPCS: 73502

== ENCOUNTER → 2025-08-04 | Outpatient (CLI) | payer MEDICARE, MEDICAID, SELFPAY ==
--- NOTE | 2025-08-04 18:40 | CT_ITS ---
PROCEDURE: PELVIS WITHOUT IV CONTRAST 08/04/2025 REASON FOR EXAM: PAIN. Fell July 13. Continued pain. TECHNIQUE: Procedure Code: CTPEL Modality: CT Procedure: PELVIS WITHOUT IV CONTRAST RADIATION DOSE SUMMARY: CTDlvol: 28.92 mGy DLP: 989 mGycm FINDINGS: BONES: No acute fracture or focal osseous lesion. Old fracture of the right femoral greater trochanter. JOINTS: No dislocation. Mild hip joint space narrowing bilaterally. SOFT TISSUES: Mild subcutaneous stranding in the lateral hips bilaterally, greater on the left. Small fat-containing indirect right inguinal hernia. CT/Pelvis without IV Contrast IMPRESSION: No acute fracture seen. Reading Location: [id number]
== END | disposition home or self-care (01) ==
LOC: CT 18:38
PROVIDERS: PCP Family Medicine Geriatric Medicine; Referring Provider Family Medicine Geriatric Medicine; Visit Provider Family Medicine Geriatric Medicine
DX: M25.551 Pain in right hip (principal); M16.11 Unilateral primary osteoarthritis, right hip
CPT/HCPCS: 72192

== ENCOUNTER → 2025-11-06 | Outpatient (CLI) | payer MEDICARE, MEDICAID, SELFPAY ==
[2025-11-06 12:21] LABS: Anion Gap 14 (5-15); BUN 15 mg/dL (4-19); BUN/Creat Ratio 13.6 RATIO (10-20); Calcium,Total 8.7 mg/dL (7.6-11.0); Carbon Dioxide 22.0 mmol/L (21.0-32.0); Chloride 105 mmol/L (98-108); Glucose 130 mg/dL (70-99); Potassium 4.1 mmol/L (3.3-5.1)
== END | disposition home or self-care (01) ==
LOC: LAB 11:21
PROVIDERS: PCP Family Medicine Geriatric Medicine; Referring Provider Nurse Practitioner Family; Visit Provider Nurse Practitioner Family
DX: I10 Essential (primary) hypertension (principal); I47.20 Ventricular tachycardia, unspecified; E78.00 Pure hypercholesterolemia, unspecified
CPT/HCPCS: 36415; 80048